=== PATIENT | male | born 1980 | race Caucasian/White ===

== ENCOUNTER 2019-01-22 01:56 | Inpatient (IN) ==
[2019-01-22] MEDS ORDERED: VANCOMYCIN CONSULT ACTIVE PRN ×2 (02:16→04:58)
[2019-01-22] MEDS ORDERED: ACETAMINOPHEN 1,000 MG/100 ML VIAL IV ONE (02:16)
[2019-01-22] MEDS ORDERED: VANCOMYCIN HCL 1,500 MG in SODIUM CHLORIDE 0.9% 500 ML IV ONE (02:18)
[2019-01-22] MEDS ORDERED: SODIUM CHLORIDE 0.9% 1000ML 2,000 ML IV SCH (02:30)
[2019-01-22] MEDS ORDERED: AZTREONAM 2,000 MG in DEXTROSE 5% 100 ML IV STA (02:52)
[2019-01-22 02:58] LABS: Hematocrit (blood only) 40.4 % (42-52); Hemoglobin 14.6 g/dL (14.0-18.0); Mean Corpuscular Hgb Conc 36.1 g/dL (32-36); Mean Corpuscular Volume 89.2 fL (80-100); Mean Platelet Volume 11.6 fL (7.4-10.4); Platelet Count 113 K/uL (130-400); RDW Coefficient of Variation 12.1 % (11.5-14.5); RDW Standard Deviation 39.1 fL (36.4-46.3); Red Blood Count 4.53 M/uL (4.7-6.1); White Blood Count 17.75 K/uL (4.8-10.8)
[2019-01-22 03:17] LABS: Alanine Aminotransferase 29 U/L (12-78); Albumin Level 2.6 gm/dl (3.4-5.0); Aspartate Aminotransferase 14 U/L (15-37); BUN Creatinine Ratio 22.2 (10-20); Blood Urea Nitrogen 21 mg/dl (7-18); Calcium 8.1 mg/dl (8.5-10.1); Carbon Dioxide 26 mmol/L (21-32); Chloride 98 mmol/L (98-107); Creatinine Clr Calc Pharmacy 92.6 ml/min; Est GFR (African American) 117.2; Est GFR (Non-African American) 101.1; Glucose 169 mg/dl (70-99); Potassium 3.7 mmol/L (3.5-5.1); Sodium 131 mmol/L (136-145)
[2019-01-22 03:22] LABS: Albumin Globulin Ratio 0.5 (0.9-2); Alkaline Phosphatase 149 U/L (45-117); Bilirubin,Total 0.6 mg/dl (0.2-1); Globulin 4.8 gm/dl (2.5-4.0); Total Protein 7.4 gm/dl (6.4-8.2); Troponin I < 0.015 ng/ml (0-0.045)
[2019-01-22 03:31] LABS: Basophils # (auto) 0.01 K/uL (0-0.2); Basophils % (auto) 0.1 %; Dohle Bodies 1+; Echinocytes 2+; Eosinophils # (auto) 0.03 K/uL (0-0.5); Eosinophils % (auto) 0.2 %; Giant Platelets 1+; Immature Granulocytes # (auto) 0.11 K/uL (0.00-0.02); Immature Granulocytes % (auto) 0.6 %; Lymphocytes # (auto) 0.65 K/uL (1.2-3.4); Lymphocytes % (auto) 3.7 %; Monocytes # (auto) 0.82 K/uL (0.11-0.59); Monocytes % (auto) 4.6 %; Neutrophils # (auto) 16.13 K/uL (1.4-6.5); Neutrophils % (auto) 90.8 %; Spherocytes 1+; Tear Drop Cells 1+; Toxic Granulation 1+; Toxic Vacuolation 2+
--- NOTE | 2019-01-22 04:03 | Emergency Department Note ---
Entered by Mary Elizabeth acting as a scribe for Anita Osorio MD History of Present Illness General Chief complaint: Fever Stated complaint: FEVER,SHARP PAIN RIGHT SIDE OF CHEST Source: patient History of Present Illness Onset (ago): week(s) 1 Location: head (Fever) Pain Consistency: + other (Persistent) Maximum Pain Intensity: 10 Quality: + sharp Relieved By: not by medication (Antipyretics) Associated symptoms: + chest pain, + fever/chills and + loss of appetite; no nausea/vomiting The patient is a 38 year old male presenting to the Emergency Department complaining of a persistent fever starting 1 week ago. The patient reports that he has a fever. He states that he has taken antipyretics for his fever that temporarily reduce it but that it always returns. He explains that he has been experiencing intermittent right-sided chest pains. He describes this pain as sharp. He notes that he has lost his appetite but still ate and drank [employer]. He adds that he is allergic to Penicillin. The patient reports that he used to be an IV drug user and that he last injected Suboxone in his right forearm about 1.5 months ago. He states that his sister had endocarditis. He denies reusing needles. He denies vomiting and alcohol use. Home Medications Home Medications Medication Instructions Recorded Confirmed Type No Known Home Medications 01/22/19 01/22/19 History Allergies Allergy/AdvReac Type Severity Reaction Status Date / Time No Known Allergies Allergy Unverified 01/22/19 03:23 Past Med/Surg History Medical History Hypoglycemia Surgical History No pertinent past surgical history Family History Other No pertinent family history Social History Preferred Language: Dutch Communication Ability: Effective Coil Winder Hand Required: No Beliefs That Will Affect Care: None Current Living Situation: Alone Feels Safe at Home: Yes Smoking Status: Current every day smoker Tobacco Type: cigarettes ; Cigarettes Per Day: 1 pack/day ; Hx Alcohol Use: Yes Hx Substance Use: Yes substance use type: other Substance Use Type Other:: Pt states he has done "everything". Last Used Substance: Unknown Review of Systems See HPI for pertinent positives & negatives. and A total of 10 systems reviewed and were otherwise negative Physical Exam Vital Signs Vital Signs - 24 hr 01/22/19 01:57 01/22/19 02:17 01/22/19 02:36 Temperature 37.4 C Temperature Source Oral Sepsis Recent Fever Within 48 Hours Yes Sepsis Action Taken by Nursing No Action Required Pulse Rate 131 H 115 H 110 H Respiratory Rate 22 26 H Blood Pressure 71/53 L 92/73 L 91/61 L Blood Pressure Mean 59 79 71 Blood Pressure Position Sitting Pulse Oximetry 96 Oxygen Delivery Method Room Air 01/22/19 03:02 01/22/19 03:30 01/22/19 03:40 Temperature Temperature Source Sepsis Recent Fever Within 48 Hours Sepsis Action Taken by Nursing Pulse Rate 107 H 101 H 99 H Respiratory Rate 19 12 Blood Pressure 98/66 L 89/58 L 91/59 L Blood Pressure Mean 76 68 69 Blood Pressure Position Pulse Oximetry Oxygen Delivery Method 01/22/19 04:00 01/22/19 04:05 01/22/19 04:30 Temperature 36.7 C Temperature Source Oral Sepsis Recent Fever Within 48 Hours Sepsis Action Taken by Nursing Pulse Rate 99 H 99 H Respiratory Rate 12 Blood Pressure 94/61 L 91/55 L Blood Pressure Mean 72 67 Blood Pressure Position Pulse Oximetry Oxygen Delivery Method Vital signs reviewed. General: Critically ill-appearing 38 year old male, in no significant distress. HEENT: No scleral icterus, PERRLA, neck supple. Atraumatic. Mucous membranes dry. Cardiovascular: Tachycardic rate and regular rhythm, no extra sounds. Pulmonary: Clear to auscultation bilaterally, normal work of breathing. Coarse breath sounds bilaterally. Abdomen: Soft, nontender, nondistended, positive bowel sounds. Musculoskeletal: Atraumatic, no peripheral edema. 4 cm area of induration distal to the right AC. Neurologic: Patient awake alert and oriented x 3, full strength in all 4 extremities. Cranial nerves 2 through 12 grossly intact. Skin: Diaphoretic. Pale. Course 0215: The patient was evaluated in room A9B, and a complete history and physical examination were performed. 0305: I reevaluated the patient at this time. 0426: I discussed the patients case with Dr. Toro [facility] hospitalist. He will evaluate the patient for further management. Consultations Consultation #1: I discussed the patients case with Dr. Cortez VERDUGO hospitalist. He will evaluate the patient for further management. Time: 04:26 Administered Medications Hydromorphone HCl (Dilaudid Director Of Marketing Operations) 25 mg IV PRN PRN; Protocol PRN Reason: Pain Stop: 02/06/19 12:03 Last Admin: 01/23/19 13:19 Dose: 25 mg Documented by: [id number] Cosigned by: [id number] Hydromorphone HCl (Dilaudid) 1 mg PO Q6H [facility]SANA Stop: 02/07/19 07:44 Last Admin: 01/24/19 13:24 Dose: 1 mg Documented by: [id number] Admin: 01/24/19 08:00 Dose: 1 mg Documented by: [id number] Heparin Sodium/Dextrose (Heparin Sodium/Dextrose) 25,000 units in 500 mls @ 31 mls/hr IV .Q16H8M OKSANA; Protocol Stop: 02/21/19 21:44 Last Titration: 01/24/19 18:51 Dose: 1,550 units/hr, 31 mls/hr Documented by: [id number] Cosigned by: [id number] Titration: 01/24/19 18:20 Dose: 1,550 units/hr, 31 mls/hr Documented by: [id number] Cosigned by: [id number] Admin: 01/24/19 08:29 Dose: 1,550 units/hr, 31 mls/hr Documented by: [id number] Cosigned by: [id number] Titration: 01/24/19 08:29 Dose: 1,550 units/hr, 31 mls/hr Documented by: [id number] Cosigned by: [id number] Titration: 01/24/19 07:09 Dose: 1,550 units/hr, 31 mls/hr Documented by: [id number] Cosigned by: [id number] Titration: 01/24/19 06:56 Dose: 1,550 units/hr, 31 mls/hr Documented by: [id number] Cosigned by: [id number] Titration: 01/23/19 18:48 Dose: 1,550 units/hr, 31 mls/hr Documented by: [id number] Cosigned by: [id number] Admin: 01/23/19 16:51 Dose: 1,550 units/hr, 31 mls/hr Documented by: [id number] Cosigned by: [id number] Titration: 01/23/19 16:51 Dose: 1,550 units/hr, 31 mls/hr Documented by: [id number] Cosigned by: [id number] Titration: 01/23/19 13:50 Dose: 1,550 units/hr, 31 mls/hr Documented by: [id number] Cosigned by: [id number] Titration: 01/23/19 07:06 Dose: 1,400 units/hr, 28 mls/hr Documented by: [id number] Cosigned by: [id number] Titration: 01/23/19 06:58 Dose: 1,150 units/hr, 23 mls/hr Documented by: [id number] Cosigned by: [id number] Admin: 01/22/19 22:29 Dose: 1,150 units/hr, 23 mls/hr Documented by: [id number] Cosigned by: [id number] Parenteral Electrolytes (Normosol-R) 1,000 mls @ 85 mls/hr IV .[id number] OKSANA Stop: 02/21/19 22:44 Last Infusion: 01/24/19 18:51 Dose: 85 mls/hr Documented by: [id number] Infusion: 01/24/19 18:20 Dose: 85 mls/hr Documented by: [id number] Infusion: 01/24/19 15:50 Dose: 0 mls/hr Documented by: [id number] Admin: 01/24/19 13:24 Dose: 85 mls/hr Documented by: [id number] Infusion: 01/24/19 13:24 Dose: 85 mls/hr Documented by: [id number] Infusion: 01/24/19 13:09 Dose: 85 mls/hr Documented by: [id number] Infusion: 01/24/19 10:25 Dose: 0 mls/hr Documented by: [id number] Infusion: 01/24/19 10:23 Dose: 85 mls/hr Documented by: [id number] Admin: 01/24/19 07:19 Dose: Not Given Documented by: [id number] Infusion: 01/24/19 06:56 Dose: 150 mls/hr Documented by: [id number] Admin: 01/24/19 04:13 Dose: 150 mls/hr Documented by: [id number] Infusion: 01/24/19 01:23 Dose: 150 mls/hr Documented by: [id number] Infusion: 01/23/19 18:48 Dose: 150 mls/hr Documented by: [id number] Infusion: 01/23/19 16:57 Dose: 0 mls/hr Documented by: [id number] Admin: 01/23/19 16:51 Dose: 150 mls/hr Documented by: [id number] Infusion: 01/23/19 16:51 Dose: 150 mls/hr Documented by: [id number] Infusion: 01/23/19 13:50 Dose: 150 mls/hr Documented by: [id number] Admin: 01/23/19 10:21 Dose: 150 mls/hr Documented by: [id number] Infusion: 01/23/19 10:08 Dose: 150 mls/hr Documented by: [id number] Infusion: 01/23/19 07:06 Dose: 150 mls/hr Documented by: [id number] Admin: 01/23/19 03:27 Dose: 150 mls/hr Documented by: [id number] Infusion: 01/23/19 03:27 Dose: 150 mls/hr Documented by: [id number] Admin: 01/22/19 22:50 Dose: 150 mls/hr Documented by: [id number] Sodium Chloride (Nss 1000ml) 1,000 mls @ 15 mls/hr IV .Q24H OKSANA Stop: 02/06/19 12:05 Last Infusion: 01/24/19 18:51 Dose: 30 mls/hr Documented by: [id number] Infusion: 01/24/19 18:20 Dose: 30 mls/hr Documented by: [id number] Infusion: 01/24/19 13:09 Dose: 30 mls/hr Documented by: [id number] Admin: 01/24/19 12:22 Dose: 30 mls/hr Documented by: [id number] Infusion: 01/24/19 12:22 Dose: 30 mls/hr Documented by: [id number] Infusion: 01/24/19 10:23 Dose: 30 mls/hr Documented by: [id number] Infusion: 01/24/19 06:56 Dose: 30 mls/hr Documented by: [id number] Infusion: 01/23/19 13:50 Dose: 30 mls/hr Documented by: [id number] Admin: 01/23/19 13:19 Dose: 30 mls/hr Documented by: [id number] Vancomycin HCl 1,250 mg/ (Sodium Chloride) 275 mls @ 125 mls/hr IV Q6H OKSANA; Protocol Stop: 02/05/19 21:59 Last Infusion: 01/24/19 18:20 Dose: 0 mls/hr Documented by: [id number] Admin: 01/24/19 15:46 Dose: 125 mls/hr Documented by: [id number] Infusion: 01/24/19 13:09 Dose: 0 mls/hr Documented by: [id number] Admin: 01/24/19 10:22 Dose: 125 mls/hr Documented by: [id number] Infusion: 01/24/19 06:27 Dose: 0 mls/hr Documented by: [id number] Admin: 01/24/19 04:12 Dose: 125 mls/hr Documented by: [id number] Infusion: 01/24/19 00:18 Dose: 0 mls/hr Documented by: [id number] Admin: 01/23/19 22:00 Dose: 125 mls/hr Documented by: [id number] Acetaminophen (Ofirmev) 65 mls @ 200 mls/hr IV Q8H PRN PRN Reason: Fever Stop: 02/23/19 14:44 Last Infusion: 01/24/19 15:05 Dose: 0 mls/hr Documented by: [id number] Admin: 01/24/19 14:45 Dose: 200 mls/hr Documented by: [id number] Ceftaroline Fosamil 600 mg/ (Sodium Chloride) 270 mls @ 250 mls/hr IV Q12H OKSANA; Protocol Stop: 02/07/19 15:59 Last Infusion: 01/24/19 16:59 Dose: 0 mls/hr Documented by: [id number] Admin: 01/24/19 15:48 Dose: 250 mls/hr Documented by: [id number] Lisinopril (Zestril) 10 mg PO QAM OKSANA Stop: 02/23/19 12:29 Last Admin: 01/24/19 13:24 Dose: 10 mg Documented by: [id number] Miscellaneous (Remove Nicoderm Patch) 1 ea N/A HS OKSANA Stop: 02/21/19 20:59 Last Admin: 01/23/19 21:59 Dose: 1 ea Documented by: [id number] Admin: 01/22/19 20:28 Dose: Not Given Documented by: [id number] Miscellaneous (Incremental Director Of Marketing Operations Titration) 1 ea N/A QS OKSANA Stop: 02/22/19 15:59 Last Admin: 01/24/19 15:45 Dose: 1 ea Documented by: [id number] Admin: 01/24/19 07:18 Dose: 1 ea Documented by: [id number] Admin: 01/24/19 02:04 Dose: Not Given Documented by: [id number] Admin: 01/23/19 16:52 Dose: 1 ea Documented by: [id number] Miscellaneous (Lock-Out Director Of Marketing Operations Titration) 1 ea N/A QS [facility] Stop: 02/06/19 15:59 Last Admin: 01/24/19 15:46 Dose: 1 ea Documented by: [id number] Admin: 01/24/19 07:18 Dose: 1 ea Documented by: [id number] Admin: 01/24/19 02:04 Dose: Not Given Documented by: [id number] Admin: 01/23/19 16:52 Dose: 1 ea Documented by: [id number] Multivitamins/Minerals (Multivitamin W/ Minerals Tab) 1 tab PO QAM [facility] Stop: 02/23/19 15:59 Last Admin: 01/24/19 16:45 Dose: 1 tab Documented by: [id number] Nicotine (Nicoderm Cq) 21 mg TD QAM [facility] Stop: 02/21/19 10:14 Last Admin: 01/24/19 07:18 Dose: 21 mg Documented by: [id number] Admin: 01/23/19 12:20 Dose: 21 mg Documented by: [id number] Admin: 01/22/19 11:04 Dose: Not Given Documented by: [id number] Potassium Chloride (Klor-Con M20) 40 meq PO QAM [facility] Stop: 02/23/19 08:59 Last Admin: 01/24/19 07:17 Dose: 40 meq Documented by: [id number] Senna/Docusate Sodium (Senokot S) 1 tab PO BID [facility] Stop: 02/22/19 12:29 Last Admin: 01/24/19 07:18 Dose: 1 tab Documented by: [id number] Admin: 01/23/19 21:58 Dose: 1 tab Documented by: [id number] Admin: 01/23/19 13:19 Dose: 1 tab Documented by: [id number] Tramadol HCl (Ultram) 50 mg PO Q6H PRN PRN Reason: Pain Stop: 02/21/19 16:50 Last Admin: 01/22/19 16:58 Dose: 50 mg Documented by: [id number] Discontinued Medications Acetaminophen (Tylenol) 650 mg PO Q4H PRN PRN Reason: Pain or Fever Stop: 02/21/19 05:00 Last Admin: 01/24/19 13:29 Dose: 650 mg Documented by: [id number] Admin: 01/24/19 00:36 Dose: 650 mg Documented by: [id number] Admin: 01/22/19 22:42 Dose: 650 mg Documented by: [id number] Enoxaparin Sodium (Lovenox) 40 mg SQ Q24H OKSANA Stop: 02/21/19 08:59 Last Admin: 01/22/19 09:43 Dose: Not Given Documented by: [id number] Hydromorphone HCl (Dilaudid) 0.5 mg IV NOW STA Stop: 01/23/19 12:09 Last Admin: 01/23/19 12:21 Dose: 0.5 mg Documented by: [id number] Acetaminophen (Ofirmev) 1,000 mg in 100 mls @ 400 mls/hr IV NOW ONE Stop: 01/22/19 02:30 Last Infusion: 01/22/19 03:27 Dose: 0 mls/hr Documented by: [id number] Admin: 01/22/19 03:12 Dose: 400 mls/hr Documented by: [id number] Sodium Chloride (Nss 1000ml) 2,000 mls @ 999 mls/hr IV .Q2H1M OKSANA Stop: 01/22/19 04:30 Last Infusion: 01/22/19 05:38 Dose: 0 mls/hr Documented by: [id number] Admin: 01/22/19 03:12 Dose: 999 mls/hr Documented by: [id number] Vancomycin HCl 1,500 mg/ (Sodium Chloride) 530 mls @ 200 mls/hr IV NOW ONE Stop: 01/22/19 04:56 Last Infusion: 01/22/19 07:22 Dose: 0 mls/hr Documented by: [id number] Admin: 01/22/19 04:01 Dose: 200 mls/hr Documented by: [id number] Aztreonam 2,000 mg/ Dextrose 110 mls @ 100 mls/hr IV NOW STA; Protocol Stop: 01/22/19 03:57 Last Infusion: 01/22/19 05:08 Dose: 0 mls/hr Documented by: [id number] Admin: 01/22/19 04:01 Dose: 100 mls/hr Documented by: [id number] Aztreonam 1,000 mg/ Dextrose 110 mls @ 100 mls/hr IV Q8H OKSANA; Protocol Stop: 02/05/19 11:59 Last Infusion: 01/23/19 06:34 Dose: 0 mls/hr Documented by: [id number] Admin: 01/23/19 04:54 Dose: 100 mls/hr Documented by: [id number] Infusion: 01/22/19 21:31 Dose: 0 mls/hr Documented by: [id number] Admin: 01/22/19 20:16 Dose: 100 mls/hr Documented by: [id number] Infusion: 01/22/19 12:56 Dose: 0 mls/hr Documented by: [id number] Admin: 01/22/19 11:48 Dose: 100 mls/hr Documented by: [id number] Vancomycin HCl 1,000 mg/ (Sodium Chloride) 270 mls @ 125 mls/hr IV Q10H [facility]NA; Protocol Stop: 02/05/19 15:59 Last Infusion: 01/22/19 20:02 Dose: 0 mls/hr Documented by: [id number] Admin: 01/22/19 17:32 Dose: 125 mls/hr Documented by: [id number] Lactated Ringer's (Lr) 1,000 mls @ 150 mls/hr IV .Q6H40M OKSANA Stop: 01/22/19 19:32 Last Infusion: 01/22/19 21:40 Dose: 0 mls/hr Documented by: [id number] Admin: 01/22/19 13:04 Dose: 150 mls/hr Documented by: [id number] Infusion: 01/22/19 13:04 Dose: 0 mls/hr Documented by: [id number] Infusion: 01/22/19 11:14 Dose: 0 mls/hr Documented by: [id number] Admin: 01/22/19 06:29 Dose: 150 mls/hr Documented by: [id number] Sodium Chloride (Nss 1000ml) 1,000 mls @ 999 mls/hr IV .Q1H1M ONE Stop: 01/22/19 12:08 Last Infusion: 01/22/19 12:20 Dose: 0 mls/hr Documented by: [id number] Admin: 01/22/19 11:14 Dose: 999 mls/hr Documented by: [id number] Sodium Chloride (Nss 1000ml) 1,000 mls @ 999 mls/hr IV .Q1H1M ONE Stop: 01/22/19 16:48 Last Infusion: 01/22/19 17:32 Dose: 0 mls/hr Documented by: [id number] Admin: 01/22/19 16:31 Dose: 999 mls/hr Documented by: [id number] Vancomycin HCl 1,000 mg/ (Sodium Chloride) 270 mls @ 125 mls/hr IV Q8H [facility]; Protocol Stop: 01/23/19 20:00 Last Infusion: 01/23/19 18:48 Dose: 0 mls/hr Documented by: [id number] Admin: 01/23/19 16:53 Dose: 125 mls/hr Documented by: [id number] Infusion: 01/23/19 10:21 Dose: 0 mls/hr Documented by: [id number] Admin: 01/23/19 07:59 Dose: 125 mls/hr Documented by: [id number] Infusion: 01/23/19 02:27 Dose: 0 mls/hr Documented by: [id number] Admin: 01/22/19 22:58 Dose: 125 mls/hr Documented by: [id number] Heparin Sodium (Porcine) 5,000 (units/ Syringe) 5 mls @ 10 mls/min IV NOW ONE Stop: 01/22/19 21:46 Last Admin: 01/22/19 22:29 Dose: 10 mls/min Documented by: [id number] Cosigned by: [id number] Phenylephrine HCl 20 mg/ (Dextrose) 502 mls @ 48.95 mls/hr IV .[id number] [facility]; Protocol Stop: 02/21/19 23:14 Last Admin: 01/23/19 10:21 Dose: Not Given Documented by: [id number] Admin: 01/23/19 07:44 Dose: Not Given Documented by: [id number] Heparin Sodium (Porcine) 5,000 (units/ Syringe) 5 mls @ 1 mls/min IV ONE ONE Stop: 01/23/19 07:19 Last Admin: 01/23/19 07:33 Dose: 1 mls/min Documented by: [id number] Cosigned by: [id number] Potassium Acetate 10 meq/ (Sodium Chloride) 105 mls @ 105 mls/hr IV Q1H ONE Stop: 01/23/19 08:59 Last Infusion: 01/23/19 10:21 Dose: 0 mls/hr Documented by: [id number] Admin: 01/23/19 08:37 Dose: 105 mls/hr Documented by: [id number] Heparin Sodium (Porcine) 3,000 (units/ Syringe) 3 mls @ 1 mls/min IV NOW STA Stop: 01/23/19 13:57 Last Admin: 01/23/19 14:04 Dose: 1 mls/min Documented by: [id number] Cosigned by: [id number] Ketamine HCl (Ketalar Steri-Vial) 20 mg IV NOW STA Stop: 01/22/19 22:48 Last Admin: 01/22/19 23:27 Dose: Not Given Documented by: [id number] Metoprolol Tartrate (Lopressor) 5 mg IV Q6 [facility] Stop: 02/22/19 00:00 Last Admin: 01/23/19 08:36 Dose: 5 mg Documented by: [id number] Admin: 01/23/19 06:38 Dose: 5 mg Documented by: [id number] Admin: 01/22/19 22:52 Dose: 5 mg Documented by: [id number] Metoprolol Tartrate (Lopressor) 25 mg PO NOW STA Stop: 01/23/19 08:33 Last Admin: 01/23/19 08:52 Dose: 25 mg Documented by: [id number] Metoprolol Tartrate (Lopressor) 25 mg PO BID [facility] Stop: 02/22/19 22:44 Last Admin: 01/24/19 07:17 Dose: 25 mg Documented by: [id number] Admin: 01/23/19 22:52 Dose: 25 mg Documented by: [id number] Metoprolol Tartrate (Lopressor) 25 mg PO ONE ONE Stop: 01/24/19 07:31 Last Admin: 01/24/19 08:00 Dose: 25 mg Documented by: [id number] Potassium Chloride (Klor-Con M10) 40 meq PO NOW STA Stop: 01/24/19 12:19 Last Admin: 01/24/19 12:23 Dose: 40 meq Documented by: [id number] Tramadol HCl (Ultram) 50 mg PO NOW STA Stop: 01/22/19 20:09 Last Admin: 01/22/19 20:15 Dose: 50 mg Documented by: [id number] Medical Decision Making Differential Diagnosis Differentials include influenza, other viral illness, pneumonia, urinary tract infection, metabolic abnormality, medication effect, cellulitis, meningitis, intra-abdominal source, carditis and substance abuse amongst others. Medical Records Attestation: I reviewed the patient's medical records. Home Medications Current Medication List: was personally reviewed by me Laboratory Data Attestation: I reviewed the patient's lab results. Result diagrams: 01/24/19 05:13 01/24/19 05:13 Lab Results 01/22/19 01/22/19 01/22/19 Range/Units 02:19 02:19 02:19 WBC 17.75 H (4.8-10.8) K/uL RBC 4.53 L (4.7-6.1) M/uL Hgb 14.6 (14.0-18.0) g/dL Hct 40.4 L (42-52) % MCV 89.2 (80-100) fL MCH 32.2 (25-34) pg MCHC 36.1 H (32-36) g/dL RDW Std Deviation 39.1 (36.4-46.3) fL RDW Coeff of Demond 12.1 (11.5-14.5) % Plt Count 113 L (130-400) K/uL MPV 11.6 H (7.4-10.4) fL Immature Gran % (Auto) 0.6 % Neut % (Auto) 90.8 % Lymph % (Auto) 3.7 % Leon % (Auto) 4.6 % Eos % (Auto) 0.2 % Baso % (Auto) 0.1 % Immature Gran # (Auto) 0.11 H (0.00-0.02) K/uL Neut # (Auto) 16.13 H (1.4-6.5) K/uL Lymph # (Auto) 0.65 L (1.2-3.4) K/uL Leon # (Auto) 0.82 H (0.11-0.59) K/uL Eos # (Auto) 0.03 (0-0.5) K/uL Baso # (Auto) 0.01 (0-0.2) K/uL Toxic Granulation 1+ Toxic Vacuolation 2+ Dohle Bodies 1+ Giant Platelets 1+ Spherocytes 1+ Tear Drop Cells 1+ Echinocytes 2+ PT 12.8 H (9.0-12.0) Seconds INR 1.3 H (0.9-1.1) Sodium 131 L (136-145) mmol/L Potassium 3.7 (3.5-5.1) mmol/L Chloride 98 (98-107) mmol/L Carbon Dioxide 26 (21-32) mmol/L Anion Gap 7.0 (3-11) BUN 21 H (7-18) mg/dl Creatinine 0.95 (0.6-1.4) mg/dl Est Cr Clr Drug Dosing 92.6 ml/min Est GFR ( Amer) 117.2 Est GFR (Non-Af Amer) 101.1 BUN/Creatinine Ratio 22.2 H (10-20) Glucose 169 H (70-99) mg/dl Lactate (0.4-2.0) mmol/L Calcium 8.1 L (8.5-10.1) mg/dl Total Bilirubin 0.6 (0.2-1) mg/dl AST 14 L (15-37) U/L ALT 29 (12-78) U/L Alkaline Phosphatase 149 H (45-117) U/L Troponin I < 0.015 (0-0.045) ng/ml Total Protein 7.4 (6.4-8.2) gm/dl Albumin 2.6 L (3.4-5.0) gm/dl Globulin 4.8 H (2.5-4.0) gm/dl Albumin/Globulin Ratio 0.5 L (0.9-2) Influenza Type A Ag (Neg) Influenza Type B Ag (Neg) Bld Cult Staph aureus PCR (Negative) Blood Culture MRSA PCR (Negative) 01/22/19 01/22/19 01/22/19 Range/Units 02:44 02:59 03:20 WBC (4.8-10.8) K/uL RBC (4.7-6.1) M/uL Hgb (14.0-18.0) g/dL Hct (42-52) % MCV (80-100) fL MCH (25-34) pg MCHC (32-36) g/dL RDW Std Deviation (36.4-46.3) fL RDW Coeff of Demond (11.5-14.5) % Plt Count (130-400) K/uL MPV (7.4-10.4) fL Immature Gran % (Auto) % Neut % (Auto) % Lymph % (Auto) % Leon % (Auto) % Eos % (Auto) % Baso % (Auto) % Immature Gran # (Auto) (0.00-0.02) K/uL Neut # (Auto) (1.4-6.5) K/uL Lymph # (Auto) (1.2-3.4) K/uL Leon # (Auto) (0.11-0.59) K/uL Eos # (Auto) (0-0.5) K/uL Baso # (Auto) (0-0.2) K/uL Toxic Granulation Toxic Vacuolation Dohle Bodies Giant Platelets Spherocytes Tear Drop Cells Echinocytes PT (9.0-12.0) Seconds INR (0.9-1.1) Sodium (136-145) mmol/L Potassium (3.5-5.1) mmol/L Chloride (98-107) mmol/L Carbon Dioxide (21-32) mmol/L Anion Gap (3-11) BUN (7-18) mg/dl Creatinine (0.6-1.4) mg/dl Est Cr Clr Drug Dosing ml/min Est GFR ( Amer) Est GFR (Non-Af Amer) BUN/Creatinine Ratio (10-20) Glucose (70-99) mg/dl Lactate 1.7 (0.4-2.0) mmol/L Calcium (8.5-10.1) mg/dl Total Bilirubin (0.2-1) mg/dl AST (15-37) U/L ALT (12-78) U/L Alkaline Phosphatase (45-117) U/L Troponin I (0-0.045) ng/ml Total Protein (6.4-8.2) gm/dl Albumin (3.4-5.0) gm/dl Globulin (2.5-4.0) gm/dl Albumin/Globulin Ratio (0.9-2) Influenza Type A Ag Neg for Influ A (Neg) Influenza Type B Ag Neg for Influ B (Neg) Bld Cult Staph aureus PCR Positive A (Negative) Blood Culture MRSA PCR Positive A (Negative) Imaging Data Attestation: I personally reviewed and interpreted this imaging study as follows: My Impression: XR Chest 1V portable stat: Perihilar prominence bilaterally. No focal lung consolidation. No failure. ECG Data Attestation: I personally reviewed and interpreted this ECG as follows: Indication: chest pain Rate (beats per minute): 117 Rhythm: sinus tachycardia Findings: + other (QTC 426.) and + PVC; no acute ischemic change Comparison ECG Date: no prior available Blood Pressure Blood Pressure Findings: Low blood pressure Blood Pressure Disposition: further management by hospitalist MDM Narrative This pt was evaluated and appeared to be in no distress. IV access was obtained and lab work was drawn. Blood cultures were obtained x 3 due to high suspicion of endocarditis. WBC is elevated, lactate is only slightly elevated but BP is low. Given pt's h/o PCN allergy, IV vancomycin and aztreonam were initiated. IVF were given and pt's BP improved somewhat. CXR is as above. The area that i s swollen to right forearm was aspirated with an 18 g needle, no fluid was obtained. Pt is a strong candidate for endocarditis and will require further evaluation. He was d/w Dr Toro of the [facility] hospitalist service for further management. Impression & Plan Sepsis, Hypotension, Fever, IVDU (intravenous drug user) Critical Care Time Critical Care Time: Yes I have personally spent 45 minutes of critical care time in the direct management of this patient. This includes bedside care, interpretation of diagnostic studies, and testing, discussion with consultants, patient, and family members, and other required patient management activities. This 45 minutes is in excess of all separately billable procedures. Discharge Plan Visit Data *Final* Discharge Date/Time: 01/22/19 05:38 Chief Complaint: Fever Stated Complaint: FEVER,SHARP PAIN RIGHT SIDE OF CHEST ED Provider: Anita Osorio Discharge Problem: Sepsis, Hypotension, Fever, IVDU (intravenous drug user) Patient Disposition: Admitted As Inpatient Discharge Instructions Interventions: ED Discharge Assessment Last Done: 01/22/19 05:38 Discharge Problem: Sepsis Qualifiers: Sepsis type: sepsis due to unspecified organism Sepsis acute organ dysfunction status: unspecified Qualified Code(s): A41.9 - Sepsis, unspecified organism Hypotension Qualifiers: Hypotension type: unspecified hypotension type Qualified Code(s): I95.9 - Hypotension, unspecified Fever Qualifiers: Fever type: unspecified Qualified Code(s): R50.9 - Fever, unspecified The scribe's documentation has been prepared under my direction and personally reviewed by me in its entirety. I confirm that the note above accurately reflects all work, treatment, procedures, and medical decision making performed by me.
[2019-01-22] MEDS ORDERED: MAGNESIUM HYDROXIDE SUSP 30 ML UDC PO PRN (05:01)
[2019-01-22] MEDS ORDERED: POLYETHYLENE (MIRALAX) 17 GM PACK PO PRN (05:01)
[2019-01-22] MEDS ORDERED: ALUMINUM/MAGNESIUM SUSP 30 ML UDC PO PRN (05:01)
[2019-01-22] MEDS ORDERED: ZOLPIDEM TARTRATE 5 MG TAB PO PRN (05:01)
--- NOTE | 2019-01-22 05:13 | History & Physical Report ---
Date of Service January 22, 2019 Assessment & Plan (1) Fever: 38 y/o M Hx IVDU presenting with fevers and drenching night sweats x 1 week. The pt states he last used IV drugs when he dissolved Suboxone into water and injected it into his R arm. This resulted in a hard lump in the anticubital region, however, he states that he did not develop signs of a local infection and did not develop fevers until approximately 3 weeks later. He denies SOB, a productive cough, nausea, vomiting, diarrhea or dysuria. The pt was febrile, hypotensive and tachycardic on arrival to the ER. He responded well to a litre of fluids. Labs were notable for leukocytosis, hyponatremia and mild uremia consistent with dehydration. Lactic acid was WNL and a CXR was clear. 1) Fevers and night sweats - concern for endocarditis as there is no evidence of cellulitis. The timing does not work out will if he is forthcoming and has not injected drugs in nearly a month, however, we do not have another source and he is clearly bacteremic. He was started on Vanc and Aztreonam. We will consult ID and obtain an echo. Cultures are pending. 3 sets were obtained in the ER. 2) IVDU - unclear if he is forthcoming regarding his drug use as IV Suboxone would be difficult to tolerate for a casual user, and casual users are not normally IV users. I suppose we will find out if he begins to exhibit withdrawal. 3) The pt has no interest in smoking cessation and indeed has more immediate concerns at present. Full code - Lovenox prophylaxis Total time for this admit including review of labs, meds, imaging, records - discussion with pt and ER attending - 45 min Present on Admission?: Yes History of Present Illness Chief Complaint: Fevers and night sweats Primary Care Provider: NO PCP 38 y/o M Hx IVDU presenting with fevers and drenching night sweats x 1 week. The pt states he last used IV drugs when he dissolved Suboxone into water and injected it into his R arm. This resulted in a hard lump in the anticubital region, however, he states that he did not develop signs of a local infection and did not develop fevers until approximately 3 weeks later. He denies SOB, a productive cough, nausea, vomiting, diarrhea or dysuria. The pt was febrile, hypotensive and tachycardic on arrival to the ER. He responded well to a litre of fluids. Labs were notable for leukocytosis, hyponatremia and mild uremia consistent with dehydration. Lactic acid was WNL and a CXR was clear. PMH: Denies a significant medical history aside from IVDU and smoking Social: Smokes one pack daily, drinks alcohol occasionally. Denies consistent drug use, but states that he does occasionally inject heroin. 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 Family: The pt is adopted and does not know the fate of his biological parents. Allergies Allergy/AdvReac Type Severity Reaction Status Date / Time No Known Allergies Allergy Unverified 01/22/19 03:23 Home Medications Home Medications Medication Instructions Recorded Confirmed Type No Known Home Medications 01/22/19 01/22/19 History Past Med/Surg History Medical History Hypoglycemia Surgical History No pertinent past surgical history Family History Other No pertinent family history Social History Preferred Language: Polish Feels Safe at Home: Yes Smoking Status: Current every day smoker Review of Systems Review of Systems: Gen: Fevers and drenching night sweats x 1 week ENT: Denies congestion, throat pain, hearing loss Eyes: Denies acute visual changes CV: Denies CP, palpitations Pulmonary: Denies SOB, cough, wheezing GI: Denies N/V, diarrhea, constipation Neuro: Denies acute or unilateral weakness, acute gait impairment, headache or acute visual changes Musculoskeletal: Denies joint pain, inflammation Endocrine: Denies polydipsia, polyuria Skin: Denies acute rashes or ulcers - hard lump on R anticubital area Physical Exam Physical Exam: General: Thin, young male who is diaphoretic in no distress. ENT: No erythema or exudates, no thrush Eyes: HAN, EOMI Head and neck: Normocephalic, atraumatic, No JVD, neck is supple. Chest/heart: Nontender, S1,2, RRR, no murmurs, no gallops Lungs: CTAB, no wheezing or crackles Abdomen: Nontender, nondistended, BS+ Neuro: AAO x 3, speech is clear, no unilateral weakness or loss of sensation, coordination intact Musculoskeletal: No joint inflammation, muscle tenderness, FROM Skin: No acute rashes or ulcers - multiple poorly rendered tattoos - 3cm round, hard lump on R anticubital area. Extremities: No clubbing, cyanosis, edema - no splinter hemorrhages or Osler nodes Results & Data Vital Signs (Past 12 Hours) Vital Signs Temp Pulse Resp BP Pulse Ox 01/22/19 04:30 99 H 12 91/55 L 01/22/19 04:05 98.1 F 01/22/19 04:00 99 H 94/61 L 01/22/19 03:40 99 H 12 91/59 L 01/22/19 03:30 101 H 19 89/58 L 01/22/19 03:02 107 H 98/66 L 01/22/19 02:36 110 H 91/61 L 01/22/19 02:17 115 H 26 H 92/73 L 01/22/19 01:57 99.3 F 131 H 22 71/53 L 96 PG Care Time/CCT Total # of Minutes Spent Total Time Spent with Patient: Total time spent is greater than 50% in coordination of care (as documented) at patient's floor/unit and/or counseling patient: (1) Fever Fever type: unspecified Qualified Code(s): R50.9 - Fever, unspecified
--- NOTE | 2019-01-22 06:28 | Pharmacy Report ---
Pharmacy Abx Initial Consult - Date of Service January 22, 2019 - Pharmacy Dosing Scope Date of Consult: 01/22/19 Consultation requested by: Dr. Toro Pharmacy is consulted to continue Vancomycin dosing therapy, order appropriate labs and adjust drug dose/frequency. - Subjective The patient is a 38 year old M admitted on 01/22/19 05:01 with possible Bacteremia. There is question about IV drug abuse and patient tells a story of injecting a some sort of suboxone mixture recently. He tells tales of "occasional" Herion use. In essence there is questionable history and real potential for endocarditis. Dr. Toro continued Azactam and Vancomycin IV started in the ED. Pharmacy to follow. - Objective Height: 5 ft 10 in Weight: 65 kg Vital Signs (Past 12hrs): Vital Signs Temp Pulse Pulse Resp BP BP Pulse Ox 01/22/19 05:50 36.4 C L 89 16 85/57 L 98 01/22/19 05:38 90 16 91/58 L 95 01/22/19 04:30 99 H 12 91/55 L 01/22/19 04:05 36.7 C 01/22/19 04:00 99 H 94/61 L 01/22/19 03:40 99 H 12 91/59 L 01/22/19 03:30 101 H 19 89/58 L 01/22/19 03:02 107 H 98/66 L 01/22/19 02:36 110 H 91/61 L 01/22/19 02:17 115 H 26 H 92/73 L 01/22/19 01:57 37.4 C 131 H 22 71/53 L 96 Lab Results (24hrs): Laboratory Tests (24 Hours) 01/22/19 01/22/19 02:19 02:19 WBC 17.75 H Neut # (Auto) 16.13 H Creatinine 0.95 Est Cr Clr Drug Dosing 92.6 Micro Results: 01/22/19 02:59 Aerobic Blood Culture - Pending Blood Anaerobic Blood Culture - Pending 01/22/19 03:07 Aerobic Blood Culture - Pending Blood Anaerobic Blood Culture - Pending 01/22/19 02:19 Aerobic Blood Culture - Pending Blood Anaerobic Blood Culture - Pending - Assessment & Plan Assessment 38 year old M with most likely Bacteremia Plan Vancomycin IV * Estimated PK Parameters: Vd 0.7 L/kg, Alfred 0.081 hr-1, t1/2 8.55 hr * Loading dose: 1500 mg (24 mg/kg) x 1 in the ED * Maintenance dose: 1000 mg IV (16 mg/kg) every 10 hours * Goal trough level: 15 to 20 mcg/mL * Trough level ordered prior to 2200 dose on 01/23/19 Pharmacy will continue to follow and will adjust dose/frequency as necessary. Thank you.
[2019-01-22] MEDS: LACTATED RINGER'S 1,000 ML IV SCH ×2 (06:29→13:04)
--- NOTE | 2019-01-22 06:30 | XRay Report ---
XR chest 1V portable CLINICAL HISTORY: fever COMPARISON STUDY: No previous studies for comparison. FINDINGS: The heart is normal in size. There is no failure. There is no focal pulmonary consolidation . There is a 12 mm right midlung zone nodule versus summation. A follow-up PA and lateral study to in clude shallow obliques is recommended.[ IMPRESSION: 1. No evidence of focal pulmonary consolidation 2. 12 mm right midlung zone nodule versus summation. A follow-up PA and lateral study to include shal low obliques is recommended Electronically signed by: Mello Mccall M.D. 01/22/2019 6:29 AM
[2019-01-22 06:31] LABS: INR 1.3 (0.9-1.1); Prothrombin Time 12.8 Seconds (9.0-12.0)
[2019-01-22] MEDS ORDERED: ENOXAPARIN INJ 40 MG/0.4 ML SYR SQ SCH (09:00)
[2019-01-22] MEDS: NICOTINE 21 MG/24 HR TDSY TD SCH (11:04)
[2019-01-22] MEDS ORDERED: SODIUM CHLORIDE 0.9% 1000ML 1,000 ML IV ONE ×2 (11:08→15:48)
[2019-01-22] MEDS: AZTREONAM 1,000 MG in DEXTROSE 5% 100 ML IV SCH ×2 (11:48→20:16)
--- NOTE | 2019-01-22 12:29 | Infectious Disease Consult ---
Date of Consultation January 22, 2019 Assessment & Plan (1) Fever: continue abx, follow cultures. highly concerned for IVDA related bsi/IE/septic emoboli with nodule noted on cxr and pleurtic right sided cp. Suggest CT chest, echo to r/o veg, would offer hepatitis and HIV testing due to ongoing IVDA, suggest uds as I suspect ongoing drug use. If rue nodule worsens may need imaging r/o abscess vs I&D. continue IV abx for now. History of Present Illness Attending Physician: Brian Dunn pt admitted with one week of fever and chills, was taking otc cold medicine with little relief. has h/o IVDA and recent use, no uds done. last injected into right AC fossa, has had "lump" in this area for some time, denies any pain, bleeding or drainge. c/o right sided cp with deep inspiration on exam today. also with f/c, sweats. blood cultures obtained in ER, penidng. was placed on IV aztreonam and vanco in Er, tolerating well. NKDA. afebrile since admission. wbc 17, creat 0.9, flu swab negative, denies sick contacts. no cough, sob, [place], no hemoptysis, denies travel, lives alone. no abd pain, no n/v/d. denies current drug use. Allergies Allergy/AdvReac Type Severity Reaction Status Date / Time No Known Allergies Allergy Unverified 01/22/19 03:23 Home Medications Home Medications Medication Instructions Recorded Confirmed Type No Known Home Medications 01/22/19 01/22/19 History Patient History Medical History Hypoglycemia Surgical History No pertinent past surgical history Family History Other No pertinent family history Social History Preferred Language: Turkish Communication Ability: Effective Seo Marketing Specialist Required: No Beliefs That Will Affect Care: None Current Living Situation: Alone Feels Safe at Home: Yes Smoking Status: Current every day smoker Tobacco Type: cigarettes ; Cigarettes Per Day: 1 pack/day ; Hx Alcohol Use: Yes Hx Substance Use: Yes substance use type: other Substance Use Type Other:: Pt states he has done "everything". Last Used Substance: Unknown Review of Systems Review of Systems: All systems reviewed & are unremarkable except as noted in HPI & below Physical Exam Constitutional: WD/WN, vitals as above Eyes: PERRL, conjunctivae normal, anicteric sclerae ENMT: external ear and nose normal, oropharynx normal Neck: normal visual inspection Respiratory: normal respiratory effort, lungs clear to auscultation Cardiovascular: RRR, no murmur, no edema Gastrointestinal (Abdomen): normal bowel sounds, soft, nontender, no hepatosplenomegaly Musculoskeletal: no cyanosis or clubbing, extremities motor strength 5/5 Skin: no rashes, warm and dry r AC fossa with small raised, hard, non tender nodule at injection site, no erythema, non tender, no fluctuance multiple tattoos Results & Data Vital Signs (Past 12 Hours) Vital Signs Temp Pulse Pulse Resp BP BP Pulse Ox 01/22/19 11:00 36.6 C 97 H 18 75/52 L 97 01/22/19 08:00 87 01/22/19 07:33 36.5 C 83 18 100/66 97 01/22/19 05:50 36.4 C L 89 16 85/57 L 98 01/22/19 05:38 90 16 91/58 L 95 01/22/19 04:30 99 H 12 91/55 L 01/22/19 04:05 36.7 C 01/22/19 04:00 99 H 94/61 L 01/22/19 03:40 99 H 12 91/59 L 01/22/19 03:30 101 H 19 89/58 L 01/22/19 03:02 107 H 98/66 L 01/22/19 02:36 110 H 91/61 L 01/22/19 02:17 115 H 26 H 92/73 L 01/22/19 01:57 37.4 C 131 H 22 71/53 L 96 PG Care Time/CCT Total # of Minutes Spent Total Time Spent with Patient: Total time spent is greater than 50% in coordination of care (as documented) at patient's floor/unit and/or counseling patient: (1) Fever Fever type: unspecified Qualified Code(s): R50.9 - Fever, unspecified
[2019-01-22] MEDS ORDERED: VANCOMYCIN HCL 1,000 MG in SODIUM CHLORIDE 0.9% 250 ML IV SCH (16:00)
[2019-01-22] MEDS ORDERED: TRAMADOL HCL 50 MG TABLET PO PRN (16:51)
--- NOTE | 2019-01-22 17:23 | Hospitalist Progress Note ---
Date of Service January 22, 2019 Assessment & Plan (1) Endocarditis of tricuspid valve: Echo with evidence of large TV vegetation, +blood cultures for MRSA, and clinical picture all consistent with endocarditis. This is due to IV drug abuse. He has severe sepsis/septic shock due to such. He has had copious IV fluid resuscitation throughout the day and despite such his SBPs continue to be low. He remains on IV vancomycin and aztreonam - the latter can likely be d/c. I repeated all labs this evening and he continues with leukocytosis, lactic acidosis, etc. In light of persistently low BPs I spoke with Dr Gong from the ICU and the patient will be transferred to the ICU for ongoing care. Present on Admission?: Yes (2) Severe sepsis: With septic shock. Incomplete response to supportive care including copious IV fluids and IV antibiotic therapy. He requires ICU care and will be transferred there this evening. Present on Admission?: Yes (3) MRSA (methicillin resistant Staphylococcus aureus) septicemia: Preliminary blood culture results suggest that the staph species is MRSA. This is likely due to IV drug abuse. ID consult appreciated. Repeat Blood cultures in the AM x 2 sets. Present on Admission?: Yes (4) Pleuritic chest pain: He has right-sided pleuritic pain. The location of his pain corresponds to the infiltrate seen on cxr last night. This is likely an area of septic emboli to the right lung (or a MRSA pneumonia). He needs a CT of the chest; however, he has not had a sustained, stable BP today to allow safe travel to radiology. Once BPs are improved will obtain CT chest. Treat pain in meantime with tramadol 50mg q6h prn. Present on Admission?: Yes (5) IV drug abuse: With resulting endocarditis, etc. He reported to me today that he has HepC. Has never had treatment for such. Will send HepC RNA and also check HepB and HIV. I obtained verbal consent for HIV testing. Present on Admission?: Yes (6) Hepatitis C infection: By history. Check HepC RNA. Check HepB surface Ag. Likely due to IV drug abuse. (7) Hypotension: due to septicemia. s/p copious maintenance fluids and several saline boluses today. Hypotension has persisted. Cortisol level wnl. H/H stable. To transfer to ICU. Consider levophed if BPs remain low. Present on Admission?: Yes (8) Severe protein-calorie malnutrition: Due to endocarditis, IV drug abuse, etc. Check HIV ab. MVI, protein supplement, treat underlying infections, etc. Present on Admission?: Yes (9) Thrombocytopenia: Likely due to severe sepsis/septicemia. INR slightly elevated this am. Doubt DIC but recheck coags tonight. If platelets continue to drop would need to D/c his lovenox for DVT proph. (10) Hyponatremia: 2nd to volume depletion - resolved. (11) DVT prophylaxis: lovenox 40mg daily patient critically ill. transferring to ICU. total critical care time today 60min. Subjective patient seen this am on rounds. he complained of right sided mid-lung pleuritic chest pain - corresponding to infiltrate on his chest film from last pm. however, he states "I feel much better" than last night. through the night and this AM he has had low BPs despite copious fluids. he reports 30+ pounds of weight loss starting 1-2 months ago along w/ chronic fevers and sweats. he has had poor appetite. he has been mildly short of breath. admits to IV drug use but nothing in the last month or so. dx with HepC about 1 year ago - has not seen a specialist for this. when asked if he has voided he stated "yes" but couldn't quantify the amount. throughout the afternoon I spoke with nursing staff multiple times Re: his plan of care and BPs gave 2 liters of NS boluses today with improved SBPs into the 90s however, BP response often was transient with SBPs then dropping back into the 80s Review of Systems Constitutional: + fatigue, + anorexia and + weight loss Respiratory: + cough and + pain on inspiration; no dyspnea Cardiovascular: as per Subjective / HPI and + chest pain; no orthopnea, no paroxysmal nocturnal dyspnea and no edema Gastrointestinal: no abdominal pain, no nausea and no vomiting Integumentary: no rash Physical Exam Constitutional: + ill appearing, + thin and + frail appearing; no acute distress ENMT: Mouth: + poor dentition; oral mucous membranes not dry Respiratory: no labored breathing Auscultation: + wheezes (minimal - right mid lung); no crackles Cardiovascular: Rate/Rhythm: regular rhythm and + tachycardic Heart Sounds: normal S1 and normal S2; no murmur Vessels: posterior tibial pulses present and dorsalis pedis pulses present; no JVD Extremities: no edema Gastrointestinal (Abdomen): normal bowel sounds, soft, nontender, no hepatosplenomegaly Skin: numerous tattoos; no rash; no tract fontanez Neurologic: no focal motor deficits Psychiatric: A+Ox3, euthymic affect Lymphatic: no cervical lymphadenopathy Results & Data Vital Signs (Past 12 Hours) Vital Signs Temp Pulse Pulse Resp BP BP Pulse Ox 01/22/19 16:49 101 H 25 H 81/49 L 96 01/22/19 11:00 36.6 C 97 H 18 75/52 L 97 01/22/19 08:00 87 01/22/19 07:33 36.5 C 83 18 100/66 97 01/22/19 05:50 36.4 C L 89 16 85/57 L 98 01/22/19 05:38 90 16 91/58 L 95 Laboratory Results Laboratory Results - last 24 hr 01/22/19 01/22/19 01/22/19 02:19 02:19 02:19 WBC 17.75 H RBC 4.53 L Hgb 14.6 Hct 40.4 L MCV 89.2 MCH 32.2 MCHC 36.1 H RDW Std Deviation 39.1 RDW Coeff of Demond 12.1 Plt Count 113 L MPV 11.6 H Immature Gran % (Auto) 0.6 Neut % (Auto) 90.8 Lymph % (Auto) 3.7 Monroe % (Auto) 4.6 Eos % (Auto) 0.2 Baso % (Auto) 0.1 Immature Gran # (Auto) 0.11 H Neut # (Auto) 16.13 H Lymph # (Auto) 0.65 L Monroe # (Auto) 0.82 H Eos # (Auto) 0.03 Baso # (Auto) 0.01 Toxic Granulation 1+ Toxic Vacuolation 2+ Dohle Bodies 1+ Platelet Estimate Giant Platelets 1+ Spherocytes 1+ Tear Drop Cells 1+ Echinocytes 2+ PT 12.8 H INR 1.3 H Sodium 131 L Potassium 3.7 Chloride 98 Carbon Dioxide 26 Anion Gap 7.0 BUN 21 H Creatinine 0.95 Est Cr Clr Drug Dosing 92.6 Est GFR ( Amer) 117.2 Est GFR (Non-Af Amer) 101.1 BUN/Creatinine Ratio 22.2 H Glucose 169 H Lactate Calcium 8.1 L Magnesium Total Bilirubin 0.6 AST 14 L ALT 29 Alkaline Phosphatase 149 H Troponin I < 0.015 Total Protein 7.4 Albumin 2.6 L Globulin 4.8 H Albumin/Globulin Ratio 0.5 L Random Cortisol Hep Bs Antigen HCV RNA (PCR) IUs/ml HCV RNA PCR log IUs/ml HIV 1&2 Ab/P24 Ag 4thGn Influenza Type A Ag Influenza Type B Ag Bld Cult Staph aureus PCR Blood Culture MRSA PCR 01/22/19 01/22/19 01/22/19 02:44 02:59 03:20 WBC RBC Hgb Hct MCV MCH MCHC RDW Std Deviation RDW Coeff of Demond Plt Count MPV Immature Gran % (Auto) Neut % (Auto) Lymph % (Auto) Monroe % (Auto) Eos % (Auto) Baso % (Auto) Immature Gran # (Auto) Neut # (Auto) Lymph # (Auto) Monroe # (Auto) Eos # (Auto) Baso # (Auto) Toxic Granulation Toxic Vacuolation Dohle Bodies Platelet Estimate Giant Platelets Spherocytes Tear Drop Cells Echinocytes PT INR Sodium Potassium Chloride Carbon Dioxide Anion Gap BUN Creatinine Est Cr Clr Drug Dosing Est GFR ( Amer) Est GFR (Non-Af Amer) BUN/Creatinine Ratio Glucose Lactate 1.7 Calcium Magnesium Total Bilirubin AST ALT Alkaline Phosphatase Troponin I Total Protein Albumin Globulin Albumin/Globulin Ratio Random Cortisol Hep Bs Antigen HCV RNA (PCR) IUs/ml HCV RNA PCR log IUs/ml HIV 1&2 Ab/P24 Ag 4thGn Influenza Type A Ag Neg for Influ A Influenza Type B Ag Neg for Influ B Bld Cult Staph aureus PCR Positive A Blood Culture MRSA PCR Positive A 01/22/19 01/22/19 01/22/19 18:09 18:09 18:09 WBC 20.69 H RBC 4.04 L Hgb 12.7 L Hct 37.1 L MCV 91.8 MCH 31.4 MCHC 34.2 RDW Std Deviation 42.4 RDW Coeff of Demond 12.5 Plt Count 85 L MPV 12.3 H Immature Gran % (Auto) 0.3 Neut % (Auto) 90.7 Lymph % (Auto) 3.3 Monroe % (Auto) 5.1 Eos % (Auto) 0.5 Baso % (Auto) 0.1 Immature Gran # (Auto) 0.07 H Neut # (Auto) 18.77 H Lymph # (Auto) 0.68 L Monroe # (Auto) 1.05 H Eos # (Auto) 0.10 Baso # (Auto) 0.02 Toxic Granulation Toxic Vacuolation 1+ Dohle Bodies Platelet Estimate Decreased L Giant Platelets Spherocytes Tear Drop Cells Echinocytes 1+ PT INR Sodium 142 D Potassium 3.9 Chloride 110 H Carbon Dioxide 26 Anion Gap 6.0 BUN 14 Creatinine 0.72 Est Cr Clr Drug Dosing 127.9 Est GFR ( Amer) 137.2 Est GFR (Non-Af Amer) 118.3 BUN/Creatinine Ratio 19.8 Glucose 141 H Lactate 2.5 H* Calcium 7.5 L Magnesium 2.0 Total Bilirubin AST ALT Alkaline Phosphatase Troponin I Total Protein Albumin Globulin Albumin/Globulin Ratio Random Cortisol Hep Bs Antigen HCV RNA (PCR) IUs/ml HCV RNA PCR log IUs/ml HIV 1&2 Ab/P24 Ag 4thGn Influenza Type A Ag Influenza Type B Ag Bld Cult Staph aureus PCR Blood Culture MRSA PCR 01/22/19 01/22/19 01/22/19 18:09 18:09 18:09 WBC RBC Hgb Hct MCV MCH MCHC RDW Std Deviation RDW Coeff of Demond Plt Count MPV Immature Gran % (Auto) Neut % (Auto) Lymph % (Auto) Monroe % (Auto) Eos % (Auto) Baso % (Auto) Immature Gran # (Auto) Neut # (Auto) Lymph # (Auto) Monroe # (Auto) Eos # (Auto) Baso # (Auto) Toxic Granulation Toxic Vacuolation Dohle Bodies Platelet Estimate Giant Platelets Spherocytes Tear Drop Cells Echinocytes PT INR Sodium Potassium Chloride Carbon Dioxide Anion Gap BUN Creatinine Est Cr Clr Drug Dosing Est GFR ( Amer) Est GFR (Non-Af Amer) BUN/Creatinine Ratio Glucose Lactate Calcium Magnesium Total Bilirubin AST ALT Alkaline Phosphatase Troponin I Total Protein Albumin Globulin Albumin/Globulin Ratio Random Cortisol 23.41 Hep Bs Antigen Neg HCV RNA (PCR) IUs/ml Pending HCV RNA PCR log IUs/ml Pending HIV 1&2 Ab/P24 Ag 4thGn Neg Influenza Type A Ag Influenza Type B Ag Bld Cult Staph aureus PCR Blood Culture MRSA PCR 01/22/19 18:09 WBC RBC Hgb Hct MCV MCH MCHC RDW Std Deviation RDW Coeff of Demond Plt Count MPV Immature Gran % (Auto) Neut % (Auto) Lymph % (Auto) Monroe % (Auto) Eos % (Auto) Baso % (Auto) Immature Gran # (Auto) Neut # (Auto) Lymph # (Auto) Monroe # (Auto) Eos # (Auto) Baso # (Auto) Toxic Granulation Toxic Vacuolation Dohle Bodies Platelet Estimate Giant Platelets Spherocytes Tear Drop Cells Echinocytes PT 12.4 H INR 1.2 H Sodium Potassium Chloride Carbon Dioxide Anion Gap BUN Creatinine Est Cr Clr Drug Dosing Est GFR ( Amer) Est GFR (Non-Af Amer) BUN/Creatinine Ratio Glucose Lactate Calcium Magnesium Total Bilirubin AST ALT Alkaline Phosphatase Troponin I Total Protein Albumin Globulin Albumin/Globulin Ratio Random Cortisol Hep Bs Antigen HCV RNA (PCR) IUs/ml HCV RNA PCR log IUs/ml HIV 1&2 Ab/P24 Ag 4thGn Influenza Type A Ag Influenza Type B Ag Bld Cult Staph aureus PCR Blood Culture MRSA PCR Diagnostic Findings echo - large vegetation on tricuspid valve; EF 50-55%. CXR - IMPRESSION: 1. No evidence of focal pulmonary consolidation 2. 12 mm right midlung zone nodule versus summation. blood cx's + for GPC clusters - early ID - MRSA PG Care Time/CCT Total # of Minutes Spent Total Time Spent with Patient: Total time spent is greater than 50% in coordination of care (as documented) at patient's floor/unit and/or counseling patient: Critical Care Time: Yes Total Critical Care Time: 60 (1) Hepatitis C infection Viral hepatitis chronicity: chronic Hepatic coma status: without hepatic coma Qualified Code(s): B18.2 - Chronic viral hepatitis C (2) Hypotension Hypotension type: unspecified hypotension type Qualified Code(s): I95.9 - Hypotension, unspecified
[2019-01-22 18:36] LABS: INR 1.2 (0.9-1.1); Prothrombin Time 12.4 Seconds (9.0-12.0)
[2019-01-22 18:53] LABS: BUN Creatinine Ratio 19.8 (10-20); Calcium 7.5 mg/dl (8.5-10.1); Creatinine Clr Calc Pharmacy 127.9 ml/min; Est GFR (African American) 137.2; Est GFR (Non-African American) 118.3; Potassium 3.9 mmol/L (3.5-5.1)
[2019-01-22 18:56] LABS: Basophils # (auto) 0.02 K/uL (0-0.2); Basophils % (auto) 0.1 %; Echinocytes 1+; Eosinophils % (auto) 0.5 %; Hematocrit (blood only) 37.1 % (42-52); Hemoglobin 12.7 g/dL (14.0-18.0); Immature Granulocytes # (auto) 0.07 K/uL (0.00-0.02); Immature Granulocytes % (auto) 0.3 %; Lymphocytes # (auto) 0.68 K/uL (1.2-3.4); Lymphocytes % (auto) 3.3 %; Mean Corpuscular Hgb Conc 34.2 g/dL (32-36); Mean Corpuscular Volume 91.8 fL (80-100); Mean Platelet Volume 12.3 fL (7.4-10.4); Monocytes # (auto) 1.05 K/uL (0.11-0.59); Monocytes % (auto) 5.1 %; Neutrophils # (auto) 18.77 K/uL (1.4-6.5); Neutrophils % (auto) 90.7 %; Platelet Count 85 K/uL (130-400); Platelet Estimate Decreased (Normal); RDW Coefficient of Variation 12.5 % (11.5-14.5); RDW Standard Deviation 42.4 fL (36.4-46.3); Red Blood Count 4.04 M/uL (4.7-6.1); Toxic Vacuolation 1+; White Blood Count 20.69 K/uL (4.8-10.8)
[2019-01-22 18:58] LABS: Cortisol Random 23.41 mcg/dl
[2019-01-22 19:09] LABS: Hepatitis B Surface Antigen Neg (Neg)
[2019-01-22] MEDS ORDERED: TRAMADOL HCL 50 MG TABLET PO STA (20:08)
--- NOTE | 2019-01-22 20:17 | Critical Care Consultation ---
Date of Consultation January 22, 2019 Assessment & Plan (1) Admitted to intensive care unit: Romaine Cristina is a 38 y/o male with history of IV drug abuse and Hepatitis C, last injected Suboxone into right forearm about 1.5 months ago. 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 Neuro: answers questions appropriately, alert Ox3 however, sister is medical decision maker - needs consent for intubation, bronch, blood product, CVL. Cardiac/Vascular Active Tricuspid endocarditis Hypotensive despite receiving 6L of IVF Echocardiogram showing * large mobile vegetation attached to tricuspid valve measuring 2.7cm in length by 1.3cm. * EF 50-55% * Mild-moderate regurgitation Will contact [facility] Cardio-thoracic surgery for stratification risk/possible transfer for surgical intervention of tricuspid valve. Pulm Vegetation on tricuspid valve concerning for micro emboli to lungs currently on room air, but concerning for possible decompensation from emboli GI: Hepatitis C infection, lab work for viral load pending Discussed with 2nd floor nurse, he had voided after lunch today, but wasn't measured. Since, then he has not had any urine output. Endo: No hx of DM, or thyroid dysfunction Heme Leukocytosis 20.69 consistent with infection Thrombocytopenia 85 ID: Septic, bacteremia of gram positive cocci clusters probably MRSA from tricuspid vegetation Has had aggressive IVF resuscitation with 6L thus far Lactate 2.5 and suspect it to rise Continue with Aztreonam and Vancomycin HIV ordered pending Lines: PIV DVT ppx Lovenox 40mg q24h Resuscitation status Full Code (2) Endocarditis of tricuspid valve: (3) MRSA (methicillin resistant Staphylococcus aureus) septicemia: (4) IV drug abuse: (5) Hepatitis C infection: Supervising Physician Co-Signing Physician Notes Dr. Rios was resident physician during care of patient. I separately evaluated patient for sevilla portions of the history and the exam. I was present during the critical portion of medical decision making, and I discussed the case with the resident. I generally agree with the findings and plan. I discussed the case with Dr. Sahu of cardiology as well as Dr. Potter of cardiac surgery at [facility]. Per Dr. Potter her indications f or surgery would be severe heart failure in the setting of right-sided solomon valve endocarditis, she also indicated she would be extremely hesitant to proceed for multiple septic emboli. Currently the patient appears to be entering more of severe sepsis/septic shock secondary to MRSA bacteremia most likely secondary to tricuspid endocarditis. Patient continues to oxygenate well on room air, we will place a central line and arterial line for close hemodynamic monitoring and vasoactive medication administration, he has received over 6 L of fluid and has had minimal urine output. Currently his creatinine is not elevated but I am concerned for septic emboli as he does have a nodule on his chest x-ray. We will empirically treat him as if he has a pulmonary embolus and spare contrasted CT scan at this time, he is certainly at risk for emboli given the large vegetation on the tricuspid valve. Patient states that his sister would be his medical decision-maker, he is consented for central venous access, arterial line intubation, bronchoscopy. Of note he has extremely poor dentition with essentially all his upper teeth are eroded to the gumline, he does not endorse odontalgia nor swelling of the oral cavity at this time. I have personally spent 85 minutes of critical care time in the direct management of this patient. This is a life/limb threatening event. This includes time spent evaluating patient, direct bedside care, chart review, placing orders, interpretation of diagnostic studies, discussion with consultants, patient, and/or family members regarding treatment decisions, as well as other required patient management activities. This time is exclusive of all separately billable procedures, and teaching time and separate from and in addition to any other critical care service time. History of Present Illness Reason for Consultation: Sepsis, tricuspid endocarditis Requesting Physician: Brian Dunn Attending Physician: Brian Dunn History of Present Illness Romaine Cristina is a 38 y/o male with history of IV drug abuse and Hepatitis C, last injected Suboxone into right forearm about 1.5 months ago. 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 He presented to [facility] ED for complaints of right sided chest pain, fevers, night sweats for one week. He denies SOB, cough, nausea, vomiting, diarrhea or dysuria. He notes poor dentition but denies any dental pain. Allergies Allergy/AdvReac Type Severity Reaction Status Date / Time No Known Allergies Allergy Unverified 01/22/19 03:23 Home Medications Home Medications Medication Instructions Recorded Confirmed Type No Known Home Medications 01/22/19 01/22/19 History Patient History Medical History Hypoglycemia Surgical History No pertinent past surgical history Family History Other No pertinent family history Social History Preferred Language: Frisian Communication Ability: Effective Assembler For Puller Over Machine Required: No Beliefs That Will Affect Care: None Current Living Situation: Alone Feels Safe at Home: Yes Smoking Status: Current every day smoker Tobacco Type: cigarettes ; Cigarettes Per Day: 1 pack/day ; Hx Alcohol Use: Yes Hx Substance Use: Yes substance use type: other Substance Use Type Other:: Pt states he has done "everything". Last Used Substance: Unknown Review of Systems Review of Systems: All systems reviewed & are unremarkable except as noted in HPI & below Physical Exam Constitutional: + ill appearing appears older than stated age Eyes: EOM intact bilaterally ENMT: Mouth: + dental caries and + loose teeth Neck: normal visual inspection and trachea midline Respiratory: no respiratory distress Auscultation: + wheezes (diffuse expiratory) Cardiovascular: Rate/Rhythm: regular rhythm and + tachycardic Gastrointestinal (Abdomen): Percussion/Palpation: abdomen soft; abdomen nonte nder Musculoskeletal: Head/Neck/Chest: normocephalic and head atraumatic Skin: numerous tattoos Neurologic: moves all extremities and awake Psychiatric: A+Ox3, euthymic affect Results & Data Vital Signs (Past 12 Hours) Vital Signs Temp Pulse Pulse Resp BP BP Pulse Ox 01/22/19 19:33 36.7 C 113 H 18 86/52 L 96 01/22/19 19:32 96 H 01/22/19 17:20 103 H 99/66 L 97 01/22/19 17:19 100 H 96/58 L 99 01/22/19 16:49 101 H 25 H 81/49 L 96 01/22/19 11:00 36.6 C 97 H 18 75/52 L 97 PG Care Time/CCT Critical Care Time: Yes Total Critical Care Time: 85 Resident Activity Tracking Resident Involvement: Resident Care Provided Care Provided: Adult Hospital Medicine (ICU)
[2019-01-22] MEDS ORDERED: HEPARIN IV BOLUS 5,000 UNITS in SYRINGE 0 ML IV ONE (21:45)
[2019-01-22 21:52] LABS: BUN Creatinine Ratio 18.1 (10-20); Calcium 7.3 mg/dl (8.5-10.1); Creatinine Clr Calc Pharmacy 126.1 ml/min; Est GFR (African American) 136.4; Est GFR (Non-African American) 117.7; Potassium 3.9 mmol/L (3.5-5.1)
[2019-01-22 21:56] LABS: Appearance Urine Clear (Clear); Bacteria Urine Automated Negative (Negative); Bilirubin Urine Negative (Negative); Blood Urine Trace (Negative); Color Urine Yellow; Epithelial Cell Urine Auto 20-30 /lpf (0-5); Glucose Urine UA Trace (Negative); Ketones Urine Negative (Negative); Leukocyte Esterase Urine Negative (Negative); Nitrite Urine Negative (Negative); Protein Urine 1+ (Negative); RBC Urine Automated 0-4 /hpf (0-4); Specific Gravity Urine 1.023 (1.000-1.030); Urobilinogen Urine Negative (Negative); pH Urine 5.5 (4.5-7.5)
[2019-01-22 22:15] LABS: Amphetamines+Metham, Urine Pos (Neg); Barbiturates, Urine Neg (Neg); Benzodiazepine, Urine Neg (Neg); Cocaine, Urine Neg (Neg); MDMA (Ecstacy), Urine Neg (Neg); Methadone, Urine Neg (Neg); Opiate, Urine Neg (Neg); Phencyclidine, Urine Neg (Neg)
--- NOTE | 2019-01-22 22:27 | Procedure Note ---
Procedure Note Date of Service January 22, 2019 Note INTERNAL JUGULAR CENTRAL LINE PROCEDURE NOTE: Procedure: Internal Jugular Central Line Placement Attending: Dr. Jose Gong Provider: YULI Billings Indication: Central Drug Administration, Poor Venous Access, Multiple Lab Draws Necessary, etc. Anesthesia: Lidocaine 1% Consent was signed and placed on the chart prior to procedure. Indication, risks, and benefits were explained at length. A time-out was completed verifying correct patient, procedure, site, positioning, and implants(s) or special equipment if applicable. Patients right neck was cleansed and draped in the typical sterile fashion using Chloraprep. The Internal Jugular Vein and Carotid Artery were identified using ultrasound. The superficial tissue was anesthetized using 3 mL of 1% lidocaine without epinephrine under direct visualization with the ultrasound. After adequate anesthetization was achieved, the Internal Jugular vein was cannulated under direct ultrasound guidance using an introducer needle on a syringe. Good venous blood return was maintained prior to removal of syringe from introducer needle. Using Seldinger Technique, a guide wire was advanced through the introducer needle without resistance. The introducer needle was removed and ultrasound images were obtained of the guide wire within the Internal Jugular Vein and saved to the patients medical record. A small incision was made in penetrating fashion at the guide wire insertion site utilizing an 11 blade scalpel. The dilator was advanced to the vessel without resistance. The dilator was exchanged for the triple lumen catheter which was advanced into the vessel without re sistance. The guide wire was removed intact from the catheter without issue. Claves were placed on each catheter tip with confirmation of good blood flow from each lumen. Each port was easily flushed with sterile saline. The catheter was placed at 15 cm and sutured in place. BioPatch was applied to the catheter and a sterile Tegaderm dressing was applied over the catheter with careful attention to sterility. Patient tolerated procedure well. No immediate complications were met. Post procedure x-ray was completed, placement was appropriate and no pneumothorax was noted. Images obtained are saved for permanent record Procedural Ultrasound Guidance: Procedure Date: 01/22/2019 Indication: Vasopressors/critically ill patient Attending: Dr. Jose Gong DO Provider: YULI Billings Artery AND Vein visualized: Yes Compressible Vein: Yes Guidewire or Short Catheter seen in vein prior to dilation: Yes Line confirmed in Vein with ultrasound: Yes Images obtained are saved for permanent record. Supervising Physician Co-Signing Physician Notes I was present and assisted during the entire procedure. Dynamic ultrasound images Coding CPT Codes Tubes, Drains, and Vasc Access - Tubes, Drains, and Vasc Access: Insertion Of Non-tunneled Catheter Age 5 Yrs> ([id number]) Tubes, Drains, and Vasc Access - Tubes, Drains, and Vasc Access: Ultrasound Guidance For Vascular ([id number])
[2019-01-22] MEDS: HEPARIN SODIUM/DEXTROSE 25,000 UNITS/500 ML BAG IV SCH (22:29)
[2019-01-22] MEDS: ACETAMINOPHEN 325 MG TAB PO PRN (22:42)
[2019-01-22] MEDS ORDERED: KETAMINE HCL INJ 50 MG/ML 10 ML VIAL IV STA (22:47)
[2019-01-22] MEDS: NORMOSOL-R 1,000 ML IV SCH (22:50)
[2019-01-22] MEDS: METOPROLOL TARTRATE 1 MG/ML VIAL IV SCH (22:52)
--- NOTE | 2019-01-22 22:52 | XRay Report ---
XR chest 1V portable HISTORY: Central venous catheter insertion. COMPARISON: Chest 01/2019. FINDINGS: No pneumothorax. The heart is normal in size. There is a right jugular central venous gurpreet ter. The tip is obscured by the overlying cardiac monitoring leads but appears to terminate at the ex pected location of the proximal SVC. Interval development of interstitial thickening and scattered no dular airspace opacities seen within the periphery of the lungs. IMPRESSION: 1. Right jugular central venous catheter terminates at the expected location of the SVC. 2. No pneumothorax. 3. Interval development of interstitial thickening and scattered peripheral nodular airspace opacitie s. This is nonspecific but could represent a pneumonia or possibly scattered septic pulmonary emboli. Clinical correlation recommended. 4. Findings were discussed with Dr. Alaniz at 10:50 PM on 01/22/2019. Electronically signed by: Maurice Flores M.D. 01/22/2019 10:51 PM
[2019-01-22] MEDS: VANCOMYCIN HCL 1,000 MG in SODIUM CHLORIDE 0.9% 250 ML IV SCH (22:58)
[2019-01-23] MEDS: NORMOSOL-R 1,000 ML IV SCH ×3 (03:27→16:51)
[2019-01-23] MEDS: AZTREONAM 1,000 MG in DEXTROSE 5% 100 ML IV SCH (04:54)
[2019-01-23 05:43] LABS: Hematocrit (blood only) 30.7 % (42-52); Hemoglobin 10.8 g/dL (14.0-18.0); Mean Corpuscular Hgb Conc 35.2 g/dL (32-36); Platelet Count 79 K/uL (130-400); RDW Coefficient of Variation 12.5 % (11.5-14.5); RDW Standard Deviation 40.8 fL (36.4-46.3); Red Blood Count 3.41 M/uL (4.7-6.1); White Blood Count 22.23 K/uL (4.8-10.8)
[2019-01-23 06:02] LABS: Basophils # (auto) 0.04 K/uL (0-0.2); Basophils % (auto) 0.2 %; Dohle Bodies 1+; Echinocytes 1+; Eosinophils % (auto) 0.4 %; Immature Granulocytes # (auto) 0.14 K/uL (0.00-0.02); Immature Granulocytes % (auto) 0.6 %; Lymphocytes # (auto) 0.88 K/uL (1.2-3.4); Monocytes % (auto) 5.8 %; Neutrophils # (auto) 19.77 K/uL (1.4-6.5)
[2019-01-23 06:07] LABS: Albumin Level 1.5 gm/dl (3.4-5.0); BUN Creatinine Ratio 18.3 (10-20); Calcium 6.9 mg/dl (8.5-10.1); Creatinine Clr Calc Pharmacy 139.5 ml/min; Est GFR (African American) 142.1; Est GFR (Non-African American) 122.6; Potassium 3.5 mmol/L (3.5-5.1)
[2019-01-23 06:16] LABS: Albumin Globulin Ratio 0.5 (0.9-2); Bilirubin,Total 0.3 mg/dl (0.2-1); Globulin 3.3 gm/dl (2.5-4.0); Total Protein 4.8 gm/dl (6.4-8.2)
[2019-01-23 06:26] LABS: Partial Thromboplastin Ratio 1.5; Partial Thromboplastin Time 40.8 Seconds (21.0-31.0)
[2019-01-23] MEDS: METOPROLOL TARTRATE 1 MG/ML VIAL IV SCH ×2 (06:38→08:36)
[2019-01-23] MEDS ORDERED: HEPARIN IV BOLUS 5,000 UNITS in SYRINGE 0 ML IV ONE (07:15)
--- NOTE | 2019-01-23 07:24 | Infectious Disease Progress Nt ---
Date of Service January 23, 2019 Assessment & Plan (1) Infectious endocarditis: continue vanco, stop aztreonam. follow repeat cultures, await ID gpc. (2) Gram positive septicemia: Subjective pt transferred to ICU for hotn, remains with low bp, remain on IV abx, vanco and aztreonam, tolerating. afebrile. Blood cultures in 3 sets now + gpc, awaiting additional ID. Repeat cultures pending. HIV negative, has h/o HCV, viral load pending, UDS + meth and thc. WBC 22 today, creat normal. Lactate trending down. Echo with large 2.7x 1.3cm TV veg. Results & Data Vital Signs (Past 12 Hours) Vital Signs Temp Pulse Pulse Resp BP BP Pulse Ox 01/23/19 06:38 115 H 100/70 01/23/19 06:30 111 H 27 H 100/70 97 01/23/19 06:00 112 H 30 H 95/68 L 94 01/23/19 05:30 111 H 33 H 90/58 L 94 01/23/19 05:00 109 H 26 H 88/60 L 93 01/23/19 04:30 109 H 22 88/56 L 95 01/23/19 04:00 36.8 C 107 H 21 89/60 L 94 01/23/19 03:43 107 H 20 86/56 L 94 01/23/19 03:30 108 H 21 86/56 L 94 01/23/19 03:00 109 H 19 89/59 L 94 01/23/19 02:30 113 H 31 H 88/52 L 94 01/23/19 02:00 117 H 32 H 90/53 L 94 01/23/19 01:30 122 H 34 H 80/53 L 95 01/23/19 01:00 120 H 28 H 84/62 L 94 01/23/19 00:30 36.8 C 122 H 21 94/53 L 95 01/23/19 00:00 121 H 29 H 84/63 L 95 01/22/19 23:37 128 H 20 80/63 L 95 01/22/19 23:30 129 H 28 H 86/60 L 95 01/22/19 23:15 132 H 14 88/64 L 93 01/22/19 23:10 129 H 35 H 93/61 L 94 01/22/19 23:09 38.9 C H 128 H 22 93/61 L 94 01/22/19 23:08 130 H 49 H 90/61 L 93 01/22/19 23:00 126 H 33 H 91/61 L 94 01/22/19 22:52 145 H 90/61 L 01/22/19 22:47 38.9 C H 01/22/19 22:06 136 H 24 105/59 L 94 01/22/19 21:55 135 H 100/67 01/22/19 21:40 130 H 108/72 01/22/19 19:33 36.7 C 113 H 18 86/52 L 96 01/22/19 19:32 96 H Laboratory Results Microbiology 01/22/19 02:59 Blood Aerobic Blood Culture - Preliminary Gram positive cocci clusters 01/22/19 02:59 Blood Anaerobic Blood Culture - Preliminary Gram positive cocci 01/22/19 02:19 Blood Aerobic Blood Culture - Preliminary Gram positive cocci clusters 01/22/19 02:19 Blood Anaerobic Blood Culture - Preliminary Gram positive cocci clusters 01/22/19 03:07 Blood Aerobic Blood Culture - Preliminary Gram positive cocci clusters 01/22/19 03:07 Blood Anaerobic Blood Culture - Preliminary Gram positive cocci PG Care Time/CCT Total # of Minutes Spent Total Time Spent with Patient: Total time spent is greater than 50% in coordination of care (as documented) at patient's floor/unit and/or counseling patient:
[2019-01-23] MEDS: PHENYLEPHRINE HCL 20 MG in DEXTROSE 5% 500 ML IV SCH ×2 (07:44→10:21)
[2019-01-23] MEDS: VANCOMYCIN HCL 1,000 MG in SODIUM CHLORIDE 0.9% 250 ML IV SCH ×2 (07:59→16:53)
[2019-01-23] MEDS ORDERED: POTASSIUM ACETATE 10 MEQ in 0.9 % SODIUM CHLORIDE 100 ML IV ONE (08:00)
--- NOTE | 2019-01-23 08:22 | Critical Care Progress Note ---
Date of Service January 23, 2019 Assessment & Plan (1) Admitted to intensive care unit: Romaine Cristina is a 38 y/o male with history of IV drug abuse and Hepatitis C, last injected Suboxone into right forearm about 1.5 months ago. 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 Neuro: answers questions appropriately, alert Ox3 Pain analgesics with DIRECTOR OF COMPLIANCE Dilaudid for pleuritic chest pain; will give one time dose of Dilaudid 0.5mg prior to DIRECTOR OF COMPLIANCE. Cardiac/Vascular Active Tricuspid endocarditis with pleuritic chest pain Requiring transfer to ICU bc of hypotension despite receiving 6L of IVF prior to ICU transfer * Hemodynamics appear slightly improved today, HR down from 130s to 110s, systolic improved to low 100s, diastolic values stable in the 60s. Echocardiogram showing * large mobile vegetation attached to tricuspid valve measuring 2.7cm in length by 1.3cm. * EF 50-55% * Mild-moderate regurgitation [facility] Cardio-thoracic surgery was contacted for stratification risk/possible transfer for surgical intervention of tricuspid valve, not surgical candidate at this time. Persistent tachycardia ranging 100-130s. Will repeat ECG and trop. Will treat with Lopressor 25mg PO x1 this AM; he is still on Lopressor 5mg IV q6h, but will most likely dc this later today pending hemodynamic values Pulm Vegetation on tricuspid valve concerning for micro emboli to lungs currently on room air, but concerning for possible decompensation from possible septic emboli CXR from last night (01/22) showed current placement of Right IJ CVC; interval development of interstitial thickening and scattered peripheral nodular airspace opacities, noted by radiology this is nonspecific could represent a pneumonia or possibly scattered septic pulmonary emboli. Obvious concerns for septic pulmonary emboli. Repeat CXR to re-evaluate lung aaron for septic emboli as having pleuritic chest pain and tachypnea Will add end-tidal CO2 monitoring to monitor for respiratory depression with DIRECTOR OF COMPLIANCE analgesics GI: Hepatitis C infection, lab work for viral load pending Improved urine out put overnight, geiger cath discontinued Urine output 0.77ml/kg/hr Endo: No hx of DM, or thyroid dysfunction Heme Leukocytosis trended up to 22.23 Thrombocytopenia 85 ID: Septic, bacteremia of gram positive cocci clusters probably MRSA from tricuspid vegetation Has had aggressive IVF resuscitation with 6L thus far Lactate elevated 8/ evening at 2.5, but repeat values trending down 2.0 --> 1.1 this AM, which is encouraging Continue with Aztreonam and Vancomycin HIV ordered - negative Hep C viral load pending; hx of hep C infection Lines: PIV left arm right IJ CVC DVT ppx Lovenox 40mg q24h Resuscitation status Full Code (2) Endocarditis of tricuspid valve: (3) MRSA (methicillin resistant Staphylococcus aureus) septicemia: (4) IV drug abuse: (5) Hepatitis C infection: Supervising Physician Co-Signing Physician Notes Dr. Rios was resident physician during care of patient. I separately evaluated patient for sevilla portions of the history and the exam. I was present during the critical portion of medical decision making, and I discussed the case with the resident. I generally agree with the findings and plan. Patient critically ill due to MRSA bacteremia and tricuspid endocarditis secondary to IVDA. Patient is exhibiting signs of severe sepsis, it also appears that he has had mycotic emboli to the lung and we are empirically treating him with heparin. After my discussion with cardiac surgery I do not anticipate him needing transfer in the acute setting, I am concerned about possibly worsening of his pulmonary function. If we proceed into arts I would again discussed the case with cardiac surgery at that point. We have started a Dilaudid DIRECTOR OF COMPLIANCE for significant pain which I believe is associated with septic emboli to the lung and probable associated infarct. I have personally spent 60 minutes of critical care time in the direct managemen t of this patient. This is a life/limb threatening event. This includes time spent evaluating patient, direct bedside care, chart review, placing orders, interpretation of diagnostic studies, discussion with consultants, patient, and/or family members regarding treatment decisions, as well as other required patient management activities. This time is exclusive of all separately billable procedures, and teaching time and separate from and in addition to any other critical care service time. Subjective Mr. Cristina notes no shortness of breath at rest. He continues to have chest pain with movement and with deep breaths, but does not endorse that pain is worse. He denies nausea. No acute events reported overnight. Review of Systems Review of Systems: All systems reviewed & are unremarkable except as noted in HPI & below Physical Exam Constitutional: + ill appearing Eyes: EOM intact bilaterally ENMT: Mouth: + dental caries and + loose teeth Neck: normal visual inspection and trachea midline Respiratory: + tachypneic; no respiratory distress Auscultation: + wheezes (diffuse expiratory) Cardiovascular: Rate/Rhythm: regular rhythm and + tachycardic Gastrointestinal (Abdomen): Percussion/Palpation: abdomen soft; abdomen nontender Musculoskeletal: Head/Neck/Chest: normocephalic and head atraumatic Neurologic: moves all extremities and awake Psychiatric: Orientation: alert and oriented x 3 Results & Data Vital Signs (Past 12 Hours) Vital Signs Temp Pulse Pulse Resp BP BP Pulse Ox 01/23/19 06:38 115 H 100/70 01/23/19 06:30 111 H 27 H 100/70 97 01/23/19 06:00 112 H 30 H 95/68 L 94 01/23/19 05:30 111 H 33 H 90/58 L 94 01/23/19 05:00 109 H 26 H 88/60 L 93 01/23/19 04:30 109 H 22 88/56 L 95 01/23/19 04:00 36.8 C 107 H 21 89/60 L 94 01/23/19 03:43 107 H 20 86/56 L 94 01/23/19 03:30 108 H 21 86/56 L 94 01/23/19 03:00 109 H 19 89/59 L 94 01/23/19 02:30 113 H 31 H 88/52 L 94 01/23/19 02:00 117 H 32 H 90/53 L 94 01/23/19 01:30 122 H 34 H 80/53 L 95 01/23/19 01:00 120 H 28 H 84/62 L 94 01/23/19 00:30 36.8 C 122 H 21 94/53 L 95 01/23/19 00:00 121 H 29 H 84/63 L 95 01/22/19 23:37 128 H 20 80/63 L 95 01/22/19 23:30 129 H 28 H 86/60 L 95 01/22/19 23:15 132 H 14 88/64 L 93 01/22/19 23:10 129 H 35 H 93/61 L 94 01/22/19 23:09 38.9 C H 128 H 22 93/61 L 94 01/22/19 23:08 130 H 49 H 90/61 L 93 01/22/19 23:00 126 H 33 H 91/61 L 94 01/22/19 22:52 145 H 90/61 L 01/22/19 22:47 38.9 C H 01/22/19 22:06 136 H 24 105/59 L 94 01/22/19 21:55 135 H 100/67 01/22/19 21:40 130 H 108/72 Resident Activity Tracking Resident Involvement: Resident Care Provided Care Provided: Adult Hospital Medicine (ICU) (1) Hepatitis C infection Hepatic coma status: without hepatic coma Viral hepatitis chronicity: chronic Qualified Code(s): B18.2 - Chronic viral hepatitis C
[2019-01-23] MEDS ORDERED: METOPROLOL TARTRATE 25 MG TAB PO STA (08:32)
[2019-01-23] MEDS ORDERED: NALOXONE HCL 0.4 MG/1 ML VIAL/CARP IV PRN (12:04)
[2019-01-23] MEDS ORDERED: HYDROmorphone HCL 0.5MG/ML 50 ML CASSETTE IV PRN (12:04)
[2019-01-23] MEDS ORDERED: HYDROmorphone INJ 0.5 MG/0.5 ML SYR IV STA (12:08)
[2019-01-23] MEDS ORDERED: DOCUSATE SODIUM 100 MG CAP PO SCH (12:15)
[2019-01-23] MEDS: NICOTINE 21 MG/24 HR TDSY TD SCH (12:20)
--- NOTE | 2019-01-23 13:10 | XRay Report ---
XR chest 1V portable HISTORY: pleuritic chest pain; tricuspid endocarditis COMPARISON: Chest 01/22/2019. FINDINGS: No pneumothorax. No pleural effusions. The heart is top normal in size. Right jugular gurpreet ter terminates within the proximal SVC. Scattered peripheral airspace opacities are again noted. No e vidence for cavitation at this time. Mild interstitial thickening persists. IMPRESSION: No significant change in the scattered peripheral airspace opacities. No evidence for cavitation at t his time. This favors septic pulmonary emboli. Electronically signed by: Maurice Flores M.D. 01/23/2019 1:09 PM
[2019-01-23] MEDS: SODIUM CHLORIDE 0.9% 1000ML 1,000 ML IV SCH (13:19)
[2019-01-23] MEDS: DOCUSATE SODIUM/SENNA 50/8.6MG TAB PO SCH ×2 (13:19→21:58)
[2019-01-23 13:25] LABS: Partial Thromboplastin Ratio 1.6; Partial Thromboplastin Time 43.3 Seconds (21.0-31.0)
[2019-01-23] MEDS ORDERED: HEPARIN IV BOLUS 3,000 UNITS in SYRINGE 0 ML IV STA (13:55)
[2019-01-23] MEDS ORDERED: VANCOMYCIN TROUGH ONE ×2 (15:30→21:30)
[2019-01-23] MEDS: HEPARIN SODIUM/DEXTROSE 25,000 UNITS/500 ML BAG IV SCH (16:51)
--- NOTE | 2019-01-23 18:21 | Hospitalist Progress Note ---
Date of Service January 23, 2019 Assessment & Plan (1) Endocarditis of tricuspid valve: Echo with evidence of large TV vegetation, +blood cultures for MRSA, and clinical picture all consistent with endocarditis. This is due to IV drug abuse. He has severe sepsis/septic shock due to such. Repeat blood cx's dispatched today. He remains critically ill. BPs have improved overnight with fluid resuscitation. Appreciate critical care assistance. (2) Acute septic pulmonary embolism: Pleuritic chest pain and b/l chest x-ray findings all c/w septic emboli from his TV endocarditis. At some point will need CT chest. Continue IV antibiotic therapy and pain control. (3) Pleuritic chest pain: He now has b/l chest pain c/w septic emboli. Pain control. Treat infection. (4) Severe sepsis: With septic shock. Yesterday had incomplete response to supportive care including copious IV fluids and IV antibiotic therapy. Moved to ICU for central line and closer monitoring. Has had adequate UOP with intact renal function. Never needed pressors. Repeat blood cx's dispatched today. STOP aztreonam. Cont IV vanco. Appreciate ID consultation. (5) MRSA (methicillin resistant Staphylococcus aureus) septicemia: Preliminary blood culture results suggest that the staph species is MRSA. This is likely due to IV drug abuse. ID consult appreciated. Repeat Blood cultures sent today. Cont contact precautions. (6) IV drug abuse: With resulting endocarditis, etc. He reported that he has HepC. Has never had treatment for such. Sent HepC RNA. HIV and HepB titer negative. He is aware of those results. (7) Hepatitis C infection: By history. Check HepC RNA. Likely due to IV drug abuse. (8) Hypotension: due to septicemia. s/p copious maintenance fluids and several saline boluses yesterday. BPs improving although they are intermittently low-normal. Cortisol level wnl. H/H stable. (9) Severe protein-calorie malnutrition: Due to endocarditis, IV drug abuse, etc. HIV negative. MVI, protein supplement, treat underlying infections, etc. (10) Thrombocytopenia: Likely due to severe sepsis/septicemia. Coags stable. Platelets are a little lower today. Repeat CBC in am. Low threshold to d/c lovenox. (11) Hyponatremia: 2nd to volume depletion - resolved. (12) Pain of right great toe: This is either acute gout of the first MTP joint OR due to septic emboli to this region. Start with x-rays of right foot. Pain control. (13) DVT prophylaxis: lovenox 40mg daily Subjective patient c/o ongoing pleuritic chest pain - b/l chest. he also has right great toe pain - this started overnight. hurts to simply touch it. continues with chills, fever, and sweats. poor appetite. tele with sinus tach. Review of Systems Constitutional: + fever, + chills, + fatigue and + anorexia Respiratory: + cough, + dyspnea and + pain on inspiration; no sputum production Cardiovascular: as per Subjective / HPI and + chest pain; no orthopnea and no paroxysmal nocturnal dyspnea Gastrointestinal: no abdominal pain, no nausea and no vomiting Physical Exam Constitutional: + acute distress (tachypneic, looks uncomfortable), + ill a ppearing, + thin and + frail appearing ENMT: Mouth: + poor dentition; no oral mucosal abnormality Respiratory: + respiratory distress, + retractions, + uses accessory muscles and + tachypneic Auscultation: no crackles and no wheezes course BS b/l Cardiovascular: Rate/Rhythm: regular rhythm and + tachycardic Heart Sounds: normal S1 and normal S2; no murmur Vessels: posterior tibial pulses present and dorsalis pedis pulses present; no JVD Extremities: no edema Gastrointestinal (Abdomen): normal bowel sounds, soft, nontender, no hepatosplenomegaly Neurologic: no focal motor deficits Psychiatric: Orientation: alert and oriented x 3 Affect: + irritable affect Results & Data Vital Signs (Past 12 Hours) Vital Signs Temp Pulse Resp BP Pulse Ox 01/23/19 08:36 115 H 105/66 01/23/19 08:15 123 H 36 H 96 01/23/19 08:00 123 H 44 H 94/69 L 95 01/23/19 07:45 118 H 40 H 96 01/23/19 07:30 104 H 18 95/68 L 94 01/23/19 07:15 37.4 C 105 H 28 H 94 01/23/19 07:00 106 H 26 H 90/65 L 95 01/23/19 06:45 98 H 23 96 01/23/19 06:38 115 H 100/70 01/23/19 06:30 111 H 27 H 100/70 97 Laboratory Results Laboratory Results - last 24 hr 01/22/19 01/22/19 01/22/19 02:59 18:09 18:09 WBC 20.69 H RBC 4.04 L Hgb 12.7 L Hct 37.1 L MCV 91.8 MCH 31.4 MCHC 34.2 RDW Std Deviation 42.4 RDW Coeff of Demond 12.5 Plt Count 85 L MPV 12.3 H Immature Gran % (Auto) 0.3 Neut % (Auto) 90.7 Lymph % (Auto) 3.3 Harrison % (Auto) 5.1 Eos % (Auto) 0.5 Baso % (Auto) 0.1 Immature Gran # (Auto) 0.07 H Neut # (Auto) 18.77 H Lymph # (Auto) 0.68 L Harrison # (Auto) 1.05 H Eos # (Auto) 0.10 Baso # (Auto) 0.02 Toxic Vacuolation 1+ Dohle Bodies Platelet Estimate Decreased L Echinocytes 1+ PT INR APTT PTT Ratio Sodium Potassium Chloride Carbon Dioxide Anion Gap BUN Creatinine Est Cr Clr Drug Dosing Est GFR ( Amer) Est GFR (Non-Af Amer) BUN/Creatinine Ratio Glucose Lactate 2.5 H* Calcium Magnesium Total Bilirubin AST ALT Alkaline Phosphatase Troponin I Total Protein Albumin Globulin Albumin/Globulin Ratio Random Cortisol Urine Color Urine Appearance Urine pH Ur Specific [place] Urine Protein Urine Glucose (UA) Urine Ketones Urine Blood Urine Nitrite Urine Bilirubin Urine Urobilinogen Ur Leukocyte Esterase Urine WBC (Auto) Urine RBC (Auto) U Hyaline Cast (Auto) U Epithel Cells (Auto) Urine Bacteria (Auto) Nasal Screen MRSA (PCR) Vancomycin Trough Urine Opiates Screen Ur Methadone, Qual Urine Barbiturates Ur Phencyclidine (PCP) U Amphetamines Confirm U Amphetamin/Meth Scrn U Methamphetamin Confrm MDMA (Ecstasy) Screen U Benzodiazepines Scrn Ur Cocaine Metabolite U Marijuana (THC) Screen U Marijuana THC Carboxy Hep Bs Antigen HIV 1&2 Ab/P24 Ag 4thGn Bld Cult Staph aureus PCR Positive A Blood Culture MRSA PCR Positive A Blood Type Antibody Screen 01/22/19 01/22/19 01/22/19 18:09 18:09 18:09 WBC RBC Hgb Hct MCV MCH MCHC RDW Std Deviation RDW Coeff of Demond Plt Count MPV Immature Gran % (Auto) Neut % (Auto) Lymph % (Auto) Harrison % (Auto) Eos % (Auto) Baso % (Auto) Immature Gran # (Auto) Neut # (Auto) Lymph # (Auto) Harrison # (Auto) Eos # (Auto) Baso # (Auto) Toxic Vacuolation Dohle Bodies Platelet Estimate Echinocytes PT INR APTT PTT Ratio Sodium 142 D Potassium 3.9 Chloride 110 H Carbon Dioxide 26 Anion Gap 6.0 BUN 14 Creatinine 0.72 Est Cr Clr Drug Dosing 127.9 Est GFR ( Amer) 137.2 Est GFR (Non-Af Amer) 118.3 BUN/Creatinine Ratio 19.8 Glucose 141 H Lactate Calcium 7.5 L Magnesium 2.0 Total Bilirubin AST ALT Alkaline Phosphatase Troponin I Total Protein Albumin Globulin Albumin/Globulin Ratio Random Cortisol 23.41 Urine Color Urine Appearance Urine pH Ur Specific [place] Urine Protein Urine Glucose (UA) Urine Ketones Urine Blood Urine Nitrite Urine Bilirubin Urine Urobilinogen Ur Leukocyte Esterase Urine WBC (Auto) Urine RBC (Auto) U Hyaline Cast (Auto) U Epithel Cells (Auto) Urine Bacteria (Auto) Nasal Screen MRSA (PCR) Vancomycin Trough Urine Opiates Screen Ur Methadone, Qual Urine Barbiturates Ur Phencyclidine (PCP) U Amphetamines Confirm U Amphetamin/Meth Scrn U Methamphetamin Confrm MDMA (Ecstasy) Screen U Benzodiazepines Scrn Ur Cocaine Metabolite U Marijuana (THC) Screen U Marijuana THC Carboxy Hep Bs Antigen Neg HIV 1&2 Ab/P24 Ag 4thGn Neg Bld Cult Staph aureus PCR Blood Culture MRSA PCR Blood Type Antibody Screen 01/22/19 01/22/19 01/22/19 18:09 21:25 21:25 WBC RBC Hgb Hct MCV MCH MCHC RDW Std Deviation RDW Coeff of Demond Plt Count MPV Immature Gran % (Auto) Neut % (Auto) Lymph % (Auto) Harrison % (Auto) Eos % (Auto) Baso % (Auto) Immature Gran # (Auto) Neut # (Auto) Lymph # (Auto) Harrison # (Auto) Eos # (Auto) Baso # (Auto) Toxic Vacuolation Dohle Bodies Platelet Estimate Echinocytes PT 12.4 H INR 1.2 H APTT PTT Ratio Sodium 140 Potassium 3.9 Chloride 109 H Carbon Dioxide 25 Anion Gap 5.0 BUN 13 Creatinine 0.73 Est Cr Clr Drug Dosing 126.1 Est GFR ( Amer) 136.4 Est GFR (Non-Af Amer) 117.7 BUN/Creatinine Ratio 18.1 Glucose 127 H Lactate 2.0 Calcium 7.3 L Magnesium Total Bilirubin AST ALT Alkaline Phosphatase Troponin I Total Protein Albumin Globulin Albumin/Globulin Ratio Random Cortisol Urine Color Urine Appearance Urine pH Ur Specific [place] Urine Protein Urine Glucose (UA) Urine Ketones Urine Blood Urine Nitrite Urine Bilirubin Urine Urobilinogen Ur Leukocyte Esterase Urine WBC (Auto) Urine RBC (Auto) U Hyaline Cast (Auto) U Epithel Cells (Auto) Urine Bacteria (Auto) Nasal Screen MRSA (PCR) Vancomycin Trough Urine Opiates Screen Ur Methadone, Qual Urine Barbiturates Ur Phencyclidine (PCP) U Amphetamines Confirm U Amphetamin/Meth Scrn U Methamphetamin Confrm MDMA (Ecstasy) Screen U Benzodiazepines Scrn Ur Cocaine Metabolite U Marijuana (THC) Screen U Marijuana THC Carboxy Hep Bs Antigen HIV 1&2 Ab/P24 Ag 4thGn Bld Cult Staph aureus PCR Blood Culture MRSA PCR Blood Type Antibody Screen 01/22/19 01/22/19 01/22/19 21:36 21:36 21:36 WBC RBC Hgb Hct MCV MCH MCHC RDW Std Deviation RDW Coeff of Demond Plt Count MPV Immature Gran % (Auto) Neut % (Auto) Lymph % (Auto) Harrison % (Auto) Eos % (Auto) Baso % (Auto) Immature Gran # (Auto) Neut # (Auto) Lymph # (Auto) Harrison # (Auto) Eos # (Auto) Baso # (Auto) Toxic Vacuolation Dohle Bodies Platelet Estimate Echinocytes PT INR APTT PTT Ratio Sodium Potassium Chloride Carbon Dioxide Anion Gap BUN Creatinine Est Cr Clr Drug Dosing Est GFR ( Amer) Est GFR (Non-Af Amer) BUN/Creatinine Ratio Glucose Lactate Calcium Magnesium Total Bilirubin AST ALT Alkaline Phosphatase Troponin I Total Protein Albumin Globulin Albumin/Globulin Ratio Random Cortisol Urine Color Yellow Urine Appearance Clear Urine pH 5.5 Ur Specific [place] 1.023 Urine Protein 1+ H Urine Glucose (UA) Trace H Urine Ketones Negative Urine Blood Trace H Urine Nitrite Negative Urine Bilirubin Negative Urine Urobilinogen Negative Ur Leukocyte Esterase Negative Urine WBC (Auto) 5-10 H Urine RBC (Auto) 0-4 U Hyaline Cast (Auto) 1-5 U Epithel Cells (Auto) 20-30 H Urine Bacteria (Auto) Negative Nasal Screen MRSA (PCR) Positive A Vancomycin Trough Urine Opiates Screen Neg Ur Methadone, Qual Neg Urine Barbiturates Neg Ur Phencyclidine (PCP) Neg U Amphetamines Confirm U Amphetamin/Meth Scrn Pos H U Methamphetamin Confrm MDMA (Ecstasy) Screen Neg U Benzodiazepines Scrn Neg Ur Cocaine Metabolite Neg U Marijuana (THC) Screen Pos H U Marijuana THC Carboxy Hep Bs Antigen HIV 1&2 Ab/P24 Ag 4thGn Bld Cult Staph aureus PCR Blood Culture MRSA PCR Blood Type Antibody Screen 01/22/19 01/23/19 01/23/19 21:36 05:28 05:28 WBC 22.23 H RBC 3.41 L Hgb 10.8 L Hct 30.7 L MCV 90.0 MCH 31.7 MCHC 35.2 RDW Std Deviation 40.8 RDW Coeff of Demond 12.5 Plt Count 79 L MPV 12.0 H Immature Gran % (Auto) 0.6 Neut % (Auto) 89.0 Lymph % (Auto) 4.0 Harrison % (Auto) 5.8 Eos % (Auto) 0.4 Baso % (Auto) 0.2 Immature Gran # (Auto) 0.14 H Neut # (Auto) 19.77 H Lymph # (Auto) 0.88 L Harrison # (Auto) 1.30 H Eos # (Auto) 0.10 Baso # (Auto) 0.04 Toxic Vacuolation Dohle Bodies 1+ Platelet Estimate Echinocytes 1+ PT INR APTT PTT Ratio Sodium 141 Potassium 3.5 Chloride 109 H Carbon Dioxide 28 Anion Gap 4.0 BUN 12 Creatinine 0.66 Est Cr Clr Drug Dosing 139.5 Est GFR ( Amer) 142.1 Est GFR (Non-Af Amer) 122.6 BUN/Creatinine Ratio 18.3 Glucose 155 H Lactate Calcium 6.9 L Magnesium Total Bilirubin 0.3 AST 16 ALT 20 Alkaline Phosphatase 116 Troponin I Total Protein 4.8 L D Albumin 1.5 L Globulin 3.3 Albumin/Globulin Ratio 0.5 L Random Cortisol Urine Color Urine Appearance Urine pH Ur Specific [place] Urine Protein Urine Glucose (UA) Urine Ketones Urine Blood Urine Nitrite Urine Bilirubin Urine Urobilinogen Ur Leukocyte Esterase Urine WBC (Auto) Urine RBC (Auto) U Hyaline Cast (Auto) U Epithel Cells (Auto) Urine Bacteria (Auto) Nasal Screen MRSA (PCR) Vancomycin Trough Urine Opiates Screen Ur Methadone, Qual Urine Barbiturates Ur Phencyclidine (PCP) U Amphetamines Confirm Pending U Amphetamin/Meth Scrn U Methamphetamin Confrm Pending MDMA (Ecstasy) Screen U Benzodiazepines Scrn Ur Cocaine Metabolite U Marijuana (THC) Screen U Marijuana THC Carboxy Pending Hep Bs Antigen HIV 1&2 Ab/P24 Ag 4thGn Bld Cult Staph aureus PCR Blood Culture MRSA PCR Blood Type Antibody Screen 01/23/19 01/23/19 01/23/19 05:28 05:28 05:43 WBC RBC Hgb Hct MCV MCH MCHC RDW Std Deviation RDW Coeff of Demond Plt Count MPV Immature Gran % (Auto) Neut % (Auto) Lymph % (Auto) Harrison % (Auto) Eos % (Auto) Baso % (Auto) Immature Gran # (Auto) Neut # (Auto) Lymph # (Auto) Harrison # (Auto) Eos # (Auto) Baso # (Auto) Toxic Vacuolation Dohle Bodies Platelet Estimate Echinocytes PT INR APTT 40.8 H PTT Ratio 1.5 Sodium Potassium Chloride Carbon Dioxide Anion Gap BUN Creatinine Est Cr Clr Drug Dosing Est GFR ( Amer) Est GFR (Non-Af Amer) BUN/Creatinine Ratio Glucose Lactate 1.1 Calcium Magnesium Total Bilirubin AST ALT Alkaline Phosphatase Troponin I < 0.015 Total Protein Albumin Globulin Albumin/Globulin Ratio Random Cortisol Urine Color Urine Appearance Urine pH Ur Specific [place] Urine Protein Urine Glucose (UA) Urine Ketones Urine Blood Urine Nitrite Urine Bilirubin Urine Urobilinogen Ur Leukocyte Esterase Urine WBC (Auto) Urine RBC (Auto) U Hyaline Cast (Auto) U Epithel Cells (Auto) Urine Bacteria (Auto) Nasal Screen MRSA (PCR) Vancomycin Trough Urine Opiates Screen Ur Methadone, Qual Urine Barbiturates Ur Phencyclidine (PCP) U Amphetamines Confirm U Amphetamin/Meth Scrn U Methamphetamin Confrm MDMA (Ecstasy) Screen U Benzodiazepines Scrn Ur Cocaine Metabolite U Marijuana (THC) Screen U Marijuana THC Carboxy Hep Bs Antigen HIV 1&2 Ab/P24 Ag 4thGn Bld Cult Staph aureus PCR Blood Culture MRSA PCR Blood Type Antibody Screen 01/23/19 01/23/19 01/23/19 13:09 13:09 13:09 WBC RBC Hgb Hct MCV MCH MCHC RDW Std Deviation RDW Coeff of Demond Plt Count MPV Immature Gran % (Auto) Neut % (Auto) Lymph % (Auto) Harrison % (Auto) Eos % (Auto) Baso % (Auto) Immature Gran # (Auto) Neut # (Auto) Lymph # (Auto) Harrison # (Auto) Eos # (Auto) Baso # (Auto) Toxic Vacuolation Dohle Bodies Platelet Estimate Echinocytes PT INR APTT 43.3 H PTT Ratio 1.6 Sodium Potassium Chloride Carbon Dioxide Anion Gap BUN Creatinine Est Cr Clr Drug Dosing Est GFR ( Amer) Est GFR (Non-Af Amer) BUN/Creatinine Ratio Glucose Lactate 1.3 Calcium Magnesium Total Bilirubin AST ALT Alkaline Phosphatase Troponin I Total Protein Albumin Globulin Albumin/Globulin Ratio Random Cortisol Urine Color Urine Appearance Urine pH Ur Specific [place] Urine Protein Urine Glucose (UA) Urine Ketones Urine Blood Urine Nitrite Urine Bilirubin Urine Urobilinogen Ur Leukocyte Esterase Urine WBC (Auto) Urine RBC (Auto) U Hyaline Cast (Auto) U Epithel Cells (Auto) Urine Bacteria (Auto) Nasal Screen MRSA (PCR) Vancomycin Trough Urine Opiates Screen Ur Methadone, Qual Urine Barbiturates Ur Phencyclidine (PCP) U Amphetamines Confirm U Amphetamin/Meth Scrn U Methamphetamin Confrm MDMA (Ecstasy) Screen U Benzodiazepines Scrn Ur Cocaine Metabolite U Marijuana (THC) Screen U Marijuana THC Carboxy Hep Bs Antigen HIV 1&2 Ab/P24 Ag 4thGn Bld Cult Staph aureus PCR Blood Culture MRSA PCR Blood Type A Positive Antibody Screen NEGATIVE 01/23/19 15:22 WBC RBC Hgb Hct MCV MCH MCHC RDW Std Deviation RDW Coeff of Demond Plt Count MPV Immature Gran % (Auto) Neut % (Auto) Lymph % (Auto) Harrison % (Auto) Eos % (Auto) Baso % (Auto) Immature Gran # (Auto) Neut # (Auto) Lymph # (Auto) Harrison # (Auto) Eos # (Auto) Baso # (Auto) Toxic Vacuolation Dohle Bodies Platelet Estimate Echinocytes PT INR APTT PTT Ratio Sodium Potassium Chloride Carbon Dioxide Anion Gap BUN Creatinine Est Cr Clr Drug Dosing Est GFR ( Amer) Est GFR (Non-Af Amer) BUN/Creatinine Ratio Glucose Lactate Calcium Magnesium Total Bilirubin AST ALT Alkaline Phosphatase Troponin I Total Protein Albumin Globulin Albumin/Globulin Ratio Random Cortisol Urine Color Urine Appearance Urine pH Ur Specific [place] Urine Protein Urine Glucose (UA) Urine Ketones Urine Blood Urine Nitrite Urine Bilirubin Urine Urobilinogen Ur Leukocyte Esterase Urine WBC (Auto) Urine RBC (Auto) U Hyaline Cast (Auto) U Epithel Cells (Auto) Urine Bacteria (Auto) Nasal Screen MRSA (PCR) Vancomycin Trough 9.4 Urine Opiates Screen Ur Methadone, Qual Urine Barbiturates Ur Phencyclidine (PCP) U Amphetamines Confirm U Amphetamin/Meth Scrn U Methamphetamin Confrm MDMA (Ecstasy) Screen U Benzodiazepines Scrn Ur Cocaine Metabolite U Marijuana (THC) Screen U Marijuana THC Carboxy Hep Bs Antigen HIV 1&2 Ab/P24 Ag 4thGn Bld Cult Staph aureus PCR Blood Culture MRSA PCR Blood Type Antibody Screen Diagnostic Findings cxr - IMPRESSION: No significant change in the scattered peripheral airspace opacities. No evidence for cavitation at this time. This favors septic pulmonary emboli. PG Care Time/CCT Total # of Minutes Spent Total Time Spent with Patient: Total time spent is greater than 50% in coordination of care (as documented) at patient's floor/unit and/or counseling patient: (1) Hepatitis C infection Viral hepatitis chronicity: chronic Hepatic coma status: without hepatic coma Qualified Code(s): B18.2 - Chronic viral hepatitis C (2) Hypotension Hypotension type: unspecified hypotension type Qualified Code(s): I95.9 - Hypotension, unspecified (3) Acute septic pulmonary embolism Acute cor pulmonale presence: without acute cor pulmonale Qualified Code(s): I26.90 - Septic pulmonary embolism without acute cor pulmonale
--- NOTE | 2019-01-23 18:57 | XRay Report ---
XR foot RT min 3V routine HISTORY: 38 years-old Male R great toe pain; bacteremia; eval osteomyelitis acute right great toe pa in with bacteremia. Clinical concern for acute osteomyelitis COMPARISON: None available TECHNIQUE: 3 views of the right foot FINDINGS: Bipartite medial hallux sesamoid. No acute fracture, dislocation, opaque foreign body or bony erosive changes to suggest acute osteomyelitis. Moderate sized enthesophyte about the Achilles calcaneus. Mi ld soft tissue swelling is noted about the foot, most pronounced in the forefoot and lateral midfoot distribution. No opaque foreign body. Corticated bone fragments adjacent to the distal fibula may ref lect remote fracture fragments or accessory ossicles. IMPRESSION: Mild forefoot soft tissue swelling without acute bony abnormality. The above report was generated using voice recognition software. It may contain grammatical, syntax o r spelling errors. Electronically signed by: Jered Burns M.D. 01/23/2019 6:56 PM
--- NOTE | 2019-01-23 20:08 | Pharmacy Report ---
Pharmacy Abx Dose Short Note - Date of Service January 23, 2019 - Assessment & Plan Assessment 38 year old M receiving vancomycin for treatment of endocarditis/septicemia. Day # 2 of antimicrobial therapy. Plan Vancomycin * Trough level of 9.4 mcg/mL is subtherapeutic * Change to 1250 mg (20mg/kg) IV every 6 hours * Goal trough level for endocarditis : ~20 mcg/mL * Trough level ordered for: 01/24/19 @0930 Pharmacy will continue to follow and will adjust dose/frequency as necessary. Thank you.
[2019-01-23 20:30] LABS: Partial Thromboplastin Ratio 2.1; Partial Thromboplastin Time 56.5 Seconds (21.0-31.0)
[2019-01-23] MEDS: VANCOMYCIN HCL 1,250 MG in SODIUM CHLORIDE 0.9% 250 ML IV SCH (22:00)
[2019-01-23] MEDS: METOPROLOL TARTRATE 25 MG TAB PO SCH (22:52)
[2019-01-24] MEDS: ACETAMINOPHEN 325 MG TAB PO PRN ×2 (00:36→13:29)
[2019-01-24] MEDS: VANCOMYCIN HCL 1,250 MG in SODIUM CHLORIDE 0.9% 250 ML IV SCH ×4 (04:12→21:15)
[2019-01-24] MEDS: NORMOSOL-R 1,000 ML IV SCH ×3 (04:13→13:24)
[2019-01-24 05:48] LABS: Hematocrit (blood only) 28.9 % (42-52); Hemoglobin 9.9 g/dL (14.0-18.0); Mean Corpuscular Hgb Conc 34.3 g/dL (32-36); Mean Platelet Volume 11.8 fL (7.4-10.4); Platelet Count 111 K/uL (130-400); RDW Standard Deviation 43.9 fL (36.4-46.3); Red Blood Count 3.14 M/uL (4.7-6.1)
[2019-01-24 06:11] LABS: Partial Thromboplastin Ratio 1.9
[2019-01-24 06:11] LABS: Basophils # (auto) 0.12 K/uL (0-0.2); Basophils % (auto) 0.6 %; Dohle Bodies 1+; Echinocytes 1+; Eosinophils # (auto) 0.12 K/uL (0-0.5); Eosinophils % (auto) 0.6 %; Immature Granulocytes # (auto) 0.13 K/uL (0.00-0.02); Immature Granulocytes % (auto) 0.6 %; Lymphocytes # (auto) 1.93 K/uL (1.2-3.4); Lymphocytes % (auto) 8.9 %; Monocytes # (auto) 1.42 K/uL (0.11-0.59); Monocytes % (auto) 6.6 %; Neutrophils # (auto) 17.88 K/uL (1.4-6.5); Neutrophils % (auto) 82.7 %; Toxic Vacuolation 1+
[2019-01-24 06:13] LABS: Partial Thromboplastin Time 50.7 Seconds (21.0-31.0)
[2019-01-24 06:16] LABS: Albumin Level 1.3 gm/dl (3.4-5.0); BUN Creatinine Ratio 12.8 (10-20); Est GFR (African American) 138.8; Est GFR (Non-African American) 119.7; Potassium 3.3 mmol/L (3.5-5.1)
[2019-01-24 06:19] LABS: Albumin Globulin Ratio 0.4 (0.9-2); Bilirubin,Total 0.6 mg/dl (0.2-1); Globulin 3.6 gm/dl (2.5-4.0); Total Protein 4.9 gm/dl (6.4-8.2)
--- NOTE | 2019-01-24 06:39 | Critical Care Progress Note ---
Date of Service January 24, 2019 Assessment & Plan (1) Admitted to intensive care unit: Romaine Cristina is a 38 y/o male with history of IV drug abuse and Hepatitis C, last injected Suboxone into right forearm about 1.5 months ago. 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 Neuro: answers questions appropriately, alert Ox3 Pain analgesics with NURSE AIDE Dilaudid for pleuritic chest pain; will increase lock out period to 20 min lockout interval and start Dilaudid 1mg PO q6h scheduled to start transitioning to PO analgesic narcotics. Cardiac/Vascular Active Tricuspid endocarditis with pleuritic chest pain Requiring transfer to ICU bc of hypotension despite receiving 6L of IVF prior to ICU transfer * Hemodynamics appear slightly improved today, HR down from 130s to 110s, systolic improved to low 100s, diastolic values stable in the 60s. Echocardiogram showing * large mobile vegetation attached to tricuspid valve measuring 2.7cm in length by 1.3cm. * EF 50-55% * Mild-moderate regurgitation [facility] Cardio-thoracic surgery was contacted on admission for stratification risk/possible transfer for surgical intervention of tricuspid valve, not surgical candidate at this time. Persistent tachycardia but appears to be improving with Lopressor 25mg PO BID. Pulm Vegetation on tricuspid valve concerning for micro emboli to lungs currently requiring new O2 requirement with NC at 2L, but concerning for possible decompensation from possible septic emboli CXR from last night (01/22) showed current placement of Right IJ CVC; interval development of interstitial thickening and scattered peripheral nodular airspace opacities, noted by radiology this is nonspecific could represent a pneumonia or possibly scattered septic pulmonary emboli. Obvious concerns for septic pulmonary emboli. Repeat CXR to re-evaluate lung aaron for septic emboli as having pleuritic chest pain and tachypnea end-tidal CO2 monitoring to monitor for respiratory depression with NURSE AIDE analgesics GI: Hepatitis C infection, lab work for viral load pending Improved urine out put overnight, geiger cath discontinued Urine output improved 1.6ml/kg/hr Endo: No hx of DM, or thyroid dysfunction Heme Leukocytosis persistent without significant improvement in value Thrombocytopenia persistent ID: Septic, bacteremia of gram positive cocci clusters probably MRSA from tricuspid vegetation Has had aggressive IVF resuscitation with 6L thus far Lactate elevated 01/22 evening at 2.5, but repeat values trended down 2.0 --> 1.1 8/3 AM, which is encouraging Continue with Aztreonam and Vancomycin HIV ordered - negative Hep C viral load pending; hx of hep C infection Right Toe Pain - no significant physical exam findings, not erythematous to suggest gout or acute cellulitis; but with cardiac vegetation spilling micro septic emboli and with bacteremia concern for seeding of joint space for infection; will place consult to ortho Dr. Preciado on-call physician for evaluation for septic joint; an xray was performed that showed soft tissue swelling yesterday. Lines: PIV left arm right IJ CVC DVT ppx Lovenox 40mg q24h Resuscitation status Full Code (2) Endocarditis of tricuspid valve: (3) MRSA (methicillin resistant Staphylococcus aureus) septicemia: (4) IV drug abuse: (5) Hepatitis C infection: Supervising Physician Co-Signing Physician Notes : We will continue heparin infusionDr. Rios was resident physician during care of patient. I separately evaluated patient for sevilla portions of the history and the exam. I was present during the critical portion of medical decision making, and I discussed the case with the resident. I generally agree with the findings and plan. Increasing vancomycin dosing as he is likely hyperdynamic and trough was below therapeutic range. Increased beta-iker for better heart rate control. Pain well-tolerated on NURSE AIDE. Anemia is likely secondary to bone marrow suppression from systemic bacteremia, checking reticulocyte count, thrombocytopenia, mild hypokalemia will give 40 of K-Dur, working to transition from NURSE AIDE to enteral narcotic medication. Patient has significant pain to right MTP, no significant swelling, I am still concerned for septic joint secondary to known systemic MRSA bacteremia will consult orthopedics for evaluation and possible treatment. Still tachycardic, worse with being febrile, borderline blood pressure still at this time, will increase beta-iker to 50 mg twice daily hope to add lisinopril within the next 24 hours. Given hyperdynamic state will decrease IV fluids to 85 and hopefully be able to transition off in the next 24 hours. Blood cultures turn positive, set ordered for this morning and were obtained. Have additional set ordered for tomorrow as a do not anticipate him clearing his blood cultures secondary to the vancomycin trough being low. New mild oxygen requirement, I believe he is third spacing some of his fluid however I am also concerned about eventual progression towards guards given significant bacteremia load. Starting 1 mg oral Dilaudid every 6 and extending the lock out period of PCI I have personally spent 55 minutes of critical care time in the direct management of this patient. This is a life/limb threatening event. This includes time spent evaluating patient, direct bedside care, chart review, placing orders, interpretation of diagnostic studies, discussion with consultants, patient, and/or family members regarding treatment decisions, as well as other required patient management activities. This time is exclusive of all separately billable procedures, and teaching time and separate from and in addition to any other critical care service time. Subjective Mr. Cristina was still having some chest pain with NURSE AIDE analgesics, but was able to rest with comfort. He continues to have chest pain with movement and made better with rest. He notes right toe is significantly painful with swelling starting yesterday that improved this morning, no erythema "feels like turf toe". No acute events reported overnight. He is having supplemental oxygen requirement. He notes he feels slightly improved overall. Review of Systems Review of Systems: All systems reviewed & are unremarkable except as noted in HPI & below Physical Exam Constitutional: + ill appearing Eyes: EOM intact bilaterally Neck: normal visual inspection and trachea midline Respiratory: + tachypneic; no respiratory distress Auscultation: + wheezes (diffuse expiratory) Cardiovascular: Rate/Rhythm: regular rhythm and + tachycardic Gastrointestinal (Abdomen): Percussion/Palpation: abdomen soft; abdomen nontender Musculoskeletal: Head/Neck/Chest: normocephalic and head atraumatic Neurologic: moves all extremities and awake Psychiatric: A+Ox3, euthymic affect Orientation: alert and oriented x 3 Results & Data Vital Signs (Past 12 Hours) Vital Signs Temp Pulse BP Pulse Ox 01/24/19 04:15 108 H 104/68 94 01/24/19 04:00 37.2 C 119 H 93 01/24/19 03:30 111 H 91/63 L 94 01/24/19 03:23 108 H 93/61 L 96 01/24/19 03:00 113 H 115/57 L 94 01/24/19 02:45 114 H 86/56 L 95 01/24/19 02:30 114 H 86/61 L 94 01/24/19 02:15 117 H 98/63 L 93 01/24/19 02:00 37.8 C H 123 H 101/73 95 01/24/19 01:45 119 H 94/60 L 96 01/24/19 01:30 113 H 92/61 L 95 01/24/19 01:15 113 H 93/64 L 96 01/24/19 01:00 114 H 111/63 99 01/24/19 00:45 113 H 112/66 97 01/24/19 00:30 113 H 91/61 L 96 01/24/19 00:15 114 H 93/65 L 97 01/24/19 00:00 38.7 C H 120 H 113/65 96 01/23/19 23:45 116 H 107/64 97 01/23/19 23:30 116 H 95/66 L 98 01/23/19 23:15 126 H 113/64 98 01/23/19 23:00 125 H 102/64 98 01/23/19 22:45 128 H 105/68 96 01/23/19 22:30 126 H 103/71 95 01/23/19 22:15 127 H 108/65 96 01/23/19 22:00 130 H 105/72 96 01/23/19 21:45 124 H 111/73 97 01/23/19 21:30 124 H 107/69 96 01/23/19 21:15 125 H 121/67 96 01/23/19 21:00 123 H 118/71 97 01/23/19 20:45 124 H 105/73 95 01/23/19 20:30 124 H 116/72 96 01/23/19 20:15 124 H 111/76 97 01/23/19 20:00 37.9 C H 128 H 104/67 97 01/23/19 19:45 124 H 110/67 98 01/23/19 19:30 127 H 122/66 96 01/23/19 19:15 129 H 117/66 94 01/23/19 19:00 123 H 100/68 98 Resident Activity Tracking Resident Involvement: Resident Care Provided Care Provided: Adult Hospital Medicine (ICU) (1) Hepatitis C infection Hepatic coma status: without hepatic coma Viral hepatitis chronicity: chronic Qualified Code(s): B18.2 - Chronic viral hepatitis C
[2019-01-24] MEDS: POTASSIUM CHLORIDE 20 MEQ TABCR PO SCH (07:17)
[2019-01-24] MEDS: METOPROLOL TARTRATE 25 MG TAB PO SCH (07:17)
[2019-01-24] MEDS: NICOTINE 21 MG/24 HR TDSY TD SCH (07:18)
[2019-01-24] MEDS: DOCUSATE SODIUM/SENNA 50/8.6MG TAB PO SCH ×2 (07:18→21:14)
[2019-01-24] MEDS ORDERED: METOPROLOL TARTRATE 25 MG TAB PO ONE (07:30)
[2019-01-24] MEDS ORDERED: HYDROmorphone HCL 2 MG TAB PO PRN (07:32)
--- NOTE | 2019-01-24 07:54 | XRay Report ---
XR chest 1V portable HISTORY: 38 years-old Male septic emboli evaluate follow-up study in a patient with acute shortness of breath COMPARISON: Chest radiograph 01/23/2019 TECHNIQUE: Portable AP view of the chest FINDINGS: Cardiac silhouette is enlarged, unchanged. Right IJ central venous catheter appears unchanged. Progre ssive bilateral mixed interstitial and alveolar opacities are noted along with trace pleural effusion s. No definite overt pulmonary edema or pneumothorax. Degenerative changes of the shoulders and spine . IMPRESSION: 1. Mild progression of the moderate bilateral peripheral predominant airspace opacities suggestive of septic emboli. No definite cavitation identified. 2. Trace pleural effusions. The above report was generated using voice recognition software. It may contain grammatical, syntax o r spelling errors. Electronically signed by: Jered Burns M.D. 01/24/2019 7:53 AM
[2019-01-24] MEDS: HYDROmorphone HCL 2 MG TAB PO SCH ×3 (08:00→21:12)
[2019-01-24] MEDS: HEPARIN SODIUM/DEXTROSE 25,000 UNITS/500 ML BAG IV SCH (08:29)
[2019-01-24] MEDS ORDERED: VANCOMYCIN TROUGH ONE (09:30)
--- NOTE | 2019-01-24 09:50 | Ultrasound Report ---
US venous doppler LE RT HISTORY: 38 years-old Male right MTP pain/swelling, bacteremia acute pain and swelling of the right lower extremity COMPARISON: None available TECHNIQUE: Multiple real-time sonographic images of the right lower extremity the venous structures w ere obtained assessing grayscale appearance, color and spectral flow FINDINGS: Normal flow, compressibility, phasicity and augmentation of the right lower extremity deep venous str uctures. IMPRESSION: No sonographic evidence of deep venous thrombosis. The above report was generated using voice recognition software. It may contain grammatical, syntax o r spelling errors. Electronically signed by: Jered Burns M.D. 01/24/2019 9:48 AM
--- NOTE | 2019-01-24 11:09 | Pharmacy Report ---
Pharmacy Abx Dose Short Note - Date of Service January 24, 2019 - Assessment & Plan Assessment 38 year old M receiving Vancomycin 1250mg Q6H for treatment of tricuspid endocarditis and MRSA bacteremia. Day # 3 of antimicrobial therapy. Laboratory Tests 01/24/19 09:35 Vancomycin Trough 18.6 Plan Vancomycin * Trough level of 18.6 mcg/mL is therapeutic. * Continue dose of 1250 mg IV every 6 hours -- level obtained after only 2 doses due to aggressive dosing/frequency. Spoke with Critical Care Provider who would like to see the trough as close to (or even a little above) 20 as possible. * Will assess another trough tomorrow AM -- this should be reflective of steady state. Pharmacy will continue to follow and will adjust dose/frequency as necessary. Thank you.
[2019-01-24] MEDS ORDERED: POTASSIUM CHLORIDE 10 MEQ TABCR PO STA (12:18)
[2019-01-24] MEDS: SODIUM CHLORIDE 0.9% 1000ML 1,000 ML IV SCH (12:22)
[2019-01-24] MEDS: LISINOPRIL 10 MG TAB PO SCH (13:24)
[2019-01-24] MEDS: ACETAMINOPHEN 65 ML IV PRN ×2 (14:45→23:51)
[2019-01-24] MEDS: CEFTAROLINE FOSAMIL ACETATE 600 MG in SODIUM CHLORIDE 0.9% 250 ML IV SCH (15:48)
[2019-01-24] MEDS: CEROVITE ADV FORMULA TAB PO SCH (16:45)
--- NOTE | 2019-01-24 17:13 | Consultation Report ---
DATE OF CONSULTATION: 01/24/2019 HISTORY OF PRESENT ILLNESS: This is a 38-year-old gentleman seen at the request of Dr. Dunn and Coy Rios and Ever Gong regarding right foot pain, first metatarsophalangeal joint arthritis. Apparently this 38-year-old male presented on 01/2019 with fevers and drenching night sweats for a week. He has a history of IV drug abuse and last stated and admitted IV usage was Suboxone dissolved in water and injected into his right arm. Apparently a hard lump in the antecubital region after the injection; however, he states he did not develop local infection, did not develop fevers until approximately 3 weeks later. He has been admitted to the hospital to care for his septicemia and then developed complaints of right foot pain and swelling. States it had been ongoing for the last 2-3 days and has been unchanged. He had no history of right foot injury which he can recall. He states that he was always "very athletic" and he played football and soccer; however, not more recently in the last 2 years. No known injury. PAST MEDICAL HISTORY: IV drug abuse, hypoglycemia, bacterial vegetative endocarditis, tobacco abuse. PAST SURGICAL HISTORY: No pertinent past surgical history. ALLERGIES: No known drug allergies. MEDICATIONS: No prescription medicines. SOCIAL HISTORY: Daily smoker. IV drug use. 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 PHYSICAL EXAMINATION: GENERAL: This is a 38-year-old gentleman lying supine in the Intensive Care Unit. He has 2 family members present. He is alert and oriented x3. Speech is slightly agitated; however, appropriate. EXTREMITIES: Examination of the bilateral lower extremities demonstrates bilateral lower extremity edema 2/4, dorsalis pedis and posterior tibial pulses are 2/4 bilaterally. Cap refill is brisk. There is slight erythema over the first metatarsophalangeal joint. With palpation, there is tenderness and pain with range of motion of the first metatarsophalangeal joint. No collectable fluctuance or fluid abscess is palpated. Swelling appears symmetric in bilateral lower extremities with the exception of the forefoot on the right, appears to have slight increase in swelling compared to the left. Slight increase in warmth in the right compared to the left. No skin lesions, rashes or ulcers noted on the right foot compared to the left. RADIOGRAPHS: Reviewed demonstrating forefoot swelling, no abscess, no significant effusion. LABORATORIES: Reviewed demonstrating leukocytosis. Septicemia is evident. IMPRESSION: 1. Right first metatarsophalangeal joint pain. 2. First metatarsophalangeal arthritis. 3. Effusion. 4. Cellulitis, right foot. RECOMMENDATION: Continue IV antibiotics. Continue to monitor. Should a local abscess become evident or becomes more clear that there may be a collectible effusion in the right first MTP, then perhaps aspiration would be in order; however, this time recommend continue IV antibiotics and general supportive care and we will reassess with you. Thank you for the opportunity to consult in care of this patient.
--- NOTE | 2019-01-24 20:26 | Hospitalist Progress Note ---
Date of Service January 24, 2019 Assessment & Plan (1) Endocarditis of tricuspid valve: Echo with evidence of large TV vegetation. Numerous blood cultures positive for MRSA. This is due to IV drug abuse. He has had severe sepsis/septic shock due to such. Shock has resolved. He has clinical evidence of pulmonary septic emboli. Repeat blood cx's again sent today. He remains very ill. Appreciate critical care assistance. Will consult cardiology to follow and for any other recommendations. Dr Gong spoke with CT surgery at [facility] in [place] - no indication for surgical intervention at this time. (2) Acute septic pulmonary embolism: Pleuritic chest pain and b/l chest x-ray findings all c/w septic emboli from his TV endocarditis. At some point will need CT chest. Continue IV antibiotic therapy and pain control. Pulmonary status worse today with escalating O2 requirement. Defer management to critical care. Remains on systemic heparin - defer that management to critical care. (3) Pleuritic chest pain: 2nd to septic emboli. Pain control. Treat infection. (4) Severe sepsis: With septic shock - shock resolved. Never needed pressors. Repeat blood cx's from 01/23 are positive; additional blood cultures sent today. Continue daily blood cultures until blood is sterile. Cont IV vanco. Appreciate ID consultation. (5) MRSA (methicillin resistant Staphylococcus aureus) septicemia: With TV endocarditis. This is due to IV drug abuse. ID consult appreciated. Repeat Blood cultures sent today. Cont contact precautions. (6) IV drug abuse: With resulting endocarditis, etc. He reported that he has HepC. Has never had treatment for such. Sent HepC RNA. Still pending. HIV and HepB titer negative. He is aware of those results. (7) Hepatitis C infection: By history. HepC RNA pending. Likely due to IV drug abuse. (8) Hypotension: Due to septicemia. Improved s/p copious fluid resuscitation in first 24/36 hours of stay. Cortisol level wnl. H/H stable. Creatinine remains stable. (9) Severe protein-calorie malnutrition: Due to endocarditis, IV drug abuse, etc. HIV negative. MVI, protein supplement, treat underlying infections, etc. (10) Thrombocytopenia: Likely due to severe sepsis/septicemia. Coags stable. Platelets low but stable today. (11) Hyponatremia: 2nd to volume depletion - resolved. (12) Pain of right great toe: This is either acute gout of the first MTP joint OR due to septic emboli to this region. x-rays of right foot unremarkable. Dr Preciado saw in consult; continue IV antibiotics. Check uric acid level. Pain control. (13) DVT prophylaxis: on systemic heparin family was updated at bedside today Subjective patient continues with dyspnea, cough and pleuritic chest pain. latter symptom is better with ACCOUNT RETENTION REPRESENTATIVE dilaudid. he has significant BETANCUR with any movement. appetite is fair/poor. continues with fevers/chills. Review of Systems Constitutional: + fever, + chills, + sweats and + malaise Respiratory: + cough, + dyspnea, + dyspnea on exertion and + pain on inspira tion Cardiovascular: as per Subjective / HPI and + chest pain Gastrointestinal: no nausea and no vomiting Musculoskeletal: + joint pain (right great toe - ongoing ) Physical Exam Constitutional: + acute distress (tachypneic but more comfortable than yesterday), + ill appearing, + thin and + frail appearing ENMT: Mouth: + poor dentition; no oral mucosal abnormality Respiratory: + tachypneic Auscultation: + crackles (bases - mild); no wheezes Cardiovascular: Rate/Rhythm: regular rhythm and + tachycardic Heart Sounds: normal S1, normal S2 and + murmur (1-2/6 RENU LLSB) Vessels: posterior tibial pulses present and dorsalis pedis pulses present; no JVD Extremities: no edema Gastrointestinal (Abdomen): normal bowel sounds, soft, nontender, no hepatosplenomegaly Musculoskeletal: right great toe MTP joint with synovitis - VERY tender to minimal touch. Skin: right IJ CVC in place, clean Psychiatric: Orientation: alert and oriented x 3 Results & Data Vital Signs (Past 12 Hours) Vital Signs Temp Pulse BP Pulse Ox 01/24/19 18:30 103 H 110/67 97 01/24/19 18:00 108 H 114/69 97 01/24/19 17:30 102 H 105/66 97 01/24/19 17:00 103 H 103/74 96 01/24/19 16:30 36.9 C 109 H 105/63 95 01/24/19 16:00 112 H 92/59 L 96 01/24/19 15:34 38.2 C H 01/24/19 15:30 116 H 98/62 L 95 01/24/19 15:20 121 H 106/63 95 01/24/19 15:00 38.1 C H 126 H 106/63 96 01/24/19 14:30 39.5 C H 131 H 110/66 95 01/24/19 14:00 126 H 104/70 91 01/24/19 13:30 132 H 114/77 92 01/24/19 13:00 39.6 C H 123 H 117/75 96 01/24/19 12:30 122 H 117/83 95 01/24/19 12:00 125 H 123/80 94 01/24/19 11:30 112 H 120/72 100 01/24/19 11:00 117 H 104/71 95 01/24/19 10:30 105 H 92/68 L 98 01/24/19 10:00 102 H 102/65 96 01/24/19 09:30 98 H 90/64 L 99 01/24/19 09:14 101 H 93/68 L 96 01/24/19 09:00 36.7 C 102 H 95 01/24/19 08:30 105 H 97 Laboratory Results Laboratory Results - last 24 hr 01/24/19 01/24/19 01/24/19 05:13 05:13 05:13 WBC 21.60 H RBC 3.14 L Hgb 9.9 L Hct 28.9 L MCV 92.0 MCH 31.5 MCHC 34.3 RDW Std Deviation 43.9 RDW Coeff of Demond 13.0 Plt Count 111 L MPV 11.8 H Immature Gran % (Auto) 0.6 Neut % (Auto) 82.7 Lymph % (Auto) 8.9 Kingfisher % (Auto) 6.6 Eos % (Auto) 0.6 Baso % (Auto) 0.6 Immature Gran # (Auto) 0.13 H Neut # (Auto) 17.88 H Lymph # (Auto) 1.93 Kingfisher # (Auto) 1.42 H Eos # (Auto) 0.12 Baso # (Auto) 0.12 Toxic Vacuolation 1+ Dohle Bodies 1+ Echinocytes 1+ ESR 27 H APTT PTT Ratio Sodium 140 Potassium 3.3 L Chloride 107 Carbon Dioxide 32 Anion Gap 1.0 L BUN 9 Creatinine 0.70 Est Cr Clr Drug Dosing 134.0 Est GFR ( Amer) 138.8 Est GFR (Non-Af Amer) 119.7 BUN/Creatinine Ratio 12.8 Glucose 105 H Uric Acid Calcium 7.0 L Total Bilirubin 0.6 AST 10 L ALT 15 Alkaline Phosphatase 164 H Total Protein 4.9 L Albumin 1.3 L Globulin 3.6 Albumin/Globulin Ratio 0.4 L Vancomycin Trough 01/24/19 01/24/19 01/24/19 05:13 05:19 09:35 WBC RBC Hgb Hct MCV MCH MCHC RDW Std Deviation RDW Coeff of Demond Plt Count MPV Immature Gran % (Auto) Neut % (Auto) Lymph % (Auto) Kingfisher % (Auto) Eos % (Auto) Baso % (Auto) Immature Gran # (Auto) Neut # (Auto) Lymph # (Auto) Kingfisher # (Auto) Eos # (Auto) Baso # (Auto) Toxic Vacuolation Dohle Bodies Echinocytes ESR APTT 50.7 H* PTT Ratio 1.9 Sodium Potassium Chloride Carbon Dioxide Anion Gap BUN Creatinine Est Cr Clr Drug Dosing Est GFR ( Amer) Est GFR (Non-Af Amer) BUN/Creatinine Ratio Glucose Uric Acid 2.5 L Calcium Total Bilirubin AST ALT Alkaline Phosphatase Total Protein Albumin Globulin Albumin/Globulin Ratio Vancomycin Trough 18.6 Diagnostic Findings / cultures with staph aureus (MRSA) 8/ repeat cultures sent PG Care Time/CCT Total # of Minutes Spent Total Time Spent with Patient: Total time spent is greater than 50% in coordination of care (as documented) at patient's floor/unit and/or counseling patient: (1) Acute septic pulmonary embolism Acute cor pulmonale presence: without acute cor pulmonale Qualified Code(s): I26.90 - Septic pulmonary embolism without acute cor pulmonale (2) Hepatitis C infection Viral hepatitis chronicity: chronic Hepatic coma status: without hepatic coma Qualified Code(s): B18.2 - Chronic viral hepatitis C (3) Hypotension Hypotension type: unspecified hypotension type Qualified Code(s): I95.9 - Hypotension, unspecified
[2019-01-24] MEDS: METOPROLOL TARTRATE 50 MG TAB PO SCH (21:13)
[2019-01-24] MEDS ORDERED: GUAIFENESIN/CODEINE 100MG/10MG 5ML UDC PO STA (23:40)
[2019-01-24] MEDS ORDERED: BENZONATATE 100 MG CAPSULE PO ONE (23:40)
[2019-01-25] MEDS: HYDROmorphone HCL 2 MG TAB PO SCH ×4 (01:35→20:16)
[2019-01-25] MEDS: HEPARIN SODIUM/DEXTROSE 25,000 UNITS/500 ML BAG IV SCH (01:37)
[2019-01-25] MEDS: GUAIFENESIN/CODEINE 100MG/10MG 5ML UDC PO PRN (04:17)
[2019-01-25] MEDS: CEFTAROLINE FOSAMIL ACETATE 600 MG in SODIUM CHLORIDE 0.9% 250 ML IV SCH (04:18)
[2019-01-25] MEDS: VANCOMYCIN HCL 1,250 MG in SODIUM CHLORIDE 0.9% 250 ML IV SCH ×2 (04:18→10:41)
[2019-01-25 04:27] LABS: Hemoglobin 9.6 g/dL (14.0-18.0); Mean Corpuscular Hgb Conc 34.3 g/dL (32-36); Mean Corpuscular Volume 91.2 fL (80-100); Mean Platelet Volume 11.2 fL (7.4-10.4); Platelet Count 163 K/uL (130-400); RDW Coefficient of Variation 13.2 % (11.5-14.5); RDW Standard Deviation 43.9 fL (36.4-46.3); Red Blood Count 3.07 M/uL (4.7-6.1); Reticulocyte % 0.7 % (0.5-2.0); Reticulocytes # 0.02 10^6/uL (0.02-0.10); White Blood Count 18.39 K/uL (4.8-10.8)
[2019-01-25 04:34] LABS: Partial Thromboplastin Ratio 1.5; Partial Thromboplastin Time 41.4 Seconds (21.0-31.0)
[2019-01-25 04:48] LABS: Albumin Globulin Ratio 0.3 (0.9-2); Albumin Level 1.3 gm/dl (3.4-5.0); BUN Creatinine Ratio 13.1 (10-20); Bilirubin,Total 0.6 mg/dl (0.2-1); Calcium 7.3 mg/dl (8.5-10.1); Est GFR (African American) 139.6; Est GFR (Non-African American) 120.4; Globulin 4.1 gm/dl (2.5-4.0); Potassium 3.9 mmol/L (3.5-5.1); Total Protein 5.4 gm/dl (6.4-8.2)
[2019-01-25 04:55] LABS: Basophils # (auto) 0.08 K/uL (0-0.2); Basophils % (auto) 0.4 %; Eosinophils # (auto) 0.23 K/uL (0-0.5); Eosinophils % (auto) 1.3 %; Immature Granulocytes # (auto) 0.17 K/uL (0.00-0.02); Immature Granulocytes % (auto) 0.9 %; Lymphocytes # (auto) 2.09 K/uL (1.2-3.4); Lymphocytes % (auto) 11.4 %; Monocytes # (auto) 1.47 K/uL (0.11-0.59); Neutrophils # (auto) 14.35 K/uL (1.4-6.5); RBC Morphology Unremarkable
[2019-01-25] MEDS ORDERED: HEPARIN IV BOLUS 3,000 UNITS in SYRINGE 0 ML IV ONE (05:00)
--- NOTE | 2019-01-25 07:12 | Critical Care Progress Note ---
Date of Service January 25, 2019 Assessment & Plan (1) Admitted to intensive care unit: Romaine Cristina is a 38 y/o male with history of IV drug abuse and Hepatitis C, last injected Suboxone into right forearm about 1.5 months ago. 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 Neuro: answers questions appropriately, alert Ox3 Transitioning to PO analgesic narcotics, discontinue [employer], will start Oxycodone 5mg tabs, 1 tab for pain <7/10; 2 tabs (10mg) for pain >7/10. Discussed with patient that pain analgesics will not completely resolve pain and that are goals are to keep patient as comfortable as possible, but that he will still unfortunately have pain. He will most likely require terminologist analgesics. Cardiac/Vascular Active Tricuspid endocarditis with pleuritic chest pain Requiring transfer to ICU bc of hypotension despite receiving 6L of IVF prior to ICU transfer * Hemodynamics appear slightly improved today, HR down from 130s to 110s, systolic improved to low 100s, diastolic values stable in the 60s. Echocardiogram showing * large mobile vegetation attached to tricuspid valve measuring 2.7cm in length by 1.3cm. * EF 50-55% * Mild-moderate regurgitation [facility] Cardio-thoracic surgery was contacted on admission for stratification risk/possible transfer for surgical intervention of tricuspid valve, not surgical candidate at this time. Persistent tachycardia but appears to be improving with Lopressor 75mg PO BID, which will start tonight. NBAIL was added yesterday of 10mg. Considerations for increasing to 20mg, but will titrate up beta iker first as patient's illness is setting him up for right sided heart failure. Pulm Vegetation on tricuspid valve concerning for micro emboli to lungs currently requiring new O2 requirement with NC at 2L, but concerning for possible decompensation from possible septic emboli CT PA today to evaluate pulmonary septic emboli end-tidal CO2 monitoring to monitor for respiratory depression with analgesics GI: Hepatitis C infection, lab work for viral load pending bowel regimen with senna/colace Renal/Lytes No current abnormal electrolyte values kidney function normal discontinued all IVFs No current concerns; does not currently have geiger cath Urine output improved 2.05ml/kg/hr Endo: No hx of DM, or thyroid dysfunction Heme Leukocytosis persistent with slight improvement in value Thrombocytopenia persistent ID: Septic, bacteremia of gram positive cocci clusters from MRSA from tricuspid vegetation Has had aggressive IVF resuscitation with 6L thus far Lactate elevated 8/2 evening at 2.5, but repeat values trended down 2.0 --> 1.1 8/3 AM Continue with Teflaro (5th gen cephalosporin w/MRSA coverage) and Vancomycin HIV ordered - negative Hep C viral load pending; hx of hep C infection Right Toe Pain - no significant physical exam findings, not erythematous to suggest gout or acute cellulitis; but with cardiac vegetation spilling micro septic emboli and with bacteremia concern for seeding of joint space for infection; will place consult to ortho Dr. Preciado on-call physician for evaluation for septic joint; an xray was performed that showed soft tissue swelling. Consult was placed with ortho with recs to watch clinically. Lines: PIV left arm right IJ CVC DVT ppx Lovenox 40mg q24h Resuscitation status Full Code (2) Endocarditis of tricuspid valve: (3) MRSA (methicillin resistant Staphylococcus aureus) septicemia: (4) IV drug abuse: (5) Hepatitis C infection: Supervising Physician Co-Signing Physician Notes Dr. Rios was resident physician during care of patient. I separately evaluated patient for sevilla portions of the history and the exam. I was present during the critical portion of medical decision making, and I discussed the case with the resident. I generally agree with the findings and plan. Adjusting pain medication, still having septic picture secondary to persistent MRSA bacteremia patient remains critically ill. I have personally spent 35 minutes of critical care time in the direct management of this patient. This is a life/limb threatening event. This includes time spent evaluating patient, direct bedside care, chart review, placing orders, interpretation of diagnostic studies, discussion with consultants, patient, and/or family members regarding treatment decisions, as well as other required patient management activities. This time is exclusive of all separately billable procedures, and teaching time and separate from and in addition to any other critical care service time. Subjective Romaine is resting with comfort this morning, sleepy but arouses easily. He has a cough, continues with pleuritic chest pain, no worsening shortness of breath. He denies nausea, vomiting. Review of Systems Review of Systems: All systems reviewed & are unremarkable except as noted in HPI & below Physical Exam Constitutional: + ill appearing Eyes: EOM intact bilaterally Neck: normal visual inspection and trachea midline Respiratory: no respiratory distress Auscultation: + wheezes (diffuse expi ratory) Cardiovascular: Rate/Rhythm: regular rhythm and + tachycardic Gastrointestinal (Abdomen): Percussion/Palpation: abdomen soft; abdomen nontender Musculoskeletal: Head/Neck/Chest: normocephalic and head atraumatic Neurologic: moves all extremities and awake Psychiatric: A+Ox3, euthymic affect Orientation: alert and oriented x 3 Results & Data Vital Signs (Past 12 Hours) Vital Signs Temp Pulse BP Pulse Ox 01/25/19 06:18 37.3 C 113 H 124/83 90 01/25/19 06:00 111 H 94 01/25/19 05:00 107 H 110/82 94 01/25/19 04:30 110 H 109/74 97 01/25/19 04:00 37.1 C 110 H 115/76 96 01/25/19 03:30 108 H 116/70 95 01/25/19 03:00 110 H 124/79 95 01/25/19 02:30 109 H 112/73 93 01/25/19 02:00 37.2 C 114 H 126/70 96 01/25/19 01:30 117 H 119/77 96 01/25/19 01:00 116 H 110/70 97 01/25/19 00:30 120 H 116/74 97 01/25/19 00:00 39.7 C H 118 H 119/90 96 01/24/19 23:30 122 H 128/92 92 01/24/19 23:00 110 H 132/93 96 01/24/19 22:30 104 H 123/86 98 01/24/19 22:00 37.8 C H 99 H 131/93 96 01/24/19 21:30 104 H 125/83 100 01/24/19 21:00 110 H 108/78 95 01/24/19 20:30 108 H 111/80 98 01/24/19 20:00 36.8 C 109 H 106/77 97 01/24/19 19:30 108 H 112/84 98 Laboratory Results Laboratory Results - last 24 hr 01/24/19 01/24/19 01/24/19 05:13 05:13 09:35 WBC RBC Hgb Hct MCV MCH MCHC RDW Std Deviation RDW Coeff of Demond Plt Count MPV Immature Gran % (Auto) Neut % (Auto) Lymph % (Auto) Stanly % (Auto) Eos % (Auto) Baso % (Auto) Reticulocyte % (Auto) Immature Gran # (Auto) Neut # (Auto) Lymph # (Auto) Stanly # (Auto) Eos # (Auto) Baso # (Auto) Reticulocyte # RBC Morphology ESR 27 H APTT PTT Ratio Sodium Potassium Chloride Carbon Dioxide Anion Gap BUN Creatinine Est Cr Clr Drug Dosing Est GFR ( Amer) Est GFR (Non-Af Amer) BUN/Creatinine Ratio Glucose Uric Acid 2.5 L Calcium Total Bilirubin AST ALT Alkaline Phosphatase Total Protein Albumin Globulin Albumin/Globulin Ratio Vancomycin Trough 18.6 01/25/19 01/25/19 01/25/19 04:06 04:06 04:06 WBC 18.39 H RBC 3.07 L Hgb 9.6 L Hct 28.0 L MCV 91.2 MCH 31.3 MCHC 34.3 RDW Std Deviation 43.9 RDW Coeff of Demond 13.2 Plt Count 163 MPV 11.2 H Immature Gran % (Auto) 0.9 Neut % (Auto) 78.0 Lymph % (Auto) 11.4 Stanly % (Auto) 8.0 Eos % (Auto) 1.3 Baso % (Auto) 0.4 Reticulocyte % (Auto) 0.7 Immature Gran # (Auto) 0.17 H Neut # (Auto) 14.35 H Lymph # (Auto) 2.09 Stanly # (Auto) 1.47 H Eos # (Auto) 0.23 Baso # (Auto) 0.08 Reticulocyte # 0.02 RBC Morphology Unremarkable ESR APTT 41.4 H PTT Ratio 1.5 Sodium 140 Potassium 3.9 D Chloride 107 Carbon Dioxide 28 Anion Gap 5.0 BUN 9 Creatinine 0.69 Est Cr Clr Drug Dosing 146.0 Est GFR ( Amer) 139.6 Est GFR (Non-Af Amer) 120.4 BUN/Creatinine Ratio 13.1 Glucose 118 H Uric Acid Calcium 7.3 L Total Bilirubin 0.6 AST 13 L ALT 15 Alkaline Phosphatase 120 H Total Protein 5.4 L Albumin 1.3 L Globulin 4.1 H Albumin/Globulin Ratio 0.3 L Vancomycin Trough Medications Administered Benzonatate (Tessalon Perle) 100 mg PO TID OKSANA Stop: 02/24/19 08:59 Last Admin: 01/25/19 08:38 Dose: 100 mg Documented by: [id number] Guaifenesin/Codeine Phosphate (Robitussin-Ac Sugar Free) 5 ml PO Q6H PRN PRN Reason: Cough Stop: 02/23/19 23:37 Last Admin: 01/25/19 04:17 Dose: 5 ml Documented by: [id number] Hydromorphone HCl (Dilaudid) 1 mg PO Q6H OKSANA Stop: 02/07/19 07:44 Last Admin: 01/25/19 08:38 Dose: 1 mg Documented by: [id number] Admin: 01/25/19 01:35 Dose: 1 mg Documented by: [id number] Admin: 01/24/19 21:12 Dose: 1 mg Documented by: [id number] Admin: 01/24/19 13:24 Dose: 1 mg Documented by: [id number] Admin: 01/24/19 08:00 Dose: 1 mg Documented by: [id number] Heparin Sodium/Dextrose (Heparin Sodium/Dextrose) 25,000 units in 500 mls @ 34 mls/hr IV .[id number] [facility]; Protocol Stop: 02/21/19 21:44 Last Titration: 01/25/19 06:49 Dose: 1,700 units/hr, 34 mls/hr Documented by: [id number] Cosigned by: [id number] Titration: 01/25/19 04:38 Dose: 1,700 units/hr, 34 mls/hr Documented by: [id number] Cosigned by: [id number] Admin: 01/25/19 01:37 Dose: 1,550 units/hr, 31 mls/hr Documented by: [id number] Cosigned by: [id number] Titration: 01/25/19 00:37 Dose: 1,550 units/hr, 31 mls/hr Documented by: [id number] Cosigned by: [id number] Titration: 01/24/19 18:51 Dose: 1,550 units/hr, 31 mls/hr Documented by: [id number] Cosigned by: [id number] Titration: 01/24/19 18:20 Dose: 1,550 units/hr, 31 mls/hr Documented by: [id number] Cosigned by: [id number] Admin: 01/24/19 08:29 Dose: 1,550 units/hr, 31 mls/hr Documented by: [id number] Cosigned by: [id number] Titration: 01/24/19 08:29 Dose: 1,550 units/hr, 31 mls/hr Documented by: [id number] Cosigned by: [id number] Titration: 01/24/19 07:09 Dose: 1,550 units/hr, 31 mls/hr Documented by: [id number] Cosigned by: [id number] Titration: 01/24/19 06:56 Dose: 1,550 units/hr, 31 mls/hr Documented by: [id number] Cosigned by: [id number] Titration: 01/23/19 18:48 Dose: 1,550 units/hr, 31 mls/hr Documented by: [id number] Cosigned by: [id number] Admin: 01/23/19 16:51 Dose: 1,550 units/hr, 31 mls/hr Documented by: [id number] Cosigned by: [id number] Titration: 01/23/19 16:51 Dose: 1,550 units/hr, 31 mls/hr Documented by: [id number] Cosigned by: [id number] Titration: 01/23/19 13:50 Dose: 1,550 units/hr, 31 mls/hr Documented by: [id number] Cosigned by: [id number] Titration: 01/23/19 07:06 Dose: 1,400 units/hr, 28 mls/hr Documented by: [id number] Cosigned by: [id number] Titration: 01/23/19 06:58 Dose: 1,150 units/hr, 23 mls/hr Documented by: [id number] Cosigned by: [id number] Admin: 01/22/19 22:29 Dose: 1,150 units/hr, 23 mls/hr Documented by: [id number] Cosigned by: [id number] Vancomycin HCl 1,250 mg/ (Sodium Chloride) 275 mls @ 125 mls/hr IV Q6H [facility]SA[facility]; Protocol Stop: 02/05/19 21:59 Last Infusion: 01/25/19 06:14 Dose: 0 mls/hr Documented by: [id number] Admin: 01/25/19 04:18 Dose: 125 mls/hr Documented by: [id number] Infusion: 01/25/19 00:00 Dose: 0 mls/hr Documented by: [id number] Admin: 01/24/19 21:15 Dose: 125 mls/hr Documented by: [id number] Infusion: 01/24/19 18:20 Dose: 0 mls/hr Documented by: [id number] Admin: 01/24/19 15:46 Dose: 125 mls/hr Documented by: [id number] Infusion: 01/24/19 13:09 Dose: 0 mls/hr Documented by: [id number] Admin: 01/24/19 10:22 Dose: 125 mls/hr Documented by: [id number] Infusion: 01/24/19 06:27 Dose: 0 mls/hr Documented by: [id number] Admin: 01/24/19 04:12 Dose: 125 mls/hr Documented by: [id number] Infusion: 01/24/19 00:18 Dose: 0 mls/hr Documented by: [id number] Admin: 01/23/19 22:00 Dose: 125 mls/hr Documented by: [id number] Acetaminophen (Ofirmev) 65 mls @ 200 mls/hr IV Q8H PRN PRN Reason: Fever Stop: 02/23/19 14:44 Last Infusion: 01/25/19 01:19 Dose: 0 mls/hr Documented by: [id number] Admin: 01/24/19 23:51 Dose: 200 mls/hr Documented by: [id number] Infusion: 01/24/19 15:05 Dose: 0 mls/hr Documented by: [id number] Admin: 01/24/19 14:45 Dose: 200 mls/hr Documented by: [id number] Ceftaroline Fosamil 600 mg/ (Sodium Chloride) 270 mls @ 250 mls/hr IV Q12H [facility]; Protocol Stop: 02/08/19 08:29 Last Admin: 01/25/19 08:37 Dose: 250 mls/hr Documented by: [id number] Ioversol (Optiray 320 125ml) 120 ml IV ONCE PRN PRN Reason: Interaction Checking Stop: 01/29/19 07:45 Last Admin: 01/25/19 07:47 Dose: 120 ml Documented by: [id number] Lisinopril (Zestril) 10 mg PO QAM [facility] Stop: 02/23/19 12:29 Last Admin: 01/25/19 08:39 Dose: 10 mg Documented by: [id number] Admin: 01/24/19 13:24 Dose: 10 mg Documented by: [id number] Metoprolol Tartrate (Lopressor) 50 mg PO BID [facility] Stop: 02/23/19 20:59 Last Admin: 01/25/19 08:38 Dose: 50 mg Documented by: [id number] Admin: 01/24/19 21:13 Dose: 50 mg Documented by: [id number] Miscellaneous (Remove Nicoderm Patch) 1 ea N/A HS [facility] Stop: 02/21/19 20:59 Last Admin: 01/24/19 21:14 Dose: 1 ea Documented by: [id number] Admin: 01/23/19 21:59 Dose: 1 ea Documented by: [id number] Admin: 01/22/19 20:28 Dose: Not Given Documented by: [id number] Multivitamins/Minerals (Multivitamin W/ Minerals Tab) 1 tab PO QAM [facility] Stop: 02/23/19 15:59 Last Admin: 01/25/19 08:38 Dose: 1 tab Documented by: [id number] Admin: 01/24/19 16:45 Dose: 1 tab Documented by: [id number] Nicotine (Nicoderm Cq) 21 mg TD QAM [facility] Stop: 02/21/19 10:14 Last Admin: 01/25/19 08:38 Dose: 21 mg Documented by: [id number] Admin: 01/24/19 07:18 Dose: 21 mg Documented by: [id number] Admin: 01/23/19 12:20 Dose: 21 mg Documented by: [id number] Admin: 01/22/19 11:04 Dose: Not Given Documented by: [id number] Potassium Chloride (Klor-Con M20) 40 meq PO QAM [facility] Stop: 02/23/19 08:59 Last Admin: 01/25/19 08:39 Dose: 40 meq Documented by: [id number] Admin: 01/24/19 07:17 Dose: 40 meq Documented by: [id number] Senna/Docusate Sodium (Senokot S) 1 tab PO BID [facility] Stop: 02/22/19 12:29 Last Admin: 01/25/19 08:38 Dose: 1 tab Documented by: [id number] Admin: 01/24/19 21:14 Dose: 1 tab Documented by: [id number] Admin: 01/24/19 07:18 Dose: 1 tab Documented by: [id number] Admin: 01/23/19 21:58 Dose: 1 tab Documented by: [id number] Admin: 01/23/19 13:19 Dose: 1 tab Documented by: [id number] Tramadol HCl (Ultram) 50 mg PO Q6H PRN PRN Reason: Pain Stop: 02/21/19 16:50 Last Admin: 01/22/19 16:58 Dose: 50 mg Documented by: [id number] PG Care Time/CCT Total # of Minutes Spent Total Time Spent with Patient: Total time spent is greater than 50% in coordi nation of care (as documented) at patient's floor/unit and/or counseling patient: Resident Activity Tracking Resident Involvement: Resident Care Provided Care Provided: Adult Hospital Medicine (ICU) (1) Hepatitis C infection Hepatic coma status: without hepatic coma Viral hepatitis chronicity: chronic Qualified Code(s): B18.2 - Chronic viral hepatitis C
--- NOTE | 2019-01-25 07:40 | XRay Report ---
SINGLE VIEW CHEST CLINICAL HISTORY: Dyspnea. FINDINGS: An AP, portable, upright chest radiograph is compared to study dated 01/24/2019. The examinat ion is degraded by portable technique and apical lordotic positioning. A right internal jugular centr al venous catheter is unchanged in position. The cardiac silhouette appears enlarged. There is eviden ce of pulmonary vascular congestion. There are increasing bilateral airspace opacities as compared to yesterday. Layering pleural effusions are noted. No pneumothorax is seen. The skeletal structures ap pear osteopenic. The bony thorax is grossly intact. IMPRESSION: 1. The cardiac silhouette appears enlarged and there is pulmonary vascular congestion. 2. There are increasing bilateral airspace opacities as compared to yesterday. This could interstitia l edema or progressive multifocal pneumonia. Clinical correlation will be required. 3. Layering pleural effusions. Electronically signed by: Isaak Vallejo M.D. 01/25/2019 7:38 AM
[2019-01-25] MEDS ORDERED: OPTIRAY 320 125ml IV PRN (07:46)
[2019-01-25] MEDS: NORMOSOL-R 1,000 ML IV SCH (08:01)
[2019-01-25] MEDS ORDERED: CEFTAROLINE FOSAMIL ACETATE 600 MG in SODIUM CHLORIDE 0.9% 250 ML IV SCH (08:30)
[2019-01-25] MEDS: DOCUSATE SODIUM/SENNA 50/8.6MG TAB PO SCH ×2 (08:38→20:22)
[2019-01-25] MEDS: NICOTINE 21 MG/24 HR TDSY TD SCH (08:38)
[2019-01-25] MEDS: BENZONATATE 100 MG CAPSULE PO SCH ×3 (08:38→20:21)
[2019-01-25] MEDS: CEROVITE ADV FORMULA TAB PO SCH (08:38)
[2019-01-25] MEDS: METOPROLOL TARTRATE 50 MG TAB PO SCH ×2 (08:38→20:23)
[2019-01-25] MEDS: LISINOPRIL 10 MG TAB PO SCH (08:39)
[2019-01-25] MEDS: POTASSIUM CHLORIDE 20 MEQ TABCR PO SCH (08:39)
--- NOTE | 2019-01-25 08:40 | CT Scan Report ---
CT ANGIOGRAPHY OF THE CHEST, PULMONARY EMBOLUS PROTOCOL CLINICAL HISTORY: PE/septic emboli from tricuspid vegetation. COMPARISON STUDY: Chest radiographs January 25, 2019 and January 24, 2019. TECHNIQUE: Following IV administration of 120 mL of Optiray-320, helical axial images of the chest we re obtained utilizing the pulmonary embolus protocol. Maximal intensity projections and sagittal and coronal reformats were viewed on an independent 3D workstation. IV contrast was administered withou t complication. Automated exposure control was utilized for the study. A dose lowering technique wa s utilized adhering to the principles of ALARA. CT DOSE: 387.66 mGy.cm FINDINGS: A right internal jugular central line is in place. No central pulmonary embolus is identif ied. There are moderate bilateral pleural effusions. The right pleural effusion is partially loculate d. There is no pneumothorax. Interstitial pulmonary edema is present. Numerous bilateral nodular opac ities, many of which are cavitary, are noted. Developing pulmonary infarcts are present. Central airw ays are patent. Size of the heart is normal. There is no pericardial effusion. Note is made of mildly enlarged mediastinal and bilateral hilar lymph nodes. Index left suprahilar lymph node measures 1.4 cm in short axis diameter. Index subcarinal lymph node measures 1.5 cm in short axis diameter. Bony t horax and upper abdomen are unremarkable. IMPRESSION: 1. No central pulmonary emboli identified. 2. Extensive bilateral nodular airspace opacities, many of which are cavitary. The findings are consi stent with the history of septic pulmonary emboli with suspected developing pulmonary infarcts. 3. Moderate bilateral pleural effusions. Right pleural effusion partially loculated. Sterility of the se effusions cannot be assessed by CT. 4. Mild interstitial pulmonary edema. 5. Mild mediastinal and bilateral hilar lymphadenopathy which is likely reactive. Electronically signed by: Gray Estrada M.D. 01/25/2019 8:39 AM
[2019-01-25] MEDS ORDERED: METOPROLOL TARTRATE 25 MG TAB PO STA (09:09)
[2019-01-25] MEDS ORDERED: METHYLNALTREXONE BROMIDE 12 MG/0.6 ML VIAL SQ ONE (09:30)
[2019-01-25] MEDS ORDERED: VANCOMYCIN TROUGH ONE (09:30)
[2019-01-25] MEDS: ENOXAPARIN INJ 40 MG/0.4 ML SYR SQ SCH (09:52)
--- NOTE | 2019-01-25 10:09 | Orthopedic Progress Note ---
Date of Service January 25, 2019 Assessment & Plan (1) Pain of right great toe: Continue current IV antibiotics as per ID team/Med Team. Patient notes much improvement since yesterday with less swelling and erythema. No plans for aspiration/surgery at this time. If the foot worsens over time, please call. Subjective Pt was seen yesterday in consultation by Dr Preciado for Right MTP pain. Patient had been admitted and was subsequently sent to the ICU with to sepsis and active tricuspid endocarditis. Patient is currently awake and alert. When discussing his right foot, he states that his pain is much better and he has much less swelling in the right foot compared to yesterday. He states that he is been moving the foot and toe quite well today without discomfort. Physical Exam Physical Exam: On examination of the right foot, he has some mild swelling over the dorsum of the foot and the MTP area as well of the right great toe. There is some mild erythema noted over the MTP joint but is nontender on palpation. He has good active range of motion of the toes including the right great toe without discomfort. Capillary refill is less than 2 seconds. I cannot appreciate any areas of fluctuance. Results & Data Vital Signs (Past 12 Hours) Vital Signs Temp Pulse BP Pulse Ox 01/25/19 09:00 123 H 133/74 96 01/25/19 08:30 123 H 96 01/25/19 08:00 118 H 125/90 97 01/25/19 07:53 121 H 132/88 91 01/25/19 07:00 112 H 99 01/25/19 06:45 110 H 96 01/25/19 06:18 37.3 C 113 H 124/83 90 01/25/19 06:00 111 H 94 01/25/19 05:00 107 H 110/82 94 01/25/19 04:30 110 H 109/74 97 01/25/19 04:00 37.1 C 110 H 115/76 96 01/25/19 03:30 108 H 116/70 95 01/25/19 03:00 110 H 124/79 95 01/25/19 02:30 109 H 112/73 93 01/25/19 02:00 37.2 C 114 H 126/70 96 01/25/19 01:30 117 H 119/77 96 01/25/19 01:00 116 H 110/70 97 01/25/19 00:30 120 H 116/74 97 01/25/19 00:00 39.7 C H 118 H 119/90 96 01/24/19 23:30 122 H 128/92 92 01/24/19 23:00 110 H 132/93 96 01/24/19 22:30 104 H 123/86 98 Laboratory Results Laboratory Results WBC 18.39 K/uL (4.8-10.8) H 01/25/19 04:06 RBC 3.07 M/uL (4.7-6.1) L 01/25/19 04:06 Hgb 9.6 g/dL (14.0-18.0) L 01/25/19 04:06 Hct 28.0 % (42-52) L 01/25/19 04:06 MCV 91.2 fL (80-100) 01/25/19 04:06 MCH 31.3 pg (25-34) 01/25/19 04:06 MCHC 34.3 g/dL (32-36) 01/25/19 04:06 RDW Std Deviation 43.9 fL (36.4-46.3) 01/25/19 04:06 RDW Coeff of Demond 13.2 % (11.5-14.5) 01/25/19 04:06 Plt Count 163 K/uL (130-400) 01/25/19 04:06 MPV 11.2 fL (7.4-10.4) H 01/25/19 04:06 Immature Gran % (Auto) 0.9 % 01/25/19 04:06 Neut % (Auto) 78.0 % 01/25/19 04:06 Lymph % (Auto) 11.4 % 01/25/19 04:06 Sharp % (Auto) 8.0 % 01/25/19 04:06 Eos % (Auto) 1.3 % 01/25/19 04:06 Baso % (Auto) 0.4 % 01/25/19 04:06 Reticulocyte % (Auto) 0.7 % (0.5-2.0) 01/25/19 04:06 Immature Gran # (Auto) 0.17 K/uL (0.00-0.02) H 01/25/19 04:06 Neut # (Auto) 14.35 K/uL (1.4-6.5) H 01/25/19 04:06 Lymph # (Auto) 2.09 K/uL (1.2-3.4) 01/25/19 04:06 Sharp # (Auto) 1.47 K/uL (0.11-0.59) H 01/25/19 04:06 Eos # (Auto) 0.23 K/uL (0-0.5) 01/25/19 04:06 Baso # (Auto) 0.08 K/uL (0-0.2) 01/25/19 04:06 Reticulocyte # 0.02 10^6/uL (0.02-0.10) 01/25/19 04:06 Toxic Granulation 1+ 01/22/19 02:19 Toxic Vacuolation 1+ 01/24/19 05:13 Dohle Bodies 1+ 01/24/19 05:13 Platelet Estimate Decreased (Normal) L 01/22/19 18:09 Giant Platelets 1+ 01/22/19 02:19 RBC Morphology Unremarkable 01/25/19 04:06 Spherocytes 1+ 01/22/19 02:19 Tear Drop Cells 1+ 01/22/19 02:19 Echinocytes 1+ 01/24/19 05:13 ESR 27 mm/hr (0-14) H 01/24/19 05:13 PT 12.4 Seconds (9.0-12.0) H 01/22/19 18:09 INR 1.2 (0.9-1.1) H 01/22/19 18:09 APTT 41.4 Seconds (21.0-31.0) H 01/25/19 04:06 PTT Ratio 1.5 01/25/19 04:06 Sodium 140 mmol/L (136-145) 01/25/19 04:06 Potassium 3.9 mmol/L (3.5-5.1) D 01/25/19 04:06 Chloride 107 mmol/L (98-107) 01/25/19 04:06 Carbon Dioxide 28 mmol/L (21-32) 01/25/19 04:06 Anion Gap 5.0 (3-11) 01/25/19 04:06 BUN 9 mg/dl (7-18) 01/25/19 04:06 Creatinine 0.69 mg/dl (0.6-1.4) 01/25/19 04:06 Est Cr Clr Drug Dosing 146.0 ml/min 01/25/19 04:06 Est GFR ( Amer) 139.6 01/25/19 04:06 Est GFR (Non-Af Amer) 120.4 01/25/19 04:06 BUN/Creatinine Ratio 13.1 (10-20) 01/25/19 04:06 Glucose 118 mg/dl (70-99) H 01/25/19 04:06 Lactate 1.3 mmol/L (0.4-2.0) 01/23/19 13:09 Uric Acid 2.5 mg/dl (2.6-7.2) L 01/24/19 05:13 Calcium 7.3 mg/dl (8.5-10.1) L 01/25/19 04:06 Magnesium 2.0 mg/dl (1.8-2.4) 01/22/19 18:09 Total Bilirubin 0.6 mg/dl (0.2-1) 01/25/19 04:06 AST 13 U/L (15-37) L 01/25/19 04:06 ALT 15 U/L (12-78) 01/25/19 04:06 Alkaline Phosphatase 120 U/L (45-117) H 01/25/19 04:06 Troponin I < 0.015 ng/ml (0-0.045) 01/23/19 05:28 Total Protein 5.4 gm/dl (6.4-8.2) L 01/25/19 04:06 Albumin 1.3 gm/dl (3.4-5.0) L 01/25/19 04:06 Globulin 4.1 gm/dl (2.5-4.0) H 01/25/19 04:06 Albumin/Globulin Ratio 0.3 (0.9-2) L 01/25/19 04:06 Random Cortisol 23.41 mcg/dl 01/22/19 18:09 Urine Color Yellow 01/22/19 21:36 Urine Appearance Clear (Clear) 01/22/19 21:36 Urine pH 5.5 (4.5-7.5) 01/22/19 21:36 Ur Specific [place] 1.023 (1.000-1.030) 01/22/19 21:36 Urine Protein 1+ (Negative) H 01/22/19 21:36 Urine Glucose (UA) Trace (Negative) H 01/22/19 21:36 Urine Ketones Negative (Negative) 01/22/19 21:36 Urine Blood Trace (Negative) H 01/22/19 21:36 Urine Nitrite Negative (Negative) 01/22/19 21:36 Urine Bilirubin Negative (Negative) 01/22/19 21:36 Urine Urobilinogen Negative (Negative) 01/22/19 21:36 Ur Leukocyte Esterase Negative (Negative) 01/22/19 21:36 Urine WBC (Auto) 5-10 /hpf (0-5) H 01/22/19 21:36 Urine RBC (Auto) 0-4 /hpf (0-4) 01/22/19 21:36 U Hyaline Cast (Auto) 1-5 /lpf (0-5) 01/22/19 21:36 U Epithel Cells (Auto) 20-30 /lpf (0-5) H 01/22/19 21:36 Urine Bacteria (Auto) Negative (Negative) 01/22/19 21:36 Nasal Screen MRSA (PCR) Positive (Negative) A 01/22/19 21:36 Vancomycin Trough 18.6 mcg/ml (See Comment) 01/24/19 09:35 Urine Opiates Screen Neg (Neg) 01/22/19 21:36 Ur Methadone, Qual Neg (Neg) 01/22/19 21:36 Urine Barbiturates Neg (Neg) 01/22/19 21:36 Ur Phencyclidine (PCP) Neg (Neg) 01/22/19 21:36 U Amphetamin/Meth Scrn Pos (Neg) H 01/22/19 21:36 MDMA (Ecstasy) Screen Neg (Neg) 01/22/19 21:36 U Benzodiazepines Scrn Neg (Neg) 01/22/19 21:36 Ur Cocaine Metabolite Neg (Neg) 01/22/19 21:36 U Marijuana (THC) Screen Pos (Neg) H 01/22/19 21:36 Hep Bs Antigen Neg (Neg) 01/22/19 18:09 HIV 1&2 Ab/P24 Ag 4thGn Neg (Neg) 01/22/19 18:09 Influenza Type A Ag Neg for Influ A (Neg) 01/22/19 03:20 Influenza Type B Ag Neg for Influ B (Neg) 01/22/19 03:20 Bld Cult Staph aureus PCR Positive (Negative) A 01/22/19 02:59 Blood Culture MRSA PCR Positive (Negative) A 01/22/19 02:59 Blood Type A Positive 01/23/19 13:09 Antibody Screen NEGATIVE 01/23/19 13:09
--- NOTE | 2019-01-25 10:40 | Infectious Disease Progress Nt ---
Date of Service January 25, 2019 Assessment & Plan (1) Infectious endocarditis: will change to Dapto and follow cultures, 01/25 pending. suspect he will have continued fever with pulm infarct and this is likely cause for ongoing pain. will require several weeks of IV abx for treatment. will not be a candidate for picc line due to ongoing IVDA. will follow 01/25 cultures. (2) Gram positive septicemia: Subjective pt seen in followup, remains in ICU. On vanco and teflaro. tolerating. afebrile currently, still having fevers, tmax 39.7. major complaint today is cough and chest pain with cough. CT done yesterday negative for PE but found multiple septic emboli with pulm infarcts. Multiple blood cultures now + for MRSA, 01/22, 01/23, 01/24, today's cultures are pending. wbc improved to 18, creat remains normal. blood pressure improved. no abd pain, no n/v/d. eating. no sob, hathaway, no gu symptoms. vanco level 18.6. Review of Systems Review of Systems: All systems reviewed & are unremarkable except as noted in HPI & below Physical Exam Constitutional: WD/WN, vitals as above Eyes: PERRL, conjunctivae normal, anicteric sclerae ENMT: external ear and nose normal, oropharynx normal Neck: normal visual inspection Respiratory: normal respiratory effort, lungs clear to auscultation Cardiovascular: RRR, no murmur, no edema Gastrointestinal (Abdomen): normal bowel sounds, soft, nontender, no hepatosplenomegaly Musculoskeletal: no cyanosis or clubbing, extremities motor strength 5/5 Skin: no rashes, warm and dry Results & Data Vital Signs (Past 12 Hours) Vital Signs Temp Pulse BP Pulse Ox 01/25/19 09:00 123 H 133/74 96 01/25/19 08:30 123 H 96 01/25/19 08:00 118 H 125/90 97 01/25/19 07:53 121 H 132/88 91 01/25/19 07:00 112 H 99 01/25/19 06:45 110 H 96 01/25/19 06:18 37.3 C 113 H 124/83 90 01/25/19 06:00 111 H 94 01/25/19 05:00 107 H 110/82 94 01/25/19 04:30 110 H 109/74 97 01/25/19 04:00 37.1 C 110 H 115/76 96 01/25/19 03:30 108 H 116/70 95 01/25/19 03:00 110 H 124/79 95 01/25/19 02:30 109 H 112/73 93 01/25/19 02:00 37.2 C 114 H 126/70 96 01/25/19 01:30 117 H 119/77 96 01/25/19 01:00 116 H 110/70 97 01/25/19 00:30 120 H 116/74 97 01/25/19 00:00 39.7 C H 118 H 119/90 96 01/24/19 23:30 122 H 128/92 92 01/24/19 23:00 110 H 132/93 96 Laboratory Results Microbiology 01/23/19 05:43 Blood Aerobic Blood Culture - Preliminary Staph aureus MRSA 01/23/19 05:43 Blood Anaerobic Blood Culture - Preliminary No growth in Anaerobic bottle after 48 hours. 01/23/19 05:27 Blood Aerobic Blood Culture - Preliminary Staph aureus MRSA 01/23/19 05:27 Blood Anaerobic Blood Culture - Preliminary No growth in Anaerobic bottle after 48 hours. 01/24/19 05:13 Blood Aerobic Blood Culture - Preliminary Gram positive cocci clusters 01/24/19 05:13 Blood Anaerobic Blood Culture - Preliminary No growth in Anaerobic bottle after 24 hours. 01/24/19 05:19 Blood Aerobic Blood Culture - Preliminary Gram positive cocci clusters 01/24/19 05:19 Blood Anaerobic Blood Culture - Preliminary No growth in Anaerobic bottle after 24 hours. 01/22/19 03:07 Blood Aerobic Blood Culture - Final Staph aureus MRSA 01/22/19 03:07 Blood Anaerobic Blood Culture - Final Staph aureus MRSA 01/22/19 02:19 Blood Aerobic Blood Culture - Final Staph aureus MRSA 01/22/19 02:19 Blood Anaerobic Blood Culture - Final Staph aureus MRSA 01/22/19 02:59 Blood Aerobic Blood Culture - Final Staph aureus MRSA 01/22/19 02:59 Blood Anaerobic Blood Culture - Final Staph aureus MRSA
[2019-01-25] MEDS: OXYCODONE HCL IR 5 MG TAB (IMMEDIATE RELEASE) PO PRN ×2 (12:55→23:35)
--- NOTE | 2019-01-25 14:08 | Hospitalist Progress Note ---
Date of Service January 25, 2019 Assessment & Plan (1) Endocarditis of tricuspid valve: Echo on 01/22 showed evidence of large TV vegetation. Numerous blood cultures positive for MRSA. This is due to IV drug abuse. - He has had severe sepsis/septic shock due to such. Shock has resolved. - Critical care discussed with CT surgery [facility] in [place] - no indication for surgical intervention at this time. Critical care will re-assess daily. - Blood cultures from 01/24 still positive; today's cultures pending. - Now on dapto per ID (2) Acute septic pulmonary embolism: CTA chest on 01/25 showed extensive bilateral nodular airspace opacities, consistent with pulmonary emboli. - Plan as above. (3) Pain of right great toe: Likely due to septic emboli to this region. X-rays of right foot on 01/[address] Preciado saw in consult; continue IV antibiotics. - Pain control (4) Severe sepsis: With septic shock - shock resolved. - Never needed pressors. (5) IV drug abuse: With resulting endocarditis, etc. He reported that he has HepC. - Sent HepC RNA. Still pending as of 01/25. - HIV and HepB titer negative. (6) Severe protein-calorie malnutrition: Due to endocarditis, IV drug abuse, etc. - MVI, protein supplement, treat underlying infections, etc. (7) Thrombocytopenia: Likely due to severe sepsis/septicemia. - Improving as of 01/25 (8) DVT prophylaxis: Lovenox 40mg daily Subjective With less pain in the foot. No present chest pain. Review of Systems Review of Systems: All systems reviewed & are unremarkable except as noted in HPI & below Physical Exam Constitutional: + acute distress (tachypneic but more comfortable than yesterday), + ill appearing, + thin and + frail appearing ENMT: Mouth: + poor dentition; no oral mucosal abnormality Respiratory: + tachypneic Auscultation: + crackles (bases - mild); no wheezes Cardiovascular: Rate/Rhythm: regular rhythm and + tachycardic Heart Sounds: normal S1, normal S2 and + murmur (1-2/6 RENU LLSB) Vessels: posterior tibial pulses present and dorsalis pedis pulses present; no JVD Extremities: no edema Gastrointestinal (Abdomen): normal bowel sounds, soft, nontender, no hepatosplenomegaly Neurologic: no focal motor deficits Psychiatric: A+Ox3, euthymic affect Orientation: alert and oriented x 3 Affect: + irritable affect Lymphatic: no cervical lymphadenopathy Results & Data Vital Signs (Past 12 Hours) Vital Signs Temp Pulse BP Pulse Ox 01/25/19 09:00 123 H 133/74 96 01/25/19 08:30 123 H 96 01/25/19 08:00 118 H 125/90 97 01/25/19 07:53 121 H 132/88 91 01/25/19 07:00 112 H 99 01/25/19 06:45 110 H 96 01/25/19 06:18 37.3 C 113 H 124/83 90 01/25/19 06:00 111 H 94 01/25/19 05:00 107 H 110/82 94 01/25/19 04:30 110 H 109/74 97 01/25/19 04:00 37.1 C 110 H 115/76 96 01/25/19 03:30 108 H 116/70 95 01/25/19 03:00 110 H 124/79 95 01/25/19 02:30 109 H 112/73 93 PG Care Time/CCT Total # of Minutes Spent Total Time Spent with Patient: Total time spent is greater than 50% in coordination of care (as documented) at patient's floor/unit and/or counseling patient: (1) Acute septic pulmonary embolism Acute cor pulmonale presence: without acute cor pulmonale Qualified Code(s): I26.90 - Septic pulmonary embolism without acute cor pulmonale
[2019-01-25] MEDS: DAPTOmycin 450 MG in SYRINGE 0 ML IV SCH (15:00)
--- NOTE | 2019-01-25 16:15 | Cardiology Consultation ---
Date of Consultation January 25, 2019 Assessment & Plan (1) Infectious endocarditis: He has severe bacterial endocarditis. No definitive organism has been identified, but that is a Gram-positive cocci. He has been started on empiric therapy with some improvement in symptoms. He does not appear to have heart failure on examination although he does have pleural effusions and evidence of pulmonary vascular congestion on CT scan. Who did undergo an aggressive volume resuscitation at the time of admission. For symptoms of significant dyspnea or worsening pulmonary edema intravenous diuretics could be used. He has a resting tachycardia which is worse during periods of pain and fever. This is sinus tachycardia and likely will improve his clinical condition improves. The size of his valvular lesion raises possibility of needing surgery for treatment of this condition. However, there is not appear to be any other urgent indication for surgical intervention. Recurrent septic pulmonary emboli or persistent bacteremia would also be indications for surgical referral. The valve function appears to be adequate currently he does not have evidence of right ventricular failure. At this point I think we will simply monitor his response to antibiotic therapy and await identification of the organism. If he improves clinically is doing well we can reassess his valve function in the lesion at some point during his treatment, likely on outpatient basis. History of Present Illness Reason for Consultation: Endocarditis Requesting Physician: Mona Attending Physician: Justo Wang MD History of Present Illness The patient is a 30-year-old gentleman without any known cardiac history presented with symptoms fever, chills and hemodynamic instability. His initial evaluation also revealed evidence of septic pulmonary emboli. An echocardiogram revealed a tricuspid valve vegetation and treatment for bacterial endocarditis was initiated. Patient states that he did abuse drugs and injected them intravenously. His symptoms appeared to to involve the aforementioned infectious process. Generally did not have symptoms of chest discomfort. Prior to this illness he claims to have been an active individual who engages in sports and other physical activities without limiting symptoms of dyspnea or chest discomfort. Currently, his main complaint is chest pain. When resting and breathing normally he does not have symptoms but with coughing or deep inspiration he has severe chest discomfort. He has had an element of dizziness. He has intermittent fevers and diaphoresis. He states that those symptoms are improving. Allergies Allergy/AdvReac Type Severity Reaction Status Date / Time No Known Allergies Allergy Unverified 01/22/19 03:23 Home Medications Home Medications Medication Instructions Recorded Confirmed Type No Known Home Medications 01/22/19 01/22/19 History Patient History Medical History Hypoglycemia Surgical History No pertinent past surgical history Family History Other No pertinent family history Social History Preferred Language: Irish Communication Ability: Effective Assistant Family Teacher Required: No Beliefs That Will Affect Care: None Current Living Situation: Alone Feels Safe at Home: Yes Smoking Status: Current every day smoker Tobacco Type: cigarettes ; Cigarettes Per Day: 1 pack/day ; Hx Alcohol Use: Yes Hx Substance Use: Yes substance use type: other Substance Use Type Other:: Pt states he has done "everything". Last Used Substance: Unknown Review of Systems Review of Systems: All systems reviewed & are unremarkable except as noted in HPI & below No lower extremity edema. No painful digits or joints. Physical Exam Physical Exam: The patient is alert and oriented. Mood and affect appeared normal. He answered all questions appropriately. HEENT: Pupils are equal and reactive to light and accommodation. Extraocular movements are intact. The sclerae are anicteric. Neuro: Cranial nerves intact Neck: Patient's neck is supple. He has palpable carotid pulses bilaterally wit hout bruits on auscultation. There is no evidence of jugular venous distention. The thyroid is not enlarged. Lungs: APCs were clear with some decreased breath sounds at the bases. Patient did not take deep breaths. Cardiac: Heart demonstrates a regular rate and rhythm. Normal S1 and S2. No murmurs on examination. Pulses: The patient has palpable radial pulses bilaterally that are equal in i ntensity Extremities: There was no evidence of hypoperfusion. There is no cyanosis or clubbing. There is no edema. Skin: I did not appreciate any rashes on examination today. No swollen fingers or other lesions. Results & Data Vital Signs (Past 12 Hours) Vital Signs Temp Pulse Resp BP Pulse Ox 01/25/19 14:00 117 H 23 108/70 94 01/25/19 13:30 113 H 23 95 01/25/19 13:02 111 H 31 H 97 01/25/19 13:00 110 H 27 H 112/76 94 01/25/19 12:59 108 H 24 109/73 01/25/19 12:30 114 H 26 H 97 01/25/19 12:00 107 H 25 H 95 01/25/19 11:30 103 H 23 96 01/25/19 11:00 102 H 24 95 01/25/19 10:30 101 H 22 95 01/25/19 10:00 100 H 27 H 95 01/25/19 09:30 104 H 20 96 01/25/19 09:00 123 H 133/74 96 01/25/19 08:30 123 H 96 01/25/19 08:00 118 H 125/90 97 01/25/19 07:53 121 H 132/88 91 01/25/19 07:00 112 H 99 01/25/19 06:45 110 H 96 01/25/19 06:18 37.3 C 113 H 124/83 90 01/25/19 06:00 111 H 94 01/25/19 05:00 107 H 110/82 94 01/25/19 04:30 110 H 109/74 97 Laboratory Results Abnormal Lab Results 01/24/19 01/24/19 01/25/19 05:13 05:13 04:06 WBC 18.39 H RBC 3.07 L Hgb 9.6 L Hct 28.0 L MCV 91.2 MCH 31.3 MCHC 34.3 RDW Std Deviation 43.9 RDW Coeff of Demond 13.2 Plt Count 163 MPV 11.2 H Immature Gran % (Auto) 0.9 Neut % (Auto) 78.0 Lymph % (Auto) 11.4 [place] % (Auto) 8.0 Eos % (Auto) 1.3 Baso % (Auto) 0.4 Reticulocyte % (Auto) 0.7 Immature Gran # (Auto) 0.17 H Neut # (Auto) 14.35 H Lymph # (Auto) 2.09 [place] # (Auto) 1.47 H Eos # (Auto) 0.23 Baso # (Auto) 0.08 Reticulocyte # 0.02 RBC Morphology Unremarkable ESR 27 H APTT PTT Ratio Sodium Potassium Chloride Carbon Dioxide Anion Gap BUN Creatinine Est Cr Clr Drug Dosing Est GFR ( Amer) Est GFR (Non-Af Amer) BUN/Creatinine Ratio Glucose Uric Acid 2.5 L Calcium Total Bilirubin AST ALT Alkaline Phosphatase Total Creatine Kinase Total Protein Albumin Globulin Albumin/Globulin Ratio Vancomycin Trough 01/25/19 01/25/19 01/25/19 04:06 04:06 04:06 WBC RBC Hgb Hct MCV MCH MCHC RDW Std Deviation RDW Coeff of Demond Plt Count MPV Immature Gran % (Auto) Neut % (Auto) Lymph % (Auto) [place] % (Auto) Eos % (Auto) Baso % (Auto) Reticulocyte % (Auto) Immature Gran # (Auto) Neut # (Auto) Lymph # (Auto) [place] # (Auto) Eos # (Auto) Baso # (Auto) Reticulocyte # RBC Morphology ESR APTT 41.4 H PTT Ratio 1.5 Sodium 140 Potassium 3.9 D Chloride 107 Carbon Dioxide 28 Anion Gap 5.0 BUN 9 Creatinine 0.69 Est Cr Clr Drug Dosing 146.0 Est GFR ( Amer) 139.6 Est GFR (Non-Af Amer) 120.4 BUN/Creatinine Ratio 13.1 Glucose 118 H Uric Acid Calcium 7.3 L Total Bilirubin 0.6 AST 13 L ALT 15 Alkaline Phosphatase 120 H Total Creatine Kinase 17 L Total Protein 5.4 L Albumin 1.3 L Globulin 4.1 H Albumin/Globulin Ratio 0.3 L Vancomycin Trough 01/25/19 10:17 WBC RBC Hgb Hct MCV MCH MCHC RDW Std Deviation RDW Coeff of Demond Plt Count MPV Immature Gran % (Auto) Neut % (Auto) Lymph % (Auto) [place] % (Auto) Eos % (Auto) Baso % (Auto) Reticulocyte % (Auto) Immature Gran # (Auto) Neut # (Auto) Lymph # (Auto) [place] # (Auto) Eos # (Auto) Baso # (Auto) Reticulocyte # RBC Morphology ESR APTT PTT Ratio Sodium Potassium Chloride Carbon Dioxide Anion Gap BUN Creatinine Est Cr Clr Drug Dosing Est GFR ( Amer) Est GFR (Non-Af Amer) BUN/Creatinine Ratio Glucose Uric Acid Calcium Total Bilirubin AST ALT Alkaline Phosphatase Total Creatine Kinase Total Protein Albumin Globulin Albumin/Globulin Ratio Vancomycin Trough 17.[address] revealed multiple septic pulmonary emboli Echocardiogram revealed a large lesion on the tricuspid valve with moderate tricuspid regurgitation. ECG Additional Comments: EKG revealed sinus tachycardia without evidence of old infarct or significant AV nadine disease PG Care Time/CCT Total # of Minutes Spent Total Time Spent with Patient: Total time spent is greater than 50% in coordination of care (as documented) at patient's floor/unit and/or counseling patient: (1) Infectious endocarditis Infective endocarditis organism: bacterial Chronicity: acute Qualified Code(s): I33.0 - Acute and subacute infective endocarditis
[2019-01-25] MEDS: ACETAMINOPHEN 65 ML IV PRN (18:56)
[2019-01-26] MEDS: HYDROmorphone HCL 2 MG TAB PO SCH ×2 (02:13→07:14)
[2019-01-26] MEDS: OXYCODONE HCL IR 5 MG TAB (IMMEDIATE RELEASE) PO PRN ×3 (04:15→21:37)
[2019-01-26 04:17] LABS: Hematocrit (blood only) 27.4 % (42-52); Hemoglobin 9.3 g/dL (14.0-18.0); Mean Corpuscular Hgb Conc 33.9 g/dL (32-36); Mean Corpuscular Volume 91.9 fL (80-100); Platelet Count 239 K/uL (130-400); RDW Standard Deviation 43.6 fL (36.4-46.3); Red Blood Count 2.98 M/uL (4.7-6.1); White Blood Count 16.01 K/uL (4.8-10.8)
[2019-01-26 04:32] LABS: Partial Thromboplastin Ratio 1.1
[2019-01-26 04:34] LABS: Albumin Level 1.3 gm/dl (3.4-5.0); BUN Creatinine Ratio 12.6 (10-20); Calcium 7.7 mg/dl (8.5-10.1); Creatinine Clr Calc Pharmacy 132.6 ml/min; Est GFR (African American) 132.7; Est GFR (Non-African American) 114.5; Potassium 4.4 mmol/L (3.5-5.1)
[2019-01-26 04:36] LABS: Albumin Globulin Ratio 0.3 (0.9-2); Bilirubin,Total 0.4 mg/dl (0.2-1); Globulin 4.6 gm/dl (2.5-4.0); Total Protein 5.9 gm/dl (6.4-8.2)
[2019-01-26 05:05] LABS: Basophils # (auto) 0.08 K/uL (0-0.2); Basophils % (auto) 0.5 %; Eosinophils # (auto) 0.21 K/uL (0-0.5); Eosinophils % (auto) 1.3 %; Immature Granulocytes # (auto) 0.28 K/uL (0.00-0.02); Immature Granulocytes % (auto) 1.7 %; Lymphocytes # (auto) 1.88 K/uL (1.2-3.4); Lymphocytes % (auto) 11.7 %; Monocytes # (auto) 1.44 K/uL (0.11-0.59); Neutrophils # (auto) 12.12 K/uL (1.4-6.5); Neutrophils % (auto) 75.8 %; RBC Morphology Unremarkable
--- NOTE | 2019-01-26 07:01 | Critical Care Progress Note ---
Date of Service January 26, 2019 Assessment & Plan (1) Admitted to intensive care unit: Romaine Cristina is a 38 y/o male with history of IV drug abuse and Hepatitis C, last injected Suboxone into right forearm about 1.5 months ago. 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 Stable to transfer to floor as long as handles thoracentesis without complications. Neuro: answers questions appropriately, alert Ox3 Will stop Dilaudid PO, will put on Toradol 15mg IV for total of 5 doses and Methadone 5mg BID, will keep with Oxycodone PRN. Discussed with patient that pain analgesics will not completely resolve pain and that are goals are to keep patient as comfortable as possible, but that he will still unfortunately have pain. He will most likely require custodial analgesics. Cardiac/Vascular Active Tricuspid endocarditis with pleuritic chest pain Requiring transfer to ICU bc of hypotension despite receiving 6L of IVF prior to ICU transfer * Hemodynamics appear slightly improved today, HR down from 130s to 110s, systolic improved to low 100s, diastolic values stable in the 60s. Echocardiogram showing * large mobile vegetation attached to tricuspid valve measuring 2.7cm in length by 1.3cm. * EF 50-55% * Mild-moderate regurgitation [facility] Cardio-thoracic surgery was contacted on admission for stratification risk/possible transfer for surgical intervention of tricuspid valve, not surgical candidate at this time. Persistent tachycardia but appears to be improving with Lopressor 75mg PO BID, which will start tonight. NABIL was added yesterday of 10mg. Considerations for increasing to 20mg, but will titrate up beta iker first as patient's illness is setting him up for right sided heart failure. Pulm Vegetation on tricuspid valve concerning for micro emboli to lungs currently requiring new O2 requirement with NC at 2L, but concerning for possible decompensation from possible septic emboli CT PA today to evaluate pulmonary septic emboli end-tidal CO2 monitoring to monitor for respiratory depression with analgesics Plan for thoracentesis today for diagnostic sample and to help provide relief to patient w/labs for light's criteria. GI: Hepatitis C infection, lab work for viral load pending bowel regimen with Lactulose BID, yesterday had Senna/Colace without BM Poor nutritional intake Renal/Lytes No current abnormal electrolyte values kidney function normal discontinued all IVFs No current concerns; does not currently have geiger cath Urine output improved 2.05ml/kg/hr Endo: No hx of DM, or thyroid dysfunction Heme Leukocytosis persistent with slight improvement in value Persistent anemia at 9.3 most likely from bone marrow suppression from active inflammation/infection. ID: Septic, bacteremia of gram positive cocci clusters from MRSA from tricuspid vegetation Has had aggressive IVF resuscitation with 6L thus far Lactate elevated 8/2 evening at 2.5, but repeat values trended down 2.0 --> 1.1 8/3 AM Previously on Aztreonam and Vanc; then Teflaro (5th gen cephalosporin w/MRSA coverage) and Vancomycin; yesterday ID changed to Daptomycin, but concerns since Daptomycin won't cover pneumonia. Will add back Teflaro until discussion with ID specialist. HIV ordered - negative Hep C viral load pending; hx of hep C infection Right Toe Pain - no significant physical exam findings, not erythematous to suggest gout or acute cellulitis; but with cardiac vegetation spilling micro septic emboli and with bacteremia concern for seeding of joint space for infection; will place consult to ortho Dr. Preciado on-call physician for evaluation for septic joint; an xray was performed that showed soft tissue swelling. Consult was placed with ortho with recs to watch clinically. Lines: PIV left arm right IJ CVC DVT ppx Lovenox 40mg q24h Resuscitation status Full Code (2) Endocarditis of tricuspid valve: (3) MRSA (methicillin resistant Staphylococcus aureus) septicemia: (4) IV drug abuse: (5) Hepatitis C infection: Supervising Physician Co-Signing Physician Notes Patient seen and examined with the resident and discussed on multidisciplinary rounds. Please refer to his note for details. I agree with the assessment as noted with the following adjustments. Patient appears to be clinically stable to improving. He underwent ultrasound- guided catheter thoracentesis this a.m. which confirmed parapneumonic effusion. We will continue to follow and consider contralateral thoracentesis in the next 24 hours depending on clinical response. Continue antibiotics under the direction of infectious disease. Daptomycin lung penetration for pneumonia may be suboptimal and as such have elected to continue Teflaro for now. Will defer additional changes in antimicrobial therapy to the infectious disease performance test consultant service. Continue to wean oxygen as tolerated. The patient's nutritional status does appear poor. Dietary is following the patient with dietary supplements. Trending albumin and/or pre-albumin may be beneficial. He does have some lower extremity edema which is likely multifactorial due to combinations of poor nutritional status as well as underlying cardiovascular disease and will need to be followed. Hold on diuretics for now. The patient appears stable to transfer to the ICU to the floor. Discussed with the accepting hospitalist service. We will continue to follow for his pneumonia, hypoxemic respiratory failure, and parapneumonic effusions. Subjective No acute events reported overnight. Still having chest pain with movement and cough. He notes that his cough turned productive last night, but is unaware of color of sputum. But, he denies it being bloody. His right MTP pain is significantly improved he notes. No abdominal pain, nausea, vomiting, diarrhea. Review of Systems Review of Systems: All systems reviewed & are unremarkable except as noted in HPI & below Physical Exam Constitutional: + ill appearing Eyes: EOM intact bilaterally Neck: normal visual inspection and trachea midline Respiratory: + tachypneic; no respiratory distress Auscultation: + wheezes (diffuse expiratory) Cardiovascular: Rate/Rhythm: regular rhythm and + tachycardic Gastrointestinal (Abdomen): Percussion/Palpation: abdomen soft; abdomen nontender Musculoskeletal: Head/Neck/Chest: normocephalic and head atraumatic normal ROM to right MTP Neurologic: moves all extremities and awake Psychiatric: A+Ox3, euthymic affect Orientation: alert and oriented x 3 Results & Data Vital Signs (Past 12 Hours) Vital Signs Temp Pulse Resp BP Pulse Ox 01/26/19 06:00 113 H 25 H 117/74 94 01/26/19 05:30 38.3 C H 111 H 23 95 01/26/19 05:00 110 H 18 106/65 95 01/26/19 04:30 112 H 25 H 94 01/26/19 04:00 37.9 C H 106 H 22 118/77 94 01/26/19 03:30 108 H 24 99 01/26/19 03:00 106 H 22 117/71 95 01/26/19 02:30 106 H 29 H 96 01/26/19 02:00 100 H 20 131/85 95 01/26/19 01:00 94 H 22 128/83 97 01/26/19 00:00 37.4 C 90 30 H 123/79 97 08/05/19 23:00 91 H 18 115/79 97 01/25/19 22:00 92 H 20 114/66 96 01/25/19 21:00 107 H 24 107/70 96 01/25/19 20:00 37.6 C H 118 H 22 107/65 96 01/25/19 19:00 115 H 24 124/74 94 PG Care Time/CCT Total # of Minutes Spent Total Time Spent with Patient: Total time spent is greater than 50% in coordination of care (as documented) at patient's floor/unit and/or counseling patient: Resident Activity Tracking Resident Involvement: Resident Care Provided Care Provided: Adult Hospital Medicine (ICU) (1) Hepatitis C infection Hepatic coma status: without hepatic coma Viral hepatitis chronicity: chronic Qualified Code(s): B18.2 - Chronic viral hepatitis C
[2019-01-26] MEDS: CEROVITE ADV FORMULA TAB PO SCH (08:23)
[2019-01-26] MEDS: NICOTINE 21 MG/24 HR TDSY TD SCH (08:23)
[2019-01-26] MEDS: DOCUSATE SODIUM/SENNA 50/8.6MG TAB PO SCH ×2 (08:23→21:33)
[2019-01-26] MEDS: BENZONATATE 100 MG CAPSULE PO SCH ×3 (08:23→21:33)
[2019-01-26] MEDS: METOPROLOL TARTRATE 50 MG TAB PO SCH ×2 (08:23→21:32)
[2019-01-26] MEDS: CEFTAROLINE FOSAMIL ACETATE 600 MG in SODIUM CHLORIDE 0.9% 250 ML IV SCH ×2 (08:23→21:37)
[2019-01-26] MEDS: LISINOPRIL 10 MG TAB PO SCH (08:24)
[2019-01-26] MEDS ORDERED: LACTULOSE SYRUP 10 GM/15 ML BTL 473 ML PO PRN (08:39)
[2019-01-26] MEDS ORDERED: METHADONE HCL 10 MG TAB PO SCH (09:00)
[2019-01-26] MEDS ORDERED: METHADONE HCL 5 MG TAB PO SCH (09:00)
[2019-01-26] MEDS: KETOROLAC TROMETHAMINE 15 MG/ML VIAL IV PRN (09:38)
[2019-01-26 09:44] LABS: Hepatitis C Vira RNA (Log) PCR 7.47 LOG IU/ML (<1.18)
[2019-01-26] MEDS: METHADONE HCL 10 MG TAB PO SCH ×2 (09:52→21:38)
--- NOTE | 2019-01-26 10:01 | Procedure Note ---
Procedure Note Date of Service January 26, 2019 Note INDICATION: Pleural effusion PROCEDURE: Ultrasound-guided catheter thoracentesis, right side DATE: 01/26/2019 TIME: 9:30 AM PROVIDER: Momo ROLDAN CONSENT: Was obtained prior to the procedure by Dr. Jalen Brannon and placed on the chart PROCEDURE SUMMARY: Bedside ultra sound was performed to identify an appropriate puncture site. Images were saved to the [employer]print[employer] system. A time out was performed. The patient was prepped and draped in a sterile manner using chlorhexidine scrub after the appropriate level was confirmed by ultrasound. 1% lidocaine was used to numb the region. A finder needle was then used under negative pressure to locate fluid and instill lidocaine into the pleural space. A small incision was made with a #10 scalpel. A needle with overlying catheter was advanced using negative pressure on the syringe until a pleural flash was obtained. The thoracentesis catheter was then threaded without difficulty and without any bleeding. The patient had 550 mL of turbid/cloudy fluid removed. The incision site was then covered with two Band- Aids with no evidence of bleeding. No immediate complications were noted during the procedure. A post-procedure chest x-ray was completed and reviewed at bedside by this provider and no pneumothorax was identified. The patient tolerated the procedure well with no shortness of breath, no hypotension, no increase in heart rate, and no other acute symptoms. Supervising Physician Co-Signing Physician Notes I was physically present and immediately available for the entire procedure. Please refer to DIRECTOR EHS's procedure note for additional details Coding CPT Codes Pulmonary/Thoracic - Pulmonary and Thoracic: Thoracentesis w imaging ([id number]) Pulmonary/Thoracic - Pulmonary and Thoracic: US, Chest, real time with imaging documentation ([id number])
--- NOTE | 2019-01-26 10:05 | XRay Report ---
XR chest 1V portable HISTORY: post thoracentesis COMPARISON: Chest 01/25/2019. FINDINGS: Improved aeration within the lungs consistent with resolving pulmonary edema. No pneumothor ax. Small right pleural effusion has also improved status post thoracentesis. A small left pleural ef fusion persist. Bilateral airspace opacities have improved. The heart remains mildly enlarged. Right jugular catheter terminates at the SVC. IMPRESSION: 1. Decrease in size in the small right pleural effusion status post thoracentesis. No pneumothorax. 2. Improved aeration within the lungs. Electronically signed by: Maurice Flores M.D. 01/26/2019 10:03 AM
[2019-01-26 10:16] LABS: Albumin Pleural Fluid 0.8 g/dl
[2019-01-26 10:25] LABS: Total Protein Pleural Fluid 2.5 g/dl
[2019-01-26 11:34] LABS: Appearance Pleural Fluid CLOUDY; Color Pleural Fluid AMBER; RBC Pleural Fluid (A) 3000 /uL; Source Pleural Fluid RIGHT LUNG; WBC Pleural Fluid (A) 8839 /uL
--- NOTE | 2019-01-26 12:04 | Hospitalist Progress Note ---
Date of Service January 26, 2019 Assessment & Plan (1) Endocarditis of tricuspid valve: Echo on 01/22 showed evidence of large TV vegetation. Numerous blood cultures positive for MRSA. This is due to IV drug abuse. - He has had severe sepsis/septic shock due to such. Shock has resolved. - Critical care discussed with CT surgery [facility] in [place] - no indication for surgical intervention at this time. Critical care will re-assess daily. - Blood cultures from 01/24 still positive; cultures from 01/25 & 01/26 with no growth as of today (01/26) - Now on dapto & ceftaroline per ID (2) MRSA pneumonia: CTA chest on 01/25 showed multifocal airspace opacities many of which were cavitary. Almost certainly from septic pulmonary emboli. - Right-sided thoracentesis on 01/26 with pulm took off ~500cc of turbid fluid - Possible left-sided thoracentesis today or tomorrow - Continue daptomycin & ceftaroline - CXR on 01/26 showing improving opacities (3) Acute septic pulmonary embolism: CTA chest on 01/25 showed extensive bilateral nodular airspace opacities, consistent with pulmonary emboli. - Plan as above. (4) Pain of right great toe: Likely due to septic emboli to this region. X-rays of right foot on 01/[address] Preciado saw in consult; continue IV antibiotics. - Pain control (5) Severe sepsis: With septic shock - shock resolved. - Never needed pressors. (6) IV drug abuse: With resulting endocarditis, etc. He reported that he has HepC. - HepC RNA shows high viral load. - HIV and HepB titer negative. (7) Severe protein-calorie malnutrition: Due to endocarditis, IV drug abuse, etc. - MVI, protein supplement, treat underlying infections, etc. (8) Thrombocytopenia: Likely due to severe sepsis/septicemia. - Resolved as of 01/26 with plts of 239 (9) DVT prophylaxis: Lovenox 40mg daily Subjective Still with cough that causes significant chest pain. Otherwise, reports continued generalized pain and fevers. Review of Systems Review of Systems: All systems reviewed & are unremarkable except as noted in HPI & below Physical Exam Constitutional: + acute distress (tachypneic but more comfortable than yesterday), + ill appearing, + thin and + frail appearing ENMT: Mouth: + poor dentition; no oral mucosal abnormality Respiratory: + tachypneic Auscultation: + crackles (bases - mild); no wheezes Cardiovascular: Rate/Rhythm: regular rhythm and + tachycardic Heart Sounds: normal S1, normal S2 and + murmur (1-2/6 RENU LLSB) Vessels: posterior tibial pulses present and dorsalis pedis pulses present; no JVD Extremities: no edema Gastrointestinal (Abdomen): normal bowel sounds, soft, nontender, no hepatosplenomegaly Neurologic: no focal motor deficits Psychiatric: A+Ox3, euthymic affect Orientation: alert and oriented x 3 Affect: + irritable affect Lymphatic: no cervical lymphadenopathy Results & Data Vital Signs (Past 12 Hours) Vital Signs Temp Pulse Resp BP Pulse Ox 01/26/19 09:30 110 H 32 H 94 01/26/19 09:21 107 H 21 106/58 L 95 01/26/19 09:00 109 H 27 H 112/64 96 01/26/19 08:30 38.4 C H 110 H 22 94 01/26/19 08:00 107 H 25 H 119/72 96 01/26/19 07:30 113 H 23 96 01/26/19 07:00 111 H 31 H 103/71 96 01/26/19 06:45 107 H 22 95 01/26/19 06:00 113 H 25 H 117/74 94 01/26/19 05:30 38.3 C H 111 H 23 95 01/26/19 05:00 110 H 18 106/65 95 01/26/19 04:30 112 H 25 H 94 01/26/19 04:00 37.9 C H 106 H 22 118/77 94 01/26/19 03:30 108 H 24 99 01/26/19 03:00 106 H 22 117/71 95 01/26/19 02:30 106 H 29 H 96 01/26/19 02:00 100 H 20 131/85 95 01/26/19 01:00 94 H 22 128/83 97 01/26/19 00:00 37.4 C 90 30 H 123/79 97 PG Care Time/CCT Total # of Minutes Spent Total Time Spent with Patient: Total time spent is greater than 50% in coordination of care (as documented) at patient's floor/unit and/or counseling patient: (1) Acute septic pulmonary embolism Acute cor pulmonale presence: without acute cor pulmonale Qualified Code(s): I26.90 - Septic pulmonary embolism without acute cor pulmonale
--- NOTE | 2019-01-26 14:11 | Infectious Disease Progress Nt ---
Date of Service January 26, 2019 Assessment & Plan (1) Infectious endocarditis: continue Dapto and follow cultures, 8/5 negative to date suspect he will have continued fever with pulm infarct and this is likely cause for ongoing pain. will require several weeks of IV abx for treatment. will not be a candidate for picc line due to ongoing IVDA. will follow 8/5 cultures. follow pleural fluid cultures as well. (2) Gram positive septicemia: Subjective pt remains on dapto, ceftaroline added by ICU, tolerating well. 8/5 blood cultures negative at 24 hours, previous cultures growing MRSA. tmax 39.3. wbc improved to 16, had pleural fluid removed, 8839 wbc, cultures pending. Results & Data Vital Signs (Past 12 Hours) Vital Signs Temp Pulse Pulse Resp BP BP Pulse Ox 01/26/19 13:06 98 H 22 119/72 97 01/26/19 09:30 110 H 32 H 94 01/26/19 09:21 107 H 21 106/58 L 95 01/26/19 09:00 109 H 27 H 112/64 96 01/26/19 08:30 38.4 C H 110 H 22 94 01/26/19 08:00 107 H 25 H 119/72 96 01/26/19 07:30 113 H 23 96 01/26/19 07:00 111 H 31 H 103/71 96 01/26/19 06:45 107 H 22 95 01/26/19 06:00 113 H 25 H 117/74 94 01/26/19 05:30 38.3 C H 111 H 23 95 01/26/19 05:00 110 H 18 106/65 95 01/26/19 04:30 112 H 25 H 94 01/26/19 04:00 37.9 C H 106 H 22 118/77 94 01/26/19 03:30 108 H 24 99 01/26/19 03:00 106 H 22 117/71 95 01/26/19 02:30 106 H 29 H 96 Laboratory Results Microbiology 01/25/19 04:16 Blood Aerobic Blood Culture - Preliminary No growth in Aerobic bottle after 24 hours. 01/25/19 04:16 Blood Anaerobic Blood Culture - Preliminary No growth in Anaerobic bottle after 24 hours. 01/25/19 04:06 Blood Aerobic Blood Culture - Preliminary No growth in Aerobic bottle after 24 hours. 01/25/19 04:06 Blood Anaerobic Blood Culture - Preliminary No growth in Anaerobic bottle after 24 hours. 01/26/19 09:15 Pleural Fluid Gram Stain - Final 01/24/19 05:19 Blood Aerobic Blood Culture - Preliminary Staph aureus MRSA 01/24/19 05:19 Blood Anaerobic Blood Culture - Preliminary No growth in Anaerobic bottle after 48 hours. 01/24/19 05:13 Blood Aerobic Blood Culture - Preliminary Staph aureus MRSA 01/24/19 05:13 Blood Anaerobic Blood Culture - Preliminary No growth in Anaerobic bottle after 48 hours. 01/23/19 05:43 Blood Aerobic Blood Culture - Preliminary Staph aureus MRSA 01/23/19 05:43 Blood Anaerobic Blood Culture - Preliminary No growth in Anaerobic bottle after 48 hours. 01/23/19 05:27 Blood Aerobic Blood Culture - Preliminary Staph aureus MRSA 01/23/19 05:27 Blood Anaerobic Blood Culture - Preliminary No growth in Anaerobic bottle after 48 hours. 01/22/19 03:07 Blood Aerobic Blood Culture - Final Staph aureus MRSA 01/22/19 03:07 Blood Anaerobic Blood Culture - Final Staph aureus MRSA 01/22/19 02:19 Blood Aerobic Blood Culture - Final Staph aureus MRSA 01/22/19 02:19 Blood Anaerobic Blood Culture - Final Staph aureus MRSA 01/22/19 02:59 Blood Aerobic Blood Culture - Final Staph aureus MRSA 01/22/19 02:59 Blood Anaerobic Blood Culture - Final Staph aureus MRSA PG Care Time/CCT Total # of Minutes Spent Total Time Spent with Patient: Total time spent is greater than 50% in coordination of care (as documented) at patient's floor/unit and/or counseling patient: (1) Infectious endocarditis Chronicity: acute Infective endocarditis organism: bacterial Qualified Code(s): I33.0 - Acute and subacute infective endocarditis
[2019-01-26] MEDS: DAPTOmycin 450 MG in SYRINGE 0 ML IV SCH (16:38)
[2019-01-26] MEDS: GUAIFENESIN/CODEINE 100MG/10MG 5ML UDC PO PRN (23:38)
[2019-01-27] MEDS: OXYCODONE HCL IR 5 MG TAB (IMMEDIATE RELEASE) PO PRN ×3 (03:25→21:20)
[2019-01-27] MEDS: ACETAMINOPHEN 65 ML IV PRN ×2 (03:36→08:22)
[2019-01-27 07:39] LABS: Hemoglobin 8.4 g/dL (14.0-18.0); Mean Corpuscular Hgb Conc 33.6 g/dL (32-36); Mean Corpuscular Volume 94.3 fL (80-100); Mean Platelet Volume 10.5 fL (7.4-10.4); Platelet Count 230 K/uL (130-400); RDW Coefficient of Variation 13.1 % (11.5-14.5); RDW Standard Deviation 44.9 fL (36.4-46.3); Red Blood Count 2.65 M/uL (4.7-6.1); White Blood Count 16.24 K/uL (4.8-10.8)
[2019-01-27 07:49] LABS: Partial Thromboplastin Ratio 1.1; Partial Thromboplastin Time 29.3 Seconds (21.0-31.0)
[2019-01-27 08:07] LABS: Albumin Level 1.2 gm/dl (3.4-5.0); BUN Creatinine Ratio 15.9 (10-20); Calcium 7.6 mg/dl (8.5-10.1); Creatinine Clr Calc Pharmacy 96.4 ml/min; Est GFR (African American) 101.5; Est GFR (Non-African American) 87.6; Potassium 4.3 mmol/L (3.5-5.1)
[2019-01-27 08:11] LABS: Albumin Globulin Ratio 0.3 (0.9-2); Bilirubin,Total 0.4 mg/dl (0.2-1); Globulin 4.7 gm/dl (2.5-4.0); Total Protein 5.9 gm/dl (6.4-8.2)
[2019-01-27] MEDS: KETOROLAC TROMETHAMINE 15 MG/ML VIAL IV PRN ×2 (08:11→16:55)
[2019-01-27] MEDS: LISINOPRIL 10 MG TAB PO SCH (08:12)
[2019-01-27] MEDS: BENZONATATE 100 MG CAPSULE PO SCH ×3 (08:12→21:17)
[2019-01-27] MEDS: NICOTINE 21 MG/24 HR TDSY TD SCH (08:13)
[2019-01-27] MEDS: METOPROLOL TARTRATE 50 MG TAB PO SCH ×2 (08:13→21:16)
[2019-01-27] MEDS: CEROVITE ADV FORMULA TAB PO SCH (08:13)
[2019-01-27] MEDS: DOCUSATE SODIUM/SENNA 50/8.6MG TAB PO SCH ×2 (08:13→21:19)
[2019-01-27] MEDS: METHADONE HCL 10 MG TAB PO SCH ×2 (08:24→21:19)
[2019-01-27 08:50] LABS: Amphetamine Urine, Confirm 1080 NG/ML (CUTOFF=250); Marijuana Quant, GCMS Urine 104 NG/ML (CUTOFF=5); Methamphetamine, Ur Confirm 2100 NG/ML (CUTOFF=250)
[2019-01-27] MEDS: CEFTAROLINE FOSAMIL ACETATE 600 MG in SODIUM CHLORIDE 0.9% 250 ML IV SCH ×2 (09:34→21:16)
[2019-01-27] MEDS: ENOXAPARIN INJ 40 MG/0.4 ML SYR SQ SCH (10:15)
--- NOTE | 2019-01-27 12:39 | Hospitalist Progress Note ---
Date of Service January 27, 2019 Assessment & Plan (1) Endocarditis of tricuspid valve: Echo on 01/22 showed evidence of large TV vegetation. Numerous blood cultures positive for MRSA. This is due to IV drug abuse. - He has had severe sepsis/septic shock due to such. Shock has resolved. - Critical care discussed with CT surgery [facility] in [place] - no indication for surgical intervention at this time. - Blood cultures from 01/25 still positive; cultures from 01/26 with no growth as of today (01/27) - Now on dapto & ceftaroline (2) MRSA pneumonia: CTA chest on 01/25 showed multifocal airspace opacities many of which were cavitary. Almost certainly from septic pulmonary emboli. - Right-sided thoracentesis on 01/26 with pulm took off ~500cc of turbid fluid - Possible left-sided thoracentesis in the next few days - Continue daptomycin & ceftaroline - CXR on 01/26 showing improving opacities (3) Acute septic pulmonary embolism: CTA chest on 01/25 showed extensive bilateral nodular airspace opacities, consistent with septic pulmonary emboli. - Plan as above. (4) Pain of right great toe: Likely due to septic emboli to this region. X-rays of right foot on 01/[address] Preciado saw in consult; continue IV antibiotics. - Pain control (5) Severe sepsis: With septic shock - shock resolved. - Never needed pressors. (6) IV drug abuse: With resulting endocarditis, etc. - HepC RNA shows high viral load. - HIV and HepB titer negative. (7) Severe protein-calorie malnutrition: Due to endocarditis, IV drug abuse, etc. - MVI, protein supplement, treat underlying infections, etc. (8) Thrombocytopenia: Likely due to severe sepsis/septicemia. - Resolved as of 01/26 with plts of 239 (9) DVT prophylaxis: Lovenox 40mg daily Subjective Still with diffuse pain in the chest, less so in the right toe. Having some mild hemoptysis with coughing. Review of Systems Review of Systems: All systems reviewed & are unremarkable except as noted in HPI & below Physical Exam Constitutional: + ill appearing, + thin and + frail appearing; no acute distress ENMT: Mouth: + poor dentition; no oral mucosal abnormality Respiratory: no labored breathing and not tachypneic Auscultation: no wheezes Cardiovascular: Rate/Rhythm: regular rhythm and + tachycardic Heart Sounds: normal S1, normal S2 and + murmur (1-2/6 RENU LLSB) Vessels: posterior tibial pulses present and dorsalis pedis pulses present; no JVD Extremities: no edema Gastrointestinal (Abdomen): normal bowel sounds, soft, nontender, no hepatosplenomegaly Neurologic: no focal motor deficits Psychiatric: A+Ox3, euthymic affect Orientation: alert and oriented x 3 Affect: no irritable affect Lymphatic: no cervical lymphadenopathy Results & Data Vital Signs (Past 12 Hours) Vital Signs Temp Pulse Pulse Resp BP BP Pulse Ox 01/27/19 11:15 36.7 C 68 18 103/64 96 01/27/19 11:10 01/27/19 08:15 118/68 01/27/19 07:58 37 C 90 18 96/68 L 96 01/27/19 03:16 37.9 C H 89 19 131/74 95 Pulse Ox 01/27/19 11:15 01/27/19 11:10 95 01/27/19 08:15 01/27/19 07:58 01/27/19 03:16 PG Care Time/CCT Total # of Minutes Spent Total Time Spent with Patient: Total time spent is greater than 50% in coordination of care (as documented) at patient's floor/unit and/or counseling patient: (1) Acute septic pulmonary embolism Acute cor pulmonale presence: without acute cor pulmonale Qualified Code(s): I26.90 - Septic pulmonary embolism without acute cor pulmonale
--- NOTE | 2019-01-27 13:05 | XRay Report ---
XR chest 1V portable HISTORY: 38 years-old Male MRSA bacteremia; septic emboli sepsis COMPARISON: Chest radiograph 01/26/2019 TECHNIQUE: Portable AP view of the chest FINDINGS: Stable positioning of the right IJ central venous catheter. Cardiac silhouette is enlarged, unchanged . Trace right and small left pleural effusions redemonstrated. Bilateral mixed interstitial and alveo lar opacities have mildly progressed from comparison. No pneumothorax. Bones of the chest appear leopoldo sly intact. IMPRESSION: 1. Bilateral mixed interstitial and alveolar opacities have mildly worsened from comparison. 2. Unchanged left greater than right pleural effusions. The above report was generated using voice recognition software. It may contain grammatical, syntax o r spelling errors. Electronically signed by: Jered Burns M.D. 01/27/2019 1:03 PM
[2019-01-27] MEDS: DAPTOmycin 450 MG in SYRINGE 0 ML IV SCH (14:15)
--- NOTE | 2019-01-27 14:18 | Infectious Disease Progress Nt ---
Date of Service January 27, 2019 Assessment & Plan (1) Infectious endocarditis: continue Dapto and follow cultures, 8/6 negative to date suspect he will have continued fever with pulm infarct and this is likely cause for ongoing pain. will require several weeks of IV abx for treatment. will not be a candidate for picc line due to ongoing IVDA. will follow 8/6 cultures, 8/5 cultures now + as well. follow pleural fluid cultures as well - negative to date. Will likely need min 6 weeks IV abx from first negative culutre, will need weekly cbc, cmp, esr, cpk while on Dapto. With regards to active HCV he would not currently be a candidate for treatment due to ongoing IVDA but would encourage treatment if able to discontinue drug use. ID service to follow. (2) Gram positive septicemia: Subjective transferred from ICU. Remains with fevers, tmax overnight 39. Remains on dapto and ceftaroline. 8/6 blood cultures negative at 24h. Pleural fluid culture negative to date, AFB smear negative. toleraing abx. wbc improved to 16 today, creat 1.o HCV RNA >29million. Results & Data Vital Signs (Past 12 Hours) Vital Signs Temp Pulse Pulse Resp BP BP Pulse Ox 01/27/19 11:15 36.7 C 68 18 103/64 96 01/27/19 11:10 01/27/19 08:15 118/68 01/27/19 07:58 37 C 90 18 96/68 L 96 01/27/19 03:16 37.9 C H 89 19 131/74 95 Pulse Ox 01/27/19 11:15 01/27/19 11:10 95 01/27/19 08:15 01/27/19 07:58 01/27/19 03:16 Laboratory Results Microbiology 01/26/19 09:15 Pleural Fluid Gram Stain - Final 01/26/19 09:15 Pleural Fluid Aerobic and Anaerobic Culture - Preliminary No growth to date. 01/26/19 09:15 Pleural Fluid Acid Fast Bacilli Smear - Final 01/25/19 04:16 Blood Aerobic Blood Culture - Preliminary Staphylococcus aureus 01/25/19 04:16 Blood Anaerobic Blood Culture - Preliminary No growth in Anaerobic bottle after 48 hours. 01/25/19 04:06 Blood Aerobic Blood Culture - Preliminary Gram positive cocci clusters 01/25/19 04:06 Blood Anaerobic Blood Culture - Preliminary No growth in Anaerobic bottle after 48 hours. 01/26/19 04:10 Blood Aerobic Blood Culture - Preliminary No growth in Aerobic bottle after 24 hours. 01/26/19 04:10 Blood Anaerobic Blood Culture - Preliminary No growth in Anaerobic bottle after 24 hours. 01/26/19 03:59 Blood Aerobic Blood Culture - Preliminary No growth in Aerobic bottle after 24 hours. 01/26/19 03:59 Blood Anaerobic Blood Culture - Preliminary No growth in Anaerobic bottle after 24 hours. 01/24/19 05:19 Blood Aerobic Blood Culture - Preliminary Staph aureus MRSA 01/24/19 05:19 Blood Anaerobic Blood Culture - Preliminary No growth in Anaerobic bottle after 48 hours. 01/24/19 05:13 Blood Aerobic Blood Culture - Preliminary Staph aureus MRSA 01/24/19 05:13 Blood Anaerobic Blood Culture - Preliminary No growth in Anaerobic bottle after 48 hours. 01/23/19 05:43 Blood Aerobic Blood Culture - Preliminary Staph aureus MRSA 01/23/19 05:43 Blood Anaerobic Blood Culture - Preliminary No growth in Anaerobic bottle after 48 hours. 01/23/19 05:27 Blood Aerobic Blood Culture - Preliminary Staph aureus MRSA 01/23/19 05:27 Blood Anaerobic Blood Culture - Preliminary No growth in Anaerobic bottle after 48 hours. 01/22/19 03:07 Blood Aerobic Blood Culture - Final Staph aureus MRSA 01/22/19 03:07 Blood Anaerobic Blood Culture - Final Staph aureus MRSA 01/22/19 02:19 Blood Aerobic Blood Culture - Final Staph aureus MRSA 01/22/19 02:19 Blood Anaerobic Blood Culture - Final Staph aureus MRSA 01/22/19 02:59 Blood Aerobic Blood Culture - Final Staph aureus MRSA 01/22/19 02:59 Blood Anaerobic Blood Culture - Final Staph aureus MRSA PG Care Time/CCT Total # of Minutes Spent Total Time Spent with Patient: Total time spent is greater than 50% in coordination of care (as documented) at patient's floor/unit and/or counseling patient: (1) Infectious endocarditis Chronicity: acute Infective endocarditis organism: bacterial Qualified Code(s): I33.0 - Acute and subacute infective endocarditis
[2019-01-27] MEDS: GUAIFENESIN/CODEINE 100MG/10MG 5ML UDC PO PRN (17:21)
--- NOTE | 2019-01-27 17:29 | Pulmonology Progress Note ---
Date of Service January 27, 2019 Impression: 38-year-old male with MRSA endocarditis of the tricuspid valve with associated bilateral parapneumonic effusions and septic emboli/MRSA pneumonia. Assessment & Plan (1) Endocarditis of tricuspid valve: 1. Antibiotics per infectious disease. Will likely require prolonged course. The patient is at risk for continued pulmonary septic emboli given the size of the vegetation. Management per ID and the hospitalist service. (2) Acute septic pulmonary embolism: 1. Continue supportive care and antibiotics. Acute cor pulmonale presence: without acute cor pulmonale Qualified Code(s): I26.90 - Septic pulmonary embolism without acute cor pulmonale (3) Pleural effusion: 1. Parapneumonic effusion based on fluid studies from the right done 01/26. We will plan thoracentesis on the left today and fluid will be sent for routine as well as microbiologic analysis. Chest x-ray demonstrates minimal reaccumulation of the right-sided pleural fluid. (4) Acute hypoxemic respiratory failure: 1. Secondary to multifocal MRSA pneumonia due to septic emboli. Continue to wean oxygen as tolerated. Subjective Patient continues to experience cough with scant hemoptysis. The blood from his sputum appears to be dark and old. No evidence of active acute or massive or submassive hemoptysis currently. He continues to demonstrate hypoxemic respiratory failure. Antibiotics continued under the direction of the hospitalist and infectious disease. He continues to experience intermittent pain. The patient underwent diagnostic and therapeutic thoracentesis yesterday. He is unclear if this offered him any clinical benefit with regards to his breathing. Review of Systems Review of Systems: From prior Physical Exam Constitutional: + cachectic and + disheveled Respiratory: Coarse breath sounds bilaterally with intermittent rhonchi and wheezing Cardiovascular: Tacky S1-S2. Unable to auscultate murmur secondary to adventitial breath sounds. Gastrointestinal (Abdomen): normal bowel sounds, soft, nontender, no hepatosplenomegaly Skin: Multiple tattoos Results & Data Vital Signs (Past 12 Hours) Vital Signs Temp Pulse Resp BP Pulse Ox Pulse Ox 01/27/19 15:21 37.2 C 78 19 126/76 98 01/27/19 11:15 36.7 C 68 18 103/64 96 01/27/19 11:10 95 01/27/19 08:15 118/68 01/27/19 07:58 37 C 90 18 96/68 L 96 Laboratory Results 01/27/19 07:28 01/27/19 07:28 Microbiology 01/26/19 09:15 Pleural Fluid Gram Stain - Final 01/26/19 09:15 Pleural Fluid Aerobic and Anaerobic Culture - Preliminary No growth to date. 01/26/19 09:15 Pleural Fluid Acid Fast Bacilli Smear - Final 01/25/19 04:16 Blood Aerobic Blood Culture - Preliminary Staphylococcus aureus 01/25/19 04:16 Blood Anaerobic Blood Culture - Preliminary No growth in Anaerobic bottle after 48 hours. 01/25/19 04:06 Blood Aerobic Blood Culture - Preliminary Gram positive cocci clusters 01/25/19 04:06 Blood Anaerobic Blood Culture - Preliminary No growth in Anaerobic bottle after 48 hours. 01/26/19 04:10 Blood Aerobic Blood Culture - Preliminary No growth in Aerobic bottle after 24 hours. 01/26/19 04:10 Blood Anaerobic Blood Culture - Preliminary No growth in Anaerobic bottle after 24 hours. 01/26/19 03:59 Blood Aerobic Blood Culture - Preliminary No growth in Aerobic bottle after 24 hours. 01/26/19 03:59 Blood Anaerobic Blood Culture - Preliminary No growth in Anaerobic bottle after 24 hours. 01/24/19 05:19 Blood Aerobic Blood Culture - Preliminary Staph aureus MRSA 01/24/19 05:19 Blood Anaerobic Blood Culture - Preliminary No growth in Anaerobic bottle after 48 hours. 01/24/19 05:13 Blood Aerobic Blood Culture - Preliminary Staph aureus MRSA 01/24/19 05:13 Blood Anaerobic Blood Culture - Preliminary No growth in Anaerobic bottle after 48 hours. 01/23/19 05:43 Blood Aerobic Blood Culture - Preliminary Staph aureus MRSA 01/23/19 05:43 Blood Anaerobic Blood Culture - Preliminary No growth in Anaerobic bottle after 48 hours. 01/23/19 05:27 Blood Aerobic Blood Culture - Preliminary Staph aureus MRSA 01/23/19 05:27 Blood Anaerobic Blood Culture - Preliminary No growth in Anaerobic bottle after 48 hours. 01/22/19 03:07 Blood Aerobic Blood Culture - Final Staph aureus MRSA 01/22/19 03:07 Blood Anaerobic Blood Culture - Final Staph aureus MRSA 01/22/19 02:19 Blood Aerobic Blood Culture - Final Staph aureus MRSA 01/22/19 02:19 Blood Anaerobic Blood Culture - Final Staph aureus MRSA 01/22/19 02:59 Blood Aerobic Blood Culture - Final Staph aureus MRSA 01/22/19 02:59 Blood Anaerobic Blood Culture - Final Staph aureus MRSA Diagnostic Findings Chest x-ray independently reviewed. XR chest 1V portable HISTORY: 38 years-old Male MRSA bacteremia; septic emboli sepsis COMPARISON: Chest radiograph 01/26/2019 TECHNIQUE: Portable AP view of the chest FINDINGS: Stable positioning of the right IJ central venous catheter. Cardiac silhouette is enlarged, unchanged. Trace right and small left pleural effusions redemonstrated. Bilateral mixed interstitial and alveolar opacities have mildly progressed from comparison. No pneumothorax. Bones of the chest appear grossly intact. IMPRESSION: 1. Bilateral mixed interstitial and alveolar opacities have mildly worsened from comparison. 2. Unchanged left greater than right pleural effusions. The above report was generated using voice recognition software. It may contain grammatical, syntax or spelling errors. Electronically signed by: Jered Burns M.D. 01/27/2019 1:03 PM PG Care Time/CCT Total # of Minutes Spent Total Time Spent with Patient: Total time spent is greater than 50% in coordination of care (as documented) at patient's floor/unit and/or counseling patient: 27 minutes exclusive of procedures
--- NOTE | 2019-01-27 17:35 | XRay Report ---
XR chest 1V portable HISTORY: thoracentesis left COMPARISON: Chest 01/27/2019. FINDINGS: Decrease in size in the trace left pleural effusion status post thoracentesis. No definite pneumothorax. Small right pleural effusion persists. Bilateral mixed interstitial and alveolar opacit ies are not significantly changed. The heart remains enlarged. Right jugular central venous catheter terminates in the SVC. IMPRESSION: 1. Decrease in size in the trace left pleural effusion status post thoracentesis. No definite pneumot horax. 2. No change in the mixed interstitial and alveolar airspace opacities. Electronically signed by: Maurice Flores M.D. 01/27/2019 5:33 PM
--- NOTE | 2019-01-27 17:37 | Procedure Note ---
Procedure Note Date of Service January 27, 2019 Note INDICATION: Left pleural effusion PROCEDURE: Left thoracentesis DATE: 01/27/2019 TIME: 1700 PROVIDER: Momo ROLDAN CONSENT: Was obtained prior to the procedure by Dr. Jalen Brannon and placed on the chart PROCEDURE SUMMARY: Bedside ultra sound was performed to identify an appropriate puncture site. Images were saved to the [employer] system. A time out was performed. The patient was prepped and draped in a sterile manner using chlorhexidine scrub after the appropriate level was confirmed by ultrasound. 1% lidocaine was used to numb the region. A finder needle was then used under negative pressure to locate fluid and instill lidocaine into the pleural space. A small incision was made with a #10 scalpel. A needle with overlying catheter was advanced using negative pressure on the syringe until a pleural flash was obtained. The thoracentesis catheter was then threaded without difficulty and without any bleeding. The patient had 550 mL of turbid/cloudy fluid removed. The incision site was then covered with two Band- Aids with no evidence of bleeding. No immediate complications were noted during the procedure. A post-procedure chest x-ray was completed and reviewed at bedside by this provider and no pneumothorax was identified. The patient tolerated the procedure well with no shortness of breath, no hypotension, no increase in heart rate, and no other acute symptoms. Supervising Physician Co-Signing Physician Notes I was present for and assisted with this entire procedure. Coding
[2019-01-27 18:08] LABS: Glucose Pleural Fluid 115 mg/dl
[2019-01-27 18:16] LABS: LDH Pleural Fluid 196 U/L; Total Protein Pleural Fluid 2.2 g/dl
[2019-01-27 18:42] LABS: Appearance Pleural Fluid CLOUDY; Color Pleural Fluid AMBER; RBC Pleural Fluid (A) 6000 /uL; Source Pleural Fluid LEFT LUNG; WBC Pleural Fluid (A) 2677 /uL
[2019-01-27 18:43] LABS: Mononuclear WBC Pleural 35.2 %; Polynuclear WBC Pleural 64.8 %
[2019-01-28] MEDS: ACETAMINOPHEN 65 ML IV PRN (00:14)
[2019-01-28] MEDS: OXYCODONE HCL IR 5 MG TAB (IMMEDIATE RELEASE) PO PRN ×2 (03:29→14:43)
[2019-01-28 06:17] LABS: Hematocrit (blood only) 24.1 % (42-52); Hemoglobin 8.2 g/dL (14.0-18.0); Mean Corpuscular Volume 93.1 fL (80-100); Mean Platelet Volume 10.4 fL (7.4-10.4); Platelet Count 274 K/uL (130-400); RDW Standard Deviation 44.5 fL (36.4-46.3); Red Blood Count 2.59 M/uL (4.7-6.1); White Blood Count 17.12 K/uL (4.8-10.8)
[2019-01-28 06:27] LABS: INR 1.2 (0.9-1.1); Prothrombin Time 11.9 Seconds (9.0-12.0)
[2019-01-28 06:56] LABS: Albumin Globulin Ratio 0.2 (0.9-2); Albumin Level 1.1 gm/dl (3.4-5.0); BUN Creatinine Ratio 19.3 (10-20); Bilirubin,Total 0.3 mg/dl (0.2-1); Calcium 7.5 mg/dl (8.5-10.1); Creatinine Clr Calc Pharmacy 70.6 ml/min; Est GFR (African American) 69.7; Est GFR (Non-African American) 60.2; Globulin 4.6 gm/dl (2.5-4.0); Potassium 5.2 mmol/L (3.5-5.1); Total Protein 5.7 gm/dl (6.4-8.2)
[2019-01-28] MEDS: CEFTAROLINE FOSAMIL ACETATE 600 MG in SODIUM CHLORIDE 0.9% 250 ML IV SCH ×2 (09:05→20:59)
[2019-01-28] MEDS: NICOTINE 21 MG/24 HR TDSY TD SCH (09:08)
[2019-01-28] MEDS: BENZONATATE 100 MG CAPSULE PO SCH ×3 (09:08→21:01)
[2019-01-28] MEDS: METOPROLOL TARTRATE 50 MG TAB PO SCH ×2 (09:08→21:00)
[2019-01-28] MEDS: ENOXAPARIN INJ 40 MG/0.4 ML SYR SQ SCH (09:09)
[2019-01-28] MEDS: CEROVITE ADV FORMULA TAB PO SCH (09:10)
[2019-01-28] MEDS: METHADONE HCL 10 MG TAB PO SCH ×2 (09:18→21:00)
[2019-01-28] MEDS: DOCUSATE SODIUM/SENNA 50/8.6MG TAB PO SCH ×2 (09:18→21:07)
[2019-01-28 11:08] LABS: Basophils # (auto) 0.04 K/uL (0-0.2); Basophils % (auto) 0.2 %; Eosinophils # (auto) 0.18 K/uL (0-0.5); Eosinophils % (auto) 1.1 %; Immature Granulocytes # (auto) 0.25 K/uL (0.00-0.02); Immature Granulocytes % (auto) 1.5 %; Lymphocytes # (auto) 1.51 K/uL (1.2-3.4); Monocytes # (auto) 1.09 K/uL (0.11-0.59); Monocytes % (auto) 6.5 %; Neutrophils # (auto) 13.71 K/uL (1.4-6.5); Neutrophils % (auto) 81.7 %
[2019-01-28] MEDS ORDERED: SODIUM CHLORIDE 0.9% 1000ML 1,000 ML IV SCH (11:15)
--- NOTE | 2019-01-28 11:16 | Nephrology Consultation ---
Date of Consultation January 28, 2019 Assessment & Plan (1) Acute kidney injury: ROXANA in the setting of MRSA endocarditis associated w/ IVDA. Patient appears clinically volume contracted. During his ICU stay he required CTA, NABIL inhibitor therapy and IV NSAIDS for pain management. He has been on several antibiotics. Most recently he has been changed to Daptomycin + Ceftaroline. He reports a h/o PCN drug allergy. ROXANA is likely multifactoral -- Will repeat urinalysis w/ microscopy -- Obtain renal US -- Monitor PRP -- Will check urine and blood for eosinophils, FeNa -- Recommend reviewing drug allergies w/ patient and discussing w/ ID whether Ceftaroline can be stopped or changed to alternative antibiotic -- Lisinopril and Toradol have been stopped -- Avoid further iodinated contrast administration -- Will provide 1 L 0.9 NS IV today (2) Endocarditis of tricuspid valve: -- Recommend reviewing drug allergies w/ patient and discussing w/ ID whether Ceftaroline can be stopped or changed to alternative antibiotic (3) IV drug abuse: -- Will need social service intervention History of Present Illness Reason for Consultation: ROXANA Attending Physician: Justo Wang MD History of Present Illness Mr. Cristina is a 38 year old white male who was seen at the request of Dr. Wang for evaluation of ROXANA. Medical records in the EMR were reviewed and are summarized as follows: Mr. Cristina has a h/o IV drug use. His last use was ~ 1.5 months ago when he injected Suboxone. He presented to [facility] 01/22 w/ a week long h/o fever and rigors. BP was 71/53 at the time of presentation. He received IV fluid resusitation (total 6 L). Evaluation revealed MRSA sepsis w/ 2.7 cm vegetation on the TV and septic emboli to the lungs. Initial antibiotic therapy was IV Vanco + Aztreonam. This was changed to Daptomycin + Ceftaroline 01/25. By 01/27 creatinine began trending up and is currently 1.4. Mr. Cristina remains nonoliguric. He denies flank pain, gross hematuria, foamy urine or difficulty voiding. ED physician note indicates that patient reported a drug allergy to PCN. During his ICU stay Mr. Cristina required chest CTA (01/25) to evaluate for septic pulmonary emboli, Lisinopril for BP control and Toradol for pain management. Allergies Allergy/AdvReac Type Severity Reaction Status Date / Time No Known Allergies Allergy Unverified 01/22/19 03:23 Home Medications Home Medications Medication Instructions Recorded Confirmed Type No Known Home Medications 01/22/19 01/22/19 History Patient History Medical History Hypoglycemia Surgical History No pertinent past surgical history Family History Other No pertinent family history Social History Preferred Language: Occitan Communication Ability: Effective [employer] Office Required: No Beliefs That Will Affect Care: None Current Living Situation: Alone Feels Safe at Home: Yes Smoking Status: Current every day smoker Tobacco Type: cigarettes ; Cigarettes Per Day: 1 pack/day ; Hx Alcohol Use: Yes Hx Substance Use: Yes substance use type: other Substance Use Type Other:: Pt states he has done "everything". Last Used Substance: Unknown Review of Systems Constitutional: + fever, + chills, + body aches and + weakness Eyes: no worsening vision and no problem reported Ear, Nose, Mouth, Throat: no problem reported Respiratory: + cough; no dyspnea Cardiovascular: no chest pain, no palpitations and no edema Gastrointestinal: no abdominal pain, no nausea, no vomiting and no diarrhea/loose stools Genitourinary: no dysuria, no urinary hesitancy and no hematuria Musculoskeletal: no back pain Integumentary: no rash Neurologic: no falls, no dizziness and no confusion Physical Exam Constitutional: + ill appearing and + thin Eyes: PERRL, conjunctivae normal, anicteric sclerae ENMT: Mouth: + dry oral mucous membranes Neck: trachea midline, no thyromegaly R IJ CVC w/ clean dry dressing Respiratory: normal respiratory effort, lungs clear to auscultation Cardiovascular: RRR, no murmur, no edema Gastrointestinal (Abdomen): normal bowel sounds, soft, nontender, no hepatosplenomegaly Musculoskeletal: no cyanosis or clubbing, extremities motor strength 5/5 Skin: no rashes, warm and dry + turgor decreased multiple tattoos Neurologic: awake; not confused Results & Data Vital Signs (Past 12 Hours) Vital Signs Temp Pulse Pulse Resp BP Pulse Ox 01/28/19 07:21 70 01/28/19 07:08 37.2 C 78 18 114/71 96 01/28/19 03:23 37.3 C 77 17 97/58 L 96 01/28/19 01:01 37.7 C H 01/28/19 00:04 39.2 C H 01/27/19 23:50 37.0 C 105 H 19 137/81 93 01/27/19 23:30 99 H Laboratory Results Laboratory Tests 01/24/19 01/25/19 01/28/19 05:13 04:06 06:03 WBC Hgb Hct Immature Gran # (Auto) Eos # (Auto) ESR 27 H Sodium 139 Potassium 5.2 H D Chloride 106 Carbon Dioxide 29 BUN 28 H D Creatinine 0.69 1.46 H D Glucose 100 H Calcium 7.5 L Albumin 1.1 L 01/28/19 06:03 WBC 17.12 H Hgb 8.2 L Hct 24.1 L Immature Gran # (Auto) 0.25 H Eos # (Auto) 0.18 ESR Sodium Potassium Chloride Carbon Dioxide BUN Creatinine Glucose Calcium Albumin Diagnostic Findings CXR FINDINGS 01/27: Decrease in size in the trace left pleural effusion status post thoracentesis. No definite pneumothorax. Small right pleural effusion persists. Bilateral mixed interstitial and alveolar opacities are not significa ntly changed. The heart remains enlarged. Right jugular central venous catheter terminates in the SVC. CHEST CTA 01/25: 1. No central pulmonary emboli identified. 2. Extensive bilateral nodular airspace opacities, many of which are cavitary. The findings are consistent with the history of septic pulmonary emboli with suspected developing pulmonary infarcts. 3. Moderate bilateral pleural effusions. Right pleural effusion partially loculated. Sterility of these effusions cannot be assessed by CT. 4. Mild interstitial pulmonary edema. 5. Mild mediastinal and bilateral hilar lymphadenopathy which is likely reactive. PG Care Time/CCT Total # of Minutes Spent Total Time Spent with Patient: Total time spent is greater than 50% in coordination of care (as documented) at patient's floor/unit and/or counseling patient:
[2019-01-28 13:50] LABS: Appearance Urine Cloudy (Clear); Bilirubin Urine Negative (Negative); Blood Urine Negative (Negative); Color Urine Dark Yellow; Epithelial Cell Urine Auto >30 /lpf (0-5); Glucose Urine UA Negative (Negative); Ketones Urine Negative (Negative); Leukocyte Esterase Urine Trace (Negative); Nitrite Urine Negative (Negative); Protein Urine 1+ (Negative); RBC Urine Automated 0-4 /hpf (0-4); Specific Gravity Urine 1.025 (1.000-1.030); Urobilinogen Urine Negative (Negative)
[2019-01-28 14:11] LABS: Amorphous Sediment Urine Present (None Prsent); Bacteria Urine Automated 1+ (Negative)
--- NOTE | 2019-01-28 14:28 | Pulmonology Progress Note ---
Date of Service January 28, 2019 Assessment & Plan (1) Endocarditis of tricuspid valve: 1. Antibiotics per infectious disease. Will likely require prolonged course. The patient is at risk for continued pulmonary septic emboli given the size of the vegetation. Management per ID and the hospitalist service. (2) Acute septic pulmonary embolism: 1. Continue supportive care and antibiotics. Acute cor pulmonale presence: without acute cor pulmonale Qualified Code(s): I26.90 - Septic pulmonary embolism without acute cor pulmonale (3) Pleural effusion: 1. Parapneumonic effusion bilaterally. The most recent tap from the left showed improved pleural fluid characteristics consistent with treated infection. Would continue to follow clinically at this point time. Should the patient's effusions increase in size or there is suspicion about potential need for repeat thoracentesis, feel free to contact us. Otherwise will sign off at this point time. (4) Acute hypoxemic respiratory failure: 1. Secondary to multifocal MRSA pneumonia due to septic emboli. Continue to wean oxygen as tolerated. Subjective Patient cough appears subjectively improved although he continues to complain of cough and shortness of breath. His oxygen requirement is decreasing. He appears much more comfortable. He is status post thoracentesis yesterday and did experience some chest discomfort on the right side today which has now resol antonia. Review of Systems Review of Systems: From prior Physical Exam Constitutional: + cachectic and + disheveled Gastrointestinal (Abdomen): normal bowel sounds, soft, nontender, no hepatosplenomegaly Results & Data Vital Signs (Past 12 Hours) Vital Signs Temp Pulse Pulse Resp BP Pulse Ox 01/28/19 10:45 37.5 C 79 16 111/75 93 01/28/19 07:21 70 01/28/19 07:08 37.2 C 78 18 114/71 96 01/28/19 03:23 37.3 C 77 17 97/58 L 96 Laboratory Results 01/28/19 06:03 01/28/19 06:03 Right pleural fluid: pH 7.3, white blood cell count 9000 with 88% PMNs, LDH 357, glucose 110, Gram stain with many white blood cells but no organisms Left pleural fluid, white blood cell count of 2500 with 64% PMNs, LDH 196 with glucose of 115, and Gram stain with many white blood cells but no organisms Diagnostic Findings Chest x-ray independently reviewed. XR chest 1V portable HISTORY: thoracentesis left COMPARISON: Chest 01/27/2019. FINDINGS: Decrease in size in the trace left pleural effusion status post thoracentesis. No definite pneumothorax. Small right pleural effusion persists. Bilateral mixed interstitial and alveolar opacities are not significantly changed. The heart remains enlarged. Right jugular central venous catheter terminates in the SVC. IMPRESSION: 1. Decrease in size in the trace left pleural effusion status post thoracentesis. No definite pneumothorax. 2. No change in the mixed interstitial and alveolar airspace opacities. Electronically signed by: Maurice Flores M.D. PG Care Time/CCT Total # of Minutes Spent Total Time Spent with Patient: Total time spent is greater than 50% in coord ination of care (as documented) at patient's floor/unit and/or counseling patient:
[2019-01-28] MEDS: DAPTOmycin 450 MG in SYRINGE 0 ML IV SCH (14:38)
--- NOTE | 2019-01-28 15:02 | Hospitalist Progress Note ---
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 Numerous blood cultures positive for MRSA. This is due to IV drug abuse. - He has had severe sepsis/septic shock due to such. Shock has resolved. - Critical care discussed with CT surgery [facility] in [place] - no indication for surgical intervention at this time. - Blood cultures from 01/26 are positive; cultures repeated on 01/28 - Now on dapto & ceftaroline - Considering switch to linezolid if we feel his ROXANA is due to interstitial nephritis from the ceftaroline (2) Acute kidney injury: Baseline Cr ~0.7. - Up to 1.4 on 01/28. - Possibly due to pre-renal (FeNa of 0.1%) vs. interstitial nephritis from ceftaroline (~10% cross-reactivity with penicillin) vs. septic emobli (less likely given his right-sided endocarditis) - 1 L IVF bolus, renal microscopy & ultrasound pending - Discussed with nephrology on 01/28 (3) MRSA pneumonia: CTA chest on 01/25 showed multifocal airspace opacities many of which were cavitary. Almost certainly from septic pulmonary emboli. - Right-sided thoracentesis on 01/26 with pulm took off ~500cc of turbid fluid - Possible left-sided thoracentesis in the next few days - Continue daptomycin & ceftaroline - CXR on 01/26 showing improving opacities (4) Acute septic pulmonary embolism: CTA chest on 01/25 showed extensive bilateral nodular airspace opacities, consistent with septic pulmonary emboli. - Plan as above. (5) Pain of right great toe: Likely due to septic emboli to this region. X-rays of right foot on 01/[address] Preciado saw in consult; continue IV antibiotics. - Pain control (6) Severe sepsis: With septic shock - shock resolved. - Never needed pressors. (7) IV drug abuse: With resulting endocarditis, etc. - HepC RNA shows high viral load. - HIV and HepB titer negative. (8) Severe protein-calorie malnutrition: Due to endocarditis, IV drug abuse, etc. - MVI, protein supplement, treat underlying infections, etc. (9) Thrombocytopenia: Likely due to severe sepsis/septicemia. - Resolved as of 01/26 with plts of 239 (10) DVT prophylaxis: Lovenox 40mg daily Subjective No big changes from yesterday. Still having coughing spells with significant p ain. Review of Systems Review of Systems: All systems reviewed & are unremarkable except as noted in HPI & below Physical Exam Constitutional: + ill appearing, + thin and + frail appearing; no acute distress ENMT: Mouth: + poor dentition; no oral mucosal abnormality Respiratory: no labored breathing and not tachypneic Auscultation: no wheezes Cardiovascular: Rate/Rhythm: regular rhythm and + tachycardic Heart Sounds: normal S1, normal S2 and + murmur (1-2/6 RENU LLSB) Vessels: posterior tibial pulses present and dorsalis pedis pulses present; no JVD Extremities: no edema Gastrointestinal (Abdomen): normal bowel sounds, soft, nontender, no hepatosplenomegaly Neurologic: no focal motor deficits Psychiatric: A+Ox3, euthymic affect Orientation: alert and oriented x 3 Affect: no irritable affect Lymphatic: no cervical lymphadenopathy Results & Data Vital Signs (Past 12 Hours) Vital Signs Temp Pulse Pulse Resp BP Pulse Ox 01/28/19 10:45 37.5 C 79 16 111/75 93 01/28/19 07:21 70 01/28/19 07:08 37.2 C 78 18 114/71 96 01/28/19 03:23 37.3 C 77 17 97/58 L 96 PG Care Time/CCT Total # of Minutes Spent Total Time Spent with Patient: Total time spent is greater than 50% in coordination of care (as documented) at patient's floor/unit and/or counseling patient: (1) Acute septic pulmonary embolism Acute cor pulmonale presence: without acute cor pulmonale Qualified Code(s): I26.90 - Septic pulmonary embolism without acute cor pulmonale
[2019-01-28 16:09] LABS: BUN Creatinine Ratio 21.4 (10-20); Calcium 7.7 mg/dl (8.5-10.1); Creatinine Clr Calc Pharmacy 68.3 ml/min; Est GFR (African American) 66.9; Est GFR (Non-African American) 57.8; Potassium 5.1 mmol/L (3.5-5.1)
--- NOTE | 2019-01-28 18:17 | Ultrasound Report ---
RENAL ULTRASOUND HISTORY: ROXANA; possible septic emboli? COMPARISON: None. FINDINGS: Right kidney: 11.3 cm. No hydronephrosis. Normal corticomedullary differentiation and cortical thickn ess. Left kidney: 12.3 cm. No hydronephrosis. Normal corticomedullary differentiation and cortical thickne ss. Bladder: Mild bladder wall thickening measuring up to 4 mm. Bilateral ureteral jets are identified. Miscellaneous: The spleen is enlarged measuring 14 cm in length. There is a left pleural effusion petra ntified. IMPRESSION: 1. Normal kidneys. No hydronephrosis. 2. Mild bladder wall thickening. 3. Splenomegaly. 4. Left pleural effusion. Electronically signed by: Maurice Flores M.D. 01/28/2019 6:15 PM
[2019-01-29 07:10] LABS: Hematocrit (blood only) 24.2 % (42-52); Hemoglobin 8.1 g/dL (14.0-18.0); Mean Corpuscular Hgb Conc 33.5 g/dL (32-36); Mean Corpuscular Volume 94.9 fL (80-100); Mean Platelet Volume 10.5 fL (7.4-10.4); Platelet Count 360 K/uL (130-400); RDW Coefficient of Variation 13.1 % (11.5-14.5); RDW Standard Deviation 45.2 fL (36.4-46.3); Red Blood Count 2.55 M/uL (4.7-6.1); White Blood Count 17.26 K/uL (4.8-10.8)
[2019-01-29 07:20] LABS: INR 1.2 (0.9-1.1); Prothrombin Time 11.7 Seconds (9.0-12.0)
[2019-01-29 07:34] LABS: Albumin Level 1.1 gm/dl (3.4-5.0); Calcium 7.5 mg/dl (8.5-10.1); Creatinine Clr Calc Pharmacy 63.8 ml/min; Est GFR (African American) 61.5; Magnesium 2.5 mg/dl (1.8-2.4); Potassium 5.4 mmol/L (3.5-5.1)
[2019-01-29 07:35] LABS: Basophils # (auto) 0.06 K/uL (0-0.2); Basophils % (auto) 0.3 %; Eosinophils # (auto) 0.17 K/uL (0-0.5); Immature Granulocytes # (auto) 0.23 K/uL (0.00-0.02); Immature Granulocytes % (auto) 1.3 %; Lymphocytes # (auto) 1.85 K/uL (1.2-3.4); Lymphocytes % (auto) 10.7 %; Monocytes # (auto) 0.96 K/uL (0.11-0.59); Monocytes % (auto) 5.6 %; Neutrophils # (auto) 13.99 K/uL (1.4-6.5); Neutrophils % (auto) 81.1 %; RBC Morphology Unremarkable
[2019-01-29 07:37] LABS: Albumin Globulin Ratio 0.2 (0.9-2); Bilirubin,Total 0.3 mg/dl (0.2-1); Globulin 4.9 gm/dl (2.5-4.0)
[2019-01-29] MEDS: METOPROLOL TARTRATE 50 MG TAB PO SCH ×2 (09:43→21:24)
[2019-01-29] MEDS: CEROVITE ADV FORMULA TAB PO SCH (09:44)
[2019-01-29] MEDS: ENOXAPARIN INJ 40 MG/0.4 ML SYR SQ SCH (09:44)
[2019-01-29] MEDS: NICOTINE 21 MG/24 HR TDSY TD SCH (09:44)
[2019-01-29] MEDS: BENZONATATE 100 MG CAPSULE PO SCH ×3 (09:45→21:26)
[2019-01-29] MEDS: DOCUSATE SODIUM/SENNA 50/8.6MG TAB PO SCH ×2 (09:49→21:24)
[2019-01-29] MEDS: METHADONE HCL 10 MG TAB PO SCH (09:49)
--- NOTE | 2019-01-29 09:59 | Nephrology Progress Note ---
Date of Service January 29, 2019 Assessment & Plan (1) Acute kidney injury: ROXANA in the setting of MRSA endocarditis associated w/ IVDA. Patient appears clinically volume contracted. During his ICU stay he required CTA, NABIL inhibitor therapy and IV NSAIDS for pain management. He has been on several antibiotics. Most recently he has been changed to Daptomycin + Ceftaroline. He reports a h/o PCN drug allergy. ROXANA is likely multifactoral -- Urine microscopy reveals pyuria and granular casts suggestive of either AIN or ATN. Creatinine appears to be stabilizing and UO has improved. Continue to hold NABIL and NSAID. Monitor kidney function -- Urine eosinophils, urine sodium was not obtained -- Renal US reviewed this am: No obstruction. No area of ischemia/infarction reported (2) Endocarditis of tricuspid valve: -- Recommend reviewing drug allergies w/ patient and discussing w/ ID whether Ceftaroline can be stopped or changed to alternative antibiotic (3) IV drug abuse: -- Will need social service intervention Subjective Mr. Cristina was seen & examined in his hospital room this morning. He reports that his cough has improved. He is still having intermittent fever. He denies flank discomfort or uremic symptoms Review of Systems Constitutional: + fever, + body aches and + weakness Eyes: no worsening vision and no problem reported Ear, Nose, Mouth, Throat: no problem reported Respiratory: + cough; no dyspnea Cardiovascular: no chest pain, no palpitations and no edema Gastrointestinal: no abdominal pain, no nausea, no vomiting and no diarrhea/loose stools Genitourinary: no dysuria, no urinary hesitancy and no hematuria Musculoskeletal: no back pain Integumentary: no rash Neurologic: no falls, no dizziness and no confusion Physical Exam Constitutional: + ill appearing and + thin Eyes: PERRL, conjunctivae normal, anicteric sclerae ENMT: Mouth: + dry oral mucous membranes Neck: trachea midline, no thyromegaly Respiratory: normal respiratory effort, lungs clear to auscultation Cardiovascular: RRR, no murmur, no edema Gastrointestinal (Abdomen): normal bowel sounds, soft, nontender, no hepatosplenomegaly Musculoskeletal: no cyanosis or clubbing, extremities motor strength 5/5 Skin: no rashes, warm and dry + turgor decreased Neurologic: awake; not confused Results & Data Vital Signs (Past 12 Hours) Vital Signs Temp Pulse Pulse Resp BP Pulse Ox 01/29/19 07:49 37.3 C 79 16 110/64 94 01/29/19 04:05 37.3 C 79 18 113/64 91 01/29/19 00:00 85 01/28/19 23:30 37.0 C 100 H 18 111/75 92 Laboratory Results Laboratory Tests 01/29/19 01/29/19 06:45 06:45 WBC 17.26 H Hgb 8.1 L Hct 24.2 L Plt Count 360 Sodium 138 Potassium 5.4 H Chloride 107 Carbon Dioxide 28 BUN 34 H Creatinine 1.62 H Laboratory Tests 01/28/19 01/28/19 13:32 13:32 Urine Color Dark Yellow Urine Appearance Cloudy A Urine pH 5.0 Ur Specific [place] 1.025 Urine Protein 1+ H Urine Glucose (UA) Negative Urine Ketones Negative Urine Blood Negative Urine Nitrite Negative Urine Bilirubin Negative Urine Urobilinogen Negative Ur Leukocyte Esterase Trace H Urine WBC (Auto) 10-30 H Urine RBC (Auto) 0-4 U Hyaline Cast (Auto) 5-10 H U Epithel Cells (Auto) >30 H Urine Bacteria (Auto) 1+ H Amorphous Sediment Present A Granular Casts 5-10 H Ur Random Sodium Cancelled Diagnostic Findings Renal US 01/28/19: Right kidney: 11.3 cm. No hydronephrosis. Normal corticomedullary differentiation and cortical thickness. Left kidney: 12.3 cm. No hydronephrosis. Normal corticomedullary differentiation and cortical thickness. Bladder: Mild bladder wall thickening measuring up to 4 mm. Bilateral ureteral jets are identified. Miscellaneous: The spleen is enlarged measuring 14 cm in length. There is a left pleural effusion identified. PG Care Time/CCT Total # of Minutes Spent Total Time Spent with Patient: Total time spent is greater than 50% in coordination of care (as documented) at patient's floor/unit and/or counseling patient:
[2019-01-29] MEDS: CEFTAROLINE FOSAMIL ACETATE 600 MG in SODIUM CHLORIDE 0.9% 250 ML IV SCH ×2 (10:44→21:23)
--- NOTE | 2019-01-29 13:02 | Hospitalist Progress Note ---
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 Numerous blood cultures positive for MRSA. This is due to IV drug abuse. - He has had severe sepsis/septic shock due to such. Shock has resolved. - Critical care discussed with CT surgery [facility] in [place] - no indication for surgical intervention at this time. - Blood cultures from 01/26 are positive; cultures repeated on 01/28 - Now on dapto & ceftaroline - Will switch to linezolid tomorrow morning (01/30) to reduce cost. Discussed with pharmacy and did literature review. Efficacy should be the same. Cannot switch until methadone has a brief wash-out period. (2) Acute kidney injury: Baseline Cr ~0.7. - Up to 1.4 on 01/28 & 1.6 on 01/29 - Likely due to pre-renal/ATN from hypotension, contrast, and ketorolac - Discussed with nephrology on 01/29 -> Less likely interstitial nephritis. Renal u/s on 01/28 did not show abnormalities. (3) MRSA pneumonia: CTA chest on 01/25 showed multifocal airspace opacities many of which were cavitary. Almost certainly from septic pulmonary emboli. - Right-sided thoracentesis on 01/26 with pulm took off ~500cc of turbid fluid - Left-sided thoracentesis on 01/27 with additional fluid off - Continue abx as above - CXR on 01/26 showing improving opacities (4) Acute septic pulmonary embolism: CTA chest on 01/25 showed extensive bilateral nodular airspace opacities, consistent with septic pulmonary emboli. - Plan as above. (5) Pain of right great toe: Likely due to septic emboli to this region. X-rays of right foot on 01/[address] Preciado saw in consult; continue IV antibiotics. - Pain control - Improving on 01/29 (6) Severe sepsis: With septic shock - shock resolved. - Never needed pressors. (7) IV drug abuse: With resulting endocarditis, etc. - HepC RNA shows high viral load. - HIV and HepB titer negative. (8) Severe protein-calorie malnutrition: Due to endocarditis, IV drug abuse, etc. - MVI, protein supplement, treat underlying infections, etc. (9) Thrombocytopenia: Likely due to severe sepsis/septicemia. - Resolved as of 01/26 with plts of 239 (10) DVT prophylaxis: Lovenox 40mg daily Subjective Less coughing as long as he doesn't speak. Otherwise, chest pain is mildly better while he's lying on his back. Still hurts if he lies on his side. Review of Systems Review of Systems: All systems reviewed & are unremarkable except as noted in HPI & below Physical Exam Constitutional: + ill appearing, + thin and + frail appearing; no acute distress ENMT: Mouth: + poor dentition; no oral mucosal abnormality Respiratory: no labored breathing and not tachypneic Auscultation: no wheezes Cardiovascular: Rate/Rhythm: regular rhythm and + tachycardic Heart Sounds: normal S1, normal S2 and + murmur (1-2/6 RENU LLSB) Vessels: posterior tibial pulses present and dorsalis pedis pulses present; no JVD Extremities: no edema Gastrointestinal (Abdomen): normal bowel sounds, soft, nontender, no hepatosplenomegaly Neurologic: no focal motor deficits Psychiatric: A+Ox3, euthymic affect Orientation: alert and oriented x 3 Affect: no irritable affect Lymphatic: no cervical lymphadenopathy Results & Data Vital Signs (Past 12 Hours) Vital Signs Temp Pulse Resp BP Pulse Ox 01/29/19 11:13 37.0 C 67 18 106/71 94 01/29/19 07:49 37.3 C 79 16 110/64 94 01/29/19 04:05 37.3 C 79 18 113/64 91 PG Care Time/CCT Total # of Minutes Spent Total Time Spent with Patient: Total time spent is greater than 50% in coordination of care (as documented) at patient's floor/unit and/or counseling patient: (1) Acute septic pulmonary embolism Acute cor pulmonale presence: without acute cor pulmonale Qualified Code(s): I26.90 - Septic pulmonary embolism without acute cor pulmonale
[2019-01-29] MEDS: DAPTOmycin 450 MG in SYRINGE 0 ML IV SCH (16:05)
[2019-01-29] MEDS: OXYCODONE HCL 10 MG TABCR (OXYCONTIN) PO SCH (21:24)
[2019-01-30 06:18] LABS: Hemoglobin 7.8 g/dL (14.0-18.0); Mean Corpuscular Hgb Conc 33.9 g/dL (32-36); Mean Corpuscular Volume 92.4 fL (80-100); Platelet Count 390 K/uL (130-400); RDW Coefficient of Variation 13.1 % (11.5-14.5); RDW Standard Deviation 44.3 fL (36.4-46.3); Red Blood Count 2.49 M/uL (4.7-6.1); White Blood Count 17.27 K/uL (4.8-10.8)
[2019-01-30 06:48] LABS: BUN Creatinine Ratio 19.4 (10-20); Calcium 7.5 mg/dl (8.5-10.1); Creatinine Clr Calc Pharmacy 51.7 ml/min; Est GFR (African American) 47.7; Est GFR (Non-African American) 41.1; Potassium 5.4 mmol/L (3.5-5.1)
[2019-01-30] MEDS ORDERED: SODIUM CHLORIDE 0.9% 1000ML 1,000 ML IV ONE (08:57)
[2019-01-30] MEDS: CEROVITE ADV FORMULA TAB PO SCH (09:11)
[2019-01-30] MEDS: ENOXAPARIN INJ 40 MG/0.4 ML SYR SQ SCH (09:11)
[2019-01-30] MEDS: METOPROLOL TARTRATE 50 MG TAB PO SCH ×2 (09:11→20:33)
[2019-01-30] MEDS: OXYCODONE HCL 10 MG TABCR (OXYCONTIN) PO SCH ×2 (09:11→20:33)
[2019-01-30] MEDS: NICOTINE 21 MG/24 HR TDSY TD SCH (10:47)
[2019-01-30] MEDS: DOCUSATE SODIUM/SENNA 50/8.6MG TAB PO SCH ×2 (10:48→20:33)
[2019-01-30] MEDS: BENZONATATE 100 MG CAPSULE PO SCH ×3 (10:48→20:34)
[2019-01-30] MEDS: LINEZOLID 600 MG TAB PO SCH ×2 (10:49→20:34)
--- NOTE | 2019-01-30 12:04 | Nephrology Progress Note ---
Date of Service January 30, 2019 Assessment & Plan (1) Acute kidney injury: ROXANA in the setting of MRSA endocarditis associated w/ IVDA. Patient appears clinically volume contracted. During his ICU stay he required CTA, NABIL inhibitor therapy and IV NSAIDS for pain management. He has been on several antibiotics. Most recently he has been changed to Daptomycin + Ceftaroline. He reports a h/o PCN drug allergy. ROXANA is likely multifactoral with possible ATN however there is significant concern that it ROXANA may be secondary to acute interstitial nephritis. Ceftaroline was discontinued yesterday, currently on daptomycin and linezolid. --concern for AIN remains with progressive worsening of renal function. However, considering recent MRSA bacteremia, history of intravenous drug use, patient has high risk for recurrent bacteremia. Blood culture from 01/27 and 01/28 was negative. --if renal function continues to worsen over next 24 hours, will consider starting on high dose steroid for possible AIN --support hemodynamics, continue on IV fluid as needed, avoid nephrotoxic med ications Will follow (2) Endocarditis of tricuspid valve: -- Recommend reviewing drug allergies w/ patient and discussing w/ ID whether Ceftaroline can be stopped or changed to alternative antibiotic (3) IV drug abuse: -- Will need social service intervention Kerri Gavin was seen & examined in his hospital room this morning. He continues to have chest pain specially with cough. BP stable. Renal function continues to worsen creatinine increased to 2, electrolyte remain acceptable. He denies flank discomfort or uremic symptoms Review of Systems Review of Systems: All systems reviewed & are unremarkable except as noted in HPI & below Physical Exam Constitutional: + ill appearing, + in distress and + lethargic; no acute distress Respiratory: normal respiratory effort, lungs clear to auscultation + cough and able to speak in complete sentences Cardiovascular: Rate/Rhythm: regular rate and regular rhythm Heart Sounds: normal S1 and normal S2 Extremities: no edema Neurologic: moves all extremities and awake; not confused Psychiatric: A+Ox3, euthymic affect Results & Data Vital Signs (Past 12 Hours) Vital Signs Temp Pulse Resp BP Pulse Ox 01/30/19 08:01 36.7 C 90 18 116/67 92 01/30/19 04:19 37.5 C 76 16 118/75 93 01/30/19 00:44 37.6 C H 70 16 123/61 93
--- NOTE | 2019-01-30 13:00 | Nephrology Progress Note ---
Date of Service January 30, 2019 Assessment & Plan (1) Acute kidney injury: ROXANA in the setting of MRSA endocarditis associated w/ IVDA. Patient appears clinically volume contracted. During his ICU stay he required CTA, NABIL inhibitor therapy and IV NSAIDS for pain management. He has been on several antibiotics. Most recently he has been changed to Daptomycin + Ceftaroline. He reports a h/o PCN drug allergy. ROXANA is likely multifactoral with possible ATN however there is significant concern that it ROXANA may be secondary to acute interstitial nephritis. Ceftaroline was discontinued yesterday, currently on daptomycin and linezolid. --concern for AIN remains with progressive worsening of renal function. However, considering recent MRSA bacteremia, history of intravenous drug use, patient has high risk for recurrent bacteremia. Blood culture from 01/27 and 01/28 was negative. --if renal function continues to worsen over next 24 hours, will consider starting on high dose steroid for possible AIN --support hemodynamics, continue on IV fluid as needed, avoid nephrotoxic med ications Will follow (2) Endocarditis of tricuspid valve: -- Recommend reviewing drug allergies w/ patient and discussing w/ ID whether Ceftaroline can be stopped or changed to alternative antibiotic (3) IV drug abuse: -- Will need social service intervention Kerri Gavin was seen & examined in his hospital room this morning. He continues to have chest pain specially with cough. BP stable. Renal function continues to worsen creatinine increased to 2, electrolyte remain acceptable. He denies flank discomfort or uremic symptoms Review of Systems Constitutional: + fever, + body aches and + weakness Respiratory: + cough; no dyspnea Physical Exam Constitutional: + ill appearing, + in distress and + lethargic; no acute distress Respiratory: normal respiratory effort, lungs clear to auscultation + cough and able to speak in complete sentences Cardiovascular: Rate/Rhythm: regular rate and regular rhythm Heart Sounds: normal S1 and normal S2 Extremities: no edema Neurologic: moves all extremities and awake; not confused Psychiatric: A+Ox3, euthymic affect Results & Data Vital Signs (Past 12 Hours) Vital Signs Temp Pulse Resp BP Pulse Ox 01/30/19 12:07 37 C 62 18 108/73 94 01/30/19 08:01 36.7 C 90 18 116/67 92 01/30/19 04:19 37.5 C 76 16 118/75 93 PG Care Time/CCT Total # of Minutes Spent Total Time Spent with Patient: Total time spent is greater than 50% in coordination of care (as documented) at patient's floor/unit and/or counseling patient:
[2019-01-30] MEDS: DAPTOmycin 450 MG in SYRINGE 0 ML IV SCH (14:33)
--- NOTE | 2019-01-30 15:30 | Hospitalist Progress Note ---
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 Numerous blood cultures positive for MRSA. This is due to IV drug abuse. - He has had severe sepsis/septic shock due to such. Shock has resolved. - Critical care discussed with CT surgery [facility] in [place] - no indication for surgical intervention at this time. - Blood cultures from 01/26 are positive; cultures repeated on 01/28 - Still negative. - Now on dapto & linezolid - Was on dapto & ceftaroline, but this was switched for concern for interstitial nephritis. Vanc NOÉ is too high, so it reads as sussceptible, but vancomycin is a sub-optimal choice. (2) Acute kidney injury: Baseline Cr ~0.7. - Up to 1.4 on 01/28 & 2.0 on 01/30 - Likely due to pre-renal/ATN from hypotension, contrast, and ketorolac - Discussed with nephrology on 01/30 -> Possibly interstitial nephritis. If Cr worsens on 01/31, will consider steroids. Will avoid if possible given his ongoing infection. - Monitor K+ at 5.5. (3) MRSA pneumonia: CTA chest on 01/25 showed multifocal airspace opacities many of which were cavitary. Almost certainly from septic pulmonary emboli. - Right-sided thoracentesis on 01/26 with pulm took off ~500cc of turbid fluid - Left-sided thoracentesis on 01/27 with additional fluid off - Continue abx as above - CXR on 01/26 showing improving opacities (4) Acute septic pulmonary embolism: CTA chest on 01/25 showed extensive bilateral nodular airspace opacities, consistent with septic pulmonary emboli. - Plan as above. (5) Pain of right great toe: Likely due to septic emboli to this region. X-rays of right foot on 01/[address] Preciado saw in consult; continue IV antibiotics. - Pain control - Improving on 01/29 (6) Severe sepsis: With septic shock - shock resolved. - Never needed pressors. (7) IV drug abuse: With resulting endocarditis, etc. - HepC RNA shows high viral load. - HIV and HepB titer negative. (8) Severe protein-calorie malnutrition: Due to endocarditis, IV drug abuse, etc. - MVI, protein supplement, treat underlying infections, etc. (9) Thrombocytopenia: Likely due to severe sepsis/septicemia. - Resolved as of 01/26 with plts of 239 (10) DVT prophylaxis: Lovenox 40mg daily Subjective Somewhat improved cough. Not substantially better, but ok when he doesn't move. Still reports unchanged pain. Review of Systems Review of Systems: All systems reviewed & are unremarkable except as noted in HPI & below Physical Exam Constitutional: + acute distress, + ill appearing, + thin and + frail appearing ENMT: Mouth: + poor dentition; no oral mucosal abnormality Respiratory: no labored breathing and not tachypneic Auscultation: no wheezes Cardiovascular: Rate/Rhythm: regular rhythm and + tachycardic Heart Sounds: normal S1, normal S2 and + murmur (1-2/6 RENU LLSB) Vessels: posterior tibial pulses present and dorsalis pedis pulses present; no JVD Extremities: no edema Gastrointestinal (Abdomen): normal bowel sounds, soft, nontender, no hepatosplenomegaly Musculoskeletal: Minimal erythema of the right great toe Neurologic: no focal motor deficits Psychiatric: A+Ox3, euthymic affect Orientation: alert and oriented x 3 Affect: no irritable affect Lymphatic: no cervical lymphadenopathy Results & Data Vital Signs (Past 12 Hours) Vital Signs Temp Pulse Resp BP Pulse Ox 01/30/19 15:06 37.1 C 66 19 127/76 95 01/30/19 12:47 93 01/30/19 12:07 37 C 62 18 108/73 94 01/30/19 08:01 36.7 C 90 18 116/67 92 01/30/19 04:19 37.5 C 76 16 118/75 93 PG Care Time/CCT Total # of Minutes Spent Total Time Spent with Patient: Total time spent is greater than 50% in coordination of care (as documented) at patient's floor/unit and/or counseling patient: (1) Acute septic pulmonary embolism Acute cor pulmonale presence: without acute cor pulmonale Qualified Code(s): I26.90 - Septic pulmonary embolism without acute cor pulmonale
[2019-01-30] MEDS: ONDANSETRON INJ 2 MG/ML 2 ML VIAL IV PRN (20:40)
[2019-01-31] MEDS: GUAIFENESIN/CODEINE 100MG/10MG 5ML UDC PO PRN ×2 (03:49→23:32)
[2019-01-31 05:56] LABS: Hematocrit (blood only) 23.6 % (42-52); Hemoglobin 7.9 g/dL (14.0-18.0); Mean Corpuscular Hgb Conc 33.5 g/dL (32-36); Mean Corpuscular Volume 92.9 fL (80-100); Mean Platelet Volume 9.9 fL (7.4-10.4); Platelet Count 416 K/uL (130-400); RDW Standard Deviation 43.8 fL (36.4-46.3); Red Blood Count 2.54 M/uL (4.7-6.1); White Blood Count 16.01 K/uL (4.8-10.8)
[2019-01-31 06:07] LABS: INR 1.2 (0.9-1.1); Prothrombin Time 11.8 Seconds (9.0-12.0)
[2019-01-31 06:33] LABS: Albumin Level 1.1 gm/dl (3.4-5.0); BUN Creatinine Ratio 17.9 (10-20); Calcium 7.3 mg/dl (8.5-10.1); Creatinine Clr Calc Pharmacy 41.4 ml/min; Est GFR (African American) 36.4; Est GFR (Non-African American) 31.4; Magnesium 2.7 mg/dl (1.8-2.4); Potassium 5.3 mmol/L (3.5-5.1)
[2019-01-31 06:36] LABS: Albumin Globulin Ratio 0.2 (0.9-2); Bilirubin,Total 0.2 mg/dl (0.2-1); Phosphorus 6.1 mg/dl (2.5-4.9); Total Protein 6.1 gm/dl (6.4-8.2)
[2019-01-31] MEDS ORDERED: SODIUM POLYSTYRENE SULFONATE 15G/60ML SUSP PO STA (07:57)
--- NOTE | 2019-01-31 08:00 | Nephrology Progress Note ---
Date of Service January 31, 2019 Assessment & Plan (1) Acute kidney injury: ROXANA in the setting of MRSA endocarditis associated w/ IVDA. Patient appears clinically volume contracted. During his ICU stay he required CTA, NABIL inhibitor therapy and IV NSAIDS for pain management. He has been on several antibiotics. Most recently he has been changed to Daptomycin + Ceftaroline. He reports a h/o PCN drug allergy. ROXANA is likely multifactoral with possible ATN however there is significant concern that ROXANA may be secondary to acute interstitial nephritis. Ceftaroline was discontinued, currently on daptomycin and linezolid. --concern for AIN remains with progressive worsening of renal function. --start on prednisone 80 mg /d --protonix 40 mg po/d --kayexalate 15 gm po x 1 dose --tums 500 mg po TID with meal. --monitor volume status as we continue on IV fluid as needed, avoid nephrotoxic medications Will follow (2) Endocarditis of tricuspid valve: -- Recommend reviewing drug allergies w/ patient and discussing w/ ID whether Ceftaroline can be stopped or changed to alternative antibiotic (3) IV drug abuse: -- Will need social service intervention Kerri Gavin was seen & examined in his hospital room this morning. He reports nausea and anorexia. BP stable. Renal function continues to worsen creatinine increased to 2.5, with hyperkalemia and hyperphosphatemia He denies flank discomfort or uremic symptoms. Voiding normally. Review of Systems Constitutional: + fever, + body aches and + weakness Respiratory: + cough; no dyspnea Physical Exam Constitutional: + ill appearing, + in distress and + lethargic Respiratory: normal respiratory effort, lungs clear to auscultation + cough and able to speak in complete sentences Cardiovascular: Rate/Rhythm: regular rate and regular rhythm Heart Sounds: normal S1 and normal S2 Extremities: no edema Neurologic: moves all extremities and awake; not confused Psychiatric: A+Ox3, euthymic affect Results & Data Vital Signs (Past 12 Hours) Vital Signs Temp Pulse Resp BP Pulse Ox 01/31/19 03:00 37.3 C 69 16 115/77 96 01/30/19 22:45 37.2 C 65 20 117/48 L 94 PG Care Time/CCT Total # of Minutes Spent Total Time Spent with Patient: Total time spent is greater than 50% in coordination of care (as documented) at patient's floor/unit and/or counseling patient:
[2019-01-31] MEDS: CALCIUM CARBONATE 500 MG CHEWABLE TAB PO SCH ×3 (09:06→16:14)
[2019-01-31] MEDS: predniSONE 20 MG TAB PO SCH (09:06)
[2019-01-31] MEDS: LINEZOLID 600 MG TAB PO SCH ×2 (09:07→21:00)
[2019-01-31] MEDS: METOPROLOL TARTRATE 50 MG TAB PO SCH ×2 (09:07→20:58)
[2019-01-31] MEDS: OXYCODONE HCL 10 MG TABCR (OXYCONTIN) PO SCH ×2 (09:07→20:58)
[2019-01-31] MEDS: CEROVITE ADV FORMULA TAB PO SCH (09:07)
[2019-01-31] MEDS: ENOXAPARIN INJ 40 MG/0.4 ML SYR SQ SCH (09:07)
[2019-01-31] MEDS: NICOTINE 21 MG/24 HR TDSY TD SCH (09:07)
[2019-01-31] MEDS: BENZONATATE 100 MG CAPSULE PO SCH ×3 (09:08→21:00)
[2019-01-31] MEDS: DOCUSATE SODIUM/SENNA 50/8.6MG TAB PO SCH ×2 (09:08→21:05)
[2019-01-31] MEDS: ONDANSETRON INJ 2 MG/ML 2 ML VIAL IV PRN (11:06)
--- NOTE | 2019-01-31 11:45 | Hospitalist Progress Note ---
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 Numerous blood cultures positive for MRSA. This is due to IV drug abuse. - He has had severe sepsis/septic shock due to such. Shock has resolved. - Critical care discussed with CT surgery C in [place] - no indication for surgical intervention at this time. - Blood cultures from 01/26 are positive; cultures repeated on 01/28 - Still negative. - Now on dapto & linezolid - Was on dapto & ceftaroline, but this was switched for concern for interstitial nephritis. Vanc NOÉ is too high, so it reads as susceptible, but vancomycin is a sub-optimal choice. (2) Acute kidney injury: Baseline Cr ~0.7. - Up to 1.4 on 01/28 & 2.5 on 01/31 - Due to pre-renal/ATN from hypotension, contrast, and ketorolac vs. AIN. - Discussed with nephrology on 01/30 -> Possibly interstitial nephritis. - Started prednisone 80mg PO daily on 01/31 - I had some concern about septic emboli to the kidney since he had the con cern for joint issue on the right foot earlier in the week. I discussed with radiology on 01/31. If we're really worried about septic emboli to the kidney, would likely need to get a non-con MRI. CT abdomen w/o contrast will be very limited. Discussed with Dr. Garzon who feels that septic emboli or post- infectious glomerulonephritis would have hematuria and are therefore less likely. As such, will hold off on an MRI at this point. I will though repeat his UA to be sure he hasn't developed hematuria. (3) MRSA pneumonia: CTA chest on 01/25 showed multifocal airspace opacities many of which were cavitary. Almost certainly from septic pulmonary emboli. - Right-sided thoracentesis on 01/26 with pulm took off ~500cc of turbid fluid - Left-sided thoracentesis on 01/27 with additional fluid off - Continue abx as above - CXR on 01/26 showing improving opacities (4) Acute septic pulmonary embolism: CTA chest on 01/25 showed extensive bilateral nodular airspace opacities, consistent with septic pulmonary emboli. - Plan as above. (5) Pain of right great toe: Likely due to septic emboli to this region. X-rays of right foot on 01/[address] Preciado saw in consult; continue IV antibiotics. - Pain control - Improving on 01/29-01/31. Patient reports minimal symptoms at this point. (6) Severe sepsis: With septic shock - shock resolved. - Never needed pressors. (7) IV drug abuse: With resulting endocarditis, etc. - HepC RNA shows high viral load. - HIV and HepB titer negative. (8) Severe protein-calorie malnutrition: Due to endocarditis, IV drug abuse, etc. - MVI, protein supplement, treat underlying infections, etc. (9) Thrombocytopenia: Likely due to severe sepsis/septicemia. - Resolved as of 01/26 with plts of 239 (10) DVT prophylaxis: Lovenox 40mg daily Subjective Has minimal appetite. Overall, not feeling significantly better than last few days. Review of Systems Review of Systems: All systems reviewed & are unremarkable except as noted in HPI & below Physical Exam Constitutional: + acute distress, + ill appearing, + thin and + frail appearing ENMT: Mouth: + poor dentition; no oral mucosal abnormality Respiratory: no labored breathing and not tachypneic Auscultation: no wheezes Cardiovascular: Rate/Rhythm: regular rhythm; not tachycardic Heart Sounds: normal S1, normal S2 and + murmur (1-2/6 RENU LLSB) Vessels: no JVD Extremities: no edema Gastrointestinal (Abdomen): normal bowel sounds, soft, nontender, no hepatosplenomegaly Neurologic: no focal motor deficits Psychiatric: A+Ox3, euthymic affect Orientation: alert and oriented x 3 Affect: no irritable affect Lymphatic: no cervical lymphadenopathy Results & Data Vital Signs (Past 12 Hours) Vital Signs Temp Pulse Resp BP Pulse Ox 01/31/19 08:11 37.6 C H 74 18 118/73 93 01/31/19 03:00 37.3 C 69 16 115/77 96 PG Care Time/CCT Total # of Minutes Spent Total Time Spent with Patient: Total time spent is greater than 50% in coordination of care (as documented) at patient's floor/unit and/or counseling patient: (1) Acute septic pulmonary embolism Acute cor pulmonale presence: without acute cor pulmonale Qualified Code(s): I26.90 - Septic pulmonary embolism without acute cor pulmonale
[2019-01-31] MEDS: PANTOprazole 40 MG TAB PO SCH (11:55)
[2019-01-31] MEDS: OXYCODONE HCL IR 5 MG TAB (IMMEDIATE RELEASE) PO PRN (12:23)
[2019-01-31] MEDS: DAPTOmycin 450 MG in SYRINGE 0 ML IV SCH (16:14)
[2019-02-01 03:16] LABS: Appearance Urine Cloudy (Clear); Bacteria Urine Automated Negative (Negative); Blood Urine 3+ (Negative); Color Urine Dark Yellow; Epithelial Cell Urine Auto >30 /lpf (0-5); Glucose Urine UA Negative (Negative); Ketones Urine Negative (Negative); Leukocyte Esterase Urine 1+ (Negative); Nitrite Urine Negative (Negative); Protein Urine 2+ (Negative); Specific Gravity Urine 1.026 (1.000-1.030); Urobilinogen Urine Negative (Negative); WBC Urine Automated >30 /hpf (0-5)
[2019-02-01 03:31] LABS: Bilirubin Urine Negative (Negative); Ictotest Urine Negative (Negative)
[2019-02-01 06:17] LABS: Hematocrit (blood only) 23.8 % (42-52); Hemoglobin 8.1 g/dL (14.0-18.0); Mean Corpuscular Volume 92.6 fL (80-100); Mean Platelet Volume 10.7 fL (7.4-10.4); Platelet Count 432 K/uL (130-400); RDW Coefficient of Variation 13.1 % (11.5-14.5); RDW Standard Deviation 43.7 fL (36.4-46.3); Red Blood Count 2.57 M/uL (4.7-6.1); White Blood Count 18.64 K/uL (4.8-10.8)
[2019-02-01 06:56] LABS: Albumin Level 1.2 gm/dl (3.4-5.0); BUN Creatinine Ratio 17.6 (10-20); Calcium 7.6 mg/dl (8.5-10.1); Creatinine Clr Calc Pharmacy 30.1 ml/min; Est GFR (African American) 24.7; Est GFR (Non-African American) 21.3; Phosphorus 7.1 mg/dl (2.5-4.9); Potassium 6.4 mmol/L (3.5-5.1)
[2019-02-01] MEDS ORDERED: SODIUM BICARB 8.4% INJ 50 MEQ/50 ML SYR IV STA (07:38)
[2019-02-01] MEDS ORDERED: SODIUM POLYSTYRENE SULFONATE 30 GM/120 ML UDP PO STA (07:38)
--- NOTE | 2019-02-01 07:44 | Hospitalist Progress Note ---
Date of Service February 01, 2019 Assessment & Plan (1) Acute kidney injury: Concern for AIN from antibiotic agent. ATN possible from hypotension/septicemia. No evidence of obstruction on renal u/s x 2. Septic emboli to kidneys possible but less likely. It appears creatinine has peaked/plateaued. Appreciate Dr Garzon's consultation. Spoke with her extensively today. Plan - supportive care. prednisone for possible AIN. serial BMPs due to hyperkalemia. send C3 and C4. avoid nephrotoxic agents. Present on Admission?: No (2) Hyperkalemia: 2nd ROXANA. this AM gave kayexalate 30gm, Calcium, Sodium Bicarbonate, albuterol and IV insulin. Repeat K was improved but still high. Gave additional kayalaxate 15gm this afternoon. repeat BMP late in the day with improved K (finally). repeat BMP am. Present on Admission?: No (3) Endocarditis of tricuspid valve: Echo with evidence of large TV vegetation. Numerous blood cultures positive for MRSA. This is due to IV drug abuse. He had severe sepsis/septic shock due to such. He had clinical/radiographic evidence of significant pulmonary septic emboli. Repeat blood cx's from 01/28/19 finally negative. Appreciate cardiology, ID, nephrology consultations and recs. No indication for surgical intervention. Currently on IV daptomycin and PO linezolid 600mg BID. Defer management to ID. Present on Admission?: Yes (4) Septic shock due to methicillin resistant Staphylococcus aureus: resolved required copious fluid resuscitation first 48 hours of stay and ICU admission but never needed pressors Present on Admission?: Yes (5) Acute septic pulmonary embolism: Severe earlier on this stay. Improved chest symptoms due to such. Complicated by parapneumonic effusion on left / empyema with pleural fluid + for MRSA on left via thoracentesis on 01/27/19. Still with O2 requirement - consider repeat cxr am. (6) MRSA (methicillin resistant Staphylococcus aureus) septicemia: With TV endocarditis. Due to IV drug abuse. See discussion above. (7) IV drug abuse: With resulting endocarditis, etc. Positive for HepC with very high viral load. HIV and HepB titers negative. (8) Hepatitis C infection: HepC RNA viral load very high. Due to IV drug abuse. Needs GI/ID follow-up post-discharge for the HepC. (9) Hypotension: Due to septicemia. Improved s/p copious fluid resuscitation in first 24/36 hours of stay. Resolved. Cortisol level wnl earlier in stay. (10) Severe protein-calorie malnutrition: Ongoing. Due to endocarditis, IV drug abuse, etc. HIV negative. MVI, protein supplement, treat underlying MRSA infection. (11) Thrombocytopenia: Due to severe sepsis/septicemia - resolved. (12) Hyponatremia: Resolved. (13) Pain of right great toe: Earlier this stay. This was either acute gout of the first MTP joint OR due to septic emboli to thi s region. x-rays of right foot were unremarkable. Dr Preciado saw in consult; continue IV antibiotics. Pain resolved. (14) MRSA pneumonia: Due to septic emboli. Repeat cxr in am. I am concerned he is volume overloaded with pulmonary edema in setting of ROXANA. (15) Empyema of left pleural space: s/p thoracentesis 01/27/19 with positive cultures for MRSA. remains on NC O2. repeat cxr in am for stability. (16) DVT prophylaxis: lovenox 40mg, but hold today due to ROXANA. depending on creatinine tomorrow will resume lovenox or heparin renal-based Subjective continues with fatigue, anorexia. he is anxious about the acute kidney failure and is scared about possibility of needing dialysis if things don't improve. no fevers or chills. pleuritic chest pain largely resolved. tele overnight wnl. Review of Systems Constitutional: + fatigue and + anorexia; no fever, no chills and no body aches Respiratory: + cough and + dyspnea on exertion; no dyspnea and no hemoptysis Cardiovascular: no chest pain, no orthopnea and no paroxysmal nocturnal dyspnea Gastrointestinal: no abdominal pain, no nausea, no vomiting and no diarrhea/loose stools Physical Exam Constitutional: + ill appearing, + thin and + frail appearing; no acute distress ENMT: Mouth: + poor dentition; no oral mucosal abnormality Respiratory: Auscultation: + diminished lung sounds (bases) and + crackles (bases - mild); no wheezes Cardiovascular: Rate/Rhythm: regular rate and + tachycardic Heart Sounds: normal S1, normal S2 and + murmur (1-2/6 RENU LLSB) Vessels: + JVD (to the jaw), posterior tibial pulses present and dorsalis pedis pulses present Extremities: + edema (trace b/l) Gastrointestinal (Abdomen): normal bowel sounds, soft, nontender, no hepatosplenomegaly Skin: no rashes, warm and dry PICC line left arm clean Neurologic: no focal motor deficits Psychiatric: Orientation: alert and oriented x 3 Results & Data Vital Signs (Past 12 Hours) Vital Signs Temp Pulse Pulse Resp BP Pulse Ox 02/01/19 07:04 36.5 C 51 L 16 115/72 93 02/01/19 03:05 36.9 C 54 L 16 113/73 93 02/01/19 00:00 36.9 C 68 16 125/83 95 01/31/19 22:20 54 L Laboratory Results Laboratory Results - last 24 hr 01/27/19 02/01/19 02/01/19 17:00 03:05 05:34 WBC 18.64 H RBC 2.57 L Hgb 8.1 L Hct 23.8 L MCV 92.6 MCH 31.5 MCHC 34.0 RDW Std Deviation 43.7 RDW Coeff of Demond 13.1 Plt Count 432 H MPV 10.7 H Sodium Potassium Chloride Carbon Dioxide Anion Gap BUN Creatinine Est Cr Clr Drug Dosing Est GFR ( Amer) Est GFR (Non-Af Amer) BUN/Creatinine Ratio Glucose Calcium Phosphorus Albumin Urine Color Dark Yellow Urine Appearance Cloudy A Urine pH 5.0 Ur Specific Adams 1.026 Urine Protein 2+ H Urine Glucose (UA) Negative Urine Ketones Negative Urine Blood 3+ H Urine Nitrite Negative Urine Bilirubin Negative Urine Urobilinogen Negative Ur Leukocyte Esterase 1+ H Urine WBC (Auto) >30 H Urine RBC (Auto) 5-10 H U Hyaline Cast (Auto) 1-5 U Epithel Cells (Auto) >30 H Urine Bacteria (Auto) Negative Ur Renal Epithelial Cell 5-10 H Granular Casts 1-5 H Waxy Casts 1-5 H WBC Casts 1-5 H Urine Yeast Not Reportable Pleural Cholesterol 20 02/01/19 05:34 WBC RBC Hgb Hct MCV MCH MCHC RDW Std Deviation RDW Coeff of Demond Plt Count MPV Sodium 137 Potassium 6.4 H* D Chloride 105 Carbon Dioxide 26 Anion Gap 6.0 BUN 61 H Creatinine 3.44 H D Est Cr Clr Drug Dosing 30.1 Est GFR ( Amer) 24.7 Est GFR (Non-Af Amer) 21.3 BUN/Creatinine Ratio 17.6 Glucose 197 H Calcium 7.6 L Phosphorus 7.1 H Albumin 1.2 L Urine Color Urine Appearance Urine pH Ur Specific Adams Urine Protein Urine Glucose (UA) Urine Ketones Urine Blood Urine Nitrite Urine Bilirubin Urine Urobilinogen Ur Leukocyte Esterase Urine WBC (Auto) Urine RBC (Auto) U Hyaline Cast (Auto) U Epithel Cells (Auto) Urine Bacteria (Auto) Ur Renal Epithelial Cell Granular Casts Waxy Casts WBC Casts Urine Yeast Pleural Cholesterol PG Care Time/CCT Total # of Minutes Spent Total Time Spent with Patient: Total time spent is greater than 50% in coordination of care (as documented) at patient's floor/unit and/or counseling patient: (1) Acute septic pulmonary embolism Acute cor pulmonale presence: without acute cor pulmonale Qualified Code(s): I26.90 - Septic pulmonary embolism without acute cor pulmonale (2) Hepatitis C infection Hepatic coma status: without hepatic coma Viral hepatitis chronicity: chronic Qualified Code(s): B18.2 - Chronic viral hepatitis C (3) Hypotension Hypotension type: unspecified hypotension type Qualified Code(s): I95.9 - Hypotension, unspecified (4) MRSA pneumonia Laterality: bilateral Lung location: unspecified part of lung Qualified Code(s): J15.212 - Pneumonia due to Methicillin resistant Staphylococcus aureus
[2019-02-01] MEDS ORDERED: ALBUTEROL 0.083% NEBU SOLN 3 ML VIAL NEB STA (07:45)
[2019-02-01] MEDS ORDERED: SODIUM POLYSTYRENE SULFONATE 15G/60ML SUSP PO STA (07:55)
[2019-02-01] MEDS ORDERED: INSULIN HUMAN REGULAR SC STA (07:57)
[2019-02-01] MEDS ORDERED: CALCIUM GLUCONATE 10% 1,000 MG in SODIUM CHLORIDE 0.9% 50 ML IV ONE (08:00)
[2019-02-01] MEDS ORDERED: INSULIN HUMAN REGULAR PER UNIT 3 UNITS in SYRINGE 2.97 ML IV ONE (08:15)
[2019-02-01] MEDS ORDERED: INSULIN HUMAN REGULAR PER IV ONE (08:15)
--- NOTE | 2019-02-01 09:04 | Ultrasound Report ---
US renal/blad retro comp HISTORY: Renal insufficiency acute renal failure, interstitial nephritis? COMPARISON: None. FINDINGS: Right kidney: Maximum dimension 12.4 cm Normal corticomedullary differentiation and cortical thicknes s. Left kidney: Maximum dimension 11.6 cm. Normal corticomedullary differentiation and cortical thickne ss. Bladder: No bladder wall thickening. The bilateral ureteral jets were identified. IMPRESSION: Normal renal ultrasound. No evidence for hydronephrosis. The above report was generated using voice recognition software. It may contain grammatical, syntax or spelling errors. Electronically signed by: Phil Back M.D. 02/01/2019 9:02 AM
[2019-02-01] MEDS: CALCIUM CARBONATE 500 MG CHEWABLE TAB PO SCH ×3 (09:43→15:03)
[2019-02-01] MEDS: predniSONE 20 MG TAB PO SCH (09:44)
[2019-02-01] MEDS: PANTOprazole 40 MG TAB PO SCH (09:45)
[2019-02-01] MEDS: CEROVITE ADV FORMULA TAB PO SCH (09:45)
[2019-02-01] MEDS: METOPROLOL TARTRATE 50 MG TAB PO SCH ×2 (09:45→20:21)
[2019-02-01] MEDS: LINEZOLID 600 MG TAB PO SCH ×2 (09:45→20:22)
[2019-02-01] MEDS: NICOTINE 21 MG/24 HR TDSY TD SCH (09:47)
[2019-02-01] MEDS: BENZONATATE 100 MG CAPSULE PO SCH ×3 (09:48→20:23)
[2019-02-01] MEDS: OXYCODONE HCL 10 MG TABCR (OXYCONTIN) PO SCH ×2 (09:50→20:28)
--- NOTE | 2019-02-01 10:27 | Nephrology Progress Note ---
Date of Service February 01, 2019 Assessment & Plan (1) Acute kidney injury: ROXANA in the setting of MRSA endocarditis associated w/ IVDA. Patient appears clinically volume contracted. During his ICU stay he required CTA, NABIL inhibitor therapy and IV NSAIDS for pain management. He has been on several antibiotics. Most recently he has been changed to Daptomycin + Ceftaroline. He reports a h/o PCN drug allergy. ROXANA is likely multifactoral with possible ATN however there is significant concern that ROXANA may be secondary to acute interstitial nephritis. Ceftaroline was discontinued, currently on daptomycin and linezolid. Renal function continues to decline rapidly creatinine now 3.4 with significant electrolyte abnormality. Blood pressure relatively well controlled. Repeat UA with microscopic hematuria and proteinuria as well as WBC cast suggestive of AIN. Renal ultrasound otherwise unremarkable. --continue on prednisone 80 mg /d for now, will get a noncontrast CT to exclude the possibility for any renal infarct considering rapid decline in renal function while off of the antibiotic and started on steroid although may be too early to see any improvement --agree with treating hyperkalemia and repeating potassium level in the afternoon, if renal function continues to worsen with persistent hyperkalemia, may need to consider renal replacement therapy in next 24-48 hours. Patient would be at high risk for bacteremia with temporary dialysis catheter. Discussed in detail with patient, patient became emotional however agree to consider dialysis if needed. Explained that if dialysis is needed it may be for a brief period of time while we wait for his kidneys to recover --protonix 40 mg po/d --tums 500 mg po TID with meal. Will follow (2) Endocarditis of tricuspid valve: -- Recommend reviewing drug allergies w/ patient and discussing w/ ID whether Ceftaroline can be stopped or changed to alternative antibiotic (3) IV drug abuse: -- Will need social service intervention Kerri Gavin was seen & examined in his hospital room this morning. He reports nausea and anorexia. BP stable. Renal function continues to worsen rather rapidly creatinine increased to 3.4, with hyperkalemia and hyperphosphatemia He denies flank discomfort or uremic symptoms. Voiding normally. Review of Systems Review of Systems: Detailed review of system was negative except mentioned above Physical Exam Constitutional: + ill appearing, + in distress and + lethargic Respiratory: normal respiratory effort, lungs clear to auscultation + cough and able to speak in complete sentences Cardiovascular: Rate/Rhythm: regular rate and regular rhythm Heart Sounds: normal S1 and normal S2 Extremities: no edema Neurologic: moves all extremities and awake; not confused Psychiatric: A+Ox3, euthymic affect Results & Data Vital Signs (Past 12 Hours) Vital Signs Temp Pulse Resp BP Pulse Ox 02/01/19 07:04 36.5 C 51 L 16 115/72 93 02/01/19 03:05 36.9 C 54 L 16 113/73 93 02/01/19 00:00 36.9 C 68 16 125/83 95 PG Care Time/CCT Total # of Minutes Spent Total Time Spent with Patient: Total time spent is greater than 50% in coordination of care (as documented) at patient's floor/unit and/or counseling patient:
--- NOTE | 2019-02-01 11:00 | Infectious Disease Progress Nt ---
Date of Service February 01, 2019 Assessment & Plan (1) Infectious endocarditis: continue Dapto and follow cultures, 01/28 negative to date suspect he will have continued fever with pulm infarct and this is likely cause for ongoing pain. will require several weeks of IV abx for treatment. will not be a candidate for picc line due to ongoing IVDA. follow pleural fluid cultures as well - negative to date. Will likely need min 6 weeks IV abx from first negative culutre, will need weekly cbc, cmp, esr, cpk while on Dapto. would suggest dose adjustment to Q48 hours with increased creat. With regards to active HCV he would not currently be a candidate for treatment due to ongoing IVDA but would encourage treatment if able to discontinue drug use. (2) Gram positive septicemia: Subjective pt afebrile with exception of low grade fever 37.6 overnight. 01/28 blood cultures remain negative. Creat continues to increase, 3.4 today, ? AIN, ?ATN. now with reported ? cephalosporin allgery, was on ceftaroline while in ICU, now stopped. nephro following, wbc remain elevated at 18. Remains on dapto. Pleural fluid culture negative. Results & Data Vital Signs (Past 12 Hours) Vital Signs Temp Pulse Resp BP Pulse Ox 02/01/19 07:04 36.5 C 51 L 16 115/72 93 02/01/19 03:05 36.9 C 54 L 16 113/73 93 02/01/19 00:00 36.9 C 68 16 125/83 95 Laboratory Results Microbiology 01/26/19 03:59 Blood Aerobic Blood Culture - Final Staph aureus MRSA 01/26/19 03:59 Blood Anaerobic Blood Culture - Final No growth in Anaerobic bottle after 5 days. 01/25/19 04:16 Blood Aerobic Blood Culture - Final Staph aureus MRSA 01/25/19 04:16 Blood Anaerobic Blood Culture - Final No growth in Anaerobic bottle after 5 days. 01/25/19 04:06 Blood Aerobic Blood Culture - Final Staph aureus MRSA 01/25/19 04:06 Blood Anaerobic Blood Culture - Final No growth in Anaerobic bottle after 5 days. 01/24/19 05:19 Blood Aerobic Blood Culture - Final Staph aureus MRSA 01/24/19 05:19 Blood Anaerobic Blood Culture - Final No growth in Anaerobic bottle after 5 days. 01/24/19 05:13 Blood Aerobic Blood Culture - Final Staph aureus MRSA 01/24/19 05:13 Blood Anaerobic Blood Culture - Final No growth in Anaerobic bottle after 5 days. 01/26/19 09:15 Pleural Fluid Gram Stain - Final 01/26/19 09:15 Pleural Fluid Aerobic and Anaerobic Culture - Preliminary Staph aureus MRSA 01/27/19 17:00 Pleural Fluid Gram Stain - Final 01/27/19 17:00 Pleural Fluid Aerobic and Anaerobic Culture - Preliminary No growth to date. 01/27/19 17:00 Pleural Fluid Acid Fast Bacilli Smear - Final 01/27/19 17:00 Pleural Fluid Acid Fast Bacilli Culture - Preliminary No Acid-Fast Bacilli Isolated - Report 1, Additional Report to Follow. 01/26/19 09:15 Pleural Fluid Acid Fast Bacilli Smear - Final 01/26/19 09:15 Pleural Fluid Acid Fast Bacilli Culture - Preliminary No Acid-Fast Bacilli Isolated - Report 1, Additional Report to Follow. 01/26/19 04:10 Blood Aerobic Blood Culture - Final No growth in Aerobic bottle after 5 days. 01/26/19 04:10 Blood Anaerobic Blood Culture - Final No growth in Anaerobic bottle after 5 days. 01/28/19 10:37 Blood Aerobic Blood Culture - Preliminary No growth in Aerobic bottle after 48 hours. 01/28/19 10:37 Blood Anaerobic Blood Culture - Preliminary No growth in Anaerobic bottle after 48 hours. 01/28/19 10:46 Blood Aerobic Blood Culture - Preliminary No growth in Aerobic bottle after 48 hours. 01/28/19 10:46 Blood Anaerobic Blood Culture - Preliminary No growth in Anaerobic bottle after 48 hours. 01/28/19 13:32 Urine,Clean Catch Urine Culture - Final No growth - less than 1,000 colonies/mL. 01/23/19 05:43 Blood Aerobic Blood Culture - Final Staph aureus MRSA 01/23/19 05:43 Blood Anaerobic Blood Culture - Final No growth in Anaerobic bottle after 5 days. 01/23/19 05:27 Blood Aerobic Blood Culture - Final Staph aureus MRSA 01/23/19 05:27 Blood Anaerobic Blood Culture - Final No growth in Anaerobic bottle after 5 days. 01/22/19 03:07 Blood Aerobic Blood Culture - Final Staph aureus MRSA 01/22/19 03:07 Blood Anaerobic Blood Culture - Final Staph aureus MRSA 01/22/19 02:19 Blood Aerobic Blood Culture - Final Staph aureus MRSA 01/22/19 02:19 Blood Anaerobic Blood Culture - Final Staph aureus MRSA 01/22/19 02:59 Blood Aerobic Blood Culture - Final Staph aureus MRSA 01/22/19 02:59 Blood Anaerobic Blood Culture - Final Staph aureus MRSA PG Care Time/CCT Total # of Minutes Spent Total Time Spent with Patient: Total time spent is greater than 50% in coordination of care (as documented) at patient's floor/unit and/or counseling patient: (1) Infectious endocarditis Chronicity: acute Infective endocarditis organism: bacterial Qualified Code(s): I33.0 - Acute and subacute infective endocarditis
[2019-02-01] MEDS: DOCUSATE SODIUM/SENNA 50/8.6MG TAB PO SCH ×2 (11:01→20:24)
[2019-02-01 12:34] LABS: BUN Creatinine Ratio 18.8 (10-20); Creatinine Clr Calc Pharmacy 30.5 ml/min; Est GFR (African American) 25.2; Est GFR (Non-African American) 21.7; Potassium 5.9 mmol/L (3.5-5.1)
[2019-02-01] MEDS ORDERED: SODIUM POLYSTYRENE SULFONATE 15G/60ML SUSP PO ONE (15:00)
[2019-02-01] MEDS ORDERED: SODIUM POLYSTYRENE SULFONATE 15G/60ML SUSP PO SCH (15:00)
[2019-02-01] MEDS: DAPTOmycin 450 MG in SYRINGE 0 ML IV SCH (15:03)
[2019-02-01] MEDS: GUAIFENESIN/CODEINE 100MG/10MG 5ML UDC PO PRN (15:21)
[2019-02-01] MEDS: OXYCODONE HCL IR 5 MG TAB (IMMEDIATE RELEASE) PO PRN (15:21)
[2019-02-01 19:15] LABS: BUN Creatinine Ratio 19.1 (10-20); Calcium 7.7 mg/dl (8.5-10.1); Creatinine Clr Calc Pharmacy 31.6 ml/min; Est GFR (African American) 26.3; Est GFR (Non-African American) 22.7; Potassium 5.3 mmol/L (3.5-5.1)
[2019-02-01] MEDS ORDERED: GLUCAGON FOR INJ 1 MG VIAL IM PRN (20:00)
[2019-02-01] MEDS ORDERED: CARBOHYDRATES FOR HYPOGLYCEMIA PO PRN (20:00)
[2019-02-01] MEDS ORDERED: GLUCOSE 40% GEL 15 GM TUBE PO PRN (20:00)
[2019-02-01] MEDS ORDERED: DEXTROSE 50% 50 ML SYRINGE IV PRN (20:00)
[2019-02-01] MEDS ORDERED: GLUCOSE 10 TABS/TUBE PO PRN (20:00)
[2019-02-01] MEDS: INSULIN ASPART 100 UNITS/ML 3 ML PEN SC SCH (21:05)
[2019-02-02] MEDS: GUAIFENESIN/CODEINE 100MG/10MG 5ML UDC PO PRN (03:17)
[2019-02-02] MEDS: OXYCODONE HCL IR 5 MG TAB (IMMEDIATE RELEASE) PO PRN ×2 (03:17→18:26)
[2019-02-02 06:05] LABS: Hematocrit (blood only) 21.6 % (42-52); Hemoglobin 7.4 g/dL (14.0-18.0); Mean Corpuscular Hgb Conc 34.3 g/dL (32-36); Mean Corpuscular Volume 92.7 fL (80-100); Mean Platelet Volume 9.8 fL (7.4-10.4); Platelet Count 420 K/uL (130-400); RDW Coefficient of Variation 13.4 % (11.5-14.5); Red Blood Count 2.33 M/uL (4.7-6.1)
[2019-02-02 06:42] LABS: Albumin Level 1.3 gm/dl (3.4-5.0); BUN Creatinine Ratio 23.1 (10-20); Calcium 7.1 mg/dl (8.5-10.1); Creatinine Clr Calc Pharmacy 35.2 ml/min; Est GFR (African American) 29.9; Est GFR (Non-African American) 25.8; Phosphorus 6.7 mg/dl (2.5-4.9); Potassium 4.9 mmol/L (3.5-5.1)
[2019-02-02 06:58] LABS: Estimated Average Glucose 123 mg/dl; Hemoglobin A1C 5.9 % (4.5-5.6)
--- NOTE | 2019-02-02 06:59 | XRay Report ---
XR chest 1V portable CLINICAL HISTORY: resp failure, MRSA endocarditis COMPARISON STUDY: 01/27/2019 FINDINGS: Moderate stable cardiomegaly. PICC catheter placed from a left-sided approach to a position within the superior vena cava. No evidence of pneumothorax. Parenchymal infiltrative changes in the mid lung regions bilaterally stable. Consolidative process le ft base versus left effusion slightly increased in volume. IMPRESSION: 1. PICC catheter placed in the superior vena cava. 2. No evidence for pneumothorax. 3. Stable to slightly improved bilateral parenchymal infiltrative change versus components of congest vicky failure. 4. Progressive left pleural effusion. The above report was generated using voice recognition software. It may contain grammatical, syntax or spelling errors. Electronically signed by: Phil Back M.D. 02/02/2019 6:58 AM
[2019-02-02] MEDS: INSULIN ASPART 100 UNITS/ML 3 ML PEN SC SCH ×4 (08:26→21:09)
[2019-02-02] MEDS: CEROVITE ADV FORMULA TAB PO SCH (08:27)
[2019-02-02] MEDS: PANTOprazole 40 MG TAB PO SCH (08:27)
[2019-02-02] MEDS: BENZONATATE 100 MG CAPSULE PO SCH ×3 (08:28→20:45)
[2019-02-02] MEDS: LINEZOLID 600 MG TAB PO SCH ×2 (08:28→20:47)
[2019-02-02] MEDS: predniSONE 20 MG TAB PO SCH (08:28)
[2019-02-02] MEDS: CALCIUM CARBONATE 500 MG CHEWABLE TAB PO SCH ×3 (08:28→16:46)
[2019-02-02] MEDS: NICOTINE 21 MG/24 HR TDSY TD SCH (08:28)
[2019-02-02] MEDS: METOPROLOL TARTRATE 50 MG TAB PO SCH (08:28)
[2019-02-02] MEDS: DOCUSATE SODIUM/SENNA 50/8.6MG TAB PO SCH ×2 (08:30→20:46)
[2019-02-02] MEDS: OXYCODONE HCL 10 MG TABCR (OXYCONTIN) PO SCH ×2 (08:30→20:45)
--- NOTE | 2019-02-02 10:10 | Nephrology Progress Note ---
Date of Service February 02, 2019 Assessment & Plan (1) Acute kidney injury: ROXANA in the setting of MRSA endocarditis associated w/ IVDA. Patient appears clinically volume contracted. During his ICU stay he required CTA, NABIL inhibitor therapy and IV NSAIDS for pain management. He has been on several antibiotics. Most recently he has been changed to Daptomycin + Ceftaroline. He reports a h/o PCN drug allergy. ROXANA is likely multifactoral with possible ATN however there is significant concern that ROXANA may be secondary to acute interstitial nephritis. Ceftaroline was discontinued, currently on daptomycin and linezolid. Renal function slightly improved today with acceptable electrolyte. Blood pressure relatively well controlled. Repeat UA with microscopic hematuria and proteinuria as well as WBC cast suggestive of AIN. Renal ultrasound otherwise unremarkable. Complements are pending. --continue on prednisone 80 mg /d ( started on 01/31/19 ), if renal function continues to improve, will start to taper dose down in next few days --protonix 40 mg po/d --tums 500 mg po TID with meal. Will follow (2) Endocarditis of tricuspid valve: -- Recommend reviewing drug allergies w/ patient and discussing w/ ID whether Ceftaroline can be stopped or changed to alternative antibiotic (3) IV drug abuse: -- Will need social service intervention Kerri Gavin was seen & examined in his hospital room this morning. He continues to have burning chest pain specially with cough. BP stable. Creatinine slightly better today hyperkalemia resolved. Has decent urine output. Appetite slightly improved. Review of Systems Review of Systems: Detailed review of system was negative except mentioned above Physical Exam Constitutional: + ill appearing, + in distress and + lethargic Respiratory: normal respiratory effort, lungs clear to auscultation + cough and able to speak in complete sentences Cardiovascular: Rate/Rhythm: regular rate and regular rhythm Heart Sounds: normal S1 and normal S2 Extremities: no edema Neurologic: moves all extremities and awake; not confused Psychiatric: A+Ox3, euthymic affect Results & Data Vital Signs (Past 12 Hours) Vital Signs Temp Pulse Pulse Resp BP Pulse Ox 02/02/19 07:10 37.0 C 55 L 111/67 16 L 02/02/19 04:20 37.0 C 65 18 115/72 95 02/02/19 03:13 125/78 02/02/19 00:45 56 L 02/02/19 00:18 36.8 C 63 16 123/75 92 PG Care Time/CCT Total # of Minutes Spent Total Time Spent with Patient: Total time spent is greater than 50% in coordination of care (as documented) at patient's floor/unit and/or counseling patient:
--- NOTE | 2019-02-02 12:40 | Infectious Disease Progress Nt ---
Date of Service February 02, 2019 Assessment & Plan (1) Infectious endocarditis: continue Dapto and follow cultures, 01/28 negative to date suspect he will have continued fever with pulm infarct and this is likely cause for ongoing pain. will require several weeks of IV abx for treatment. will not be a candidate for picc line due to ongoing IVDA. follow pleural fluid cultures as well - negative to date. Will likely need min 6 weeks IV abx from first negative culutre, will need weekly cbc, cmp, esr, cpk while on Dapto. creat improving. With regards to active HCV he would not currently be a candidate for treatment due to ongoing IVDA but would encourage treatment if able to discontinue drug use. (2) Gram positive septicemia: Subjective creat improved to 2.9 today. afebrile overnight, remains on Dapto, tolerating well. 01/28 blood cultures remain negative. wbc remains elevated at 18 Results & Data Vital Signs (Past 12 Hours) Vital Signs Temp Pulse Pulse Pulse Resp BP Pulse Ox 02/02/19 10:58 36.6 C 51 L 20 111/68 94 02/02/19 07:10 37.0 C 55 L 111/67 16 L 02/02/19 04:20 37.0 C 65 18 115/72 95 02/02/19 03:13 125/78 02/02/19 00:45 56 L Laboratory Results Microbiology 01/27/19 17:00 Pleural Fluid Gram Stain - Final 01/27/19 17:00 Pleural Fluid Aerobic and Anaerobic Culture - Final No growth 01/26/19 03:59 Blood Aerobic Blood Culture - Final Staph aureus MRSA 01/26/19 03:59 Blood Anaerobic Blood Culture - Final No growth in Anaerobic bottle after 5 days. 01/25/19 04:16 Blood Aerobic Blood Culture - Final Staph aureus MRSA 01/25/19 04:16 Blood Anaerobic Blood Culture - Final No growth in Anaerobic bottle after 5 days. 01/25/19 04:06 Blood Aerobic Blood Culture - Final Staph aureus MRSA 01/25/19 04:06 Blood Anaerobic Blood Culture - Final No growth in Anaerobic bottle after 5 days. 01/24/19 05:19 Blood Aerobic Blood Culture - Final Staph aureus MRSA 01/24/19 05:19 Blood Anaerobic Blood Culture - Final No growth in Anaerobic bottle after 5 days. 01/24/19 05:13 Blood Aerobic Blood Culture - Final Staph aureus MRSA 01/24/19 05:13 Blood Anaerobic Blood Culture - Final No growth in Anaerobic bottle after 5 days. 01/26/19 09:15 Pleural Fluid Gram Stain - Final 01/26/19 09:15 Pleural Fluid Aerobic and Anaerobic Culture - Preliminary Staph aureus MRSA 01/27/19 17:00 Pleural Fluid Acid Fast Bacilli Smear - Final 01/27/19 17:00 Pleural Fluid Acid Fast Bacilli Culture - Preliminary No Acid-Fast Bacilli Isolated - Report 1, Additional Report to Follow. 01/26/19 09:15 Pleural Fluid Acid Fast Bacilli Smear - Final 01/26/19 09:15 Pleural Fluid Acid Fast Bacilli Culture - Preliminary No Acid-Fast Bacilli Isolated - Report 1, Additional Report to Follow. 01/26/19 04:10 Blood Aerobic Blood Culture - Final No growth in Aerobic bottle after 5 days. 01/26/19 04:10 Blood Anaerobic Blood Culture - Final No growth in Anaerobic bottle after 5 days. 01/28/19 10:37 Blood Aerobic Blood Culture - Preliminary No growth in Aerobic bottle after 48 hours. 01/28/19 10:37 Blood Anaerobic Blood Culture - Preliminary No growth in Anaerobic bottle after 48 hours. 01/28/19 10:46 Blood Aerobic Blood Culture - Preliminary No growth in Aerobic bottle after 48 hours. 01/28/19 10:46 Blood Anaerobic Blood Culture - Preliminary No growth in Anaerobic bottle after 48 hours. 01/28/19 13:32 Urine,Clean Catch Urine Culture - Final No growth - less than 1,000 colonies/mL. 01/23/19 05:43 Blood Aerobic Blood Culture - Final Staph aureus MRSA 01/23/19 05:43 Blood Anaerobic Blood Culture - Final No growth in Anaerobic bottle after 5 days. 01/23/19 05:27 Blood Aerobic Blood Culture - Final Staph aureus MRSA 01/23/19 05:27 Blood Anaerobic Blood Culture - Final No growth in Anaerobic bottle after 5 days. 01/22/19 03:07 Blood Aerobic Blood Culture - Final Staph aureus MRSA 01/22/19 03:07 Blood Anaerobic Blood Culture - Final Staph aureus MRSA 01/22/19 02:19 Blood Aerobic Blood Culture - Final Staph aureus MRSA 01/22/19 02:19 Blood Anaerobic Blood Culture - Final Staph aureus MRSA 01/22/19 02:59 Blood Aerobic Blood Culture - Final Staph aureus MRSA 01/22/19 02:59 Blood Anaerobic Blood Culture - Final Staph aureus MRSA PG Care Time/CCT Total # of Minutes Spent Total Time Spent with Patient: Total time spent is greater than 50% in coordination of care (as documented) at patient's floor/unit and/or counseling patient: (1) Infectious endocarditis Chronicity: acute Infective endocarditis organism: bacterial Qualified Code(s): I33.0 - Acute and subacute infective endocarditis
[2019-02-02 13:46] LABS: Complement C3 79 MG/DL (82-185)
[2019-02-02] MEDS: DAPTOmycin 450 MG in SYRINGE 0 ML IV SCH (14:51)
[2019-02-02 18:09] LABS: Base Excess VBG 2.6 mEq/L; Oxygen Saturation VBG 68.3 %; pH VBG 7.42 (7.36-7.41)
[2019-02-02 18:20] LABS: Hematocrit (blood only) 22.7 % (42-52); Hemoglobin 7.6 g/dL (14.0-18.0); Mean Corpuscular Hgb Conc 33.5 g/dL (32-36); Mean Corpuscular Volume 93.8 fL (80-100); Mean Platelet Volume 10.6 fL (7.4-10.4); Platelet Count 471 K/uL (130-400); RDW Coefficient of Variation 13.8 % (11.5-14.5); RDW Standard Deviation 45.5 fL (36.4-46.3); Red Blood Count 2.42 M/uL (4.7-6.1); White Blood Count 15.73 K/uL (4.8-10.8)
[2019-02-02 18:22] LABS: BUN Creatinine Ratio 27.5 (10-20); Calcium 7.3 mg/dl (8.5-10.1); Creatinine Clr Calc Pharmacy 43.3 ml/min; Est GFR (African American) 38.4; Est GFR (Non-African American) 33.2; Potassium 5.1 mmol/L (3.5-5.1)
--- NOTE | 2019-02-02 20:52 | Hospitalist Progress Note ---
Date of Service February 02, 2019 Assessment & Plan (1) Acute kidney injury: Concern for AIN from antibiotic agent. ATN possible from hypotension/septicemia. No evidence of obstruction on renal u/s x 2. Septic emboli to kidneys possible but less likely. Creatinine checked twice today and both times it improved. UOP adequate. Appreciate Dr Garzon's consultation. continue prednisone for possible AIN. Defer weaning to Dr Garzon. C3, C4 pending. avoid nephrotoxic agents. BMP am. (2) Acute hypoxemic respiratory failure: 2nd to MRSA septic emboli from TV endocarditis along with pleural effusions and probable volume overload from ROXANA. Stable. Slowly improving. (3) Hyperkalemia: 2nd ROXANA. resolved. BMP am. (4) Endocarditis of tricuspid valve: Echo with evidence of large TV vegetation. Numerous blood cultures positive for MRSA. This is due to IV drug abuse. He had severe sepsis/septic shock due to such requiring ICU stay. He had clinical/radiographic evidence of significant pulmonary septic emboli. Repeat blood cx's from 01/28/19 negative. Appreciate cardiology, ID, nephrology consultations and recs. No indication for surgical intervention. Currently on IV daptomycin and PO linezolid 600mg BID. Defer management to ID. At least 6 weeks of Rx from date of last negative blood culture. (5) Septic shock due to methicillin resistant Staphylococcus aureus: resolved required copious fluid resuscitation first 48 hours of stay and ICU admission but never needed pressors (6) Acute septic pulmonary embolism: Severe earlier on this stay. Improved chest symptoms due to such. Complicated by parapneumonic effusion on left / empyema with pleural fluid + for MRSA on left via thoracentesis on 01/27/19. Still with O2 requirement - consider repeat cxr am. (7) MRSA (methicillin resistant Staphylococcus aureus) septicemia: With TV endocarditis. Due to IV drug abuse. See discussion above. (8) IV drug abuse: With resulting endocarditis, etc. Positive for HepC with very high viral load. HIV and HepB titers negative. (9) Hepatitis C infection: HepC RNA viral load very high. Due to IV drug abuse. Needs GI/ID follow-up post-discharge for the HepC. (10) Hypotension: Due to septicemia. Resolved s/p copious fluid resuscitation in first 24/36 hours of stay. Cortisol level wnl earlier in stay. (11) Severe protein-calorie malnutrition: Ongoing. Due to endocarditis, IV drug abuse, etc. HIV negative. MVI, protein supplement, treat underlying MRSA infection. (12) Thrombocytopenia: Due to severe sepsis/septicemia - resolved. (13) Hyponatremia: Resolved. (14) Pain of right great toe: Earlier this stay. This was either acute gout of the first MTP joint OR due to septic emboli to this region. x-rays of right foot were unremarkable. Dr Preciado saw in consult; continue IV antibiotics. Pain resolved. (15) MRSA pneumonia: Due to septic emboli. Repeat cxr today slightly better. Clinically he is volume overloaded with pulmonary edema in setting of ROXANA. Once Cr allows would give gentle diuresis. He is up a considerable amount of weight since admission. (16) Empyema of left pleural space: s/p thoracentesis 01/27/19 with positive cultures for MRSA. remains on NC O2. repeat cxr today with advancing effusion. this bears close observation. if it worsens would need additional thoracentesis. (17) Bradycardia: sinus -- due to beta iker. HOLD BB -- follow on tele. (18) Prediabetes: a1c 5.9% steroids making sugars worse loose novolog coverage add lantus if needed will need counseling on this (19) DVT prophylaxis: hold chemical means today but likely resume tomorrow PT, OT Subjective patient states he is sick of hospital and is anxious to get out. he feels pretty good today. appetite improving. still requiring O2. episodes of sinus bradycardia. pleuritic chest pain and cough both improved. Review of Systems Constitutional: no fever and no chills Respiratory: no hemoptysis Cardiovascular: as per Subjective / HPI, + chest pain and + edema; no orthopnea and no paroxysmal nocturnal dyspnea Gastrointestinal: no abdominal pain, no nausea and no vomiting Physical Exam Constitutional: + ill appearing, + thin and + frail appearing; no acute distress but looks better than yesterday ENMT: Mouth: + poor dentition; no oral mucosal abnormality Respiratory: + tachypneic Auscultation: + diminished lung sounds (bases); no crackles and no wheezes Cardiovascular: Rate/Rhythm: regular rate and regular rhythm Heart Sounds: normal S1, normal S2 and + murmur (1-2/6 RENU LLSB) Vessels: + JVD (to the jaw), posterior tibial pulses present and dorsalis pedis pulses present Extremities: + edema (1+ b/l) Gastrointestinal (Abdomen): normal bowel sounds, soft, nontender, no hepatosplenomegaly Skin: no rashes, warm and dry Neurologic: no focal motor deficits Motor/Sensory: no asterixis Psychiatric: A+Ox3, euthymic affect Orientation: alert Results & Data Vital Signs (Past 12 Hours) Vital Signs Temp Pulse Resp BP Pulse Ox 02/02/19 20:09 37.0 C 74 16 124/69 98 02/02/19 16:09 36.8 C 83 18 115/69 95 02/02/19 10:58 36.6 C 51 L 20 111/68 94 Laboratory Results Laboratory Results - last 24 hr 02/01/19 02/02/19 02/02/19 08:02 05:48 05:48 WBC 18.70 H RBC 2.33 L Hgb 7.4 L Hct 21.6 L MCV 92.7 MCH 31.8 MCHC 34.3 RDW Std Deviation 44.0 RDW Coeff of Demond 13.4 Plt Count 420 H MPV 9.8 VBG pH VBG pCO2 VBG pO2 VBG HCO3 VBG O2 Saturation VBG Base Excess Barometric Pressure Sodium 141 Potassium 4.9 Chloride 106 Carbon Dioxide 29 Anion Gap 6.0 BUN 68 H Creatinine 2.94 H D Est Cr Clr Drug Dosing 35.2 Est GFR ( Amer) 29.9 Est GFR (Non-Af Amer) 25.8 BUN/Creatinine Ratio 23.1 H Glucose 158 H POC Glucose Estimat Average Glucose Hemoglobin A1c Calcium 7.1 L Phosphorus 6.7 H Ammonia Albumin 1.3 L Complement C3 79 L Complement C4 21 02/02/19 02/02/19 02/02/19 05:48 07:28 11:20 WBC RBC Hgb Hct MCV MCH MCHC RDW Std Deviation RDW Coeff of Demond Plt Count MPV VBG pH VBG pCO2 VBG pO2 VBG HCO3 VBG O2 Saturation VBG Base Excess Barometric Pressure Sodium Potassium Chloride Carbon Dioxide Anion Gap BUN Creatinine Est Cr Clr Drug Dosing Est GFR ( Amer) Est GFR (Non-Af Amer) BUN/Creatinine Ratio Glucose POC Glucose 193 H 189 H Estimat Average Glucose 123 Hemoglobin A1c 5.9 H Calcium Phosphorus Ammonia Albumin Complement C3 Complement C4 08/02/02/19 02/02/19 16:37 17:48 17:48 WBC RBC Hgb Hct MCV MCH MCHC RDW Std Deviation RDW Coeff of Demond Plt Count MPV VBG pH 7.42 H VBG pCO2 43 VBG pO2 37 VBG HCO3 27 VBG O2 Saturation 68.3 VBG Base Excess 2.6 Barometric Pressure 727.4 Sodium Potassium Chloride Carbon Dioxide Anion Gap BUN Creatinine Est Cr Clr Drug Dosing Est GFR ( Amer) Est GFR (Non-Af Amer) BUN/Creatinine Ratio Glucose POC Glucose 143 H Estimat Average Glucose Hemoglobin A1c Calcium Phosphorus Ammonia 27.0 Albumin Complement C3 Complement C4 02/02/19 02/02/19 02/02/19 17:48 17:48 20:28 WBC 15.73 H RBC 2.42 L Hgb 7.6 L Hct 22.7 L MCV 93.8 MCH 31.4 MCHC 33.5 RDW Std Deviation 45.5 RDW Coeff of Demond 13.8 Plt Count 471 H MPV 10.6 H VBG pH VBG pCO2 VBG pO2 VBG HCO3 VBG O2 Saturation VBG Base Excess Barometric Pressure Sodium 139 Potassium 5.1 Chloride 106 Carbon Dioxide 28 Anion Gap 5.0 BUN 66 H Creatinine 2.39 H D Est Cr Clr Drug Dosing 43.3 Est GFR ( Amer) 38.4 Est GFR (Non-Af Amer) 33.2 BUN/Creatinine Ratio 27.5 H Glucose 123 H POC Glucose 153 H Estimat Average Glucose Hemoglobin A1c Calcium 7.3 L Phosphorus Ammonia Albumin Complement C3 Complement C4 PG Care Time/CCT Total # of Minutes Spent Total Time Spent with Patient: Total time spent is greater than 50% in coordination of care (as documented) at patient's floor/unit and/or counseling patient: (1) MRSA pneumonia Laterality: bilateral Lung location: unspecified part of lung Qualified Code(s): J15.212 - Pneumonia due to Methicillin resistant Staphylococcus aureus (2) Acute septic pulmonary embolism Acute cor pulmonale presence: without acute cor pulmonale Qualified Code(s): I26.90 - Septic pulmonary embolism without acute cor pulmonale (3) Hepatitis C infection Hepatic coma status: without hepatic coma Viral hepatitis chronicity: chronic Qualified Code(s): B18.2 - Chronic viral hepatitis C (4) Hypotension Hypotension type: unspecified hypotension type Qualified Code(s): I95.9 - Hypotension, unspecified
[2019-02-03] MEDS: OXYCODONE HCL IR 5 MG TAB (IMMEDIATE RELEASE) PO PRN ×2 (00:39→14:35)
[2019-02-03 06:36] LABS: Albumin Level 1.3 gm/dl (3.4-5.0); BUN Creatinine Ratio 33.5 (10-20); Calcium 7.1 mg/dl (8.5-10.1); Creatinine Clr Calc Pharmacy 52.2 ml/min; Est GFR (African American) 48.2; Est GFR (Non-African American) 41.6; Potassium 4.5 mmol/L (3.5-5.1)
[2019-02-03 06:38] LABS: Phosphorus 4.3 mg/dl (2.5-4.9)
[2019-02-03] MEDS: CEROVITE ADV FORMULA TAB PO SCH (08:28)
[2019-02-03] MEDS: PANTOprazole 40 MG TAB PO SCH (08:28)
[2019-02-03] MEDS: predniSONE 20 MG TAB PO SCH (08:28)
[2019-02-03] MEDS: CALCIUM CARBONATE 500 MG CHEWABLE TAB PO SCH ×3 (08:29→17:06)
[2019-02-03] MEDS: NICOTINE 21 MG/24 HR TDSY TD SCH (08:29)
[2019-02-03] MEDS: BENZONATATE 100 MG CAPSULE PO SCH ×3 (08:30→20:18)
[2019-02-03] MEDS: OXYCODONE HCL 10 MG TABCR (OXYCONTIN) PO SCH ×2 (08:30→20:17)
[2019-02-03] MEDS: LINEZOLID 600 MG TAB PO SCH ×2 (08:31→20:18)
[2019-02-03] MEDS: DOCUSATE SODIUM/SENNA 50/8.6MG TAB PO SCH ×2 (08:31→20:19)
[2019-02-03] MEDS: INSULIN ASPART 100 UNITS/ML 3 ML PEN SC SCH ×4 (08:39→21:47)
--- NOTE | 2019-02-03 09:47 | Nephrology Progress Note ---
Date of Service February 03, 2019 Assessment & Plan (1) Acute kidney injury: ROXANA in the setting of MRSA endocarditis associated w/ IVDA. Patient appears clinically volume contracted. During his ICU stay he required CTA, NABIL inhibitor therapy and IV NSAIDS for pain management. He has been on several antibiotics. Most recently he has been changed to Daptomycin + Ceftaroline. He reports a h/o PCN drug allergy. ROXANA is likely multifactoral with possible ATN however there is significant concern that ROXANA may be secondary to acute interstitial nephritis. Ceftaroline was discontinued, currently on daptomycin and linezolid. Renal function slightly improved today with acceptable electrolyte. Blood pressure relatively well controlled. Repeat UA with microscopic hematuria and proteinuria as well as WBC cast suggestive of AIN. Renal ultrasound otherwise unremarkable. Complements are pending. --continue on prednisone 80 mg /d ( started on 01/31/19 ), if renal function continues to improve, will start to taper dose down after tomorrow's dose. --protonix 40 mg po/d --Check phos tomorrow, if better will DC tums Will follow (2) Endocarditis of tricuspid valve: -- Recommend reviewing drug allergies w/ patient and discussing w/ ID whether Ceftaroline can be stopped or changed to alternative antibiotic (3) IV drug abuse: -- Will need social service intervention Kerri Gavin was seen & examined in his hospital room this morning. He is overall feeling better. BP stable. Creatinine down to 2.0 , hyperkalemia resolved. Has decent urine output. Appetite slightly improved. Anxious to be discharged. Review of Systems Review of Systems: Detailed review of system was negative except mentioned above Physical Exam Constitutional: WD/WN, vitals as above not in distress Respiratory: normal respiratory effort, lungs clear to auscultation + cough and able to speak in complete sentences Cardiovascular: Rate/Rhythm: regular rate and regular rhythm Heart Sounds: normal S1 and normal S2 Extremities: no edema Neurologic: moves all extremities and awake; not confused Psychiatric: A+Ox3, euthymic affect Results & Data Vital Signs (Past 12 Hours) Vital Signs Temp Pulse Pulse Resp BP Pulse Ox 02/03/19 07:20 36.6 C 50 L 16 120/73 96 02/03/19 03:37 36.7 C 57 L 15 119/70 93 02/03/19 00:20 36.9 C 61 16 129/76 93 02/02/19 22:20 55 L PG Care Time/CCT Total # of Minutes Spent Total Time Spent with Patient: Total time spent is greater than 50% in coordination of care (as documented) at patient's floor/unit and/or counseling patient:
--- NOTE | 2019-02-03 10:14 | Infectious Disease Progress Nt ---
Date of Service February 03, 2019 Assessment & Plan (1) Infectious endocarditis: continue Dapto and follow cultures, 01/28 negative to date. will stop zyvox. will require several weeks of IV abx for treatment. I do not feel that patient candidate for picc line due to ongoing IVDA, picc placed yesterday. I am highly concerned that he will use picc line for IVDA if d/c home with picc in place, this will lead to high risk of picc infection, overdose and potentially be fatal. Will likely need min 6 weeks IV abx from first negative culture, will need weekly cbc, cmp, esr, cpk while on Dapto. creat improving. With regards to active HCV he would not currently be a candidate for treatment d ue to ongoing IVDA but would encourage treatment if able to discontinue drug use. His viral load is significantly elevated and would benefit from treatment, however, with ongoing active IVDA he would not receive treatment at this time. He would greatly benefit from placement and ongoing rehab to both treat drug use and IE. If he is not agreeable to treatment at rehab, would suggest [facility] for weekly [facility] therapy x 6 weeks. PO zyvox is not adequate therapy for prolonged MRSA sepsis. Will discuss with primary. (2) Gram positive septicemia: Subjective pt seen in followup, states overall he is feeling better. no f/c. 01/28 blood cultures negative x 5 days. picc placed yesterday. wbc improved to 15. creat improved to 1.9. Remains on NC O2. states breathing is better, states he is only sob and has cp with "coughing fit" but these have improved. Remains on Dapto and po zyvox, tolerating well. Tenetative d/c soon. Eating well, no abd pain, no n/v/d. Review of Systems Review of Systems: All systems reviewed & are unremarkable except as noted in HPI & below Physical Exam Constitutional: WD/WN, vitals as above Eyes: PERRL, conjunctivae normal, anicteric sclerae ENMT: external ear and nose normal, oropharynx normal Neck: normal visual inspection Respiratory: normal respiratory effort, lungs clear to auscultation Cardiovascular: RRR, no murmur, no edema Gastrointestinal (Abdomen): normal bowel sounds, soft, nontender, no hepatosplenomegaly Musculoskeletal: no cyanosis or clubbing, extremities motor strength 5/5 Skin: no rashes, warm and dry Results & Data Vital Signs (Past 12 Hours) Vital Signs Temp Pulse Pulse Resp BP Pulse Ox 02/03/19 07:20 36.6 C 50 L 16 120/73 96 02/03/19 03:37 36.7 C 57 L 15 119/70 93 02/03/19 00:20 36.9 C 61 16 129/76 93 02/02/19 22:20 55 L Laboratory Results Microbiology 01/28/19 10:37 Blood Aerobic Blood Culture - Final No growth in Aerobic bottle after 5 days. 01/28/19 10:37 Blood Anaerobic Blood Culture - Final No growth in Anaerobic bottle after 5 days. 01/28/19 10:46 Blood Aerobic Blood Culture - Final No growth in Aerobic bottle after 5 days. 01/28/19 10:46 Blood Anaerobic Blood Culture - Final No growth in Anaerobic bottle after 5 days. 01/27/19 17:00 Pleural Fluid Gram Stain - Final 01/27/19 17:00 Pleural Fluid Aerobic and Anaerobic Culture - Final No growth 01/26/19 03:59 Blood Aerobic Blood Culture - Final Staph aureus MRSA 01/26/19 03:59 Blood Anaerobic Blood Culture - Final No growth in Anaerobic bottle after 5 days. 01/25/19 04:16 Blood Aerobic Blood Culture - Final Staph aureus MRSA 01/25/19 04:16 Blood Anaerobic Blood Culture - Final No growth in Anaerobic bottle after 5 days. 01/25/19 04:06 Blood Aerobic Blood Culture - Final Staph aureus MRSA 01/25/19 04:06 Blood Anaerobic Blood Culture - Final No growth in Anaerobic bottle after 5 days. 01/24/19 05:19 Blood Aerobic Blood Culture - Final Staph aureus MRSA 01/24/19 05:19 Blood Anaerobic Blood Culture - Final No growth in Anaerobic bottle after 5 days. 01/24/19 05:13 Blood Aerobic Blood Culture - Final Staph aureus MRSA 01/24/19 05:13 Blood Anaerobic Blood Culture - Final No growth in Anaerobic bottle after 5 days. 01/26/19 09:15 Pleural Fluid Gram Stain - Final 01/26/19 09:15 Pleural Fluid Aerobic and Anaerobic Culture - Preliminary Staph aureus MRSA 01/27/19 17:00 Pleural Fluid Acid Fast Bacilli Smear - Final 01/27/19 17:00 Pleural Fluid Acid Fast Bacilli Culture - Preliminary No Acid-Fast Bacilli Isolated - Report 1, Additional Report to Follow. 01/26/19 09:15 Pleural Fluid Acid Fast Bacilli Smear - Final 01/26/19 09:15 Pleural Fluid Acid Fast Bacilli Culture - Preliminary No Acid-Fast Bacilli Isolated - Report 1, Additional Report to Follow. 01/26/19 04:10 Blood Aerobic Blood Culture - Final No growth in Aerobic bottle after 5 days. 01/26/19 04:10 Blood Anaerobic Blood Culture - Final No growth in Anaerobic bottle after 5 days. 01/28/19 13:32 Urine,Clean Catch Urine Culture - Final No growth - less than 1,000 colonies/mL. 01/23/19 05:43 Blood Aerobic Blood Culture - Final Staph aureus MRSA 01/23/19 05:43 Blood Anaerobic Blood Culture - Final No growth in Anaerobic bottle after 5 days. 01/23/19 05:27 Blood Aerobic Blood Culture - Final Staph aureus MRSA 01/23/19 05:27 Blood Anaerobic Blood Culture - Final No growth in Anaerobic bottle after 5 days. 01/22/19 03:07 Blood Aerobic Blood Culture - Final Staph aureus MRSA 01/22/19 03:07 Blood Anaerobic Blood Culture - Final Staph aureus MRSA 01/22/19 02:19 Blood Aerobic Blood Culture - Final Staph aureus MRSA 01/22/19 02:19 Blood Anaerobic Blood Culture - Final Staph aureus MRSA 01/22/19 02:59 Blood Aerobic Blood Culture - Final Staph aureus MRSA 01/22/19 02:59 Blood Anaerobic Blood Culture - Final Staph aureus MRSA PG Care Time/CCT Total # of Minutes Spent Total Time Spent with Patient: Total time spent is greater than 50% in coordination of care (as documented) at patient's floor/unit and/or counseling patient: (1) Infectious endocarditis Chronicity: acute Infective endocarditis organism: bacterial Qualified Code(s): I33.0 - Acute and subacute infective endocarditis
[2019-02-03] MEDS: DAPTOmycin 450 MG in SYRINGE 0 ML IV SCH (14:34)
--- NOTE | 2019-02-03 20:24 | Hospitalist Progress Note ---
Date of Service February 03, 2019 Assessment & Plan (1) Acute kidney injury: RESOLVING NICELY. Concern for AIN from antibiotic agent. ATN possible from hypotension/septicemia. No evidence of obstruction on renal u/s x 2. Septic emboli to kidneys possible but less likely. Appreciate Dr Garzon's consultation. continue prednisone for possible AIN. Defer weaning to Dr Garzon. likely wean starting next 1-2 days. C3, C4 pending. avoid nephrotoxic agents. BMP am. (2) Acute hypoxemic respiratory failure: 2nd to MRSA septic emboli from TV endocarditis along with pleural effusions and probable volume overload from ROXANA. Stable. If Cr is stable in am would give lasix to help promote diuresis. Consider repeat cxr tomorrow to exclude worsening effusions. 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 Numerous blood cultures positive for MRSA. This is due to IV drug abuse. He had severe sepsis/septic shock due to such requiring ICU stay earlier this admission. He had clinical/radiographic evidence of significant pulmonary septic emboli. Repeat blood cx's from 01/28/19 negative. Appreciate cardiology, ID, nephrology consultations and recs. No indication for surgical intervention. Currently on IV daptomycin and PO linezolid 600mg BID. Defer management to ID. They suggest stopping linezolid. At least 6 weeks of Rx from date of last negative blood culture. Weekly dalvance will probably be plan of care. (4) Septic shock due to methicillin resistant Staphylococcus aureus: resolved (5) Acute septic pulmonary embolism: Severe earlier on this stay. Improved chest symptoms due to such. Complicated by parapneumonic effusion on left / empyema with pleural fluid + for MRSA on left via thoracentesis on 01/27/19. Still with O2 requirement - consider repeat cxr am to check stability of effusions. (6) MRSA (methicillin resistant Staphylococcus aureus) septicemia: With TV endocarditis. Due to IV drug abuse. See discussion above. (7) IV drug abuse: With resulting endocarditis, etc. Positive for HepC with very high viral load. HIV and HepB titers negative. Will need sobriety in order to receive HepC treatment. (8) Hepatitis C infection: HepC RNA viral load very high. Due to IV drug abuse. Needs GI/ID follow-up post-discharge for the HepC. (9) Severe protein-calorie malnutrition: Ongoing. Due to endocarditis, IV drug abuse, etc. HIV negative. MVI, protein supplement, treat underlying MRSA infection. (10) Thrombocytopenia: Due to severe sepsis/septicemia - resolved. (11) Hyponatremia: Resolved. (12) MRSA pneumonia: Due to septic emboli. Clinically he is volume overloaded with pulmonary edema in setting of ROXANA. Once Cr allows would give gentle diuresis. He is up a considerable amount of weight since admission (15+ kg). (13) Empyema of left pleural space: s/p thoracentesis 01/27/19 with positive cultures for MRSA. remains on NC O2. consider repeat imaging on . (14) Bradycardia: sinus -- due to beta iker. HOLD BB -- follow on tele. if rates are stable overnight can d/c tele status tomorrow. (15) Prediabetes: a1c 5.9% steroids making sugars worse loose novolog coverage will add lantus 5 units starting tomorrow (16) DVT prophylaxis: resume heparin 5000 BID cont PT, OT Subjective patient had coughing fit earlier today and now has xiphoid process pain. the pain is worse with coughing and reproducible. he remains dyspneic with minimal activity. tele with sinus moses, sometimes upper 40s. during the visit he was a little agitated. he voiced frustration about the length of his hospital stay and that he "wanted to go home - I've been thinking about checking myself out of there" (ie - AMA) Review of Systems Constitutional: + fatigue and + anorexia (but improving); no fever and no chills Respiratory: + cough, + dyspnea and + pain on inspiration; no hemoptysis and no wheezing Cardiovascular: as per Subjective / HPI and + edema Gastrointestinal: no abdominal pain, no nausea and no vomiting Physical Exam Constitutional: + ill appearing, + thin and + frail appearing; no acute distress ENMT: Mouth: + poor dentition; no oral mucosal abnormality Respiratory: Auscultation: + diminished lung sounds (bases); no crackles and no wheezes Cardiovascular: Rate/Rhythm: regular rate and regular rhythm Heart Sounds: normal S1, normal S2 and + murmur (1-2/6 RENU LLSB) Vessels: + JVD, posterior tibial pulses present and dorsalis pedis pulses present Extremities: + edema (<1+ b/l) Gastrointestinal (Abdomen): normal bowel sounds, soft, nontender, no hepatosplenomegaly Skin: no rashes, warm and dry Psychiatric: Orientation: alert and oriented x 3 Affect: + irritable affect Results & Data Vital Signs (Past 12 Hours) Vital Signs Temp Pulse Resp BP Pulse Ox 02/03/19 19:41 36.6 C 52 L 18 132/80 96 02/03/19 15:35 36.7 C 60 18 130/82 95 02/03/19 14:49 92 02/03/19 11:59 37.0 C 59 L 21 133/76 93 Laboratory Results Laboratory Results - last 24 hr 02/02/19 02/03/19 02/03/19 20:28 05:44 07:44 Sodium 141 Potassium 4.5 Chloride 108 H Carbon Dioxide 28 Anion Gap 5.0 BUN 66 H Creatinine 1.98 H D Est Cr Clr Drug Dosing 52.2 Est GFR ( Amer) 48.2 Est GFR (Non-Af Amer) 41.6 BUN/Creatinine Ratio 33.5 H Glucose 144 H POC Glucose 153 H 155 H Calcium 7.1 L Phosphorus 4.3 D Albumin 1.3 L Urine Opiates Screen Ur Methadone, Qual Urine Barbiturates Ur Phencyclidine (PCP) U Amphetamin/Meth Scrn MDMA (Ecstasy) Screen U Benzodiazepines Scrn Ur Cocaine Metabolite U Marijuana (THC) Screen 02/03/19 02/03/19 11:02 19:52 Sodium Potassium Chloride Carbon Dioxide Anion Gap BUN Creatinine Est Cr Clr Drug Dosing Est GFR ( Amer) Est GFR (Non-Af Amer) BUN/Creatinine Ratio Glucose POC Glucose 181 H Calcium Phosphorus Albumin Urine Opiates Screen Pending Ur Methadone, Qual Pending Urine Barbiturates Pending Ur Phencyclidine (PCP) Pending U Amphetamin/Meth Scrn Pending MDMA (Ecstasy) Screen Pending U Benzodiazepines Scrn Pending Ur Cocaine Metabolite Pending U Marijuana (THC) Screen Pending PG Care Time/CCT Total # of Minutes Spent Total Time Spent with Patient: Total time spent is greater than 50% in coordination of care (as documented) at patient's floor/unit and/or counseling patient: (1) MRSA pneumonia Laterality: bilateral Lung location: unspecified part of lung Qualified Code(s): J15.212 - Pneumonia due to Methicillin resistant Staphylococcus aureus (2) Acute septic pulmonary embolism Acute cor pulmonale presence: without acute cor pulmonale Qualified Code(s): I26.90 - Septic pulmonary embolism without acute cor pulmonale (3) Hepatitis C infection Hepatic coma status: without hepatic coma Viral hepatitis chronicity: chronic Qualified Code(s): B18.2 - Chronic viral hepatitis C
[2019-02-03 20:26] LABS: Amphetamines+Metham, Urine Neg (Neg); Barbiturates, Urine Neg (Neg); Benzodiazepine, Urine Neg (Neg); Cocaine, Urine Neg (Neg); MDMA (Ecstacy), Urine Neg (Neg); Methadone, Urine Neg (Neg); Opiate, Urine Pos (Neg); Phencyclidine, Urine Neg (Neg)
[2019-02-04] MEDS: OXYCODONE HCL IR 5 MG TAB (IMMEDIATE RELEASE) PO PRN ×3 (01:56→14:25)
[2019-02-04] MEDS: GUAIFENESIN/CODEINE 100MG/10MG 5ML UDC PO PRN ×3 (01:57→16:56)
[2019-02-04 06:03] LABS: Hematocrit (blood only) 21.9 % (42-52); Hemoglobin 7.3 g/dL (14.0-18.0); Mean Corpuscular Hgb Conc 33.3 g/dL (32-36); Mean Platelet Volume 9.8 fL (7.4-10.4); Platelet Count 450 K/uL (130-400); RDW Standard Deviation 45.5 fL (36.4-46.3); Red Blood Count 2.33 M/uL (4.7-6.1); White Blood Count 14.24 K/uL (4.8-10.8)
[2019-02-04 06:33] LABS: Albumin Level 1.4 gm/dl (3.4-5.0); BUN Creatinine Ratio 36.4 (10-20); Calcium 7.4 mg/dl (8.5-10.1); Creatinine Clr Calc Pharmacy 69.4 ml/min; Est GFR (Non-African American) 58.7; Potassium 4.4 mmol/L (3.5-5.1)
[2019-02-04 06:38] LABS: Phosphorus 3.2 mg/dl (2.5-4.9)
[2019-02-04] MEDS ORDERED: FUROSEMIDE 20 MG in SYRINGE 0 ML IV STA (08:15)
[2019-02-04] MEDS: OXYCODONE HCL 10 MG TABCR (OXYCONTIN) PO SCH ×2 (08:27→20:23)
[2019-02-04] MEDS: NICOTINE 21 MG/24 HR TDSY TD SCH (08:27)
[2019-02-04] MEDS: CALCIUM CARBONATE 500 MG CHEWABLE TAB PO SCH ×3 (08:27→17:03)
[2019-02-04] MEDS: CEROVITE ADV FORMULA TAB PO SCH (08:28)
[2019-02-04] MEDS: HEPARIN SOD 5,000 UNIT/0.5 ML VIAL SQ SCH ×2 (08:28→20:27)
[2019-02-04] MEDS: predniSONE 20 MG TAB PO SCH (08:28)
[2019-02-04] MEDS: BENZONATATE 100 MG CAPSULE PO SCH ×3 (08:29→20:24)
[2019-02-04] MEDS: DOCUSATE SODIUM/SENNA 50/8.6MG TAB PO SCH ×2 (08:29→20:28)
[2019-02-04] MEDS: INSULIN ASPART 100 UNITS/ML 3 ML PEN SC SCH ×4 (08:37→20:26)
--- NOTE | 2019-02-04 12:08 | Nephrology Progress Note ---
Date of Service February 04, 2019 Assessment & Plan (1) Acute kidney injury: ROXANA in the setting of MRSA endocarditis associated w/ IVDA. Patient appears clinically volume contracted. During his ICU stay he required CTA, NABIL inhibitor therapy and IV NSAIDS for pain management. He has been on several antibiotics. Most recently he has been changed to Daptomycin + Ceftaroline. He reports a h/o PCN drug allergy. ROXANA is likely multifactorial with possible ATN however there is significant concern that ROXANA may be secondary to acute interstitial nephritis. Ceftaroline was discontinued, currently on daptomycin. Plan to discharge home on Dalvance. Renal function improving today with acceptable electrolyte. Blood pressure relatively well controlled. Repeat UA with microscopic hematuria and proteinuria as well as WBC cast suggestive of AIN. Renal ultrasound otherwise unremarkable. Complements are pending. --Continue prednisone 80 mg /d (started on 01/31/19): Reduce dose by 10 mg q3 days until 10 mg daily starting Friday. The medication can then be weaned off during outpatient follow up. --Stop TUMS today --Furosemide provided this AM to encourage diuresis (2) Endocarditis of tricuspid valve: (3) IV drug abuse: Subjective No acute events overnight. Asking to be discharged soon. Continues to consider leaving AMA. Feels well. No fevers or chills. No urinary complaints. Review of Systems Review of Systems: All systems reviewed & are unremarkable except as noted in HPI & below Physical Exam Constitutional: well developed and + thin; no acute distress Eyes: no scleral abnormality and no corneal abnormality ENMT: Mouth: no oral mucosal abnormality and oral mucous membranes not dry Neck: normal visual inspection and trachea midline Respiratory: normal respiratory effort Auscultation: lungs clear to auscultation bilaterally Cardiovascular: Rate/Rhythm: regular rate Heart Sounds: normal S1, normal S2 and + murmur Vessels: no JVD Extremities: + edema Gastrointestinal (Abdomen): Percussion/Palpation: abdomen soft; abdomen nontender Musculoskeletal: Extremities: no cyanosis and no clubbing Skin: normal turgor; no lesions Neurologic: Motor/Sensory: no tremor and no asterixis Psychiatric: Orientation: alert and oriented x 3 Results & Data Vital Signs (Past 12 Hours) Vital Signs Temp Pulse Pulse Resp BP Pulse Ox 02/04/19 11:19 36.6 C 56 L 20 123/78 95 02/04/19 08:00 50 L 02/04/19 07:34 36.6 C 72 18 126/74 96 02/04/19 03:24 36.8 C 60 16 140/81 95 Laboratory Results Laboratory Results - last 24 hr 02/03/19 02/03/19 02/03/19 19:52 19:52 21:20 WBC RBC Hgb Hct MCV MCH MCHC RDW Std Deviation RDW Coeff of Demond Plt Count MPV Sodium Potassium Chloride Carbon Dioxide Anion Gap BUN Creatinine Est Cr Clr Drug Dosing Est GFR ( Amer) Est GFR (Non-Af Amer) BUN/Creatinine Ratio Glucose POC Glucose 176 H Calcium Phosphorus Albumin Urine Opiates Screen Pos H U Codeine Confrm GC/MS Pending Ur Morphine (GC/MS) Pending Ur Hydrocodone (GC/MS) Pending Ur Norhydrocodone Pending Ur Noroxycodone Pending Urine Oxycodone (GC/MS) Pending U Oxymorphone GC/MS Pending Ur Methadone, Qual Neg Ur Hydromorphone (GC/MS) Pending Urine Barbiturates Neg Ur Phencyclidine (PCP) Neg U Amphetamin/Meth Scrn Neg MDMA (Ecstasy) Screen Neg U Benzodiazepines Scrn Neg Ur Cocaine Metabolite Neg U Marijuana (THC) Screen Neg 02/04/19 02/04/19 02/04/19 05:40 05:40 07:33 WBC 14.24 H RBC 2.33 L Hgb 7.3 L Hct 21.9 L MCV 94.0 MCH 31.3 MCHC 33.3 RDW Std Deviation 45.5 RDW Coeff of Demond 14.0 Plt Count 450 H MPV 9.8 Sodium 141 Potassium 4.4 Chloride 108 H Carbon Dioxide 28 Anion Gap 5.0 BUN 54 H Creatinine 1.49 H D Est Cr Clr Drug Dosing 69.4 Est GFR ( Amer) 68.0 Est GFR (Non-Af Amer) 58.7 BUN/Creatinine Ratio 36.4 H Glucose 159 H POC Glucose 139 H Calcium 7.4 L Phosphorus 3.2 D Albumin 1.4 L Urine Opiates Screen U Codeine Confrm GC/MS Ur Morphine (GC/MS) Ur Hydrocodone (GC/MS) Ur Norhydrocodone Ur Noroxycodone Urine Oxycodone (GC/MS) U Oxymorphone GC/MS Ur Methadone, Qual Ur Hydromorphone (GC/MS) Urine Barbiturates Ur Phencyclidine (PCP) U Amphetamin/Meth Scrn MDMA (Ecstasy) Screen U Benzodiazepines Scrn Ur Cocaine Metabolite U Marijuana (THC) Screen 02/04/19 11:20 WBC RBC Hgb Hct MCV MCH MCHC RDW Std Deviation RDW Coeff of Demond Plt Count MPV Sodium Potassium Chloride Carbon Dioxide Anion Gap BUN Creatinine Est Cr Clr Drug Dosing Est GFR ( Amer) Est GFR (Non-Af Amer) BUN/Creatinine Ratio Glucose POC Glucose 225 H Calcium Phosphorus Albumin Urine Opiates Screen U Codeine Confrm GC/MS Ur Morphine (GC/MS) Ur Hydrocodone (GC/MS) Ur Norhydrocodone Ur Noroxycodone Urine Oxycodone (GC/MS) U Oxymorphone GC/MS Ur Methadone, Qual Ur Hydromorphone (GC/MS) Urine Barbiturates Ur Phencyclidine (PCP) U Amphetamin/Meth Scrn MDMA (Ecstasy) Screen U Benzodiazepines Scrn Ur Cocaine Metabolite U Marijuana (THC) Screen PG Care Time/CCT Total # of Minutes Spent Total Time Spent with Patient: Total time spent is greater than 50% in coordination of care (as documented) at patient's floor/unit and/or counseling patient: 25 minutes
--- NOTE | 2019-02-04 13:45 | Infectious Disease Progress Nt ---
Date of Service February 04, 2019 Assessment & Plan (1) Infectious endocarditis: continue Dapto while in hospital 01/28 negative to date. will require several weeks of IV abx for treatment. I do not feel that patient candidate for picc line due to ongoing IVDA, picc placed 02/02 - would remove prior to d/c. I am highly concerned that he will use picc line for IVDA if d/c home with picc in place, this will lead to high risk of picc infection, overdose and potentially be fatal. Will likely need min 6 weeks IV abx from first negative culture, 01/28. will need weekly cbc, cmp, esr while on therpay. Awaiting arrangements for IV abx at [facility] with [facility]. creat improving. With regards to active HCV he would not currently be a candidate for treatment due to ongoing IVDA but would encourage treatment if able to discontinue drug use. His viral load is significantly elevated and would benefit from treatment, however, with ongoing active IVDA he would not receive treatment at this time. (2) Gram positive septicemia: Subjective remains afebrile wbc 15 today, creat decreased to 1.4. awaiting approval for outpatient dalvance approval, not a candidate for outpt IV therapy with picc at home due to ongoing IVDA. 01/28 blood cultures negative. Results & Data Vital Signs (Past 12 Hours) Vital Signs Temp Pulse Pulse Resp BP Pulse Ox 02/04/19 11:19 36.6 C 56 L 20 123/78 95 02/04/19 08:00 50 L 02/04/19 07:34 36.6 C 72 18 126/74 96 02/04/19 03:24 36.8 C 60 16 140/81 95 Laboratory Results Microbiology 01/28/19 10:37 Blood Aerobic Blood Culture - Final No growth in Aerobic bottle after 5 days. 01/28/19 10:37 Blood Anaerobic Blood Culture - Final No growth in Anaerobic bottle after 5 days. 01/28/19 10:46 Blood Aerobic Blood Culture - Final No growth in Aerobic bottle after 5 days. 01/28/19 10:46 Blood Anaerobic Blood Culture - Final No growth in Anaerobic bottle after 5 days. 01/27/19 17:00 Pleural Fluid Gram Stain - Final 01/27/19 17:00 Pleural Fluid Aerobic and Anaerobic Culture - Final No growth 01/26/19 03:59 Blood Aerobic Blood Culture - Final Staph aureus MRSA 01/26/19 03:59 Blood Anaerobic Blood Culture - Final No growth in Anaerobic bottle after 5 days. 01/25/19 04:16 Blood Aerobic Blood Culture - Final Staph aureus MRSA 01/25/19 04:16 Blood Anaerobic Blood Culture - Final No growth in Anaerobic bottle after 5 days. 01/25/19 04:06 Blood Aerobic Blood Culture - Final Staph aureus MRSA 01/25/19 04:06 Blood Anaerobic Blood Culture - Final No growth in Anaerobic bottle after 5 days. 01/24/19 05:19 Blood Aerobic Blood Culture - Final Staph aureus MRSA 01/24/19 05:19 Blood Anaerobic Blood Culture - Final No growth in Anaerobic bottle after 5 days. 01/24/19 05:13 Blood Aerobic Blood Culture - Final Staph aureus MRSA 01/24/19 05:13 Blood Anaerobic Blood Culture - Final No growth in Anaerobic bottle after 5 days. 01/26/19 09:15 Pleural Fluid Gram Stain - Final 01/26/19 09:15 Pleural Fluid Aerobic and Anaerobic Culture - Preliminary Staph aureus MRSA 01/27/19 17:00 Pleural Fluid Acid Fast Bacilli Smear - Final 01/27/19 17:00 Pleural Fluid Acid Fast Bacilli Culture - Preliminary No Acid-Fast Bacilli Isolated - Report 1, Additional Report to Follow. 01/26/19 09:15 Pleural Fluid Acid Fast Bacilli Smear - Final 01/26/19 09:15 Pleural Fluid Acid Fast Bacilli Culture - Preliminary No Acid-Fast Bacilli Isolated - Report 1, Additional Report to Follow. 01/26/19 04:10 Blood Aerobic Blood Culture - Final No growth in Aerobic bottle after 5 days. 01/26/19 04:10 Blood Anaerobic Blood Culture - Final No growth in Anaerobic bottle after 5 days. 01/28/19 13:32 Urine,Clean Catch Urine Culture - Final No growth - less than 1,000 colonies/mL. 01/23/19 05:43 Blood Aerobic Blood Culture - Final Staph aureus MRSA 01/23/19 05:43 Blood Anaerobic Blood Culture - Final No growth in Anaerobic bottle after 5 days. 01/23/19 05:27 Blood Aerobic Blood Culture - Final Staph aureus MRSA 01/23/19 05:27 Blood Anaerobic Blood Culture - Final No growth in Anaerobic bottle after 5 days. 01/22/19 03:07 Blood Aerobic Blood Culture - Final Staph aureus MRSA 01/22/19 03:07 Blood Anaerobic Blood Culture - Final Staph aureus MRSA 01/22/19 02:19 Blood Aerobic Blood Culture - Final Staph aureus MRSA 01/22/19 02:19 Blood Anaerobic Blood Culture - Final Staph aureus MRSA 01/22/19 02:59 Blood Aerobic Blood Culture - Final Staph aureus MRSA 01/22/19 02:59 Blood Anaerobic Blood Culture - Final Staph aureus MRSA PG Care Time/CCT Total # of Minutes Spent Total Time Spent with Patient: Total time spent is greater than 50% in coordination of care (as documented) at patient's floor/unit and/or counseling patient: (1) Infectious endocarditis Chronicity: acute Infective endocarditis organism: bacterial Qualified Code( s): I33.0 - Acute and subacute infective endocarditis
[2019-02-04] MEDS: DAPTOmycin 450 MG in SYRINGE 0 ML IV SCH (14:23)
--- NOTE | 2019-02-04 15:26 | XRay Report ---
XR chest 2V routine CLINICAL HISTORY: septic emboli, b/l effusions, interval change COMPARISON STUDY: 02/02/2019 FINDINGS: Central catheter remains in the superior vena cava. Stable left pleural effusion with left basilar consolidative change. Unchanged infiltrative change right base. Slight blunting right lateral costophrenic angle. IMPRESSION: Essentially unchanged exam. Left and to a lesser extent right pleural effusion and/or ba silar consolidation. Mild stable cardiomegaly. The above report was generated using voice recognition software. It may contain grammatical, syntax or spelling errors. Electronically signed by: Phil Back M.D. 02/04/2019 3:24 PM
--- NOTE | 2019-02-04 22:06 | Hospitalist Progress Note ---
Date of Service February 04, 2019 Assessment & Plan (1) Acute kidney injury: Continues to resolve. Concern for AIN from antibiotic agent. ATN possible from hypotension/septicemia. No evidence of obstruction on renal u/s x 2. Septic emboli to kidneys possible but less likely. Appreciate Dr Garzon/Kolby's consultation. continue prednisone for possible AIN. Defer weaning to nephrology. lC3, C4 pending. avoid nephrotoxic agents. BMP am. lasix 20mg IV x 1 to promote diuresis in face of volume overload. (2) Acute hypoxemic respiratory failure: 2nd to MRSA septic emboli from TV endocarditis along with pleural effusions and probable volume overload from ROXANA. Stable/mildly improved. lasix 20mg IV x 1. will repeat cxr today. 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 Numerous blood cultures positive for MRSA. This is due to IV drug abuse. He had severe sepsis/septic shock due to such requiring ICU stay earlier this admission. He had clinical/radiographic evidence of significant pulmonary septic emboli. Repeat blood cx's from 01/28/19 negative. Appreciate cardiology, ID, nephrology consultations and recs. No indication for surgical intervention. Currently on IV daptomycin. At least 6 weeks of Rx from date of last negative blood culture. Weekly dalvance will probably be plan of care. Dr Pereira has requested authorization for this antibiotic. (4) Septic shock due to methicillin resistant Staphylococcus aureus: resolved (5) Acute septic pulmonary embolism: Severe earlier on this stay. Improved chest symptoms due to such. Complicated by parapneumonic effusion on left / empyema with pleural fluid + for MRSA on left via thoracentesis on 01/27/19. Still with O2 requirement - will repeat his cxr today. (6) MRSA (methicillin resistant Staphylococcus aureus) septicemia: With TV endocarditis. Due to IV drug abuse. See discussion above. septicemia resolved. (7) IV drug abuse: With resulting endocarditis, etc. Positive for HepC with very high viral load. HIV and HepB titers negative. Will need sobriety in order to receive HepC treatment. (8) Hepatitis C infection: HepC RNA viral load very high. Due to IV drug abuse. Needs GI/ID follow-up post-discharge for the HepC. (9) Severe protein-calorie malnutrition: Ongoing. Due to endocarditis, IV drug abuse, etc. HIV negative. MVI, protein supplement, treat MRSA infection. (10) Thrombocytopenia: Due to severe sepsis/septicemia - resolved. (11) Hyponatremia: Resolved. (12) MRSA pneumonia: Due to septic emboli. Clinically he is volume overloaded with pulmonary edema in setting of ROXANA. lasix 20mg IV x 1. He is up a considerable amount of weight since admission (15+ kg). (13) Empyema of left pleural space: s/p thoracentesis 01/27/19 with positive cultures for MRSA. remains on NC O2. repeat cxr today; if still with large effusion consult Dr Flynn for management. (14) Bradycardia: sinus -- due to beta iker. improved after holding beta iker. (15) Prediabetes: a1c 5.9% steroids making sugars worse cont novolog coverage add lantus 5 units HS today (16) DVT prophylaxis: heparin 5000 BID cont PT, OT patient has been threatening AMA the last 2 days I have encouraged him to stay until all issues are treated adequately I have counseled him on dangers of leaving AMA Subjective patient feels decent today. breathing is comfortable. no chest pain today. eating is slowly improving. getting "sick of being here" and wanting to leave. no fevers/chills. Review of Systems Constitutional: states he walked in hallway yesterday Respiratory: + dyspnea on exertion; no cough and no pain on inspiration Cardiovascular: no chest pain, no orthopnea and no paroxysmal nocturnal dyspnea Gastrointestinal: no abdominal pain, no nausea and no vomiting Physical Exam Constitutional: + ill appearing, + thin and + frail appearing; no acute distress ENMT: Mouth: no oral mucosal abnormality Respiratory: Auscultation: + diminished lung sounds (bases); no crackles and no wheezes Cardiovascular: Rate/Rhythm: regular rate and regular rhythm Heart Sounds: normal S1, normal S2 and + murmur (1-2/6 RENU LLSB) Vessels: + JVD, posterior tibial pulses present and dorsalis pedis pulses present Extremities: + edema (improved today) Gastrointestinal (Abdomen): normal bowel sounds, soft, nontender, no hepatosplenomegaly Skin: no rashes, warm and dry tattoos, PICC line Left arm clean Psychiatric: Orientation: alert and oriented x 3 Affect: + irritable affect Results & Data Vital Signs (Past 12 Hours) Vital Signs Temp Pulse Pulse Resp BP Pulse Ox 02/04/19 19:16 37.3 C 56 L 18 137/85 94 02/04/19 16:18 58 L 02/04/19 15:38 37 C 68 18 135/80 95 02/04/19 11:19 36.6 C 56 L 20 123/78 95 Laboratory Results Laboratory Results - last 24 hr 02/04/19 02/04/19 02/04/19 05:40 05:40 07:33 WBC 14.24 H RBC 2.33 L Hgb 7.3 L Hct 21.9 L MCV 94.0 MCH 31.3 MCHC 33.3 RDW Std Deviation 45.5 RDW Coeff of Demond 14.0 Plt Count 450 H MPV 9.8 Sodium 141 Potassium 4.4 Chloride 108 H Carbon Dioxide 28 Anion Gap 5.0 BUN 54 H Creatinine 1.49 H D Est Cr Clr Drug Dosing 69.4 Est GFR ( Amer) 68.0 Est GFR (Non-Af Amer) 58.7 BUN/Creatinine Ratio 36.4 H Glucose 159 H POC Glucose 139 H Calcium 7.4 L Phosphorus 3.2 D Albumin 1.4 L 02/04/19 02/04/19 02/04/19 11:20 16:33 20:12 WBC RBC Hgb Hct MCV MCH MCHC RDW Std Deviation RDW Coeff of Demond Plt Count MPV Sodium Potassium Chloride Carbon Dioxide Anion Gap BUN Creatinine Est Cr Clr Drug Dosing Est GFR ( Amer) Est GFR (Non-Af Amer) BUN/Creatinine Ratio Glucose POC Glucose 225 H 181 H 170 H Calcium Phosphorus Albumin PG Care Time/CCT Total # of Minutes Spent Total Time Spent with Patient: Total time spent is greater than 50% in coordination of care (as documented) at patient's floor/unit and/or counseling patient: (1) MRSA pneumonia Laterality: bilateral Lung location: unspecified part of lung Qualified Code(s): J15.212 - Pneumonia due to Methicillin resistant Staphylococcus aureus (2) Acute septic pulmonary embolism Acute cor pulmonale presence: without acute cor pulmonale Qualified Code(s): I26.90 - Septic pulmonary embolism without acute cor pulmonale (3) Hepatitis C infection Hepatic coma status: without hepatic coma Viral hepatitis chronicity: chronic Qualified Code(s): B18.2 - Chronic viral hepatitis C
[2019-02-04] MEDS: INSULIN GLARGINE SOLOSTAR 100 UNITS/ML 3 ML PEN SC SCH (22:37)
[2019-02-05 06:55] LABS: Albumin Level 1.5 gm/dl (3.4-5.0); BUN Creatinine Ratio 36.9 (10-20); Calcium 7.4 mg/dl (8.5-10.1); Creatinine Clr Calc Pharmacy 83.4 ml/min; Est GFR (African American) 84.9; Est GFR (Non-African American) 73.3; Potassium 4.5 mmol/L (3.5-5.1)
[2019-02-05 06:58] LABS: Phosphorus 2.4 mg/dl (2.5-4.9)
[2019-02-05] MEDS ORDERED: FUROSEMIDE 20 MG in SYRINGE 0 ML IV ONE ×2 (08:00→16:15)
[2019-02-05] MEDS: OXYCODONE HCL 10 MG TABCR (OXYCONTIN) PO SCH ×2 (08:15→20:39)
[2019-02-05] MEDS: GUAIFENESIN/CODEINE 100MG/10MG 5ML UDC PO PRN ×2 (08:15)
[2019-02-05] MEDS: FERROUS SULFATE 325 MG TAB PO SCH ×2 (08:16→20:40)
[2019-02-05] MEDS: predniSONE 20 MG TAB PO SCH (08:16)
[2019-02-05] MEDS: CALCIUM CARBONATE 500 MG CHEWABLE TAB PO SCH ×3 (08:16→16:41)
[2019-02-05] MEDS: CEROVITE ADV FORMULA TAB PO SCH (08:16)
[2019-02-05] MEDS: HEPARIN SOD 5,000 UNIT/0.5 ML VIAL SQ SCH ×2 (08:17→20:41)
[2019-02-05] MEDS: BENZONATATE 100 MG CAPSULE PO SCH ×3 (08:17→20:39)
[2019-02-05] MEDS: NICOTINE 21 MG/24 HR TDSY TD SCH (08:18)
[2019-02-05] MEDS: DOCUSATE SODIUM/SENNA 50/8.6MG TAB PO SCH ×2 (08:18→20:42)
[2019-02-05] MEDS: INSULIN ASPART 100 UNITS/ML 3 ML PEN SC SCH ×4 (08:18→20:39)
--- NOTE | 2019-02-05 09:19 | Nephrology Progress Note ---
Date of Service February 05, 2019 Assessment & Plan (1) Acute kidney injury: ROXANA in the setting of MRSA endocarditis associated w/ IVDA. During his ICU stay he required CTA, NABIL inhibitor therapy, and IV NSAIDS for pain management. He has been on several antibiotics., including Daptomycin + Ceftaroline. He reports a h/o PCN drug allergy. ROXANA is likely multifactorial with possible ATN however there is significant concern that ROXANA may be secondary to AIN. Ceftaroline was discontinued, currently on daptomycin. Plan to discharge home on Dalvance. Renal function improving today with acceptable electrolyte. Blood pressure acceptable. Repeat UA with microscopic hematuria and proteinuria as well as WBC cast suggestive of AIN. Renal ultrasound otherwise unremarkable. Complements levels were normal despite IE/infection; suggesting that that this kidney dysfunction is not related to septic emboli or associated GN. --Decreased prednisone to 70 mg /d tomorrow (started 80 mg daily on 01/31/19): Reduce dose by 10 mg q3 days. The medication can then be weaned off during outpatient follow up. --Schedule follow up with Dr. Garzon in the [facility] in [place] within 2 weeks of discharge. --Stop TUMS. (2) Endocarditis of tricuspid valve: (3) IV drug abuse: Subjective No acute events overnight. Romaine feels well. He hopes to be discharged home today. He again stated that he is considering leaving AMA if not discharged. No fevers or chills. He denies any urinary complaints. Afebrile. Review of Systems Review of Systems: All systems reviewed & are unremarkable except as noted in HPI & below Physical Exam Constitutional: well developed and + thin; no acute distress Eyes: no scleral abnormality and no corneal abnormality ENMT: Ears: no hearing impairment Mouth: no oral mucosal abnormality and oral mucous membranes not dry Neck: normal visual inspection and trachea midline Respiratory: normal respiratory effort Auscultation: lungs clear to auscultation bilaterally Cardiovascular: Rate/Rhythm: regular rate Heart Sounds: normal S1, normal S2 and + murmur Vessels: no JVD Extremities: + edema Gastrointestinal (Abdomen): Percussion/Palpation: abdomen soft; abdomen nonte nder Musculoskeletal: Extremities: no cyanosis and no clubbing Skin: normal turgor; no lesions Neurologic: Motor/Sensory: no tremor and no asterixis Psychiatric: Orientation: alert and oriented x 3 Results & Data Vital Signs (Past 12 Hours) Vital Signs Temp Pulse Resp BP Pulse Ox 02/05/19 07:25 36.8 C 52 L 18 129/81 97 02/05/19 03:34 36.7 C 64 17 129/83 96 02/04/19 23:38 36.8 C 87 24 146/89 H Laboratory Results Laboratory Results - last 24 hr 02/04/19 02/04/19 02/04/19 11:20 16:33 20:12 Hgb Sodium Potassium Chloride Carbon Dioxide Anion Gap BUN Creatinine Est Cr Clr Drug Dosing Est GFR ( Amer) Est GFR (Non-Af Amer) BUN/Creatinine Ratio Glucose POC Glucose 225 H 181 H 170 H Calcium Phosphorus Albumin 02/05/19 02/05/19 02/05/19 05:56 05:56 07:24 Hgb 7.7 L Sodium 144 Potassium 4.5 Chloride 110 H Carbon Dioxide 27 Anion Gap 7.0 BUN 46 H Creatinine 1.24 Est Cr Clr Drug Dosing 83.4 Est GFR ( Amer) 84.9 Est GFR (Non-Af Amer) 73.3 BUN/Creatinine Ratio 36.9 H Glucose 116 H POC Glucose 103 H Calcium 7.4 L Phosphorus 2.4 L Albumin 1.5 L PG Care Time/CCT Total # of Minutes Spent Total Time Spent with Patient: Total time spent is greater than 50% in coordination of care (as documented) at patient's floor/unit and/or counseling patient:
--- NOTE | 2019-02-05 10:09 | Infectious Disease Progress Nt ---
Date of Service February 05, 2019 Assessment & Plan (1) Infectious endocarditis: continue Dapto while in hospital 01/28 negative to date. will require several weeks of IV abx for treatment. I do not feel that patient candidate for picc line due to ongoing IVDA, picc placed 02/02 - would remove prior to d/c. I am highly concerned that he will use picc line for IVDA if d/c home with picc in place, this will lead to high risk of picc infection, overdose and potentially be fatal. Will likely need min 6 weeks IV abx from first negative culture, 01/28. will need weekly cbc, cmp, esr while on therpay. Awaiting arrangements for IV abx at [facility] with [facility]. creat improving. He does require prior auth, papers faxed this am, await reply, may not be approved until next week. spoke with pt and primary, he states that he needs to leave today as the cost of his hospital stay is too high. He has reportedly stated he will sign out AMA. He was told in detail that he will get a dose of Dapto today but may not be able to receive additional abx at [facility] until next week. He would like to be d/c home with no abx until he can come to [facility] next week. He does not want to remain inpatient pending insurance approval. The severity of illness was explained in great detail, he still wants to go home and is agreeable to return on Friday for Dalvance when approved. disucussed with nursing and with primary service. will plan to arrange for outpt Dalvance therapy when approved and will follow in office post d/c. With regards to active HCV he would not currently be a candidate for treatment due to ongoing IVDA but would encourage treatment if able to discontinue drug use. His viral load is significantly elevated and would benefit from treatment, however, with ongoing active IVDA he would not receive treatment at this time. (2) Gram positive septicemia: Subjective pt seen in followup. pt remains with negative blood cultures from 01/28. Insurance approval at 100% for Dalvance therapy as outpt, but requires prior auth. signed and faxed this am, hopefully with expedite to get approval for first dose this weekend, otherwise pt to start on Friday at [facility]. afebrile. remains on Dapto while inpatient. Spoke with primary and explained to patient that he may not be able to begin abx until next week as outpt. He denies f/c. states he is still sob. he denies cp, no abd pain, no n/v/d. remaining ros reviewed and negative. continues to deny any IVDA although known history, + UDS and active HCV infection. States he does not understand how he ended up with MRSA IE. Review of Systems Review of Systems: All systems reviewed & are unremarkable except as noted in HPI & below Physical Exam Constitutional: WD/WN, vitals as above Eyes: PERRL, conjunctivae normal, anicteric sclerae ENMT: external ear and nose normal, oropharynx normal Neck: normal visual inspection Respiratory: normal respiratory effort, lungs clear to auscultation Cardiovascular: RRR, no murmur, no edema Gastrointestinal (Abdomen): normal bowel sounds, soft, nontender, no hepatosplenomegaly Musculoskeletal: no cyanosis or clubbing, extremities motor strength 5/5 Skin: no rashes, warm and dry Psychiatric: A+Ox3, euthymic affect Insight: + poor insight Results & Data Vital Signs (Past 12 Hours) Vital Signs Temp Pulse Pulse Resp BP Pulse Ox 02/05/19 09:58 53 L 02/05/19 07:25 36.8 C 52 L 18 129/81 97 02/05/19 03:34 36.7 C 64 17 129/83 96 02/04/19 23:38 36.8 C 87 24 146/89 H Laboratory Results Microbiology 01/28/19 10:37 Blood Aerobic Blood Culture - Final No growth in Aerobic bottle after 5 days. 01/28/19 10:37 Blood Anaerobic Blood Culture - Final No growth in Anaerobic bottle after 5 days. 01/28/19 10:46 Blood Aerobic Blood Culture - Final No growth in Aerobic bottle after 5 days. 01/28/19 10:46 Blood Anaerobic Blood Culture - Final No growth in Anaerobic bottle after 5 days. 01/27/19 17:00 Pleural Fluid Gram Stain - Final 01/27/19 17:00 Pleural Fluid Aerobic and Anaerobic Culture - Final No growth 01/26/19 03:59 Blood Aerobic Blood Culture - Final Staph aureus MRSA 01/26/19 03:59 Blood Anaerobic Blood Culture - Final No growth in Anaerobic bottle after 5 days. 01/25/19 04:16 Blood Aerobic Blood Culture - Final Staph aureus MRSA 01/25/19 04:16 Blood Anaerobic Blood Culture - Final No growth in Anaerobic bottle after 5 days. 01/25/19 04:06 Blood Aerobic Blood Culture - Final Staph aureus MRSA 01/25/19 04:06 Blood Anaerobic Blood Culture - Final No growth in Anaerobic bottle after 5 days. 01/24/19 05:19 Blood Aerobic Blood Culture - Final Staph aureus MRSA 01/24/19 05:19 Blood Anaerobic Blood Culture - Final No growth in Anaerobic bottle after 5 days. 01/24/19 05:13 Blood Aerobic Blood Culture - Final Staph aureus MRSA 01/24/19 05:13 Blood Anaerobic Blood Culture - Final No growth in Anaerobic bottle after 5 days. 01/26/19 09:15 Pleural Fluid Gram Stain - Final 01/26/19 09:15 Pleural Fluid Aerobic and Anaerobic Culture - Preliminary Staph aureus MRSA 01/27/19 17:00 Pleural Fluid Acid Fast Bacilli Smear - Final 01/27/19 17:00 Pleural Fluid Acid Fast Bacilli Culture - Preliminary No Acid-Fast Bacilli Isolated - Report 1, Additional Report to Follow. 01/26/19 09:15 Pleural Fluid Acid Fast Bacilli Smear - Final 01/26/19 09:15 Pleural Fluid Acid Fast Bacilli Culture - Preliminary No Acid-Fast Bacilli Isolated - Report 1, Additional Report to Follow. 01/26/19 04:10 Blood Aerobic Blood Culture - Final No growth in Aerobic bottle after 5 days. 01/26/19 04:10 Blood Anaerobic Blood Culture - Final No growth in Anaerobic bottle after 5 days. 01/28/19 13:32 Urine,Clean Catch Urine Culture - Final No growth - less than 1,000 colonies/mL. 01/23/19 05:43 Blood Aerobic Blood Culture - Final Staph aureus MRSA 01/23/19 05:43 Blood Anaerobic Blood Culture - Final No growth in Anaerobic bottle after 5 days. 01/23/19 05:27 Blood Aerobic Blood Culture - Final Staph aureus MRSA 01/23/19 05:27 Blood Anaerobic Blood Culture - Final No growth in Anaerobic bottle after 5 days. 01/22/19 03:07 Blood Aerobic Blood Culture - Final Staph aureus MRSA 01/22/19 03:07 Blood Anaerobic Blood Culture - Final Staph aureus MRSA 01/22/19 02:19 Blood Aerobic Blood Culture - Final Staph aureus MRSA 01/22/19 02:19 Blood Anaerobic Blood Culture - Final Staph aureus MRSA 01/22/19 02:59 Blood Aerobic Blood Culture - Final Staph aureus MRSA 01/22/19 02:59 Blood Anaerobic Blood Culture - Final Staph aureus MRSA PG Care Time/CCT Total # of Minutes Spent Total Time Spent with Patient: Total time spent is greater than 50% in coordination of care (as documented) at patient's floor/unit and/or counseling patient: (1) Infectious endocarditis Chronicity: acute Infective endocarditis organism: bacterial Qualified Code(s): I33.0 - Acute and subacute infective endocarditis
[2019-02-05] MEDS: OXYCODONE HCL IR 5 MG TAB (IMMEDIATE RELEASE) PO PRN ×3 (12:06→15:43)
[2019-02-05] MEDS: DAPTOmycin 450 MG in SYRINGE 0 ML IV SCH (14:52)
[2019-02-05] MEDS: INSULIN GLARGINE SOLOSTAR 100 UNITS/ML 3 ML PEN SC SCH (20:41)
--- NOTE | 2019-02-05 20:49 | Hospitalist Progress Note ---
Date of Service February 05, 2019 Assessment & Plan (1) Acute kidney injury: Nearly fully resolved. Suspected AIN from antibiotic agent. ATN possible from hypotension/septicemia. No evidence of obstruction on renal u/s x 2. Septic emboli to kidneys unlikely. C3,C4 levels wnl. Appreciate Dr Garzon/Kolby's consultation. Plan - lasix 20mg IV this am followed by 20mg IV this afternoon (patient has gained 20kg of weight since admission). wean prednisone to 70mg daily starting TOMORROW; should wean by 10mg every 3 days per nephrology recommendations. will need nephrology follow-up in 2 weeks post-discharge. BMP am. (2) Acute hypoxemic respiratory failure: 2nd to MRSA septic emboli from TV endocarditis along with pleural effusions and probable volume overload from ROXANA. Stable/improving. 2 doses of IV lasix today. 2-step o2 test to ensure he does not need home o2. 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 Numerous blood cultures positive for MRSA. This is due to IV drug abuse. He had severe sepsis/septic shock due to such requiring ICU stay earlier this admission. He had clinical/radiographic evidence of significant pulmonary septic emboli. Repeat blood cx's from 01/28/19 negative. Appreciate cardiology, ID, nephrology consultations and recs. No indication for surgical intervention. Currently on IV daptomycin. PLAN: DISCONTINUE the left arm PICC at discharge. Weekly dalvance with first dose some time next week. Dr Pereira has requested authorization for this antibiotic; auth still pending; hoping to have such on Friday. Will be followed by ID post-discharge. Also needs cardiology follow-up post-discharge for echo surveillance. (4) Septic shock due to methicillin resistant Staphylococcus aureus: resolved (5) Acute septic pulmonary embolism: Severe. Had significant resp failure from such along with severe pleuritic chest pain. Chest discomfort has improved/resolved. Complicated by parapneumonic effusion on left / empyema with pleural fluid + for MRSA on left via thoracentesis on 01/27/19. o2 finally weaned off. last cxr with moderate effusion on left but has not changed and he is not having pleuritic symptoms from it. follow. (6) MRSA (methicillin resistant Staphylococcus aureus) septicemia: With TV endocarditis. Due to IV drug abuse. See discussion above. septicemia resolved. (7) IV drug abuse: With resulting endocarditis, etc. Positive for HepC with very high viral load. HIV and HepB titers negative. Will need minimum 6 months of sobriety in order to receive HepC treatment. (8) Hepatitis C infection: HepC RNA viral load very high. Due to IV drug abuse. Needs GI/ID follow-up post-discharge for the HepC. (9) Severe protein-calorie malnutrition: Ongoing with gradual improvement in albumin. Due to endocarditis, IV drug abuse, etc. HIV negative. MVI, protein supplement, treat MRSA infection. (10) Thrombocytopenia: Due to severe sepsis/septicemia - resolved. (11) Hyponatremia: Resolved. (12) MRSA pneumonia: Due to septic emboli. Clinically he is volume overloaded with pulmonary edema in setting of ROXANA. lasix 20mg IV x 2 doses today. He is up a considerable amount of weight since admission (15-20 kg). (13) Empyema of left pleural space: s/p thoracentesis 01/27/19 with positive cultures for MRSA. last cxr with moderate left-sided effusion but has remained stable. no pleuritic chest symptoms on left and no further fevers, etc. follow. continue IV antibiotics. (14) Bradycardia: sinus -- due to beta iker. improved/resolved after holding beta iker. (15) Prediabetes: a1c 5.9% on lantus/novolog with good control at this time would NOT sent home with insulin at discharge sugars should return to normal as steroids are weaned off (16) Volume overload: 2nd to copious fluid resuscitation in the midst of his stay, ROXANA, etc. lasix 20mg IV x 2 doses today at discharge consider lasix 20mg po daily to help continue his diuresis may need this for 7-10 days post-discharge (17) DVT prophylaxis: heparin 5000 BID cont PT, OT patient has been threatening AMA the last 2-3 days I have encouraged him to stay until all issues are treated adequately I have counseled him on dangers of leaving AMA appreciate social work support Subjective multiple visits to pt's bedside today. first was during AM rounds. he again stated "I have to get out of here. I'm going to lose my house. I'm going to lose my storage unit. You don't understand - I have to leave." we had lengthy discussion about the risks of leaving too early including morbidity and even . he continues with cough and BETANCUR. he is eating fairly. still requiring O2. tele wn overnight. during 2nd visit I was accompanied by case management. he again voiced that he needed to get home. when asked who would pick him up he reported it would be his sister. he also then stated he would be staying with his sister. he stated "I have to go back to work. I work at a [employer] place. I have to make money." I told him that if he left today it would be against medical advice. I also told him that we did not have final auth for the weekly Dalvance antibiotics. Review of Systems Constitutional: + fatigue; no fever and no chills Respiratory: + cough, + dyspnea, + dyspnea on exertion and + pain on inspiration; no hemoptysis Cardiovascular: as per Subjective / HPI and + edema; no paroxysmal nocturnal dyspnea Gastrointestinal: no abdominal pain, no nausea and no vomiting Physical Exam Constitutional: + ill appearing, + thin and + frail appearing; no acute distress ENMT: Mouth: no oral mucosal abnormality Respiratory: + tachypneic Auscultation: + diminished lung sounds (bases); no crackles and no wheezes Cardiovascular: Rate/Rhythm: regular rate and regular rhythm Heart Sounds: normal S1, normal S2 and + murmur (1-2/6 RENU LLSB) Vessels: + JVD, posterior tibial pulses present and dorsalis pedis pulses present Extremities: + edema (1+ b/l) Gastrointestinal (Abdomen): normal bowel sounds, soft, nontender, no hepat osplenomegaly Skin: no rashes, warm and dry PICC line left arm clean/dry Psychiatric: Orientation: alert and oriented x 3 Affect: + irritable affect Results & Data Vital Signs (Past 12 Hours) Vital Signs Temp Pulse Pulse Pulse Pulse Pulse Resp 02/05/19 19:36 37.2 C 54 L 18 02/05/19 15:55 37.1 C 63 18 02/05/19 15:52 101 H 99 H 89 02/05/19 11:22 37.1 C 64 24 02/05/19 09:58 53 L Resp Resp Resp BP Pulse Ox Pulse Ox Pulse Ox 02/05/19 19:36 141/85 H 95 02/05/19 15:55 141/82 H 93 02/05/19 15:52 20 20 20 92 93 02/05/19 11:22 132/74 92 02/05/19 09:58 Pulse Ox 02/05/19 19:36 02/05/19 15:55 02/05/19 15:52 95 02/05/19 11:22 02/05/19 09:58 Laboratory Results Laboratory Results - last 24 hr 02/05/19 02/05/19 02/05/19 05:56 05:56 07:24 Hgb 7.7 L Sodium 144 Potassium 4.5 Chloride 110 H Carbon Dioxide 27 Anion Gap 7.0 BUN 46 H Creatinine 1.24 Est Cr Clr Drug Dosing 83.4 Est GFR ( Amer) 84.9 Est GFR (Non-Af Amer) 73.3 BUN/Creatinine Ratio 36.9 H Glucose 116 H POC Glucose 103 H Calcium 7.4 L Phosphorus 2.4 L Albumin 1.5 L 02/05/19 02/05/19 02/05/19 11:22 16:33 20:30 Hgb Sodium Potassium Chloride Carbon Dioxide Anion Gap BUN Creatinine Est Cr Clr Drug Dosing Est GFR ( Amer) Est GFR (Non-Af Amer) BUN/Creatinine Ratio Glucose POC Glucose 154 H 164 H 157 H Calcium Phosphorus Albumin PG Care Time/CCT Total # of Minutes Spent Total Time Spent with Patient: Total time spent is greater than 50% in coordination of care (as documented) at patient's floor/unit and/or counseling patient: (1) MRSA pneumonia Laterality: bilateral Lung location: unspecified part of lung Qualified Code(s): J15.212 - Pneumonia due to Methicillin resistant Staphylococcus aureus (2) Acute septic pulmonary embolism Acute cor pulmonale presence: without acute cor pulmonale Qualified Code(s): I26.90 - Septic pulmonary embolism without acute cor pulmonale (3) Hepatitis C infection Hepatic coma status: without hepatic coma Viral hepatitis chronicity: chronic Qualified Code(s): B18.2 - Chronic viral hepatitis C (4) Volume overload Hypervolemia type: unspecified Qualified Code(s): E87.70 - Fluid overload, unspecified
[2019-02-06] MEDS: OXYCODONE HCL IR 5 MG TAB (IMMEDIATE RELEASE) PO PRN ×2 (00:15→05:59)
[2019-02-06] MEDS: GUAIFENESIN/CODEINE 100MG/10MG 5ML UDC PO PRN ×2 (00:15→05:59)
[2019-02-06 07:12] LABS: Albumin Level 1.6 gm/dl (3.4-5.0); BUN Creatinine Ratio 36.6 (10-20); Calcium 7.7 mg/dl (8.5-10.1); Creatinine Clr Calc Pharmacy 83.4 ml/min; Est GFR (African American) 84.9; Est GFR (Non-African American) 73.3; Potassium 4.5 mmol/L (3.5-5.1)
[2019-02-06 07:15] LABS: Magnesium 2.5 mg/dl (1.8-2.4); Phosphorus 2.6 mg/dl (2.5-4.9)
[2019-02-06] MEDS: OXYCODONE HCL 10 MG TABCR (OXYCONTIN) PO SCH (08:17)
[2019-02-06] MEDS: CEROVITE ADV FORMULA TAB PO SCH (08:18)
[2019-02-06] MEDS: CALCIUM CARBONATE 500 MG CHEWABLE TAB PO SCH (08:18)
[2019-02-06] MEDS: HEPARIN SOD 5,000 UNIT/0.5 ML VIAL SQ SCH (08:18)
[2019-02-06] MEDS: FERROUS SULFATE 325 MG TAB PO SCH (08:18)
[2019-02-06] MEDS: BENZONATATE 100 MG CAPSULE PO SCH (08:18)
[2019-02-06] MEDS: DOCUSATE SODIUM/SENNA 50/8.6MG TAB PO SCH (08:19)
[2019-02-06] MEDS: NICOTINE 21 MG/24 HR TDSY TD SCH (08:19)
[2019-02-06] MEDS: INSULIN ASPART 100 UNITS/ML 3 ML PEN SC SCH (08:19)
[2019-02-06] MEDS ORDERED: predniSONE 20 MG TAB PO SCH (09:00)
[2019-02-06] MEDS: DAPTOmycin 450 MG in SYRINGE 0 ML IV SCH (09:41)
--- NOTE | 2019-02-06 10:16 | Nephrology Progress Note ---
Date of Service February 06, 2019 Assessment & Plan (1) Acute kidney injury: ROXANA in the setting of MRSA endocarditis associated w/ IVDA. During his ICU stay he required CTA, NABIL inhibitor therapy, and IV NSAIDS for pain management. He has been on several antibiotics, including Daptomycin + Ceftaroline. He reports a h/o PCN drug allergy. ROXANA is likely multifactorial with possible ATN however there is significant concern for AIN. Ceftaroline was discontinued, currently on daptomycin. Plan to discharge home on Dalvance. Renal function has improved significantly. Blood pressure acceptable. Volume status improving. Intermittent diuretic may be considered as needed. Certainly low albumin and anemia are not helping and ultimately time will be necessary to mobilize 3rd space fluid. Renal ultrasound otherwise unremarkable. Complements levels were normal despite IE/infection; [place] ggesting that that this kidney dysfunction is not related to septic emboli or associated GN. -- Decreased prednisone to 70 mg /d today (started 80 mg daily on 01/31/19): Reduce dose by 10 mg q3 days. The medication can then be weaned off during outpatient follow up. -- I have requested follow up with Dr. Garzon in the [facility] nephrology clinic in [place] within 2 weeks of discharge. -- Please obtain a metabolic profile next week and fax results to the nephrology clinic ([phone]) (2) Endocarditis of tricuspid valve: (3) Empyema of left pleural space: -- Follow up CXR from yesterday reviewed Subjective No acute events overnight. Romaine is resting comfortably in bed this morning. He feels well. Edema seems to be improving. He continues to experience an intermittent cough. He denies dyspnea or significant orthopnea. No fevers or chills. Very anxious to be discharged home. Review of Systems Review of Systems: All systems reviewed & are unremarkable except as noted in HPI & below Physical Exam Constitutional: well developed and + thin; no acute distress Eyes: no scleral abnormality and no corneal abnormality ENMT: Ears: no hearing impairment Mouth: no oral mucosal abnormality and oral mucous membranes not dry Neck: normal visual inspection and trachea midline Respiratory: no labored breathing Auscultation: lungs clear to auscultation bilaterally and + diminished lung sounds Cardiovascular: Rate/Rhythm: regular rate Heart Sounds: normal S1, normal S2 and + murmur Vessels: no JVD Extremities: + edema Gastrointestinal (Abdomen): Percussion/Palpation: abdomen soft; abdomen nontender Musculoskeletal: Extremities: no cyanosis and no clubbing Skin: normal turgor; no lesions Neurologic: Motor/Sensory: no tremor and no asterixis Psychiatric: Orientation: alert and oriented x 3 Results & Data Vital Signs (Past 12 Hours) Vital Signs Temp Pulse Pulse Pulse Resp BP Pulse Ox 02/06/19 10:00 36.6 C 59 L 59 L 16 149/86 H 96 02/06/19 08:00 97 H 02/06/19 07:40 36.6 C 59 L 16 149/86 H 02/06/19 04:20 37.2 C 59 L 18 145/80 H 96 02/05/19 23:53 37.2 C 58 L 18 131/95 95 Laboratory Results Laboratory Results - last 24 hr 02/05/19 02/05/19 02/05/19 11:22 16:33 20:30 Sodium Potassium Chloride Carbon Dioxide Anion Gap BUN Creatinine Est Cr Clr Drug Dosing Est GFR ( Amer) Est GFR (Non-Af Amer) BUN/Creatinine Ratio Glucose POC Glucose 154 H 164 H 157 H Calcium Phosphorus Magnesium Albumin 02/06/19 02/06/19 06:02 07:31 Sodium 141 Potassium 4.5 Chloride 108 H Carbon Dioxide 29 Anion Gap 4.0 BUN 45 H Creatinine 1.24 Est Cr Clr Drug Dosing 83.4 Est GFR ( Amer) 84.9 Est GFR (Non-Af Amer) 73.3 BUN/Creatinine Ratio 36.6 H Glucose 123 H POC Glucose 121 H Calcium 7.7 L Phosphorus 2.6 Magnesium 2.5 H Albumin 1.6 L PG Care Time/CCT Total # of Minutes Spent Total Time Spent with Patient: Total time spent is greater than 50% in coordination of care (as documented) at patient's floor/unit and/or counseling patient:
--- NOTE | 2019-02-06 18:17 | Discharge Summary ---
Date of Service February 06, 2019 Admission HPI Per Admitting Provider 38 y/o M Hx IVDU presenting with fevers and drenching night sweats x 1 week. The pt states he last used IV drugs when he dissolved Suboxone into water and injected it into his R arm. This resulted in a hard lump in the anticubital region, however, he states that he did not develop signs of a local infection and did not develop fevers until approximately 3 weeks later. He denies SOB, a productive cough, nausea, vomiting, diarrhea or dysuria. The pt was febrile, hypotensive and tachycardic on arrival to the ER. He responded well to a litre of fluids. Labs were notable for leukocytosis, hyponatremia and mild uremia consistent with dehydration. Lactic acid was WNL and a CXR was clear. PMH: Denies a significant medical history aside from IVDU and smoking Social: Smokes one pack daily, drinks alcohol occasionally. Denies consistent drug use, but states that he does occasionally inject heroin. 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 Family: The pt is adopted and does not know the fate of his biological parents. Principal Diagnosis TV endocarditis Discharge Exam Constitutional + ill appearing and + thin Respiratory + cough decreased lung sounds bases Cardiovascular RRR, no murmur, no edema Gastrointestinal (Abdomen) normal bowel sounds, soft, nontender, no hepatosplenomegaly Skin no rashes, warm and dry Psychiatric A+Ox3, euthymic affect Discharge Data Allergies Allergy/AdvReac Type Severity Reaction Status Date / Time No Known Allergies Allergy Unverified 01/22/19 03:23 Consultations 01/22/19 03:31 ED Decision to Admit Stat 01/22/19 05:01 Consult Infectious Diseases Routine 01/22/19 21:29 Consult Applications Support Specialist Routine 01/24/19 07:20 Consult Orthopedic Surgery Routine 01/24/19 20:26 Consult Cardiology Routine 01/28/19 10:09 Consult Nephrology Routine Ordered Studies 01/22/19 21:13 US point of care ultrasound Routine 01/24/19 07:25 US venous doppler LE RT Urgent 01/25/19 07:12 CT angio chest PE protocol Urgent 01/26/19 08:36 US point of care ultrasound Routine 01/27/19 16:27 US point of care ultrasound Routine 01/28/19 10:14 US renal/blad retro comp Urgent 02/01/19 07:50 US renal/blad retro comp Urgent Hospital Course (1) Acute kidney injury: 38 y/o M with h/o IVDA and Hep C presented with fevers and chills and 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 The following is the medical management during stay here: Acute kidney injury -Nearly fully resolved at time of d/c, Cr 1.24 -Suspected AIN from antibiotic agent. UA with microscopic hematuria and proteinuria and WBC cast suggestive of AIN -ATN possible from hypotension/septicemia -No evidence of obstruction on renal u/s x 2 -C3,C4 levels wnl suggesting kidney disfunction not related to septic emboli or associated GN despite IE/infxn -per Nephro recs: Prednisone taper starting at 70mg daily; should decrease dose by 10mg every 3 days -will need nephrology follow-up in 2 weeks post-discharge, appointment made Acute hypoxemic respiratory failure -2/2 MRSA septic emboli from TV endocarditis along with pleural effusions and probable volume overload from ROXANA. -Stable at time of d/c -2-step O2 test determined that pt did not need home o2 -Had acute septic pulmonary embolism, significant resp failure from such along with severe pleuritic chest pain. Chest discomfort improved but not resolved at time of d/c. Complicated by parapneumonic effusion on left / empyema with pleural fluid + for MRSA on left via thoracentesis on 01/27/19 -last cxr with moderate effusion on left but has not changed and he is not having pleuritic symptoms from it at time of d/c Endocarditis of tricuspid valve -Echo with large TV vegetation. -Numerous blood cultures positive for MRSA 2/2 IV drug abuse. -He had severe sepsis/septic shock due to such requiring ICU stay earlier this admission. -He had clinical/radiographic evidence of significant pulmonary septic emboli in ICU -Repeat blood cx's from 01/28/19 negative -No indication for surgical intervention. -Currently on IV daptomycin. Plan for weekly dalvance with first dose on Friday. Dr Pereira has requested authorization for this antibiotic; prior auth from insurance companty still pending; hoping to have such on Friday. ID office will contact patient when auth is obtained to arrange for infusion at [facility]. -DC'd left arm PICC at discharge -Will be followed by ID post-discharge, appointment made -Will needcardiology follow-up post-discharge for echo surveillance IV drug abuse -With resulting endocarditis as above -Positive for HepC with very high viral load -HIV and HepB titers negative. -Will need minimum 6 months of sobriety in order to receive HepC treatment. -Needs GI/ID follow-up post-discharge for the HepC, arrangements made for ID Severe protein-calorie malnutrition -Ongoing with gradual improvement in albumin. -Due to endocarditis, IV drug abuse, etc. -HIV negative. -encouraged to eat high protein diet, supplement with nutritional supplements such as boost shakes Volume Overloaded Clinically he is volume overloaded with pulmonary edema 2/2 copious fluid resuscitation in the midst of his stay, ROXANA, etc. He is up a considerable amount of weight since admission (15-20 kg). On discharge given Rx for lasix 20mg po daily to help continue his diuresis for 7 days Of note, patient had been threatening AMA the last 2-3 days, and did the same on day of d/c. Providers encouraged him to stay until all issues are treated adequately and counseled him on dangers of leaving AMA including readmission, not adequatley treating infxn, which could possibly lead to . Pt understood all risks and benefits and requested to be d/c. At time of d/c, pt had no other acute concerns or complaints. Total Time Total Time Spent Total Time Spent (In Minutes): 45 Discharge Plan Discharge Items Patient Disposition: Home - Self-Care Reason For Visit: FUO Discharge Diagnosis: infective endocarditis, AIN Discharge Goals: Improve disease control, Improve function and Therapeutic intervention Activity: Per 'Additional Instructions' section Non-emergency contact: Primary Care Provider Call non-emergency contact if: you have any medication questions, your symptoms worsen and your temperature is above 101.5 Follow-up/Referrals: Marija Garzon MD [Physician] - 02/09/19 11:20 am (A follow up appt. has been made with Dr. Garzon on 02/09 at 11:20am.) Augustina Pereira DO [Physician] - 02/12/19 10:15 am (A follow up has been scheduled with Dr. Wiley on 02/12 at 10:15am.) PCP,NO [Primary Care Provider] - Diet: Regular Addtl Provider Instructions: You were admitted for concerns of fevers and chills and found to have infective endocarditis (due to your IV drug use) and also found to have acute interstitial nephritis (kidney infection). You were being treated with antibiotics here. Please follow the below instructions on discharge (these are VERY IMPORTANT to follow): -you will continue to get weekly antibiotic treatment starting on Friday at [facility] . The name of this medication is Dalvance. They will call you on Friday with appointment details. -you will take steroid medication prednisone and taper this as follows: 70 mg for 3 days, 60mg for 3 days, 50 mg for 3 days, 40 mg for 3 days, 30 mg for 3 days, 20 mg for 3 days, 10 mg for 3 days. In other words, you are decreasing by 10 mg every 3 days. -You have appointments with Dr. Garzon (kidney doctor) at [facility] on 02/09 at 11:[address] Wiley (infectious disease doctor) on 02/12 at 10:15 AM. -You will be called later this week for a cardiology follow up appointment -Please set up with a family doctor. They can help manage all your issues. You are welcome to come see us at [facility] ([address], [place] [address]). . [address] for Dr. Alvarenga -Please DO NOT use IV drugs upon discharge. This will be detrimental to your health. -As far as your hepatitis treatment, you need to have at least 6 months of sobriety prior to receiving any sort of treatment -You will take water diuretic pill lasix 20 mg daily. This will help reduce your swelling in legs and arms. Take this for one week -Please follow all above instructions on discharge. This is extremely important. You need to show up to all appointments and take all appropriate medications -Thank you Prescriptions: New furosemide [Lasix] 20 mg tablet 20 mg PO DAILY Qty: 7 RF: 0 prednisone 10 mg tablet 10 mg PO DAILY Qty: 84 RF: 0 No Action No Known Home Medications RF: 0 Stand-Alone Forms: My [facility] [employer]/Other Patient Handouts: Prednisone Oral tablet, Furosemide Oral tablet, Infec MRSA, Endocarditis Infective, Endocarditis Infective Discharge Orders: Discharge Order (Routine); Ordered 02/06/19 Ordered By: Thad Alvarenga Admission Data Admit Date/Time: 01/22/19 05:01 Attending Provider: Jewels Hawkins Admit Provider: Paul Toro Primary Care Provider: PCP,NO Other Providers: Justo Wang ; Paul Toro ; Guanako Wiley ; Jalen Brannon ; Raheem Preciado ; Dileep Costello ; Yoel Laguerre ; Brian Dunn Service: Telemetry Other Interventions: Discharge Summary Assessment (RN) Last Done: 02/06/19 10:00 DC Date/Time DO NOT enter until pt leaves facility: 02/06/19 11:31 Supervising Physician Co-Signing Physician Notes Patient seen and examined with PGY-2 Dr. Alvarenga. Agree with history, exam findings, hospital course and plan of care for discharge. In brief, Mr. 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 He has been on daptomycin and will transitioned to weekly dalvance with ID as an outpatient. He continues to have some dyspnea due to his pleural effusion, but he no longer has pleuritic chest pain and is able to oxygenate with supplemental oxygen at rest and with ambulation. He has a hx of IVD use and cannot be discharged with a PICC. This was removed prior to discharge today. He understands that his daptomycin is dosed every 24 hours so without the antibiotic until Friday, he may become ill during that time. He is aware that he may become very ill without the appropriate antibiotic coverage, but is still very insistent on being discharged today. He reports that he is about to lose everything. His father recently and he is the oldest of his siblings. There is no one else in the family to take care of the items. He has also been without a paycheck since his hospitalization and is concerned about not being able to pay rent. Discussed that should he start to become very short of breath, have recurrence of his pleuritic chest pain, fevers, chills/rigors, nausea, vomiting or just generally feeling of decline, he needs to return to the hospital for re-evaluation and possible re-admission. Stressed the importance of answering his phone when the ID office calls to set up the [facility] appts and also stressed the importance of follow up with the different specialists. He will be discharged with lasix to help with some remaining edema. He will be on a prednisone taper as described above for AIN. Of note, he has active hepatitis C, but at this time not eligible for treatment due to active drug use. I personally discussed that patient's care and discharge plans with ID and case management. I personally spent 45 minutes discharge planning/coordination of care for this patient. Resident Activity Tracking Resident Involvement: Resident Care Provided Care Provided: Adult [facility]
[2019-02-08 15:25] LABS: Hydrocodone Urine NEGATIVE NG/ML (CUTOFF=50); Hydromor Urine NEGATIVE NG/ML (CUTOFF=50); Morphine Urine 64 NG/ML (CUTOFF=50); Norhydrocodone Conf Ur NEGATIVE NG/ML (CUTOFF=50); Noroxycodone Urine 2410 NG/ML (CUTOFF=50); Oxycodone Urine 3370 NG/ML (CUTOFF=50); Oxymorph Urine 1400 NG/ML (CUTOFF=50)
== END 2019-02-06 11:31 | disposition home or self-care (01) | DRG 871 ==
LOC: ED 01:56 → 2N 05:01 → SUATTDRO 05:01 → 2N 05:38 → 1E 20:05 → 2E 01-26 12:54